=== PATIENT | female | born 1960 | race Caucasian/White ===

== ENCOUNTER 2018-07-30 10:57 | Inpatient (IN) | payer BC ==
[2018-07-30] MEDS ORDERED: FENTANYL CITRATE INJ/PF 100 MCG/2 ML AMPUL IV ONE (11:18)
[2018-07-30] MEDS ORDERED: NORMAL SALINE 1000 ML 1,000 ML IV ONE ×3 (11:18→23:15)
[2018-07-30] MEDS ORDERED: ONDANSETRON HCL INJ/PF 4 MG/2 ML SDV IV ONE (11:18)
--- NOTE | 2018-07-30 11:21 | ER Document Report ---
ED Medical Screen (RME) - General Chief Complaint: Fever Stated Complaint: COLITUS Time Seen by Provider: 07/30/18 11:18 Notes: 58 years old female presents today with left-sided abdominal pain. Recently she had a CT done which showed diffuse colitis involving the entire left side of the colon and sigmoid colon. Denies any fever chills nausea vomiting. History of psoriasis Examination left abdominal tenderness TRAVEL OUTSIDE OF THE [place] IN LAST 30 DAYS: No - Related Data Allergies/Adverse Reactions: latex [Latex] Allergy (Verified 07/30/18 11:00) itching nickel [Nickel] Allergy (Verified 07/30/18 11:00) ITCHY RASH sulfamethoxazole [From Bactrim] Allergy (Verified 07/30/18 11:00) red rash trimethoprim [From Bactrim] Allergy (Verified 07/30/18 11:00) red rash MERCURY Allergy (Uncoded 07/30/18 11:00) ITCHY RASH Past Medical History - Social History Chew tobacco use (# tins/day): No Frequency of alcohol use: None Drug Abuse: None - Past Medical History Cardiac Medical History: Denies: Hx Coronary Artery Disease, Hx Heart Attack, Hx Hypertension Pulmonary Medical History: Denies: Hx Asthma, Hx Bronchitis, Hx COPD, Hx Pneumonia Neurological Medical History: Denies: Hx Cerebrovascular Accident, Hx Seizures Renal/ Medical History: Denies: Hx Peritoneal Dialysis GI Medical History: Denies: Hx Hepatitis, Hx Hiatal Hernia, Hx Ulcer Musculoskeltal Medical History: Reports Hx Arthritis - hands/FEET, Reports Hx Musculoskeletal Trauma - Right knee fracture 10 years ago Psychiatric Medical History: Reports: Hx Depression Infectious Medical History: Denies: Hx Hepatitis Past Surgical History: Reports: Hx Cholecystectomy, Hx Hysterectomy, Hx Orthopedic Surgery - left thumb. Denies: Hx Mastectomy, Hx Open Heart Surgery - Immunizations Hx Diphtheria, Pertussis, Tetanus Vaccination: Yes Physical Exam - Vital signs Vitals: Temp Pulse Resp BP Pulse Ox 99.5 F 108 H 18 151/70 H 96 07/30/18 11:04 07/30/18 11:04 07/30/18 11:04 07/30/18 11:04 07/30/18 11:04 Course - Vital Signs Vital signs: Temp Pulse Resp BP Pulse Ox 99.5 F 108 H 18 151/70 H 96 07/30/18 11:04 07/30/18 11:04 07/30/18 11:04 07/30/18 11:04 07/30/18 11:04 Doctor's Discharge - Discharge Referrals: PAULETTE DURAN, [employer] WORK SUPERVISOR-[employer] [Primary Care Provider] - Follow up as needed
[2018-07-30 12:00] LABS: ABSOLUTE BASOPHILS # (AUTO) 0.1 10^3/uL (0.0-0.2); ABSOLUTE LYMPHOCYTES (AUTO) 1.4 10^3/uL (0.5-4.7); ABSOLUTE MONOCYTES (AUTO) 1.2 10^3/uL (0.1-1.4); ABSOLUTE NEUT (AUTO) 14.4 10^3/uL (1.7-8.2); BASOPHILS % (AUTO) 0.4 % (0-2); EOSINOPHILS % (AUTO) 0.3 % (0-6); HEMATOCRIT 40.2 % (36.0-47.0); HEMOGLOBIN 13.9 g/dL (12.0-15.5); LYMPHOCYTES % (AUTO) 8.3 % (13-45); MEAN CORPUSCULAR HEMOGLOBIN 29.5 pg (27.0-33.4); MEAN CORPUSCULAR HGB CONC 34.5 g/dL (32.0-36.0); MEAN CORPUSCULAR VOLUME 86 fl (80-97); MONOCYTES % (AUTO) 6.8 % (3-13); PLATELET COUNT 524 10^3/uL (150-450); RED BLOOD COUNT 4.71 10^6/uL (3.72-5.28); RED CELL DISTRIBUTION WIDTH 12.5 % (11.5-14.0); SEGMENTED NEUTROPHILS % (AUTO) 84.2 % (42-78); TOTAL CELLS COUNTED % (AUTO) 100 %
[2018-07-30 12:07] LABS: APPEARANCE,URINE CLOUDY; BILIRUBIN,URINE NEGATIVE (NEGATIVE); COLOR,URINE DARK YELLOW; GLUCOSE, URINE NEGATIVE (NEGATIVE); KETONES,URINE NEGATIVE (NEGATIVE); LEUKOCYTE ESTERASE,URINE SMALL (NEGATIVE); NITRITE,URINE NEGATIVE (NEGATIVE); PROTEIN,URINE 100 mg/dL (NEGATIVE); URINE SPECIFIC GRAVITY 1.021
[2018-07-30 12:19] LABS: ALANINE AMINOTRANSFERASE 23 U/L (9-52); ALBUMIN 3.5 g/dL (3.5-5.0); ALKALINE PHOSPHATASE 151 U/L (38-126); ANION GAP 14 (5-19); ASPARTATE AMINO TRANSFERASE 27 U/L (14-36); BILIRUBIN,DIRECT 0.3 mg/dL (0.0-0.4); BILIRUBIN,TOTAL 0.7 mg/dL (0.2-1.3); BLOOD UREA NITROGEN 8 mg/dL (7-20); CARBON DIOXIDE 37 mmol/L (22-30); CHLORIDE 89 mmol/L (98-107); GLUCOSE 108 mg/dL (75-110); LIPASE 50.4 U/L (23-300); SODIUM 140.4 mmol/L (137-145)
[2018-07-30] MEDS ORDERED: POTASSI CL 20 MEQ/50 ML RIDER 20 MEQ/50 ML RTUPB IV ONE (12:27)
--- NOTE | 2018-07-30 12:32 | RADIOLOGY REPORT (SQ) ---
EXAM DESCRIPTION: KUB/ABDOMEN (SINGLE VIEW) COMPLETED DATE/TIME: 07/30/2018 12:17 pm REASON FOR STUDY: Abdominal pain COMPARISON: None. NUMBER OF VIEWS: One view. TECHNIQUE: Supine radiographic image of the abdomen acquired. LIMITATIONS: None. FINDINGS: BOWEL GAS PATTERN: High attenuation contents within nondilated ascending and transverse co alvino, probably bismuth or oral contrast. CALCIFICATIONS: No suspicious calcifications. SOFT TISSUES: No gross mass or suggestion of organomegaly. HARDWARE: Clips right upper quadrant. BONES: No bone lesions or fracture. OTHER: No other significant finding. IMPRESSION: NO RADIOGRAPHIC EVIDENCE FOR ACUTE ABDOMINAL DISEASE. Reading location - IP/workstation name: [email or web address]
[2018-07-30] MEDS ORDERED: VANCOMYCIN HCL INJ 1000 MG VIAL IV ONE ×2 (13:17→16:00)
--- NOTE | 2018-07-30 13:30 | ER Document Report ---
ED General - General Chief Complaint: Fever Stated Complaint: ABDOMINAL PAIN Time Seen by Provider: 07/30/18 11:18 TRAVEL OUTSIDE OF THE [place] IN LAST 30 DAYS: No - HPI Notes: Patient is a 58-year-old female that presents to the emergency department for chief complaint of left lower quadrant abdominal pain. Patient referred to ER by PCP for IV antibiotics. Patient has had pain in her left lower quadrant since 07/11/18. She was seen by her primary care doctor and told she had colitis. She has been taking Cipro and Flagyl for the past 2 days with no improvement of her symptoms. She reports that sharp left lower quadrant pain that has been constant since onset. Pain is worse with eating. She denies relieving factors. She reports multiple episodes of diarrhea daily. She denies history of C. difficile or recent antibiotics and admission to the hospital. She has been febrile and took Tylenol just prior to arrival. Past Medical History: Negative Past Surgical History: Colonoscopy Social History: Denies drugs alcohol and tobacco Family History: Reviewed and noncontributory for presenting illness Allergies: Reviewed, see documented allergy list. REVIEW OF SYSTEMS: CONSTITUTIONAL : No fever No chills No diaphoresis No recent illness EENT: No vision changes No congestion No sore throat CARDIOVASCULAR: No chest pain No palpitations RESPIRATORY: No shortness of breath No cough No difficulty breathing GASTROINTESTINAL: abdominal pain nausea No vomiting diarrhea GENITOURINARY: No dysuria No hematuria No difficulty urinating MUSCULOSKELETAL: No back pain No leg pain No arm pain SKIN: No rashes No lesions LYMPHATIC: No swollen, enlarged glands. NEUROLOGICAL: No lightheadedness No headache No weakness No paresthesias PSYCHIATRIC: No anxiety No depression PHYSICAL EXAMINATION: Vital signs reviewed, nursing noted reviewed. GENERAL: Well-appearing, well-nourished and in no acute distress. HEAD: Atraumatic, normocephalic. EYES: Eyes appear normal, extraocular movements intact, sclera anicteric, conjunctiva are normal. ENT: nares patent, oropharynx clear without exudates. Moist mucous membranes. NECK: Normal range of motion, supple without lymphadenopathy LUNGS: Breath sounds clear to auscultation bilaterally and equal. No wheezes rales or rhonchi. HEART: Regular rate and rhythm without murmurs ABDOMEN: Soft, left upper and lower quadrant tenderness, normoactive bowel sounds. No rebound, guarding, or rigidity. No masses appreciated. EXTREMITIES: Nontender, good range of motion, no pitting or edema. NEUROLOGICAL: No focal neurological deficits. Moves all extremities spontaneously Motor and sensory grossly intact on exam. PSYCH: Normal mood, normal affect. SKIN: Warm, Dry, normal turgor, no rashes or lesions noted on exposed skin - Related Data Allergies/Adverse Reactions: latex [Latex] Allergy (Verified 07/30/18 11:00) itching nickel [Nickel] Allergy (Verified 07/30/18 11:00) ITCHY RASH sulfamethoxazole [From Bactrim] Allergy (Verified 07/30/18 11:00) red rash trimethoprim [From Bactrim] Allergy (Verified 07/30/18 11:00) red rash MERCURY Allergy (Uncoded 07/30/18 11:00) ITCHY RASH Past Medical History - Social History Smoking Status: Current Some Day Smoker Chew tobacco use (# tins/day): No Frequency of alcohol use: None Drug Abuse: None Family History: Reviewed & Not Pertinent Patient has suicidal ideation: No Patient has homicidal ideation: No - Past Medical History Cardiac Medical History: Denies: Hx Coronary Artery Disease, Hx Heart Attack, Hx Hypertension Pulmonary Medical History: Denies: Hx Asthma, Hx Bronchitis, Hx COPD, Hx Pneumonia Neurological Medical History: Denies: Hx Cerebrovascular Accident, Hx Seizures Renal/ Medical History: Denies: Hx Peritoneal Dialysis GI Medical History: Denies: Hx Hepatitis, Hx Hiatal Hernia, Hx Ulcer Musculoskeletal Medical History: Reports Hx Arthritis - hands/FEET, Reports Hx Musculoskeletal Trauma - Right knee fracture 10 years ago Psychiatric Medical History: Reports: Hx Depression Infectious Medical History: Denies: Hx Hepatitis Past Surgical History: Reports: Hx Cholecystectomy, Hx Hysterectomy, Hx Orthopedic Surgery - left thumb. Denies: Hx Mastectomy, Hx Open Heart Surgery - Immunizations Hx Diphtheria, Pertussis, Tetanus Vaccination: Yes Review of Systems - Review of Systems Notes: Dictated Physical Exam - Vital signs Vitals: Temp Pulse Resp BP Pulse Ox 99.5 F 108 H 18 151/70 H 96 07/30/18 11:04 07/30/18 11:04 07/30/18 11:04 07/30/18 11:04 07/30/18 11:04 - Notes Notes: Dictated Course - Re-evaluation Re-evalutation: 07/30/18 13:29 Vitals reviewed. Nursing notes reviewed. I reviewed patient's CT scan that she had obtained as an outpatient. It showed a significant pancolitis on her left side. She is failing outpatient management. Patient is meeting sepsis criteria. Blood cultures were obtained. She was given a dose of vancomycin. She was started on IV hydration. potassium replaced. KUB shows no free air or perforation. Patient will be admitted to the hospital for further management. She is in agreement with this plan and stable at time of admission. Laboratory 07/30/18 07/30/18 07/30/18 11:45 11:45 11:45 WBC 17.0 H RBC 4.71 Hgb 13.9 Hct 40.2 MCV 86 MCH 29.5 MCHC 34.5 RDW 12.5 Plt Count 524 H Seg Neutrophils % 84.2 H Lymphocytes % 8.3 L Monocytes % 6.8 Eosinophils % 0.3 Basophils % 0.4 Absolute Neutrophils 14.4 H Absolute Lymphocytes 1.4 Absolute Monocytes 1.2 Absolute Eosinophils 0.0 Absolute Basophils 0.1 Sodium 140.4 Potassium 3.0 L* Chloride 89 L Carbon Dioxide 37 H Anion Gap 14 BUN 8 Creatinine 0.43 L Est GFR ( Amer) > 60 Est GFR (Non-Af Amer) > 60 Glucose 108 Calcium 9.0 Total Bilirubin 0.7 Direct Bilirubin 0.3 Neonat Total Bilirubin Not Reportable Neonat Direct Bilirubin Not Reportable Neonat Indirect Bili Not Reportable AST 27 ALT 23 Alkaline Phosphatase 151 H Total Protein 7.0 Albumin 3.5 Lipase 50.4 Urine Color DARK YELLOW Urine Appearance CLOUDY Urine pH 5.0 Ur Specific [place] 1.021 Urine Protein 100 H Urine Glucose (UA) NEGATIVE Urine Ketones NEGATIVE Urine Blood NEGATIVE Urine Nitrite NEGATIVE Urine Bilirubin NEGATIVE Urine Urobilinogen 4.0 H Ur Leukocyte Esterase SMALL H Urine WBC (Auto) 27 Urine RBC (Auto) 18 U Hyaline Cast (Auto) 2 Urine Bacteria (Auto) 2+ Squamous Epi Cells Auto 43 Urine Mucus (Auto) MANY Urine Ascorbic Acid NEGATIVE KUB X-Ray 07/30/18 11:18 IMPRESSION: NO RADIOGRAPHIC EVIDENCE FOR ACUTE ABDOMINAL DISEASE. 07/30/18 14:[address] Thompson who accepted admission. Case discussed with Dr. Casiano, surgery, who states he is available for colonoscopy if needed - Vital Signs Vital signs: Temp Pulse Resp BP Pulse Ox 99.5 F 108 H 18 151/70 H 96 07/30/18 11:04 07/30/18 11:04 07/30/18 11:04 07/30/18 11:04 07/30/18 11:04 - Laboratory Result Diagrams: 07/30/18 11:45 07/30/18 11:45 Laboratory results interpreted by me: 07/30/18 07/30/18 07/30/18 11:45 11:45 11:45 WBC 17.0 H Plt Count 524 H Seg Neutrophils % 84.2 H Lymphocytes % 8.3 L Absolute Neutrophils 14.4 H Potassium 3.0 L* Chloride 89 L Carbon Dioxide 37 H Creatinine 0.43 L Alkaline Phosphatase 151 H Urine Protein 100 H Urine Urobilinogen 4.0 H Ur Leukocyte Esterase SMALL H Discharge - Discharge Clinical Impression: Colitis, Hypokalemia Sepsis Qualifiers: Sepsis type: sepsis due to unspecified organism Qualified Code(s): A41.9 - Sepsis, unspecified organism Condition: Stable Disposition: ADMITTED INPATIENT Admitting Provider: Hospitalist Unit Admitted: Telemetry Referrals: PAULETTE DURAN, PACK TRAIN DRIVER-NIMA [NO LOCAL MD] - Follow up as needed
[2018-07-30] MEDS ORDERED: PIPERACILLIN/TAZOBACTAM 3.375 GM VIAL IV SCH (15:00)
[2018-07-30 15:39] LABS: LIPASE 50.9 U/L (23-300)
--- NOTE | 2018-07-30 16:12 | PDOC H&P ---
History of Present Illness Admission Date/PCP: 07/30/18 14:50 OH SCHULTZ DO Patient complains of: Abdominal pain and diarrhea History of Present Illness: PAULETTE HARO is a 58 year old female who presents to the emergency room due to acute onset of abdominal pain and bloody diarrhea. Patient's problems started around July 11 after she received a prescription of doxycycline from her procurement representative for psoriasis treatment. She started having progressive lower abdominal pain associated with bloody diarrhea. She had a CT scan done last week by her primary care physician that was positive for colitis in the left descending and sigmoid colon up to splenic flexure and may be extending to the rectum. She was treated with oral antibiotics started by 3 days ago but without any improvement. She was seen by her primary care physician today and was referred to the emergency room. She had history of diverticulosis and colonic polyps and had a colonoscopy about 2 years ago. Past Medical History Cardiac Medical History: Denies: Coronary Artery Disease, Myocardial Infarction, Hypertension Pulmonary Medical History: Denies: Asthma, Bronchitis, Chronic Obstructive Pulmonary Disease (COPD), Pneumonia Neurological Medical History: Denies: Seizures GI Medical History: Denies: Hepatitis, Hiatal Hernia Musculoskeltal Medical History: Reports: Arthritis - hands/FEET Skin Medical History: Reports: Psoriasis Psychiatric Medical History: Reports: Depression Hematology: Denies: Anemia, Sickle Cell Disease Past Surgical History Past Surgical History: Reports: Cholecystectomy, Hysterectomy, Orthopedic Surgery - left thumb Denies: Amputation, Mastectomy Social History Smoking Status: Current Some Day Smoker Family History Family History: Reviewed & Not Pertinent Parental Family History Reviewed: Yes Children Family History Reviewed: Yes Sibling(s) Family History Reviewed.: Yes Medication/Allergy Home Medications: Fluoxetine HCl [Prozac] 40 mg PO QAM 07/30/18 Gabapentin [Neurontin 300 mg Capsule] 300 mg PO QPM 07/30/18 Allergies/Adverse Reactions: latex [Latex] Allergy (Verified 07/30/18 11:00) itching nickel [Nickel] Allergy (Verified 07/30/18 11:00) ITCHY RASH sulfamethoxazole [From Bactrim] Allergy (Verified 07/30/18 11:00) red rash trimethoprim [From Bactrim] Allergy (Verified 07/30/18 11:00) red rash MERCURY Allergy (Uncoded 07/30/18 11:00) ITCHY RASH Review of Systems All systems: reviewed and no additional remarkable complaints except as stated Physical Exam Vital Signs: Temp Pulse Resp BP Pulse Ox 99.5 F 108 H 18 151/70 H 96 07/30/18 11:04 07/30/18 11:04 07/30/18 11:04 07/30/18 11:04 07/30/18 11:04 Intake & Output 07/29/18 07/30/18 07/31/18 06:59 06:59 06:59 Intake Total 1050 Balance 1050 General appearance: PRESENT: no acute distress, cooperative, obese Head exam: PRESENT: atraumatic, normocephalic Eye exam: PRESENT: EOMI. ABSENT: conjunctival injection Ear exam: ABSENT: bleeding, drainage Mouth exam: PRESENT: neck supple, tongue midline Throat exam: ABSENT: post pharyngeal erythema Neck exam: ABSENT: JVD, meningismus, tenderness, tracheostomy Respiratory exam: PRESENT: clear to auscultation godwin. ABSENT: accessory muscle use Cardiovascular exam: PRESENT: RRR. ABSENT: diastolic murmur, systolic murmur Pulses: PRESENT: normal radial pulses GI/Abdominal exam: PRESENT: normal bowel sounds, soft, tenderness. ABSENT: ascites Rectal exam: PRESENT: deferred Extremities exam: ABSENT: joint swelling, pedal edema Musculoskeletal exam: ABSENT: normal inspection, tenderness Neurological exam: PRESENT: alert, altered, awake, oriented to person, oriented to place, oriented to time, oriented to situation Psychiatric exam: PRESENT: anxious. ABSENT: agitated, homicidal ideation, suicidal ideation Results Impressions: KUB X-Ray 07/30/18 11:18 IMPRESSION: NO RADIOGRAPHIC EVIDENCE FOR ACUTE ABDOMINAL DISEASE. Assessment & Plan - Diagnosis (1) Colitis Is this a current diagnosis for this admission?: Yes Plan: Patient failed outpatient treatment We will get CT scan with oral and IV contrast Will allow for ice chips only We will start IV Zosyn and p.o. vancomycin Check for C. difficile and check stool culture Consult surgery for possible colonoscopy (2) Hypokalemia Is this a current diagnosis for this admission?: Yes Plan: Received supplements in the emergency room Monitor potassium levels (3) Depression Is this a current diagnosis for this admission?: Yes Plan: Continue Prozac and gabapentin
[2018-07-30] MEDS ORDERED: PIPERACILLIN SODIUM/TAZOBACTAM 3.375 GM in NORMAL SALINE 100 ML IV SCH (18:00)
[2018-07-30] MEDS ORDERED: VANCOMYCIN HCL INJ 500 MG VIAL PO SCH (18:00)
--- NOTE | 2018-07-30 18:09 | RADIOLOGY REPORT (SQ) ---
EXAM DESCRIPTION: CT ABD/PELVIS WITH IV ORAL COMPLETED DATE/TIME: 07/30/2018 5:52 pm REASON FOR STUDY: abdominal pain COMPARISON: None. TECHNIQUE: CT scan of the abdomen and pelvis performed using helical scanning technique with dynamic intravenous contrast injection and oral contrast. Images reviewed with lung, soft tissue, and bone w indows. Reconstructed coronal and sagittal MPR images reviewed. Delayed images for evaluation of the urinary system also acquired. All images stored on PACS. All CT scanners at this facility use dose modulation, iterative reconstruction, and/or weight based d osing when appropriate to reduce radiation dose to as low as reasonably achievable (ALARA). [facility]: Dose Right [facility]: CareDose [facility]: Dose Right [facility]: Teradose 4D [facility]: Sionex CONTRAST TYPE AND DOSE: contrast/concentration: Isovue 350.00 mg/ml; Total Contrast Delivered: 99.0 ml; Total Saline Delivered: 72.0 ml RENAL FUNCTION: GFR > 60. RADIATION DOSE: CT Rad equipment meets quality standard of care and radiation dose reduction techniq ues were employed. CTDIvol: 16.2 - 19.5 mGy. DLP: 2068 mGy-cm.. LIMITATIONS: None. FINDINGS: LOWER CHEST: Mild bibasilar subsegmental atelectasis-subpleural scarring. Small lymph nod es in the right cardiophrenic angle. LIVER: Normal size. No enhancing masses. No dilated ducts. SPLEEN: Normal size. No focal lesions. PANCREAS: No masses identified. No significant calcifications. No adjacent inflammation or peripancre atic fluid collections. Pancreatic duct not dilated. GALLBLADDER: Surgically absent. ADRENAL GLANDS: No significant masses. RIGHT KIDNEY AND URETER: No cysts identified. No solid masses identified. No calcified stones. No hyd ronephrosis or hydroureter. LEFT KIDNEY AND URETER: No cysts identified. No solid masses identified. No calcified stones. No hydr onephrosis or hydroureter. AORTA AND VESSELS: No aneurysm. No dissection. Renal arteries, SMA, celiac without significant stenos is. RETROPERITONEUM: Scattered small retroperitoneal lymph nodes. BOWEL AND PERITONEAL CAVITY: Mild wall thickening in the descending and rectosigmoid colon with mild adjacent inflammatory changes and adjacent small adenopathy. Trace free fluid. No evidence for obs truction. APPENDIX: Normal. PELVIS: No mass. No free fluid. Unremarkable bladder. ABDOMINAL WALL: No masses. No hernias. BONES: No acute findings. OTHER: No other significant finding. IMPRESSION: Mild wall thickening in the descending and rectosigmoid colon with mild adjacent inflamm atory changes and adjacent small adenopathy, differential includes acute infectious process versus in flammatory bowel disease. Trace free fluid. No evidence for obstruction. TECHNICAL DOCUMENTATION: JOB ID: [id number] [id number] Quality ID # [id number]: Final reports with documentation of one or more dose reduction techniques (e.g., Au tomated exposure control, adjustment of the mA and/or kV according to patient size, use of iterative reconstruction technique) 2010 [employer]- All Rights Reserved Reading location - IP/workstation name: [employer]
[2018-07-30] MEDS: FAMOTIDINE INJ/PF 20 MG/2 ML SDV IV SCH ×2 (18:55→21:56)
[2018-07-30] MEDS: GABAPENTIN 300 MG CAPSULE PO SCH (18:58)
--- NOTE | 2018-07-30 20:44 | PDOC CONSULTATION ---
History of Present Illness Admission Date/PCP: 07/30/18 14:50 OH SCHULTZ DO Patient complains of: Abdominal pain and diarrhea History of Present Illness: PAULETTE HARO is a 58 year old female in usual state of excellent health until about 3 weeks ago when she was started on antibiotics for an ear infection. About 3 days after starting the antibiotic she developed bloody diarrhea along with left lower quadrant abdominal pain. The pain in the bloody diarrhea has been persistent for the past 2-1/2 weeks. She was seen by a primary care physician and was placed on Cipro and Flagyl 3 days ago and since starting these 2 antibiotics her abdominal pain has decreased although her bloody diarrhea has continued. She has developed low-grade fevers as well as anorexia with resultant weight loss. She denies any prior history of gastrointestinal problems. There is no family history of gastrointestinal problems, specifically no family history of inflammatory bowel disease. She had a colonoscopy done 2 years ago which was only noteworthy for diverticulosis and incidental polyp. She does suffer from psoriatic arthritis but she is not on any steroids. She is on gabapentin. No stool studies have been performed on her yet. She has no history of hypertension nor diabetes but she is a longtime smoker. No known history of peripheral vascular disease Past Medical History Cardiac Medical History: Reports: None Denies: Coronary Artery Disease, Myocardial Infarction, Hypertension Pulmonary Medical History: Reports: None Denies: Asthma, Bronchitis, Chronic Obstructive Pulmonary Disease (COPD), Pneumonia EENT Medical History: Reports: Ears - Ear infection 3 weeks ago. Neurological Medical History: Reports: None Denies: Seizures Endocrine Medical History: Reports: None Renal/ Medical History: Reports: None Malignancy Medical History: Reports: None GI Medical History: Reports: Other - See history of presenting illness. Denies: Hepatitis, Hiatal Hernia Musculoskeltal Medical History: Reports: Arthritis - hands/FEET Skin Medical History: Reports: Psoriasis Psychiatric Medical History: Reports: Depression Hematology: Denies: Anemia, Sickle Cell Disease Past Surgical History Past Surgical History: Reports: Cholecystectomy, Hysterectomy, Orthopedic Surgery - left thumb Denies: Amputation, Mastectomy Social History Smoking Status: Current Every Day Smoker Frequency of Alcohol Use: None Drugs: None - Advance Directive Resuscitation Status: Full Code Family History Family History: Reviewed & Not Pertinent Parental Family History Reviewed: Yes Children Family History Reviewed: Yes Sibling(s) Family History Reviewed.: Yes Medication/Allergy Home Medications: Fluoxetine HCl [Prozac] 40 mg PO QAM 07/30/18 Gabapentin [Neurontin 300 mg Capsule] 300 mg PO QPM 07/30/18 Allergies/Adverse Reactions: latex [Latex] Allergy (Verified 07/30/18 11:00) itching nickel [Nickel] Allergy (Verified 07/30/18 11:00) ITCHY RASH sulfamethoxazole [From Bactrim] Allergy (Verified 07/30/18 11:00) red rash trimethoprim [From Bactrim] Allergy (Verified 07/30/18 11:00) red rash MERCURY Allergy (Uncoded 07/30/18 11:00) ITCHY RASH Review of Systems All systems: reviewed and no additional remarkable complaints except as stated Constitutional: PRESENT: anorexia, fever(s) Ears: PRESENT: as per HPI Allergic/Immunologic: PRESENT: other - Allergic to Bactrim and mercury and nickel Physical Exam Vital Signs: Temp Pulse Resp BP Pulse Ox 99.8 F 86 16 138/51 H 95 07/30/18 19:15 07/30/18 19:15 07/30/18 19:15 07/30/18 19:15 07/30/18 19:15 Intake & Output 07/29/18 07/30/18 07/31/18 06:59 06:59 06:59 Intake Total 1050 Balance 1050 General appearance: PRESENT: no acute distress, cooperative Eye exam: PRESENT: conjunctiva pink Neck exam: PRESENT: other - Neck supple with no masses and no tenderness Respiratory exam: PRESENT: clear to auscultation godwin Cardiovascular exam: PRESENT: RRR Pulses: PRESENT: +2 pedal pulses bilateral GI/Abdominal exam: PRESENT: other - Soft, nondistended, mild tenderness at the left lower and the left lateral mid abdomen without peritoneal signs. Extremities exam: PRESENT: other - No swelling. No splinter hemorrhages. Neurological exam: PRESENT: alert, awake Psychiatric exam: PRESENT: appropriate affect Skin exam: PRESENT: warm Results Laboratory Results: 07/30/18 17:30 Lactic Acid 1.1 Impressions: Abdomen/Pelvis CT 07/30/18 00:00 IMPRESSION: Mild wall thickening in the descending and rectosigmoid colon with mild adjacent inflammatory changes and adjacent small adenopathy, differential includes acute infectious process versus inflammatory bowel disease. Trace free fluid. No evidence for obstruction. KUB X-Ray 07/30/18 11:18 IMPRESSION: NO RADIOGRAPHIC EVIDENCE FOR ACUTE ABDOMINAL DISEASE. Assessment & Plan - Diagnosis (1) Colitis Is this a current diagnosis for this admission?: Yes Plan: Of unclear etiology. C. difficile colitis is certainly in the differential diagnosis. Await stool studies. We will plan colonoscopy tomorrow. Patient has been having persistent diarrhea with no solid bowel movements for days now and she would prefer not to undergo a prep and I believe we would get sufficient visualization without a prep. I have discussed with the patient the risk and benefits of the procedure including risk of colon injury and bleeding.
[2018-07-30] MEDS ORDERED: POTASSI CL 20 MEQ/50 ML RIDER 20 MEQ/50 ML RTUPB IV SCH (20:45)
[2018-07-30] MEDS: RINGERS SOLUTION,LACTATED 1,000 ML IV PRN (21:56)
[2018-07-30] MEDS: PIPERACILLIN SODIUM/TAZOBACTAM 3.375 GM in NORMAL SALINE 100 ML IV SCH (22:18)
[2018-07-30] MEDS: VANCOMYCIN HCL INJ 500 MG VIAL PO SCH (22:18)
[2018-07-31] MEDS ORDERED: POTASSI CL 20 MEQ/50 ML RIDER 20 MEQ/50 ML RTUPB IV SCH
[2018-07-31] MEDS ORDERED: NORMAL SALINE 1000 ML 1,000 ML IV ONE (00:15)
[2018-07-31] MEDS: VANCOMYCIN HCL INJ 500 MG VIAL PO SCH ×2 (03:18→10:47)
[2018-07-31] MEDS: PIPERACILLIN SODIUM/TAZOBACTAM 3.375 GM in NORMAL SALINE 100 ML IV SCH ×4 (03:18→21:17)
[2018-07-31 07:09] LABS: ABSOLUTE BASOPHILS # (AUTO) 0.1 10^3/uL (0.0-0.2); ABSOLUTE LYMPHOCYTES (AUTO) 1.1 10^3/uL (0.5-4.7); ABSOLUTE MONOCYTES (AUTO) 1.1 10^3/uL (0.1-1.4); ABSOLUTE NEUT (AUTO) 11.5 10^3/uL (1.7-8.2); BASOPHILS % (AUTO) 0.4 % (0-2); EOSINOPHILS % (AUTO) 0.2 % (0-6); HEMATOCRIT 33.7 % (36.0-47.0); LYMPHOCYTES % (AUTO) 7.7 % (13-45); MEAN CORPUSCULAR HEMOGLOBIN 29.6 pg (27.0-33.4); MEAN CORPUSCULAR HGB CONC 34.5 g/dL (32.0-36.0); MEAN CORPUSCULAR VOLUME 86 fl (80-97); MONOCYTES % (AUTO) 7.9 % (3-13); PLATELET COUNT 403 10^3/uL (150-450); RED BLOOD COUNT 3.93 10^6/uL (3.72-5.28); RED CELL DISTRIBUTION WIDTH 12.5 % (11.5-14.0); SEGMENTED NEUTROPHILS % (AUTO) 83.8 % (42-78); TOTAL CELLS COUNTED % (AUTO) 100 %; WHITE BLOOD COUNT 13.8 10^3/uL (4.0-10.5)
[2018-07-31 07:10] LABS: HEMOGLOBIN 11.6 g/dL (12.0-15.5)
[2018-07-31 07:25] LABS: ANION GAP 10 (5-19); BLOOD UREA NITROGEN 6 mg/dL (7-20); CALCIUM 7.9 mg/dL (8.4-10.2); CARBON DIOXIDE 33 mmol/L (22-30); CHLORIDE 97 mmol/L (98-107); GLUCOSE 97 mg/dL (75-110); SODIUM 140.2 mmol/L (137-145)
[2018-07-31 07:31] LABS: POTASSIUM 2.9 mmol/L (3.6-5.0)
[2018-07-31] MEDS: POTASSIUM CHLORIDE 20 MEQ/50 ML RTU IV SCH ×3 (08:17→16:33)
[2018-07-31] MEDS ORDERED: ONDANSETRON HCL INJ/PF 4 MG/2 ML SDV ONE (08:25)
[2018-07-31] MEDS ORDERED: NALOXONE HCL INJ/PF 0.4 MG/1 ML SDV ONE (08:26)
[2018-07-31] MEDS ORDERED: GLUCAGON,HUMAN RECOMB 1 MG INJ ONE (08:26)
[2018-07-31] MEDS ORDERED: EPINEPHRINE INJ 1 MG/10 ML DISP.SYRIN ONE (08:26)
[2018-07-31] MEDS ORDERED: FLUMAZENIL INJ 0.5 MG/5 ML VIAL ONE (08:26)
[2018-07-31] MEDS: FLUOXETINE HCL 20 MG CAPSULE PO SCH (08:46)
[2018-07-31] MEDS: ENOXAPARIN SODIUM INJ 40 MG/0.4 ML DISP.SYRIN SUBCUT SCH (09:18)
[2018-07-31] MEDS: MIDAZOLAM 2 MG/2 ML INJ ONE ×5 (10:14→10:29)
[2018-07-31] MEDS: FENTANYL CITRATE INJ/PF 100 MCG/2 ML AMPUL ONE ×3 (10:16→10:22)
--- NOTE | 2018-07-31 11:02 | Operative Report ---
Operative Report DATE OF SURGERY: 07/31/18 PREOPERATIVE DIAGNOSIS: Severe colitis left colon POSTOPERATIVE DIAGNOSIS: Severe acute hemorrhagic colitis left colon. Thrombosed left lateral external hemorrhoid OPERATION: Flexible sigmoidoscopy to 30 cm from the anal verge; cold mucosa biopsy sigmoid colon SURGEON: MAUREEN MITCHELL ANESTHESIA: Moderate Sedation TISSUE REMOVED OR ALTERED: bx COMPLICATIONS: none ESTIMATED BLOOD LOSS: scant INTRAOPERATIVE FINDINGS: see below PROCEDURE: Patient was taken to the preop holding area to the main endoscopy suite fifth floor conscious sedation was induced. Patient placed in left lateral decubitus position. Surgical plan surgical timeout conducted. Rectal exam revealed multiple external hemorrhoids, edematous. In the left lateral position was a partially thrombosed external hemorrhoid with mildly excoriated overlying skin. Rectal exam revealed no palpable pathology in the anorectal canal. The flexible pediatric colonoscope was advanced to the anorectal canal to approximately 30 cm from the anal verge. The findings were significant for diffuse, hemorrhagic, edematous, circumferential colitis. Because of the friability of the tissue, and patient discomfort, I did not advance the scope through the narrowed lumen of the sigmoid colon. Cold forceps biopsy was obtained from the rectosigmoid area at approximately 25 cm. Bleeding was minimal. Specimen was sent for permanent analysis. Scope was withdrawn for the patient's anal rectal canal. She tolerated procedure well. Recommendations: 1. Supportive therapy, replace potassium, consider truncating antibiotics 2. Clostridium difficile titers negative ; I do not believe this is ischemic colitis 3. We will sign off at this time. Reconsult if necessary.
--- NOTE | 2018-07-31 11:37 | PDOC PROGRESS REPORT ---
Subjective Progress Note for:: 07/31/18 Subjective:: I saw the patient before she had a colonoscopy. She was tolerating ice chips with no vomiting. She continued to have diarrhea. She is afebrile and white count improved. C. difficile testing is negative. Colonoscopy was done later and I discussed with Dr. Singh, apparently she had hemorrhagic edematous circumferential colitis. Reason For Visit: ABDOMINAL PAIN Physical Exam Vital Signs: Temp Pulse Resp BP Pulse Ox 98.8 F 90 16 136/73 H 92 07/31/18 08:56 07/31/18 10:55 07/31/18 10:55 07/31/18 10:55 07/31/18 10:55 Intake & Output 07/30/18 07/31/18 08/01/18 06:59 06:59 06:59 Intake Total 3805 585 Balance 3805 585 Weight 202 lb 6.15 oz General appearance: PRESENT: no acute distress, cooperative, obese Head exam: PRESENT: atraumatic, normocephalic Eye exam: PRESENT: EOMI, PERRLA. ABSENT: scleral icterus Ear exam: ABSENT: bleeding, drainage Mouth exam: PRESENT: neck supple, tongue midline Neck exam: ABSENT: meningismus, tenderness, tracheostomy Respiratory exam: PRESENT: clear to auscultation godwin. ABSENT: accessory muscle use Cardiovascular exam: PRESENT: RRR. ABSENT: diastolic murmur, systolic murmur Pulses: PRESENT: normal radial pulses GI/Abdominal exam: PRESENT: normal bowel sounds, soft, tenderness. ABSENT: ascites Rectal exam: PRESENT: deferred Neurological exam: PRESENT: alert, altered, awake, oriented to person, oriented to place, oriented to time, oriented to situation Psychiatric exam: PRESENT: anxious. ABSENT: agitated, homicidal ideation, suicidal ideation Skin exam: PRESENT: dry, normal color. ABSENT: abrasion, erythema Results Laboratory Results: 07/31/18 06:23 07/31/18 06:23 07/30/18 07/31/18 07/31/18 17:30 06:23 06:23 WBC 13.8 H RBC 3.93 Hgb 11.6 L D Hct 33.7 L MCV 86 MCH 29.6 MCHC 34.5 RDW 12.5 Plt Count 403 Seg Neutrophils % 83.8 H Lymphocytes % 7.7 L Monocytes % 7.9 Eosinophils % 0.2 Basophils % 0.4 Absolute Neutrophils 11.5 H Absolute Lymphocytes 1.1 Absolute Monocytes 1.1 Absolute Eosinophils 0.0 Absolute Basophils 0.1 Sodium 140.2 Potassium 2.9 L* Chloride 97 L Carbon Dioxide 33 H Anion Gap 10 BUN 6 L Creatinine 0.54 Est GFR ( Amer) > 60 Est GFR (Non-Af Amer) > 60 Glucose 97 Lactic Acid 1.1 Calcium 7.9 L Magnesium 1.7 Impressions: Abdomen/Pelvis CT 07/30/18 00:00 IMPRESSION: Mild wall thickening in the descending and rectosigmoid colon with mild adjacent inflammatory changes and adjacent small adenopathy, differential includes acute infectious process versus inflammatory bowel disease. Trace free fluid. No evidence for obstruction. KUB X-Ray 07/30/18 11:18 IMPRESSION: NO RADIOGRAPHIC EVIDENCE FOR ACUTE ABDOMINAL DISEASE. Assessment & Plan - Diagnosis (1) Colitis Is this a current diagnosis for this admission?: Yes Plan: Patient failed outpatient treatment Reviewed CT scan with oral and IV contrast Colonoscopy report shows severe hemorrhagic edematous circumferential colitis We will try clear liquids today Continue IV Zosyn and stop p.o. vancomycin since C. difficile test is negative and no pseudomembranous colitis Follow stool culture (2) Hypokalemia Is this a current diagnosis for this admission?: Yes Plan: Continue to replace and monitor potassium levels (3) Depression Is this a current diagnosis for this admission?: Yes Plan: Continue Prozac and gabapentin
[2018-07-31] MEDS: FAMOTIDINE INJ/PF 20 MG/2 ML SDV IV SCH ×2 (11:50→21:17)
[2018-07-31] MEDS ORDERED: POTASSI CL 20 MEQ/50 ML RIDER 20 MEQ/50 ML RTUPB IV ONE (16:31)
[2018-07-31] MEDS: GABAPENTIN 300 MG CAPSULE PO SCH (18:17)
[2018-07-31] MEDS: RINGERS SOLUTION,LACTATED 1,000 ML IV PRN (18:58)
[2018-08-01] MEDS: RINGERS SOLUTION,LACTATED 1,000 ML IV PRN (02:53)
[2018-08-01] MEDS: PIPERACILLIN SODIUM/TAZOBACTAM 3.375 GM in NORMAL SALINE 100 ML IV SCH ×4 (02:53→20:06)
[2018-08-01 06:44] LABS: ABSOLUTE LYMPHOCYTES (AUTO) 1.5 10^3/uL (0.5-4.7); ABSOLUTE NEUT (AUTO) 11.9 10^3/uL (1.7-8.2); BASOPHILS % (AUTO) 0.2 % (0-2); EOSINOPHILS % (AUTO) 0.3 % (0-6); HEMATOCRIT 33.1 % (36.0-47.0); HEMOGLOBIN 11.3 g/dL (12.0-15.5); LYMPHOCYTES % (AUTO) 10.3 % (13-45); MEAN CORPUSCULAR HEMOGLOBIN 29.4 pg (27.0-33.4); MEAN CORPUSCULAR VOLUME 86 fl (80-97); MONOCYTES % (AUTO) 6.6 % (3-13); PLATELET COUNT 429 10^3/uL (150-450); RED BLOOD COUNT 3.84 10^6/uL (3.72-5.28); RED CELL DISTRIBUTION WIDTH 12.4 % (11.5-14.0); SEGMENTED NEUTROPHILS % (AUTO) 82.6 % (42-78); TOTAL CELLS COUNTED % (AUTO) 100 %; WHITE BLOOD COUNT 14.4 10^3/uL (4.0-10.5)
[2018-08-01 07:40] LABS: ANION GAP 12 (5-19); BLOOD UREA NITROGEN 7 mg/dL (7-20); CALCIUM 8.2 mg/dL (8.4-10.2); CARBON DIOXIDE 29 mmol/L (22-30); CHLORIDE 100 mmol/L (98-107); GLUCOSE 77 mg/dL (75-110); POTASSIUM 3.8 mmol/L (3.6-5.0)
[2018-08-01] MEDS: FLUOXETINE HCL 20 MG CAPSULE PO SCH (08:29)
--- NOTE | 2018-08-01 09:08 | PDOC PROGRESS REPORT ---
Subjective Progress Note for:: 08/01/18 Subjective:: C. difficile testing is negative. Colonoscopy was done yesterday and showed hemorrhagic edematous circumferential colitis. Biopsy was done but results are pending. She is still complaining of frequent watery diarrhea as well as left- sided abdominal pain. She is afebrile but her white count slightly worsened from yesterday. She is tolerating clear liquid diet. Oral vancomycin was stopped yesterday and she is continued on Zosyn. Reason For Visit: ABDOMINAL PAIN Physical Exam Vital Signs: Temp Pulse Resp BP Pulse Ox 98.9 F 81 16 149/75 H 98 08/01/18 08:26 08/01/18 08:26 08/01/18 08:26 08/01/18 08:26 08/01/18 08:26 Intake & Output 07/31/18 08/01/18 08/02/18 06:59 06:59 06:59 Intake Total 3805 2951 Balance 3805 2951 Weight 202 lb 6.15 oz 203 lb 11.314 oz General appearance: PRESENT: no acute distress, cooperative Head exam: PRESENT: atraumatic, normocephalic Eye exam: PRESENT: EOMI, PERRLA Mouth exam: PRESENT: neck supple, tongue midline Neck exam: ABSENT: meningismus, tenderness, thyromegaly, tracheostomy Respiratory exam: PRESENT: clear to auscultation godwin. ABSENT: accessory muscle use Cardiovascular exam: PRESENT: diastolic murmur, RRR, systolic murmur GI/Abdominal exam: PRESENT: normal bowel sounds, soft, tenderness. ABSENT: ascites Neurological exam: PRESENT: alert, altered, awake, oriented to person, oriented to place, oriented to time, oriented to situation Psychiatric exam: PRESENT: appropriate affect. ABSENT: agitated, anxious, homicidal ideation, suicidal ideation Results Laboratory Results: 08/01/18 05:14 08/01/18 05:14 08/01/18 08/01/18 05:14 05:14 WBC 14.4 H RBC 3.84 Hgb 11.3 L Hct 33.1 L MCV 86 MCH 29.4 MCHC 34.0 RDW 12.4 Plt Count 429 Seg Neutrophils % 82.6 H Lymphocytes % 10.3 L Monocytes % 6.6 Eosinophils % 0.3 Basophils % 0.2 Absolute Neutrophils 11.9 H Absolute Lymphocytes 1.5 Absolute Monocytes 1.0 Absolute Eosinophils 0.0 Absolute Basophils 0.0 Sodium 141.0 Potassium 3.8 Chloride 100 Carbon Dioxide 29 Anion Gap 12 BUN 7 Creatinine 0.45 L Est GFR ( Amer) > 60 Est GFR (Non-Af Amer) > 60 Glucose 77 Calcium 8.2 L Impressions: Abdomen/Pelvis CT 07/30/18 00:00 IMPRESSION: Mild wall thickening in the descending and rectosigmoid colon with mild adjacent inflammatory changes and adjacent small adenopathy, differential includes acute infectious process versus inflammatory bowel disease. Trace free fluid. No evidence for obstruction. KUB X-Ray 07/30/18 11:18 IMPRESSION: NO RADIOGRAPHIC EVIDENCE FOR ACUTE ABDOMINAL DISEASE. Assessment & Plan - Diagnosis (1) Colitis Is this a current diagnosis for this admission?: Yes Plan: Patient failed outpatient treatment CT scan with oral and IV contrast was done on admission and showed mild wall thickening of the descending and sigmoid colon with adjacent inflammatory response Colonoscopy report shows severe hemorrhagic edematous circumferential colitis. Biopsy is pending. Continue clear liquid diet Continue IV Zosyn C. difficile test was negative and we stopped p.o. vancomycin yesterday Follow stool culture (2) Hypokalemia Is this a current diagnosis for this admission?: Yes Plan: Improved after replacement Continue to monitor (3) Depression Is this a current diagnosis for this admission?: Yes Plan: Continue Prozac and gabapentin
[2018-08-01] MEDS: FAMOTIDINE INJ/PF 20 MG/2 ML SDV IV SCH ×2 (09:39→21:21)
[2018-08-01] MEDS: ENOXAPARIN SODIUM INJ 40 MG/0.4 ML DISP.SYRIN SUBCUT SCH (09:39)
[2018-08-01] MEDS: GABAPENTIN 300 MG CAPSULE PO SCH (17:39)
[2018-08-01] MEDS: MORPHINE SULFATE 10 MG/ML INJ IV PRN (17:40)
[2018-08-02] MEDS: PIPERACILLIN SODIUM/TAZOBACTAM 3.375 GM in NORMAL SALINE 100 ML IV SCH ×4 (04:38→21:59)
[2018-08-02 06:14] LABS: ABSOLUTE LYMPHOCYTES (AUTO) 1.3 10^3/uL (0.5-4.7); ABSOLUTE MONOCYTES (AUTO) 0.8 10^3/uL (0.1-1.4); ABSOLUTE NEUT (AUTO) 10.4 10^3/uL (1.7-8.2); BASOPHILS % (AUTO) 0.2 % (0-2); EOSINOPHILS % (AUTO) 0.4 % (0-6); HEMATOCRIT 32.5 % (36.0-47.0); HEMOGLOBIN 11.3 g/dL (12.0-15.5); LYMPHOCYTES % (AUTO) 10.5 % (13-45); MEAN CORPUSCULAR HEMOGLOBIN 29.5 pg (27.0-33.4); MEAN CORPUSCULAR HGB CONC 34.8 g/dL (32.0-36.0); MEAN CORPUSCULAR VOLUME 85 fl (80-97); MONOCYTES % (AUTO) 6.3 % (3-13); PLATELET COUNT 422 10^3/uL (150-450); RED BLOOD COUNT 3.83 10^6/uL (3.72-5.28); RED CELL DISTRIBUTION WIDTH 12.6 % (11.5-14.0); SEGMENTED NEUTROPHILS % (AUTO) 82.6 % (42-78); TOTAL CELLS COUNTED % (AUTO) 100 %; WHITE BLOOD COUNT 12.5 10^3/uL (4.0-10.5)
[2018-08-02 06:34] LABS: ANION GAP 11 (5-19); BLOOD UREA NITROGEN 4 mg/dL (7-20); CALCIUM 8.1 mg/dL (8.4-10.2); CARBON DIOXIDE 32 mmol/L (22-30); CHLORIDE 95 mmol/L (98-107); GLUCOSE 94 mg/dL (75-110); SODIUM 138.2 mmol/L (137-145)
[2018-08-02] MEDS: FLUOXETINE HCL 20 MG CAPSULE PO SCH (09:20)
[2018-08-02] MEDS: ENOXAPARIN SODIUM INJ 40 MG/0.4 ML DISP.SYRIN SUBCUT SCH (09:21)
[2018-08-02] MEDS: FAMOTIDINE INJ/PF 20 MG/2 ML SDV IV SCH ×2 (09:21→21:59)
[2018-08-02] MEDS: MORPHINE SULFATE 10 MG/ML INJ IV PRN (09:45)
--- NOTE | 2018-08-02 11:12 | PDOC PROGRESS REPORT ---
Subjective Progress Note for:: 08/02/18 Subjective:: Patient is still complaining of watery diarrhea but actually improved from presentation. She still has some left-sided abdominal pain but this is also better. She is afebrile and her white count is improving. Reason For Visit: ABDOMINAL PAIN Physical Exam Vital Signs: Temp Pulse Resp BP Pulse Ox 98.2 F 75 19 138/58 H 99 08/01/18 23:15 08/01/18 23:15 08/01/18 23:15 08/01/18 23:15 08/01/18 23:15 Intake & Output 08/01/18 08/02/18 08/03/18 06:59 06:59 06:59 Intake Total 2951 2316 Balance 2951 2316 Weight 203 lb 11.314 oz 214 lb 15.211 oz General appearance: PRESENT: no acute distress, cooperative, obese Head exam: PRESENT: atraumatic, normocephalic Eye exam: PRESENT: EOMI, PERRLA Mouth exam: PRESENT: neck supple, tongue midline Neck exam: ABSENT: meningismus, tracheostomy Respiratory exam: PRESENT: clear to auscultation godwin. ABSENT: accessory muscle use Cardiovascular exam: PRESENT: diastolic murmur, RRR, systolic murmur Pulses: PRESENT: normal radial pulses GI/Abdominal exam: PRESENT: normal bowel sounds, soft, tenderness - Left-sided. ABSENT: ascites Rectal exam: PRESENT: deferred Neurological exam: PRESENT: alert, altered, awake, oriented to person, oriented to place, oriented to time, oriented to situation Results Laboratory Results: 08/02/18 05:45 08/02/18 05:45 08/02/18 08/02/18 05:45 05:45 WBC 12.5 H RBC 3.83 Hgb 11.3 L Hct 32.5 L MCV 85 MCH 29.5 MCHC 34.8 RDW 12.6 Plt Count 422 Seg Neutrophils % 82.6 H Lymphocytes % 10.5 L Monocytes % 6.3 Eosinophils % 0.4 Basophils % 0.2 Absolute Neutrophils 10.4 H Absolute Lymphocytes 1.3 Absolute Monocytes 0.8 Absolute Eosinophils 0.0 Absolute Basophils 0.0 Sodium 138.2 Potassium 3.0 L* Chloride 95 L Carbon Dioxide 32 H Anion Gap 11 BUN 4 L Creatinine 0.39 L Est GFR ( Amer) > 60 Est GFR (Non-Af Amer) > 60 Glucose 94 Calcium 8.1 L Magnesium 1.7 07/30/18 21:50 Stool - Stool - Final 07/30/18 21:50 Stool - Stool Stool Culture - Final NO SALMONELLA, SHIGELLA, CAMPYLOBACTER, OR E.COLI 0157 RECOVERED. NEGATIVE FOR SHIGA TOXINS 1&2. Impressions: Abdomen/Pelvis CT 07/30/18 00:00 IMPRESSION: Mild wall thickening in the descending and rectosigmoid colon with mild adjacent inflammatory changes and adjacent small adenopathy, differential includes acute infectious process versus inflammatory bowel disease. Trace free fluid. No evidence for obstruction. KUB X-Ray 07/30/18 11:18 IMPRESSION: NO RADIOGRAPHIC EVIDENCE FOR ACUTE ABDOMINAL DISEASE. Assessment & Plan - Diagnosis (1) Colitis Is this a current diagnosis for this admission?: Yes Plan: Patient failed outpatient treatment CT scan with oral and IV contrast was done on admission and showed mild wall thickening of the descending and sigmoid colon with adjacent inflammatory response Colonoscopy report shows severe hemorrhagic edematous circumferential colitis. Biopsy is pending. Continue clear liquid diet Continue IV Zosyn C. difficile test was negative and we stopped p.o. vancomycin July 31, 2018 Stool culture is negative (2) Hypokalemia Is this a current diagnosis for this admission?: Yes Plan: Replace with IV potassium and monitor levels in the morning Also check magnesium level (3) Depression Is this a current diagnosis for this admission?: Yes Plan: Continue Prozac and gabapentin
[2018-08-02] MEDS ORDERED: ACETAMINOPHEN 325 MG TABLET ONE (11:43)
[2018-08-02] MEDS: POTASSI CL 20 MEQ/50 ML RIDER 20 MEQ/50 ML RTUPB IV SCH ×3 (11:46→18:58)
[2018-08-02] MEDS ORDERED: ACETAMINOPHEN 325 MG TABLET PO PRN (12:21)
[2018-08-02] MEDS: GABAPENTIN 300 MG CAPSULE PO SCH (17:33)
[2018-08-03] MEDS: PIPERACILLIN SODIUM/TAZOBACTAM 3.375 GM in NORMAL SALINE 100 ML IV SCH ×4 (02:38→23:03)
[2018-08-03] MEDS: RINGERS SOLUTION,LACTATED 1,000 ML IV PRN (02:39)
[2018-08-03] MEDS: FLUOXETINE HCL 20 MG CAPSULE PO SCH (05:11)
[2018-08-03 06:15] LABS: HEMATOCRIT 31.4 % (36.0-47.0); MEAN CORPUSCULAR HEMOGLOBIN 29.5 pg (27.0-33.4); MEAN CORPUSCULAR HGB CONC 34.9 g/dL (32.0-36.0); MEAN CORPUSCULAR VOLUME 85 fl (80-97); PLATELET COUNT 412 10^3/uL (150-450); RED BLOOD COUNT 3.71 10^6/uL (3.72-5.28); RED CELL DISTRIBUTION WIDTH 12.2 % (11.5-14.0); WHITE BLOOD COUNT 11.6 10^3/uL (4.0-10.5)
[2018-08-03 06:34] LABS: ALANINE AMINOTRANSFERASE 30 U/L (9-52); ALBUMIN 2.5 g/dL (3.5-5.0); ALKALINE PHOSPHATASE 102 U/L (38-126); ANION GAP 13 (5-19); ASPARTATE AMINO TRANSFERASE 32 U/L (14-36); BILIRUBIN,DIRECT 0.3 mg/dL (0.0-0.4); BILIRUBIN,TOTAL 0.6 mg/dL (0.2-1.3); BLOOD UREA NITROGEN 4 mg/dL (7-20); CARBON DIOXIDE 30 mmol/L (22-30); CHLORIDE 96 mmol/L (98-107); GLUCOSE 90 mg/dL (75-110); POTASSIUM 3.1 mmol/L (3.6-5.0); SODIUM 138.5 mmol/L (137-145); TOTAL PROTEIN 5.3 g/dL (6.3-8.2)
--- NOTE | 2018-08-03 09:13 | PDOC PROGRESS REPORT ---
Subjective Progress Note for:: 08/03/18 Subjective:: Still has watery diarrhea sometimes with a tinge of blood but overall improving. Pain also improved. Her white count improving. She is tolerating clear liquid and asking to advance her diet. Reason For Visit: ABDOMINAL PAIN Physical Exam Vital Signs: Temp Pulse Resp BP Pulse Ox 99.8 F 86 18 146/72 H 98 08/03/18 07:46 08/03/18 07:46 08/03/18 07:46 08/03/18 07:46 08/03/18 07:46 Intake & Output 08/02/18 08/03/18 08/04/18 06:59 06:59 06:59 Intake Total 2316 1367 Balance 2316 1367 Weight 214 lb 15.211 oz 214 lb 15.211 oz General appearance: PRESENT: no acute distress, cooperative Head exam: PRESENT: atraumatic, normocephalic Eye exam: PRESENT: EOMI, PERRLA Ear exam: ABSENT: bleeding, drainage Mouth exam: PRESENT: neck supple, tongue midline Neck exam: ABSENT: meningismus, tracheostomy Respiratory exam: PRESENT: clear to auscultation godwin. ABSENT: accessory muscle use Cardiovascular exam: PRESENT: RRR. ABSENT: diastolic murmur, systolic murmur Pulses: PRESENT: normal radial pulses GI/Abdominal exam: PRESENT: normal bowel sounds, soft, tenderness. ABSENT: ascites Rectal exam: PRESENT: deferred Neurological exam: PRESENT: alert, altered, awake, oriented to person, oriented to place, oriented to time, oriented to situation Psychiatric exam: PRESENT: anxious. ABSENT: agitated, homicidal ideation, suicidal ideation Results Laboratory Results: 08/03/18 05:49 08/03/18 05:49 08/03/18 08/03/18 05:49 05:49 WBC 11.6 H RBC 3.71 L Hgb 11.0 L Hct 31.4 L MCV 85 MCH 29.5 MCHC 34.9 RDW 12.2 Plt Count 412 Sodium 138.5 Potassium 3.1 L Chloride 96 L Carbon Dioxide 30 Anion Gap 13 BUN 4 L Creatinine 0.38 L Est GFR ( Amer) > 60 Est GFR (Non-Af Amer) > 60 Glucose 90 Calcium 8.0 L Magnesium 1.6 Total Bilirubin 0.6 AST 32 ALT 30 Alkaline Phosphatase 102 Total Protein 5.3 L Albumin 2.5 L Impressions: Abdomen/Pelvis CT 07/30/18 00:00 IMPRESSION: Mild wall thickening in the descending and rectosigmoid colon with mild adjacent inflammatory changes and adjacent small adenopathy, differential includes acute infectious process versus inflammatory bowel disease. Trace free fluid. No evidence for obstruction. KUB X-Ray 07/30/18 11:18 IMPRESSION: NO RADIOGRAPHIC EVIDENCE FOR ACUTE ABDOMINAL DISEASE. Assessment & Plan - Diagnosis (1) Colitis Is this a current diagnosis for this admission?: Yes Plan: Patient failed outpatient treatment CT scan with oral and IV contrast was done on admission and showed mild wall thickening of the descending and sigmoid colon with adjacent inflammatory response Colonoscopy report shows severe hemorrhagic edematous circumferential colitis. Biopsy is still pending. Continue IV Zosyn C. difficile test was negative and we stopped p.o. vancomycin July 31, 2018 Stool culture is negative Will advance to full liquid diet (2) Hypokalemia Is this a current diagnosis for this admission?: Yes Plan: Replace with IV potassium and monitor levels in the morning (3) Depression Is this a current diagnosis for this admission?: Yes Plan: Continue Prozac and gabapentin
[2018-08-03] MEDS: POTASSI CL 20 MEQ/50 ML RIDER 20 MEQ/50 ML RTUPB IV SCH ×3 (09:57→18:32)
[2018-08-03] MEDS: ENOXAPARIN SODIUM INJ 40 MG/0.4 ML DISP.SYRIN SUBCUT SCH (09:57)
[2018-08-03] MEDS: FAMOTIDINE INJ/PF 20 MG/2 ML SDV IV SCH ×2 (09:58→23:03)
[2018-08-03] MEDS: GABAPENTIN 300 MG CAPSULE PO SCH (17:02)
[2018-08-03] MEDS: ONDANSETRON HCL INJ/PF 4 MG/2 ML SDV IV PRN (17:05)
[2018-08-03] MEDS: MORPHINE SULFATE 10 MG/ML INJ IV PRN (17:14)
[2018-08-03] MEDS ORDERED: POTASSIUM CHLORIDE 20 MEQ/50 ML RTU IV ONE (19:00)
[2018-08-04] MEDS: PIPERACILLIN SODIUM/TAZOBACTAM 3.375 GM in NORMAL SALINE 100 ML IV SCH ×4 (03:58→22:44)
[2018-08-04 05:18] LABS: HEMATOCRIT 30.4 % (36.0-47.0); HEMOGLOBIN 10.5 g/dL (12.0-15.5); MEAN CORPUSCULAR HEMOGLOBIN 29.3 pg (27.0-33.4); MEAN CORPUSCULAR HGB CONC 34.6 g/dL (32.0-36.0); MEAN CORPUSCULAR VOLUME 85 fl (80-97); PLATELET COUNT 429 10^3/uL (150-450); RED BLOOD COUNT 3.58 10^6/uL (3.72-5.28); RED CELL DISTRIBUTION WIDTH 12.5 % (11.5-14.0); WHITE BLOOD COUNT 12.8 10^3/uL (4.0-10.5)
[2018-08-04 05:43] LABS: ANION GAP 9 (5-19); BLOOD UREA NITROGEN 3 mg/dL (7-20); CALCIUM 7.9 mg/dL (8.4-10.2); CARBON DIOXIDE 33 mmol/L (22-30); CHLORIDE 96 mmol/L (98-107); GLUCOSE 98 mg/dL (75-110); POTASSIUM 3.1 mmol/L (3.6-5.0); SODIUM 138.4 mmol/L (137-145)
[2018-08-04] MEDS: FLUOXETINE HCL 20 MG CAPSULE PO SCH (05:51)
[2018-08-04] MEDS: MORPHINE SULFATE 10 MG/ML INJ IV PRN (10:33)
[2018-08-04] MEDS: ONDANSETRON HCL INJ/PF 4 MG/2 ML SDV IV PRN ×2 (10:34→17:38)
[2018-08-04] MEDS: FAMOTIDINE INJ/PF 20 MG/2 ML SDV IV SCH ×2 (10:58→22:43)
[2018-08-04] MEDS: ENOXAPARIN SODIUM INJ 40 MG/0.4 ML DISP.SYRIN SUBCUT SCH (10:58)
[2018-08-04] MEDS: POTASSI CL 20 MEQ/50 ML RIDER 20 MEQ/50 ML RTUPB IV SCH ×2 (13:33→19:20)
--- NOTE | 2018-08-04 16:28 | PDOC PROGRESS REPORT ---
Subjective Progress Note for:: 08/04/18 Subjective:: The patient is a 58-year-old female with a past medical history of arthritis, psoriasis, and depression who was admitted 07/30/2018 for colitis that failed outpatient treatment. Patient was seen on morning rounds. She was found resting in bed comfortably on room air. She reports that she continues to have loose stools; twice since early this morning. She noted today that she again had bright red blood with her bowel movements. She continues to endorse generalized abdominal discomfort , anorexia, and nausea, though no emesis. She did tolerate a clear liquid diet this morning. She denies fever, chills, chest pain, palpitations, dyspnea, orthopnea, urinary symptoms. She has no new questions or concerns today. No concerns per nursing. Reason For Visit: ABDOMINAL PAIN Physical Exam Vital Signs: Temp Pulse Resp BP Pulse Ox 98.6 F 78 19 138/60 H 94 08/04/18 11:39 08/04/18 11:39 08/04/18 11:39 08/04/18 11:39 08/04/18 11:39 Intake & Output 08/03/18 08/04/18 08/05/18 06:59 06:59 06:59 Intake Total 1367 1357 1132 Balance 1367 1357 1132 Weight 97.5 kg 97.5 kg General appearance: PRESENT: no acute distress, well-developed, well-nourished Head exam: PRESENT: atraumatic, normocephalic Eye exam: PRESENT: conjunctiva pink, EOMI, PERRLA. ABSENT: scleral icterus Ear exam: PRESENT: normal external ear exam Mouth exam: PRESENT: moist, tongue midline Neck exam: ABSENT: carotid bruit, JVD, lymphadenopathy, thyromegaly Respiratory exam: PRESENT: clear to auscultation godwin. ABSENT: rales, rhonchi, wheezes Cardiovascular exam: PRESENT: RRR. ABSENT: diastolic murmur, rubs, systolic murmur Pulses: PRESENT: normal dorsalis pedis pul Vascular exam: PRESENT: normal capillary refill GI/Abdominal exam: PRESENT: normal bowel sounds, soft, tenderness. ABSENT: distended, guarding, mass, organolmegaly, rebound Rectal exam: PRESENT: deferred Extremities exam: PRESENT: full ROM, +1 edema - BLE. ABSENT: calf tenderness, clubbing, pedal edema Neurological exam: PRESENT: alert, awake, oriented to person, oriented to place , oriented to time, oriented to situation, CN II-XII grossly intact. ABSENT: motor sensory deficit Psychiatric exam: PRESENT: appropriate affect, normal mood. ABSENT: homicidal ideation, suicidal ideation Skin exam: PRESENT: dry, intact, warm. ABSENT: cyanosis, rash Results Laboratory Results: 08/04/18 05:06 08/04/18 05:06 08/04/18 08/04/18 05:06 05:06 WBC 12.8 H RBC 3.58 L Hgb 10.5 L Hct 30.4 L MCV 85 MCH 29.3 MCHC 34.6 RDW 12.5 Plt Count 429 Sodium 138.4 Potassium 3.1 L Chloride 96 L Carbon Dioxide 33 H Anion Gap 9 BUN 3 L Creatinine 0.43 L Est GFR ( Amer) > 60 Est GFR (Non-Af Amer) > 60 Glucose 98 Calcium 7.9 L Magnesium 1.6 Impressions: Abdomen/Pelvis CT 07/30/18 00:00 IMPRESSION: Mild wall thickening in the descending and rectosigmoid colon with mild adjacent inflammatory changes and adjacent small adenopathy, differential includes acute infectious process versus inflammatory bowel disease. Trace free fluid. No evidence for obstruction. KUB X-Ray 07/30/18 11:18 IMPRESSION: NO RADIOGRAPHIC EVIDENCE FOR ACUTE ABDOMINAL DISEASE. Assessment & Plan - Diagnosis (1) Ulcerative colitis Qualifiers: Ulcerative colitis location: unspecified ulcerative colitis location Digestive disease complication type: with rectal bleeding Qualified Code(s): K51.911 - Ulcerative colitis, unspecified with rectal bleeding Is this a current diagnosis for this admission?: Yes Plan: The patient was admitted following outpatient failure for treatment of colitis with antibiotics. CT scan with oral and IV contrast showed mild wall thickening of the descending and sigmoid colon with adjacent inflammatory response. Colonoscopy revealed severe hemorrhagic edematous circumferential colitis. Biopsy resulted moderate active ulcerative colitis. C. difficile was negative; p.o. vancomycin was discontinued 07/31/2018. Stool cultures negative. Blood cultures have no growth at 4 days. The patient is admitted to the medical floor. She was provided gentle IV fluids which were discontinued overnight due to the development of bilateral lower extremity edema which is subsequently improving. The patient was empirically placed on IV Zosyn. T-max in the last 48 hours was 99.9. WBC trending up slightly to 12.8. Will continue antibiotics overnight; if remains afebrile, will transition to p.o. Anticipate WBC will increase following start of steroid therapy. Antiemetics and analgesics as needed. She is tolerating a full liquid diet; will advance as tolerated. Continue to monitor daily CBC; transfuse as necessary. (2) Anemia Qualifiers: Anemia type: other cause Is this a current diagnosis for this admission?: Yes Plan: Acute blood loss anemia secondary to ulcerative colitis with active GI bleeding and hemodilution related to IV fluids. Hemoglobin has drifted downward from 13.9-10.5. Patient does continue to endorse red blood per rectum with stools. She is asymptomatic at this time; denies headaches, dizziness, dyspnea. Heart rate stable. IV fluids have been discontinued. We will continue to monitor daily CBC and transfuse as necessary. (3) Leukocytosis Is this a current diagnosis for this admission?: Yes Plan: Secondary to #1; anticipate palpation WBCs the patient has been placed on steroids for confirmed ulcerative colitis. Cultures and antibiotics as above. (4) Depression Is this a current diagnosis for this admission?: Yes Plan: Stable; will continue the patient's home dose Prozac and gabapentin. (5) Hypokalemia Is this a current diagnosis for this admission?: Yes Plan: Secondary to GI losses. Will replace with IV potassium. Daily chemistries. - Time Time Spent with patient: 15-24 minutes Medications reviewed and adjusted accordingly: Yes Anticipated discharge: Home Within: within 48 hours
[2018-08-04] MEDS ORDERED: METHYLPREDNISOLONE INJ 125 MG/2 ML SDV IV ONE (17:00)
[2018-08-04] MEDS: GABAPENTIN 300 MG CAPSULE PO SCH (17:13)
[2018-08-04] MEDS ORDERED: POTASSI CL 20 MEQ/50 ML RIDER 20 MEQ/50 ML RTUPB IV ONE (20:30)
[2018-08-05] MEDS: PIPERACILLIN SODIUM/TAZOBACTAM 3.375 GM in NORMAL SALINE 100 ML IV SCH ×2 (03:18→09:42)
[2018-08-05] MEDS: FLUOXETINE HCL 20 MG CAPSULE PO SCH (05:46)
[2018-08-05] MEDS: ONDANSETRON HCL INJ/PF 4 MG/2 ML SDV IV PRN (06:51)
[2018-08-05 07:16] LABS: HEMATOCRIT 34.1 % (36.0-47.0); HEMOGLOBIN 11.7 g/dL (12.0-15.5); MEAN CORPUSCULAR HEMOGLOBIN 29.3 pg (27.0-33.4); MEAN CORPUSCULAR HGB CONC 34.4 g/dL (32.0-36.0); MEAN CORPUSCULAR VOLUME 85 fl (80-97); PLATELET COUNT 503 10^3/uL (150-450); RED CELL DISTRIBUTION WIDTH 12.6 % (11.5-14.0); WHITE BLOOD COUNT 11.8 10^3/uL (4.0-10.5)
[2018-08-05 07:35] LABS: ANION GAP 13 (5-19); BLOOD UREA NITROGEN 5 mg/dL (7-20); CALCIUM 8.2 mg/dL (8.4-10.2); CARBON DIOXIDE 31 mmol/L (22-30); CHLORIDE 95 mmol/L (98-107); GLUCOSE 121 mg/dL (75-110); POTASSIUM 3.9 mmol/L (3.6-5.0); SODIUM 138.8 mmol/L (137-145)
[2018-08-05] MEDS: ENOXAPARIN SODIUM INJ 40 MG/0.4 ML DISP.SYRIN SUBCUT SCH (09:42)
[2018-08-05] MEDS: FAMOTIDINE INJ/PF 20 MG/2 ML SDV IV SCH (09:43)
[2018-08-05] MEDS ORDERED: PREDNISONE 20 MG TABLET PO SCH (10:00)
[2018-08-05] MEDS ORDERED: FUROSEMIDE 20 MG TABLET PO ONE (11:04)
[2018-08-05] MEDS ORDERED: FUROSEMIDE 40 MG TABLET ONE (12:08)
[2018-08-05] MEDS ORDERED: ONDANSETRON HCL INJ/PF 4 MG/2 ML SDV IV PRN (13:30)
[2018-08-05] MEDS ORDERED: MESALAMINE 400 MG CAPSULE.DR PO SCH (14:00)
--- NOTE | 2018-08-05 17:44 | PDOC PROGRESS REPORT ---
Subjective Progress Note for:: 08/05/18 Subjective:: The patient is a 58-year-old female with a past medical history of arthritis, psoriasis, and depression who was admitted 07/30/2018 for colitis that failed outpatient treatment. Patient was seen on morning rounds. She was found resting in bed comfortably on room air. She reports that she continues to have loose stools with slight streaking of blood. She continues to endorse generalized abdominal discomfort, anorexia, and nausea, though no emesis. She did tolerate a [place] diet this morning. She denies fever, chills, chest pain, palpitations, dyspnea, orthopnea, urinary symptoms. She is concerned about beginning steroid therapy for her ulcerative colitis. She states that she has an eye condition has been told by her chemical machine tender not to use prednisone. She requests that I speak with Dr. Guardado before starting her on this medication. No concerns per nursing. Reason For Visit: ABDOMINAL PAIN Physical Exam Vital Signs: Temp Pulse Resp BP Pulse Ox 98.4 F 85 19 152/73 H 99 08/05/18 16:05 08/05/18 16:05 08/05/18 16:05 08/05/18 16:05 08/05/18 16:05 Intake & Output 08/04/18 08/05/18 08/06/18 06:59 06:59 06:59 Intake Total 1357 2532 780 Output Total 350 200 Balance 1357 2182 580 Weight 97.5 kg 98.8 kg General appearance: PRESENT: no acute distress, cooperative, morbidly obese, well-developed, well-nourished Head exam: PRESENT: atraumatic, normocephalic Eye exam: PRESENT: conjunctiva pink, EOMI, PERRLA. ABSENT: scleral icterus Ear exam: PRESENT: normal external ear exam Mouth exam: PRESENT: moist, tongue midline Neck exam: ABSENT: carotid bruit, JVD, lymphadenopathy, thyromegaly Respiratory exam: PRESENT: clear to auscultation godwin, symmetrical, unlabored. ABSENT: rales, rhonchi, wheezes Cardiovascular exam: PRESENT: RRR, +S1, +S2. ABSENT: diastolic murmur, rubs, systolic murmur Pulses: PRESENT: normal dorsalis pedis pul Vascular exam: PRESENT: normal capillary refill GI/Abdominal exam: PRESENT: normal bowel sounds, soft, tenderness - Generalized ; worsened to left lower quadrant. Overall improved from yesterday. ABSENT: distended, guarding, mass, organolmegaly, rebound Rectal exam: PRESENT: deferred Extremities exam: PRESENT: full ROM. ABSENT: calf tenderness, clubbing, pedal edema Neurological exam: PRESENT: alert, awake, oriented to person, oriented to place , oriented to time, oriented to situation, CN II-XII grossly intact. ABSENT: motor sensory deficit Psychiatric exam: PRESENT: appropriate affect, normal mood. ABSENT: homicidal ideation, suicidal ideation Skin exam: PRESENT: dry, intact, warm. ABSENT: cyanosis, rash Results Laboratory Results: 08/05/18 06:38 08/05/18 06:38 08/05/18 08/05/18 06:38 06:38 WBC 11.8 H RBC 4.00 Hgb 11.7 L Hct 34.1 L MCV 85 MCH 29.3 MCHC 34.4 RDW 12.6 Plt Count 503 H Sodium 138.8 Potassium 3.9 Chloride 95 L Carbon Dioxide 31 H Anion Gap 13 BUN 5 L Creatinine 0.37 L Est GFR ( Amer) > 60 Est GFR (Non-Af Amer) > 60 Glucose 121 H Calcium 8.2 L 07/30/18 17:40 Blood Blood Culture - Final NO GROWTH IN 5 DAYS 07/30/18 17:30 Blood Blood Culture - Final NO GROWTH IN 5 DAYS Impressions: Abdomen/Pelvis CT 07/30/18 00:00 IMPRESSION: Mild wall thickening in the descending and rectosigmoid colon with mild adjacent inflammatory changes and adjacent small adenopathy, differential includes acute infectious process versus inflammatory bowel disease. Trace free fluid. No evidence for obstruction. KUB X-Ray 07/30/18 11:18 IMPRESSION: NO RADIOGRAPHIC EVIDENCE FOR ACUTE ABDOMINAL DISEASE. Assessment & Plan - Diagnosis (1) Ulcerative colitis Qualifiers: Ulcerative colitis location: unspecified ulcerative colitis location Digestive disease complication type: with rectal bleeding Qualified Code(s): K51.911 - Ulcerative colitis, unspecified with rectal bleeding Is this a current diagnosis for this admission?: Yes Plan: The patient was admitted following outpatient failure for treatment of colitis with antibiotics. CT scan with oral and IV contrast showed mild wall thickening of the descending and sigmoid colon with adjacent inflammatory response. Colonoscopy revealed severe hemorrhagic edematous circumferential colitis. Biopsy resulted moderate active ulcerative colitis. C. difficile was negative; p.o. vancomycin was discontinued 07/31/2018. Stool cultures negative. Blood cultures have no growth at 5 days. The patient is admitted to the medical floor. Received Solu-Medrol yesterday; will transition to p.o prednisone today ( discussed with the patient's ophthalmology office; there is no concern regarding short course of steroid therapy) The patient was empirically placed on IV Zosyn. She has been afebrile >48 hours , leukocytosis is improved; antibiotics are discontinued. Antiemetics and analgesics as needed. She is tolerating a bland diet; will advance as tolerated. (2) Anemia Qualifiers: Anemia type: other cause Is this a current diagnosis for this admission?: Yes Plan: Acute blood loss anemia secondary to ulcerative colitis with active GI bleeding and hemodilution related to IV fluids. Hemoglobin has drifted downward from 13.9 to 10.5; now trending up. Patient does continue to endorse red blood per rectum with stools. She is asymptomatic at this time; denies headaches, dizziness, dyspnea. Heart rate stable. IV fluids have been discontinued. We will continue to monitor daily CBC and transfuse as necessary. (3) Leukocytosis Is this a current diagnosis for this admission?: Yes Plan: Secondary to #1; anticipate elevation of WBCs the patient has been placed on steroids for confirmed ulcerative colitis. Cultures and antibiotics as above. (4) Depression Is this a current diagnosis for this admission?: Yes Plan: Stable; will continue the patient's home dose Prozac and gabapentin. (5) Hypokalemia Is this a current diagnosis for this admission?: Yes Plan: Resolved; secondary to GI losses. Will replace with IV potassium. Daily chemistries. - Time Time Spent with patient: 25-34 minutes Medications reviewed and adjusted accordingly: Yes Anticipated discharge: Home Within: within 24 hours
[2018-08-05] MEDS: PREDNISONE 20 MG TABLET PO SCH (18:41)
[2018-08-05] MEDS: GABAPENTIN 300 MG CAPSULE PO SCH (18:41)
[2018-08-05] MEDS: FAMOTIDINE 20 MG TABLET PO SCH (22:51)
[2018-08-06 05:11] LABS: HEMATOCRIT 32.4 % (36.0-47.0); HEMOGLOBIN 11.1 g/dL (12.0-15.5); MEAN CORPUSCULAR HEMOGLOBIN 28.9 pg (27.0-33.4); MEAN CORPUSCULAR HGB CONC 34.1 g/dL (32.0-36.0); MEAN CORPUSCULAR VOLUME 85 fl (80-97); PLATELET COUNT 571 10^3/uL (150-450); RED BLOOD COUNT 3.82 10^6/uL (3.72-5.28); RED CELL DISTRIBUTION WIDTH 12.6 % (11.5-14.0); WHITE BLOOD COUNT 13.5 10^3/uL (4.0-10.5)
[2018-08-06] MEDS: FLUOXETINE HCL 20 MG CAPSULE PO SCH (05:11)
[2018-08-06] MEDS ORDERED: ONDANSETRON 4 MG TAB.RAPDIS PO PRN (05:30)
[2018-08-06 05:38] LABS: ANION GAP 8 (5-19); BLOOD UREA NITROGEN 6 mg/dL (7-20); CALCIUM 8.2 mg/dL (8.4-10.2); CARBON DIOXIDE 38 mmol/L (22-30); CHLORIDE 93 mmol/L (98-107); GLUCOSE 122 mg/dL (75-110); POTASSIUM 3.8 mmol/L (3.6-5.0); SODIUM 138.5 mmol/L (137-145)
[2018-08-06 08:19] VITALS: BP 148/77
[2018-08-06] MEDS: ENOXAPARIN SODIUM INJ 40 MG/0.4 ML DISP.SYRIN SUBCUT SCH (09:16)
[2018-08-06] MEDS: PREDNISONE 20 MG TABLET PO SCH (09:16)
[2018-08-06] MEDS: FAMOTIDINE 20 MG TABLET PO SCH (09:16)
--- NOTE | 2018-08-07 16:27 | PDOC DISCHARGE SUMMARY ---
General - Admit/Disc Date/PCP Admission Date/Primary Care Provider: 07/30/18 14:50 OH Bri MARION, Discharge Date: 08/06/18 - Discharge Diagnosis (1) Ulcerative colitis Is this a current diagnosis for this admission?: Yes Summary: The patient was admitted following outpatient failure for treatment of colitis with antibiotics. CT scan with oral and IV contrast showed mild wall thickening of the descending and sigmoid colon with adjacent inflammatory response. Colonoscopy revealed severe hemorrhagic edematous circumferential colitis. Biopsy resulted moderate active ulcerative colitis. C. difficile was negative; p.o. vancomycin was discontinued 07/31/2018. Stool cultures negative. Blood cultures have no growth at 5 days. The patient is admitted to the medical floor. The patient was initially placed on IV Zosyn and p.o. vancomycin for treatment of colitis with concern for C. difficile infection. The vancomycin was discontinued soon as the C. difficile PCR resulted negative. Once the patient has been afebrile greater than 48 hours with improved leukocytosis, her Zosyn was discontinued. She underwent colonoscopy which revealed circumferential colitis with biopsy return of moderately active ulcerative colitis. She was provided IV Solu-Medrol and transition to p.o. prednisone. At the patient's request, her road manager was contacted; no concern with regard for short course of therapy however, if the patient does require long-term steroid therapy they recommend follow-up in 1 month. The patient is stable for discharge. Continues to have occasional loose stools with bloody streaking; she is advised on warning signs and red flags to prompt return to the emergency department for evaluation. Leukocytosis has improved, she remains afebrile, and she is now tolerating a bland diet. She is provided prescriptions for prednisone and Zofran. She is instructed to follow-up with her primary care provider within 1 week. She is also advised to notify her hip hop artist of her recent admission and follow-up as directed. (2) Anemia Is this a current diagnosis for this admission?: Yes Summary: Acute blood loss anemia secondary to ulcerative colitis with active GI bleeding and hemodilution related to IV fluids. Hemoglobin has drifted downward from 13.9 to 10.5; now trending up. Patient does continue to endorse streaks of bright red blood per rectum with stools. She is asymptomatic at this time; denies headaches, dizziness, dyspnea. Heart rate stable. Recommend follow up CBC in 1 week. (3) Leukocytosis Is this a current diagnosis for this admission?: Yes Summary: Secondary to # 1 and use of steroid therapy. Cultures and antibiotics as above. (4) Depression Is this a current diagnosis for this admission?: Yes Summary: Stable; the patient's home medication regiment was continued. (5) Hypokalemia Is this a current diagnosis for this admission?: Yes Summary: Resolved; secondary to GI losses. - Additional Information Resuscitation Status: Full Code Discharge Diet: As Tolerated Discharge Activity: Activity As Tolerated Prescriptions: Ondansetron [Zofran Odt 4 mg Tablet] 4 mg PO Q6HP PRN #14 tab.rapdis PRN Reason: Prednisone [Deltasone 20 mg Tablet] 40 mg PO BID 5 Days tablet Home Medications: Fluoxetine HCl [Prozac] 40 mg PO QAM 07/30/18 Gabapentin [Neurontin 300 mg Capsule] 300 mg PO QPM 07/30/18 Acetaminophen [Tylenol 325 mg Tablet] 650 mg PO Q6HP PRN tablet 08/06/18 Ondansetron [Zofran Odt 4 mg Tablet] 4 mg PO Q6HP PRN #14 tab.rapdis 08/06/18 Prednisone [Deltasone 20 mg Tablet] 40 mg PO BID 5 Days tablet 08/06/18 History of Present Illness History of Present Illness: Per H&P by Dr. Thompson: PAULETTE HARO is a 58 year old female who presents to the emergency room due to acute onset of abdominal pain and bloody diarrhea. Patient's problems started around July 11 after she received a prescription of doxycycline from her hip hop artist for psoriasis treatment. She started having progressive lower abdominal pain associated with bloody diarrhea. She had a CT scan done last week by her primary care physician that was positive for colitis in the left descending and sigmoid colon up to splenic flexure and may be extending to the rectum. She was treated with oral antibiotics started by 3 days ago but without any improvement. She was seen by her primary care physician today and was referred to the emergency room. She had history of diverticulosis and colonic polyps and had a colonoscopy about 2 years ago. Physical Exam Vital Signs: Temp Pulse Resp BP Pulse Ox 98.2 F 63 16 148/77 H 98 08/06/18 07:52 08/06/18 07:52 08/06/18 07:52 08/06/18 07:52 08/06/18 07:52 Intake & Output 08/06/18 08/07/18 08/08/18 06:59 06:59 06:59 Intake Total 1620 Output Total 200 Balance 1420 Weight 100.1 kg General appearance: PRESENT: no acute distress, cooperative, obese, well- developed, well-nourished Head exam: PRESENT: atraumatic, normocephalic Eye exam: PRESENT: conjunctiva pink, EOMI, PERRLA. ABSENT: scleral icterus Ear exam: PRESENT: normal external ear exam Mouth exam: PRESENT: moist, tongue midline Neck exam: ABSENT: carotid bruit, JVD, lymphadenopathy, thyromegaly Respiratory exam: PRESENT: clear to auscultation godwin. ABSENT: rales, rhonchi, wheezes Cardiovascular exam: PRESENT: RRR. ABSENT: diastolic murmur, rubs, systolic murmur Pulses: PRESENT: normal dorsalis pedis pul Vascular exam: PRESENT: normal capillary refill GI/Abdominal exam: PRESENT: normal bowel sounds, soft, tenderness. ABSENT: distended, guarding, mass, organolmegaly, rebound Rectal exam: PRESENT: deferred Extremities exam: PRESENT: full ROM. ABSENT: calf tenderness, clubbing, pedal edema Neurological exam: PRESENT: alert, awake, oriented to person, oriented to place , oriented to time, oriented to situation, CN II-XII grossly intact. ABSENT: motor sensory deficit Psychiatric exam: PRESENT: appropriate affect, normal mood. ABSENT: homicidal ideation, suicidal ideation Skin exam: PRESENT: dry, intact, warm. ABSENT: cyanosis, rash Results Laboratory Results: 08/06/18 04:10 08/06/18 04:10 Impressions: Abdomen/Pelvis CT 07/30/18 00:00 IMPRESSION: Mild wall thickening in the descending and rectosigmoid colon with mild adjacent inflammatory changes and adjacent small adenopathy, differential includes acute infectious process versus inflammatory bowel disease. Trace free fluid. No evidence for obstruction. KUB X-Ray 07/30/18 11:18 IMPRESSION: NO RADIOGRAPHIC EVIDENCE FOR ACUTE ABDOMINAL DISEASE. Qualifiers - * PATIENT BEING DISCHARGED WITH ANY OF THE FOLLOWING DIAGNOSIS: No Plan Discharge Plan: Follow-up with primary care provider within 1 week. Patient is instructed to notify her hip hop artist of her admission and diagnosis; follow-up as directed. Follow-up with road manager within 1 month if she continues to required steroids for treatment of ulcerative colitis. Time Spent: Less than 30 Minutes
== END 2018-08-06 12:17 | disposition home or self-care (01) | DRG 387 ==
LOC: ER 10:57 → EH 14:50 → 4S 18:40 → 4N 08-01 22:18
PROVIDERS: ADMIT Hospitalist; ATTEND Hospitalist
PROC: 0DBN8ZX Excision of Sigmoid Colon, Via Natural or Artificial Opening Endoscopic, Diagnostic (ICD-10-PCS; principal; 2018-07-31 09:45)
DX: K51.911 Ulcerative colitis, unspecified with rectal bleeding (principal); E87.6 Hypokalemia; D64.9 Anemia, unspecified; K57.90 Diverticulosis of intestine, part unspecified, without perforation or abscess without bleeding; F32.9 Major depressive disorder, single episode, unspecified; L40.9 Psoriasis, unspecified; Z86.010 Personal history of colon polyps; Z90.49 Acquired absence of other specified parts of digestive tract; Z90.710 Acquired absence of both cervix and uterus; F17.200 Nicotine dependence, unspecified, uncomplicated; Z91.040 Latex allergy status; Z91.048 Other nonmedicinal substance allergy status
CPT/HCPCS: 36415; 45331; 74018; 74177; 80048; 80053; 81001; 83605; 83690; 83735; 85025; 85027; 87040; 87045; 87205; 87493; 88305; 96365; 96366; 96375; 99285; J0171; J1610; J1650; J2250; J2270; J2310; J2405; J2543; J2930; J3010; J3370; J3480; J3490; J7030; J7120; J7512; S0028; S0119

== ENCOUNTER 2018-09-23 11:39 | Inpatient (IN) | payer BC ==
[2018-09-23] MEDS ORDERED: NORMAL SALINE 1000 ML 1,000 ML IV ONE (12:17)
--- NOTE | 2018-09-23 12:18 | ER Document Report ---
ED Medical Screen (RME) - General Chief Complaint: Abdominal Pain Stated Complaint: ABDOMINAL PAIN Time Seen by Provider: 09/23/18 12:16 Notes: 58 years old female referred here by the it recruiter for admission. The patient was having abdominal pain, diagnosed as new onset of colitis of unknown origin. TRAVEL OUTSIDE OF THE [place] IN LAST 30 DAYS: No - Related Data Allergies/Adverse Reactions: pineapple Allergy (Mild, Verified 09/23/18 12:11) latex [Latex] Allergy (Verified 09/23/18 11:43) itching nickel [Nickel] Allergy (Verified 09/23/18 11:43) ITCHY RASH sulfamethoxazole [From Bactrim] Allergy (Verified 09/23/18 11:43) red rash trimethoprim [From Bactrim] Allergy (Verified 09/23/18 11:43) red rash MERCURY Allergy (Uncoded 09/23/18 11:43) ITCHY RASH Past Medical History - Social History Chew tobacco use (# tins/day): No Frequency of alcohol use: Rare Drug Abuse: None - Past Medical History Cardiac Medical History: Denies: Hx Coronary Artery Disease, Hx Heart Attack, Hx Hypertension Pulmonary Medical History: Denies: Hx Asthma, Hx Bronchitis, Hx COPD, Hx Pneumonia Neurological Medical History: Denies: Hx Cerebrovascular Accident, Hx Seizures Renal/ Medical History: Denies: Hx Peritoneal Dialysis GI Medical History: Denies: Hx Hepatitis, Hx Hiatal Hernia, Hx Ulcer Musculoskeltal Medical History: Reports Hx Arthritis - psoriatic, Reports Hx Musculoskeletal Trauma - Right knee fracture 10 years ago Skin Medical History: Reports Hx Psoriasis Psychiatric Medical History: Reports: Hx Depression Infectious Medical History: Denies: Hx Hepatitis Past Surgical History: Reports: Hx Abdominal Surgery - hernia repair, Hx Breast Surgery - right breast lump removed, Hx Cholecystectomy, Hx Hysterectomy, Hx Orthopedic Surgery - right knee, left hand. Denies: Hx Mastectomy, Hx Open Heart Surgery - Immunizations Hx Diphtheria, Pertussis, Tetanus Vaccination: Yes Physical Exam - Vital signs Vitals: Temp Pulse Resp BP Pulse Ox 98.4 F 92 16 125/75 97 09/23/18 12:05 09/23/18 12:05 09/23/18 12:05 09/23/18 12:05 09/23/18 12:05 Course - Vital Signs Vital signs: Temp Pulse Resp BP Pulse Ox 98.4 F 92 16 125/75 97 09/23/18 12:05 09/23/18 12:05 09/23/18 12:05 09/23/18 12:05 09/23/18 12:05 Doctor's Discharge - Discharge Referrals: OH SCHULTZ DO [Primary Care Provider] - Follow up as needed
[2018-09-23 13:52] LABS: APPEARANCE,URINE SLIGHTLY-CLOUDY; BILIRUBIN,URINE SMALL (NEGATIVE); COLOR,URINE AMBER; GLUCOSE, URINE NEGATIVE (NEGATIVE); KETONES,URINE NEGATIVE (NEGATIVE); LEUKOCYTE ESTERASE,URINE TRACE (NEGATIVE); NITRITE,URINE NEGATIVE (NEGATIVE); PROTEIN,URINE 100 mg/dL (NEGATIVE); URINE SPECIFIC GRAVITY 1.038
[2018-09-23 13:58] LABS: ABSOLUTE LYMPHOCYTES (AUTO) 1.2 10^3/uL (0.5-4.7); ABSOLUTE MONOCYTES (AUTO) 0.4 10^3/uL (0.1-1.4); ABSOLUTE NEUT (AUTO) 12.1 10^3/uL (1.7-8.2); BASOPHILS % (AUTO) 0.1 % (0-2); HEMATOCRIT 35.5 % (36.0-47.0); HEMOGLOBIN 11.8 g/dL (12.0-15.5); LYMPHOCYTES % (AUTO) 8.5 % (13-45); MEAN CORPUSCULAR HEMOGLOBIN 28.9 pg (27.0-33.4); MEAN CORPUSCULAR HGB CONC 33.2 g/dL (32.0-36.0); MEAN CORPUSCULAR VOLUME 87 fl (80-97); MONOCYTES % (AUTO) 3.1 % (3-13); PLATELET COUNT 616 10^3/uL (150-450); RED BLOOD COUNT 4.08 10^6/uL (3.72-5.28); RED CELL DISTRIBUTION WIDTH 16.6 % (11.5-14.0); SEGMENTED NEUTROPHILS % (AUTO) 88.3 % (42-78); TOTAL CELLS COUNTED % (AUTO) 100 %; WHITE BLOOD COUNT 13.7 10^3/uL (4.0-10.5)
[2018-09-23 14:15] LABS: ALANINE AMINOTRANSFERASE 32 U/L (9-52); ALBUMIN 2.6 g/dL (3.5-5.0); ALKALINE PHOSPHATASE 257 U/L (38-126); ANION GAP 8 (5-19); ASPARTATE AMINO TRANSFERASE 14 U/L (14-36); BILIRUBIN,DIRECT 0.2 mg/dL (0.0-0.4); BILIRUBIN,TOTAL 0.6 mg/dL (0.2-1.3); BLOOD UREA NITROGEN 15 mg/dL (7-20); CALCIUM 8.2 mg/dL (8.4-10.2); CARBON DIOXIDE 32 mmol/L (22-30); CHLORIDE 92 mmol/L (98-107); GLUCOSE 108 mg/dL (75-110); POTASSIUM 4.6 mmol/L (3.6-5.0); SODIUM 132.1 mmol/L (137-145); TOTAL PROTEIN 4.8 g/dL (6.3-8.2)
[2018-09-23 14:17] LABS: LIPASE < 10.0 U/L (23-300)
--- NOTE | 2018-09-23 15:22 | ER Document Report ---
ED General - General Chief Complaint: Abdominal Pain Stated Complaint: ABDOMINAL PAIN Time Seen by Provider: 09/23/18 12:16 Mode of Arrival: Ambulatory Information source: Patient Notes: 58-year-old female with ulcerative colitis, pulmonary fibrosis, glaucoma, rheumatoid arthritis, headaches presents with complaint of left upper and left lower quadrant abdominal pain that has been ongoing for 4 months with worsening of pain over the last week. Patient is being seen by Dr. Abdulkadir bales rologist who sent patient in for admission. She states she has had a recent colonoscopy in August 2018. She was sent here by him with request for labs, fluids and a CAT scan as well as admission. Patient states that she has had multiple episodes of bloody diarrhea. This is not new for her but she states the pain has worsened. TRAVEL OUTSIDE OF THE [place] IN LAST 30 DAYS: No - HPI Onset: Other Onset/Duration: Persistent, Worse Quality of pain: Cramping Severity: Moderate Associated symptoms: Diarrhea, Other. denies: Vomiting Exacerbated by: Denies Relieved by: Denies Similar symptoms previously: Yes Recently seen / treated by doctor: Yes - Related Data Allergies/Adverse Reactions: pineapple Allergy (Mild, Verified 09/23/18 12:11) latex [Latex] Allergy (Verified 09/23/18 11:43) itching nickel [Nickel] Allergy (Verified 09/23/18 11:43) ITCHY RASH sulfamethoxazole [From Bactrim] Allergy (Verified 09/23/18 11:43) red rash trimethoprim [From Bactrim] Allergy (Verified 09/23/18 11:43) red rash MERCURY Allergy (Uncoded 09/23/18 11:43) ITCHY RASH Past Medical History - General Information source: Patient, Dr. Saladña, [facility] Records - Social History Smoking Status: Former Smoker Chew tobacco use (# tins/day): No Frequency of alcohol use: Rare Drug Abuse: None Lives with: Family Family History: Reviewed & Not Pertinent Patient has suicidal ideation: No Patient has homicidal ideation: No - Past Medical History Cardiac Medical History: Denies: Hx Coronary Artery Disease, Hx Heart Attack, Hx Hypertension Pulmonary Medical History: Denies: Hx Asthma, Hx Bronchitis, Hx COPD, Hx Pneumonia Neurological Medical History: Denies: Hx Cerebrovascular Accident, Hx Seizures Renal/ Medical History: Denies: Hx Peritoneal Dialysis GI Medical History: Denies: Hx Hepatitis, Hx Hiatal Hernia, Hx Ulcer Musculoskeletal Medical History: Reports Hx Arthritis - psoriatic, Reports Hx Musculoskeletal Trauma - Right knee fracture 10 years ago Skin Medical History: Reports Hx Psoriasis Psychiatric Medical History: Reports: Hx Depression Infectious Medical History: Denies: Hx Hepatitis Past Surgical History: Reports: Hx Abdominal Surgery - hernia repair, Hx Breast Surgery - right breast lump removed, Hx Cholecystectomy, Hx Hysterectomy, Hx Orthopedic Surgery - right knee, left hand. Denies: Hx Mastectomy, Hx Open Heart Surgery - Immunizations Hx Diphtheria, Pertussis, Tetanus Vaccination: Yes Review of Systems - Review of Systems Notes: REVIEW OF SYSTEMS: CONSTITUTIONAL : Denies fever, chills, or sweats. Denies recent illness. Denies weight loss, recent hospitalizations. EENT: Denies visual changes, eye pain. Denies sore throat, oral lesions, difficulty swallowing. CARDIOVASCULAR: Denies chest pain. Denies palpitations. Denies lower extremity edema. RESPIRATORY: Denies cough. Denies shortness of breath, wheezing. GASTROINTESTINAL: Denies nausea, vomiting. Denies blood in vomitus, Denies black, tarry stools. Denies constipation. GENITOURINARY: Denies difficulty urinating, painful urination, frequency, blood in urine, or vaginal discharge. MUSCULOSKELETAL: Denies back or neck pain or stiffness. Denies joint pain or swelling. SKIN: Denies rash, lesions or sores. HEMATOLOGIC : Denies easy bruising or bleeding. LYMPHATIC: Denies swollen glands. NEUROLOGICAL: Denies confusion or altered mental status. Denies loss of consciousness. Denies headache. Denies weakness or paralysis. Denies problems difficulty with ambulation, slurred speech. Denies sensory loss, numbness, or tingling. Denies seizures. PSYCHIATRIC: Denies anxiety or stress. Denies depression, suicidal ideation, or homicidal ideation. Denies visual or auditory hallucinations. Physical Exam - Vital signs Vitals: Temp Pulse Resp BP Pulse Ox 98.4 F 92 16 125/75 97 09/23/18 12:05 09/23/18 12:05 09/23/18 12:05 09/23/18 12:05 09/23/18 12:05 - Notes Notes: PHYSICAL EXAMINATION: GENERAL: Well-appearing, well-nourished and in no acute distress. HEAD: Atraumatic, normocephalic. EYES: Pupils equal round and reactive to light, extraocular movements intact, conjunctiva are normal. ENT: Nares patent, oropharynx clear without exudates. Moist mucous membranes. NECK: Normal range of motion, supple without lymphadenopathy LUNGS: Breath sounds clear to auscultation bilaterally and equal. No wheezes rales or rhonchi. HEART: Regular rate and rhythm without murmurs ABDOMEN: Left upper quadrant abdominal pain with palpation. No guarding, no rebound. No masses appreciated. Female : deferred Musculoskeletal: Normal range of motion, no pitting or edema. No cyanosis. NEUROLOGICAL: Cranial nerves grossly intact. Normal speech, normal gait. Normal sensory, motor exams PSYCH: Normal mood, normal affect. SKIN: Warm, Dry, normal turgor, no rashes or lesions noted. Course - Re-evaluation Re-evalutation: Laboratory 09/23/18 09/23/18 09/23/18 12:39 13:33 13:33 WBC 13.7 H RBC 4.08 Hgb 11.8 L Hct 35.5 L MCV 87 MCH 28.9 MCHC 33.2 RDW 16.6 H Plt Count 616 H Seg Neutrophils % 88.3 H Lymphocytes % 8.5 L Monocytes % 3.1 Eosinophils % 0.0 Basophils % 0.1 Absolute Neutrophils 12.1 H Absolute Lymphocytes 1.2 Absolute Monocytes 0.4 Absolute Eosinophils 0.0 Absolute Basophils 0.0 Sodium 132.1 L Potassium 4.6 Chloride 92 L Carbon Dioxide 32 H Anion Gap 8 BUN 15 Creatinine 0.41 L Est GFR ( Amer) > 60 Est GFR (Non-Af Amer) > 60 Glucose 108 Calcium 8.2 L Total Bilirubin 0.6 Direct Bilirubin 0.2 Neonat Total Bilirubin Not Reportable Neonat Direct Bilirubin Not Reportable Neonat Indirect Bili Not Reportable AST 14 ALT 32 Alkaline Phosphatase 257 H Total Protein 4.8 L Albumin 2.6 L Lipase < 10.0 L Urine Color ALBERT Urine Appearance SLIGHTLY-CLOUDY Urine pH 5.0 Ur Specific [place] 1.038 Urine Protein 100 H Urine Glucose (UA) NEGATIVE Urine Ketones NEGATIVE Urine Blood NEGATIVE Urine Nitrite NEGATIVE Urine Bilirubin SMALL H Urine Urobilinogen 2.0 H Ur Leukocyte Esterase TRACE H Urine WBC (Auto) 3 Urine RBC (Auto) 1 U Hyaline Cast (Auto) 18 Urine Bacteria (Auto) TRACE Squamous Epi Cells Auto 4 Urine Mucus (Auto) MANY Urine Ascorbic Acid 40 H Chest X-Ray 09/23/18 00:00 IMPRESSION: NO ACUTE RADIOGRAPHIC FINDING IN THE CHEST. Abdomen/Pelvis CT 09/23/18 15:01 IMPRESSION: 1. Sigmoid diverticulosis. Cannot exclude mild associated inflammation. 2. There is a large irregularly-shaped fluid collection in the lower abdomen/ upper pelvis as described. This is concerning for an abscess. The exact origin is not clear. Is there clinical evidence of or history of appendicitis? Temp Pulse Resp BP Pulse Ox 98.2 F 114 H 22 H 144/85 H 98 09/23/18 23:15 09/23/18 23:15 09/23/18 23:15 09/23/18 23:15 09/23/18 23:15 58-year-old female with ulcerative colitis, pulmonary fibrosis, glaucoma, rheumatoid arthritis, headaches presents with complaint of left upper and left lower quadrant abdominal pain that has been ongoing for 4 months with worsening of pain over the last week. Patient is being seen by Dr. Panchal leisure studies professor who sent patient in for admission. Vital signs reviewed upon arrival and patient is afebrile but mildly tachycardic. Patient does have abdominal pain with palpation to the left upper and lower quadrant but is without guarding or rebound. CT was obtained and concerning for abdominal abscess. Antibiotics of Cipro, Flagyl ordered by Dr. panchal. Patient accepted by the hospitalist for admission. 09/23/18 15:20 Patient declining pain medication at this time. 09/23/18 17:03 Spoke to who has already put in all of the medication that he wants the patient to have. As far as basic hospitalist's orders he will leave that up to the hospitalist. Patient has been accepted by Dr. Trevino for admission. 09/24/18 02:56 09/24/18 02:57 - Vital Signs Vital signs: Temp Pulse Resp BP Pulse Ox 98.2 F 114 H 22 H 144/85 H 98 09/23/18 23:15 09/23/18 23:15 09/23/18 23:15 09/23/18 23:15 09/23/18 23:15 - Laboratory Result Diagrams: 09/23/18 13:33 09/23/18 13:33 Laboratory results interpreted by me: 09/23/18 09/23/18 09/23/18 12:39 13:33 13:33 WBC 13.7 H Hgb 11.8 L Hct 35.5 L RDW 16.6 H Plt Count 616 H Seg Neutrophils % 88.3 H Lymphocytes % 8.5 L Absolute Neutrophils 12.1 H Sodium 132.1 L Chloride 92 L Carbon Dioxide 32 H Creatinine 0.41 L Calcium 8.2 L Alkaline Phosphatase 257 H C-Reactive Protein Total Protein 4.8 L Albumin 2.6 L Lipase < 10.0 L Urine Protein 100 H Urine Bilirubin SMALL H Urine Urobilinogen 2.0 H Ur Leukocyte Esterase TRACE H Urine Ascorbic Acid 40 H 09/23/18 13:33 WBC Hgb Hct RDW Plt Count Seg Neutrophils % Lymphocytes % Absolute Neutrophils Sodium Chloride Carbon Dioxide Creatinine Calcium Alkaline Phosphatase C-Reactive Protein 174.4 H Total Protein Albumin Lipase Urine Protein Urine Bilirubin Urine Urobilinogen Ur Leukocyte Esterase Urine Ascorbic Acid - Diagnostic Test Radiology reviewed: Image reviewed, Reports reviewed Discharge - Discharge Clinical Impression: Colitis, Elevated alkaline phosphatase level, Hypoalbuminemia, Abdominal abscess Ulcerative colitis Qualifiers: Ulcerative colitis location: unspecified ulcerative colitis location Digestive disease complication type: with rectal bleeding Qualified Code(s): K51.919 - Ulcerative colitis, unspecified with unspecified complications Leukocytosis Qualifiers: Leukocytosis type: unspecified Qualified Code(s): D72.829 - Elevated white blood cell count, unspecified Condition: Good Disposition: ADMITTED INPATIENT Admitting Provider: Hospitalist Unit Admitted: Medical Floor
--- NOTE | 2018-09-23 17:36 | RADIOLOGY REPORT (SQ) ---
EXAM DESCRIPTION: CHEST 2 VIEWS COMPLETED DATE/TIME: 09/23/2018 5:27 pm REASON FOR STUDY: colitis. Need for high risk meds COMPARISON: Two-view chest 11/04/2014 EXAM PARAMETERS: NUMBER OF VIEWS: two views TECHNIQUE: Digital Frontal and Lateral radiographic views of the chest acquired. RADIATION DOSE: NA LIMITATIONS: none FINDINGS: LUNGS AND PLEURA: No opacities, masses or pneumothorax. No pleural effusion. MEDIASTINUM AND HILAR STRUCTURES: No masses or contour abnormalities. HEART AND VASCULAR STRUCTURES: Heart normal size. No evidence for failure. BONES: No acute findings. HARDWARE: None in the chest. Clips right upper quadrant post cholecystectomy OTHER: Gaseous distention of the colon under the left hemidiaphragm. IMPRESSION: NO ACUTE RADIOGRAPHIC FINDING IN THE CHEST. TECHNICAL DOCUMENTATION: JOB ID: [id number] [employer]- All Rights Reserved Reading location - IP/workstation name: [email or web address]
[2018-09-23] MEDS ORDERED: CIPROFLOXACIN 400 MG/D5W RTU 400 MG/200 ML RTUPB IV SCH (18:00)
[2018-09-23] MEDS: METHYLPREDNISOLONE INJ 40 MG/1 ML SDV IV SCH (18:13)
--- NOTE | 2018-09-23 18:16 | RADIOLOGY REPORT (SQ) ---
EXAM DESCRIPTION: CT ABD/PELVIS WITH IV ONLY COMPLETED DATE/TIME: 09/23/2018 5:36 pm REASON FOR STUDY: colitis rectal bleeding COMPARISON: 07/30/2018 TECHNIQUE: CT scan of the abdomen and pelvis performed using helical scanning technique with dynamic intravenous contrast injection. No oral contrast. Images reviewed with lung, soft tissue, and bone windows. Reconstructed coronal and sagittal MPR images reviewed. Delayed images for evaluation of the urinary system also acquired. All images stored on PACS. All CT scanners at this facility use dose modulation, iterative reconstruction, and/or weight based d osing when appropriate to reduce radiation dose to as low as reasonably achievable (ALARA). [facility]: Dose Right [facility]: CareDose [facility]: Dose Right [facility]: Teradose 4D [facility]: [employer] CONTRAST TYPE AND DOSE: contrast/concentration: Isovue 350.00 mg/ml; Total Contrast Delivered: 97.0 ml; Total Saline Delivered: 67.8 ml 97 mL Omnipaque 350- low osmolar. RENAL FUNCTION: BUN 15 creatinine 0.41 RADIATION DOSE: CT Rad equipment meets quality standard of care and radiation dose reduction techniq ues were employed. CTDIvol: 11.7 - 15.9 mGy. DLP: 1579 mGy-cm.. LIMITATIONS: None. FINDINGS: LOWER CHEST: Mild peripheral pulmonary fibrosis. LIVER: Homogeneous. No mass. SPLEEN: Normal size. No focal lesions. PANCREAS: No masses. No significant calcifications. No adjacent inflammation or peripancreatic fluid collections. Pancreatic duct not dilated. GALLBLADDER: Surgically absent. ADRENAL GLANDS: No significant masses or asymmetry. RIGHT KIDNEY AND URETER: No solid masses. No significant calcifications. No hydronephrosis or hyd roureter. LEFT KIDNEY AND URETER: No solid masses. No significant calcifications. No hydronephrosis or hydr oureter. AORTA AND VESSELS: No aneurysm. No dissection. Renal arteries, SMA, celiac without stenosis. RETROPERITONEUM: No retroperitoneal adenopathy, hemorrhage or masses. BOWEL AND PERITONEAL CAVITY: There is considerable stool in the right colon. There is a large irregu lar fluid collection that appears to be associated with the cecum or perhaps the ileum. This measure s 7.1 cm in maximum cephalocaudal dimension on the coronal sequence. This measures 14.3 cm in transv erse diameter on the coronal sequence. The maximum AP diameter is 7.5 cm. There is an air-fluid lev el. This is distinct from the sigmoid colon and the urinary bladder. Sigmoid diverticulosis with no acute inflammatory changes. There is mild thickening of a segment of the sigmoid colon, however. APPENDIX: Not identified. PELVIS: No mass. No free fluid. Normal bladder. ABDOMINAL WALL: No masses. No hernias. BONES: No significant or acute findings. OTHER: No other significant finding. IMPRESSION: 1. Sigmoid diverticulosis. Cannot exclude mild associated inflammation. 2. There is a large irregularly-shaped fluid collection in the lower abdomen/ upper pelvis as descri bed. This is concerning for an abscess. The exact origin is not clear. Is there clinical evidence of or history of appendicitis? TECHNICAL DOCUMENTATION: JOB ID: [id number] Quality ID # [id number]: Final reports with documentation of one or more dose reduction techniques (e.g., Au tomated exposure control, adjustment of the mA and/or kV according to patient size, use of iterative reconstruction technique) 2010 [employer]- All Rights Reserved Reading location - IP/workstation name: [email or web address]
--- NOTE | 2018-09-23 18:41 | PDOC H&P ---
History of Present Illness Admission Date/PCP: 09/23/18 17:30 OH SCHULTZ DO History of Present Illness: PAULETTE HARO is a 58 year old female who was sent over from the gastroentero logist office where she presented for follow-up on her ulcerative colitis. She had been on a prednisone taper since July, but because her GI symptoms had not improved, her lcsw decided to have her admitted so that she could be evaluated endoscopically. She reports that she still has a lot of diarrhea, occasionally bloody. She says that the prednisone has caused her to retain a lot of fluid in her legs well. She has a little bit of abdominal tenderness. She has not had any fevers. No nausea or vomiting. She says she does not eat very much because it runs right through her. Past Medical History Cardiac Medical History: Denies: Coronary Artery Disease, Myocardial Infarction, Hypertension Pulmonary Medical History: Denies: Asthma, Bronchitis, Chronic Obstructive Pulmonary Disease (COPD), Pneumonia Neurological Medical History: Denies: Seizures GI Medical History: Denies: Hepatitis, Hiatal Hernia Musculoskeltal Medical History: Reports: Arthritis - psoriatic Skin Medical History: Reports: Psoriasis Psychiatric Medical History: Reports: Depression Hematology: Denies: Anemia, Sickle Cell Disease Past Surgical History Past Surgical History: Reports: Cholecystectomy, Hysterectomy, Orthopedic Surgery - right knee, left hand Denies: Amputation, Mastectomy Social History Lives with: Family Smoking Status: Former Smoker Frequency of Alcohol Use: None Drugs: None Family History Family History: Reviewed & Not Pertinent Parental Family History Reviewed: No - Noncontributory Children Family History Reviewed: No - Noncontributory Sibling(s) Family History Reviewed.: No - Noncontributory Medication/Allergy Allergies/Adverse Reactions: pineapple Allergy (Mild, Verified 09/23/18 12:11) latex [Latex] Allergy (Verified 09/23/18 11:43) itching nickel [Nickel] Allergy (Verified 09/23/18 11:43) ITCHY RASH sulfamethoxazole [From Bactrim] Allergy (Verified 09/23/18 11:43) red rash trimethoprim [From Bactrim] Allergy (Verified 09/23/18 11:43) red rash MERCURY Allergy (Uncoded 09/23/18 11:43) ITCHY RASH Review of Systems All systems: reviewed and no additional remarkable complaints except as stated - 10 point review of systems was conducted with the patient was negative except as noted above patient did to do the treadmill and she feels like Physical Exam Vital Signs: Temp Pulse Resp BP Pulse Ox 98.4 F 92 16 125/75 97 09/23/18 12:05 09/23/18 12:05 09/23/18 12:05 09/23/18 12:05 09/23/18 12:05 Intake & Output 09/22/18 09/23/18 09/24/18 06:59 06:59 06:59 Weight 85.1 kg General appearance: PRESENT: no acute distress, cooperative, disheveled, morbidly obese Head exam: PRESENT: atraumatic, normocephalic Eye exam: PRESENT: EOMI, PERRLA. ABSENT: conjunctival injection, nystagmus, scleral icterus Ear exam: PRESENT: normal external ear exam Mouth exam: PRESENT: moist, neck supple Teeth exam: PRESENT: poor dentation Throat exam: ABSENT: post pharyngeal erythema Neck exam: PRESENT: full ROM. ABSENT: carotid bruit, JVD, lymphadenopathy, meningismus, tenderness, thyromegaly Respiratory exam: PRESENT: clear to auscultation godwin, symmetrical, unlabored. ABSENT: accessory muscle use, prolonged expiratory phas, rales, rhonchi, tachypnea, wheezes Cardiovascular exam: PRESENT: RRR, +S1, +S2 Vascular exam: PRESENT: normal capillary refill GI/Abdominal exam: PRESENT: normal bowel sounds, soft, tenderness - Some slight tenderness in the left upper quadrant and in the right lower quadrant. ABSENT: distended, guarding, rebound Extremities exam: PRESENT: pedal edema, other - 3+ pitting edema below the knees bilaterally. ABSENT: clubbing Musculoskeletal exam: PRESENT: normal inspection. ABSENT: deformity Neurological exam: PRESENT: alert, awake, oriented to person, oriented to place, oriented to time, oriented to situation, CN II-XII grossly intact. ABSENT: motor sensory deficit Psychiatric exam: PRESENT: appropriate affect, normal mood Skin exam: PRESENT: dry, warm Results Laboratory Results: 09/23/18 13:33 09/23/18 13:33 09/23/18 09/23/18 09/23/18 12:39 13:33 13:33 WBC 13.7 H RBC 4.08 Hgb 11.8 L Hct 35.5 L MCV 87 MCH 28.9 MCHC 33.2 RDW 16.6 H Plt Count 616 H Seg Neutrophils % 88.3 H Lymphocytes % 8.5 L Monocytes % 3.1 Eosinophils % 0.0 Basophils % 0.1 Absolute Neutrophils 12.1 H Absolute Lymphocytes 1.2 Absolute Monocytes 0.4 Absolute Eosinophils 0.0 Absolute Basophils 0.0 Sodium 132.1 L Potassium 4.6 Chloride 92 L Carbon Dioxide 32 H Anion Gap 8 BUN 15 Creatinine 0.41 L Est GFR ( Amer) > 60 Est GFR (Non-Af Amer) > 60 Glucose 108 Calcium 8.2 L Total Bilirubin 0.6 AST 14 ALT 32 Alkaline Phosphatase 257 H C-Reactive Protein Total Protein 4.8 L Albumin 2.6 L Lipase < 10.0 L Urine Color ALBERT Urine Appearance SLIGHTLY-CLOUDY Urine pH 5.0 Ur Specific [place] 1.038 Urine Protein 100 H Urine Glucose (UA) NEGATIVE Urine Ketones NEGATIVE Urine Blood NEGATIVE Urine Nitrite NEGATIVE Ur Leukocyte Esterase TRACE H Urine WBC (Auto) 3 Urine RBC (Auto) 1 09/23/18 13:33 WBC RBC Hgb Hct MCV MCH MCHC RDW Plt Count Seg Neutrophils % Lymphocytes % Monocytes % Eosinophils % Basophils % Absolute Neutrophils Absolute Lymphocytes Absolute Monocytes Absolute Eosinophils Absolute Basophils Sodium Potassium Chloride Carbon Dioxide Anion Gap BUN Creatinine Est GFR ( Amer) Est GFR (Non-Af Amer) Glucose Calcium Total Bilirubin AST ALT Alkaline Phosphatase C-Reactive Protein 174.4 H Total Protein Albumin Lipase Urine Color Urine Appearance Urine pH Ur Specific [place] Urine Protein Urine Glucose (UA) Urine Ketones Urine Blood Urine Nitrite Ur Leukocyte Esterase Urine WBC (Auto) Urine RBC (Auto) Impressions: Chest X-Ray 09/23/18 00:00 IMPRESSION: NO ACUTE RADIOGRAPHIC FINDING IN THE CHEST. Abdomen/Pelvis CT 09/23/18 15:01 IMPRESSION: 1. Sigmoid diverticulosis. Cannot exclude mild associated inflammation. 2. There is a large irregularly-shaped fluid collection in the lower abdomen/ upper pelvis as described. This is concerning for an abscess. The exact origin is not clear. Is there clinical evidence of or history of appendicitis? Assessment & Plan - Diagnosis (1) Ulcerative colitis Qualifiers: Ulcerative colitis location: unspecified ulcerative colitis location Digestive disease complication type: unspecified complication Qualified Code(s): K51.919 - Ulcerative colitis, unspecified with unspecified complications Is this a current diagnosis for this admission?: Yes Plan: She will be admitted and managed medically by gastroenterology. Tentative plan is for some steroids and mesalamine, and possibly endoscopic evaluation. - Time Time Spent: 50 to 70 Minutes - Inpatient Certification Based on my medical assessment, after consideration of the patient's comorbidities, presenting symptoms, or acuity I expect that the services needed warrant INPATIENT care.: Yes I certify that my determination is in accordance with my understanding of Medicare's requirements for reasonable and necessary INPATIENT services [42 CFR 412.3e].: Yes Medical Necessity: Significant Comorbidiites Make Outpatient Treatment Too Risky, Need for Surgery - Endoscopy
[2018-09-23] MEDS: METRONIDAZOLE 500 MG/NS RTU 500 MG/100 ML RTUPB IV SCH (20:31)
[2018-09-23] MEDS ORDERED: MESALAMINE 4 GM/60 ML ENEMA PR ONE (21:00)
[2018-09-23] MEDS ORDERED: IMIPENEM/CILASTATIN SODIUM 500 MG in NORMAL SALINE 100 ML IV SCH (21:00)
[2018-09-23] MEDS ORDERED: IMIPENEM/CILASTATIN SODIUM INJ 500 MG VIAL IV SCH (21:00)
--- NOTE | 2018-09-23 21:01 | PDOC CONSULTATION ---
Consultation Consult Date: 09/23/18 History of Present Illness Admission Date/PCP: 09/23/18 17:30 OH SCHULTZ DO History of Present Illness: PAULETTE HARO is a 58 year old female Patient who was admitted to the emergency room with worsening ulcerative colitis with an anasarca, Bloody diarrhea, and anorexia. I first saw the patient in the office in July with new onset ulcerative colitis. She had a normal colonoscopy in 2015 and did not start having diarrhea and rectal bleeding until after receiving Taltz for her psoriasis. I believe her ulcerative colitis is antibiotics effect of an adverse effect of the Taltz though she has not received any more doses since May or June. She has severe left-sided colitis noted on colonoscopy performed on 09/03/2018 extending from the rectum up to the descending colon. Review of the right colon was limited due to stool but no active colitis was identified. She has been on 40 mg prednisone for the last month in addition to Lialda. She was on Cipro and Flagyl for 2 weeks during the month of August. She continues to have significant diarrhea about 4-5 times a day with blood in almost every bowel movement. She also has recurrent abdominal pain mostly in the left upper quadrant on the right lower quadrant. This is not particularly related to food or to bowel movement. She denies any fever and only had nausea once a few days ago. Her appetite has been poor though she has been drinking 2 cans of boost every day. She has chronic pedal edema but this has worsened in t he last few weeks. She has difficulty walking due to the swelling and has fallen a few times. She denies dysuria but has not been passing as much urine as usual. In the emergency room she had a CAT scan that showed a large 7 x 14 cm fluid collection in the lower abdomen. There was only mild bowel wall thickening in the sigmoid colon. She also had a lot of stool in the right colon. White count is 13 with a left shift and a platelet count of 616. Albumin is 2.6. Past Medical History Cardiac Medical History: Denies: Coronary Artery Disease, Myocardial Infarction, Hypertension Pulmonary Medical History: Denies: Asthma, Bronchitis, Chronic Obstructive Pulmonary Disease (COPD), Pneumonia Neurological Medical History: Denies: Seizures GI Medical History: Denies: Hepatitis, Hiatal Hernia GI History Note: Ulcerative colitis secondary to Taltz Musculoskeltal Medical History: Reports: Arthritis - psoriatic Skin Medical History: Reports: Psoriasis Psychiatric Medical History: Reports: Depression Hematology: Denies: Anemia, Sickle Cell Disease Past Surgical History Past Surgical History: Reports: Cholecystectomy, Hysterectomy, Orthopedic Surgery - right knee, left hand Denies: Amputation, Mastectomy Social History Lives with: Family Smoking Status: Former Smoker Frequency of Alcohol Use: None Drugs: None Family History Family History: Reviewed & Not Pertinent Parental Family History Reviewed: No Children Family History Reviewed: NA Sibling(s) Family History Reviewed.: NA Medication/Allergy Home Medications: Fluoxetine HCl [Prozac] 40 mg PO DAILY 09/23/18 Fluticasone Propionate [Flonase Nasal [place] 50 Mcg/[place] 16 gm] 2 spray NASL DAILYP PRN 09/23/18 Gabapentin [Neurontin 300 mg Capsule] 300 mg PO DAILY 09/23/18 Gabapentin [Neurontin 300 mg Capsule] 600 mg PO QHS 09/23/18 Hydrochlorothiazide [Hydrodiuril 25 mg Tablet] 25 mg PO DAILY 09/23/18 Ixekizumab [Taltz Autoinjector] 80 mg IM [id number] 09/23/18 Mercaptopurine [Purinethol 50 mg Tablet] 50 mg PO DAILY 09/23/18 Mesalamine [Lialda] 4.8 gm PO DAILY 09/23/18 Mesalamine [Rowasa 1000 mg Supp.rect] 1,000 mg [place] DAILYP PRN 09/23/18 Mirtazapine [Remeron 15 mg Tablet] 15 mg PO QHS 09/23/18 Oxycodone HCl/Acetaminophen [Endocet 5-325 Tablet] 0.5 tab PO Q6HP PRN 09/23/18 Tramadol HCl [Ultram 50 mg Tablet] 50 mg PO Q6HP PRN 09/23/18 Allergies/Adverse Reactions: pineapple Allergy (Mild, Verified 09/23/18 12:11) latex [Latex] Allergy (Verified 09/23/18 11:43) itching nickel [Nickel] Allergy (Verified 09/23/18 11:43) ITCHY RASH sulfamethoxazole [From Bactrim] Allergy (Verified 09/23/18 11:43) red rash trimethoprim [From Bactrim] Allergy (Verified 09/23/18 11:43) red rash MERCURY Allergy (Uncoded 09/23/18 11:43) ITCHY RASH Review of Systems All systems: reviewed and no additional remarkable complaints except as stated Physical Exam Vital Signs: Temp Pulse Resp BP Pulse Ox 97.9 F 84 13 127/61 H 99 09/23/18 18:46 09/23/18 18:46 09/23/18 18:46 09/23/18 18:46 09/23/18 18:46 Intake & Output 09/22/18 09/23/18 09/24/18 06:59 06:59 06:59 Intake Total 1200 Balance 1200 Weight 85.1 kg Exam: General: Patient is alert. HEENT: There is no pallor or jaundice. PERRLA. Oropharynx normal Respiratory: No chest deformity. No respiratory distress. Chest wall palpitation was unremarkable. Breath sounds were normal Cardiovascular: Heart sounds 1 and 2 normal with no murmurs. Abdominal: Not distended. Soft with some tenderness in the right upper quadrant and the right lower quadrant. There was no rebound or guarding. Liver and spleen not palpable. No ascites demonstrated. Bowel sounds active. Rectal examination was deferred. Extremities: She has severe edema extending up the thighs and also involving both arms. Neurological: Alert and oriented x4. Grossly nonfocal. Normal speech Skin: No significant rash Psychological: Normal affect Results Laboratory Results: 09/23/18 13:33 09/23/18 13:33 09/23/18 09/23/18 09/23/18 12:39 13:33 13:33 WBC 13.7 H RBC 4.08 Hgb 11.8 L Hct 35.5 L MCV 87 MCH 28.9 MCHC 33.2 RDW 16.6 H Plt Count 616 H Seg Neutrophils % 88.3 H Lymphocytes % 8.5 L Monocytes % 3.1 Eosinophils % 0.0 Basophils % 0.1 Absolute Neutrophils 12.1 H Absolute Lymphocytes 1.2 Absolute Monocytes 0.4 Absolute Eosinophils 0.0 Absolute Basophils 0.0 Sodium 132.1 L Potassium 4.6 Chloride 92 L Carbon Dioxide 32 H Anion Gap 8 BUN 15 Creatinine 0.41 L Est GFR ( Amer) > 60 Est GFR (Non-Af Amer) > 60 Glucose 108 Calcium 8.2 L Total Bilirubin 0.6 AST 14 ALT 32 Alkaline Phosphatase 257 H C-Reactive Protein Total Protein 4.8 L Albumin 2.6 L Lipase < 10.0 L Urine Color ALBERT Urine Appearance SLIGHTLY-CLOUDY Urine pH 5.0 Ur Specific [place] 1.038 Urine Protein 100 H Urine Glucose (UA) NEGATIVE Urine Ketones NEGATIVE Urine Blood NEGATIVE Urine Nitrite NEGATIVE Ur Leukocyte Esterase TRACE H Urine WBC (Auto) 3 Urine RBC (Auto) 1 09/23/18 13:33 WBC RBC Hgb Hct MCV MCH MCHC RDW Plt Count Seg Neutrophils % Lymphocytes % Monocytes % Eosinophils % Basophils % Absolute Neutrophils Absolute Lymphocytes Absolute Monocytes Absolute Eosinophils Absolute Basophils Sodium Potassium Chloride Carbon Dioxide Anion Gap BUN Creatinine Est GFR ( Amer) Est GFR (Non-Af Amer) Glucose Calcium Total Bilirubin AST ALT Alkaline Phosphatase C-Reactive Protein 174.4 H Total Protein Albumin Lipase Urine Color Urine Appearance Urine pH Ur Specific [place] Urine Protein Urine Glucose (UA) Urine Ketones Urine Blood Urine Nitrite Ur Leukocyte Esterase Urine WBC (Auto) Urine RBC (Auto) Impressions: Chest X-Ray 09/23/18 00:00 IMPRESSION: NO ACUTE RADIOGRAPHIC FINDING IN THE CHEST. Abdomen/Pelvis CT 09/23/18 15:01 IMPRESSION: 1. Sigmoid diverticulosis. Cannot exclude mild associated inflammation. 2. There is a large irregularly-shaped fluid collection in the lower abdomen/ upper pelvis as described. This is concerning for an abscess. The exact origin is not clear. Is there clinical evidence of or history of appendicitis? Assessment & Plan - Diagnosis (1) Ulcerative colitis Qualifiers: Ulcerative colitis location: unspecified ulcerative colitis location Digestive disease complication type: with rectal bleeding Qualified Code(s): K51.919 - Ulcerative colitis, unspecified with unspecified complications Is this a current diagnosis for this admission?: Yes Plan: She has significant ulcerative colitis involving the distal rectum, sigmoid colon and the descending colon up to 65 cm on her last colonoscopy performed on 09/03/2018. Her symptoms has not responded much to prednisone and mesalamine. She could not obtain mesalamine enemas for insurance reasons. She continues to have bloody diarrhea given the CAT scan only shows mild wall thickening in the left colon. Her CRP was over 140. I started her on IV Solu-Medrol 20 mg 3 times daily in addition to Rowasa enemas. She may need Biologics in the near f uture. I sent for TB QuantiFERON, hepatitis serology and HIV serology. Stools were also sent for C. difficile and cultures. (2) Abscess of abdominal cavity Is this a current diagnosis for this admission?: Yes Plan: CT findings consistent with intra-abdominal abscess. Consultation will be obtained with the surgeon and will also discuss with the radiologist to see if this can be approached percutaneously (3) Anasarca Is this a current diagnosis for this admission?: Yes Plan: This is probably from a combination of nutritional status and the use of prednisone. She will continue with nutritional supplements in addition to a high calorie and high protein diet. Albumin was 2.6. (4) Elevated alkaline phosphatase level Is this a current diagnosis for this admission?: Yes (5) Hypoalbuminemia Is this a current diagnosis for this admission?: Yes
[2018-09-23] MEDS: 1/2 NORMAL SALINE 1,000 ML IV PRN (22:15)
[2018-09-23] MEDS ORDERED: IMIPENEM/CILASTATIN SODIUM INJ 500 MG VIAL IV ONE (23:33)
[2018-09-24] MEDS ORDERED: IMIPENEM/CILASTATIN SODIUM INJ 500 MG VIAL IV PRN (01:59)
[2018-09-24] MEDS: METRONIDAZOLE 500 MG/NS RTU 500 MG/100 ML RTUPB IV SCH ×3 (02:50→20:36)
[2018-09-24] MEDS: METHYLPREDNISOLONE INJ 40 MG/1 ML SDV IV SCH ×3 (02:50→17:34)
[2018-09-24] MEDS: IMIPENEM/CILASTATIN SODIUM 500 MG in NORMAL SALINE 100 ML IV SCH ×3 (06:06→17:34)
--- NOTE | 2018-09-24 06:13 | PDOC CONSULTATION ---
Consultation Consult Date: 09/23/18 Consult reason:: Intra-abdominal abscess History of Present Illness Admission Date/PCP: 09/23/18 17:30 OH SCHULTZ DO History of Present Illness: PAULETTE HARO is a 58 year old female seen at the request of Dr. Miller. This is a patient with a long-standing history of ulcerative colitis. She has been treated with Biologics and steroids in the past. She reports long-standing ab dominal pain. It is dull and aching. It is constant. She rates it is 5 out of 10. The pain does not radiate. Nothing makes her symptoms better or worse. The patient has frequent rectal bleeding, however her rectal bleeding has subsided recently. Patient had a colonoscopy by Dr. Miller several months ago demonstrating active ulcerative colitis. Currently, the patient denies chest pain, shortness of breath, fevers, chills, headache, blurry vision, orthostasis, sore throat. Patient does report fatigue, malaise, abdominal pain, and dysuria. Past Medical History Cardiac Medical History: Denies: Coronary Artery Disease, Myocardial Infarction, Hypertension Pulmonary Medical History: Denies: Asthma, Bronchitis, Chronic Obstructive Pulmonary Disease (COPD), Pneumonia Neurological Medical History: Denies: Seizures GI Medical History: Denies: Hepatitis, Hiatal Hernia Musculoskeltal Medical History: Reports: Arthritis - psoriatic Skin Medical History: Reports: Psoriasis Psychiatric Medical History: Reports: Depression Hematology: Denies: Anemia, Sickle Cell Disease Past Surgical History Past Surgical History: Reports: Cholecystectomy, Hysterectomy, Orthopedic Surgery - right knee, left hand Denies: Amputation, Mastectomy Social History Lives with: Family Smoking Status: Former Smoker Frequency of Alcohol Use: None Drugs: None Family History Family History: Reviewed & Not Pertinent Parental Family History Reviewed: Yes Children Family History Reviewed: Yes Sibling(s) Family History Reviewed.: Yes Medication/Allergy Home Medications: Fluoxetine HCl [Prozac] 40 mg PO DAILY 09/23/18 Fluticasone Propionate [Flonase Nasal [place] 50 Mcg/[place] 16 gm] 2 spray NASL DAILYP PRN 09/23/18 Gabapentin [Neurontin 300 mg Capsule] 300 mg PO DAILY 09/23/18 Gabapentin [Neurontin 300 mg Capsule] 600 mg PO QHS 09/23/18 Hydrochlorothiazide [Hydrodiuril 25 mg Tablet] 25 mg PO DAILY 09/23/18 Ixekizumab [Taltz Autoinjector] 80 mg IM [id number] 09/23/18 Mercaptopurine [Purinethol 50 mg Tablet] 50 mg PO DAILY 09/23/18 Mesalamine [Lialda] 4.8 gm PO DAILY 09/23/18 Mesalamine [Rowasa 1000 mg Supp.rect] 1,000 mg [place] DAILYP PRN 09/23/18 Mirtazapine [Remeron 15 mg Tablet] 15 mg PO QHS 09/23/18 Oxycodone HCl/Acetaminophen [Endocet 5-325 Tablet] 0.5 tab PO Q6HP PRN 09/23/18 Tramadol HCl [Ultram 50 mg Tablet] 50 mg PO Q6HP PRN 09/23/18 Allergies/Adverse Reactions: pineapple Allergy (Mild, Verified 09/23/18 12:11) latex [Latex] Allergy (Verified 09/23/18 11:43) itching nickel [Nickel] Allergy (Verified 09/23/18 11:43) ITCHY RASH sulfamethoxazole [From Bactrim] Allergy (Verified 09/23/18 11:43) red rash trimethoprim [From Bactrim] Allergy (Verified 09/23/18 11:43) red rash MERCURY Allergy (Uncoded 09/23/18 11:43) ITCHY RASH Review of Systems Constitutional: PRESENT: fatigue. ABSENT: anorexia, chills, fever(s) Eyes: ABSENT: visual disturbances Ears: ABSENT: hearing changes Nose, Mouth, and Throat: ABSENT: sore throat Cardiovascular: ABSENT: chest pain Respiratory: ABSENT: cough Gastrointestinal: PRESENT: abdominal pain, bloating. ABSENT: hematochezia - None recently, nausea, vomiting Genitourinary: PRESENT: dysuria Musculoskeletal: ABSENT: back pain Integumentary: ABSENT: pruritus, rash Neurological: ABSENT: confusion, convulsions, dizziness Psychiatric: ABSENT: anxiety, depression Endocrine: ABSENT: cold intolerance, heat intolerance Hematologic/Lymphatic: ABSENT: easy bleeding Physical Exam Vital Signs: Temp Pulse Resp BP Pulse Ox 97.9 F 84 13 127/61 H 99 09/23/18 18:46 09/23/18 18:46 09/23/18 18:46 09/23/18 18:46 09/23/18 18:46 Intake & Output 09/22/18 09/23/1819 06:59 06:59 06:59 Intake Total 1200 Balance 1200 Weight 85.1 kg General appearance: PRESENT: no acute distress, cooperative Head exam: PRESENT: atraumatic, normocephalic Eye exam: PRESENT: EOMI, PERRLA. ABSENT: scleral icterus Mouth exam: PRESENT: moist, neck supple Teeth exam: ABSENT: poor dentation Neck exam: ABSENT: meningismus, tenderness, thyromegaly, tracheal deviation Respiratory exam: PRESENT: clear to auscultation godwin, unlabored. ABSENT: chest wall tenderness, tachypnea, wheezes Cardiovascular exam: PRESENT: RRR Pulses: PRESENT: normal radial pulses Vascular exam: PRESENT: normal capillary refill. ABSENT: pallor GI/Abdominal exam: PRESENT: soft, tenderness - Right lower quadrant. ABSENT: distended, firm, guarding, rigid Rectal exam: PRESENT: deferred Extremities exam: ABSENT: clubbing Musculoskeletal exam: ABSENT: deformity Neurological exam: PRESENT: alert, awake, oriented to person, oriented to place, oriented to time, oriented to situation, CN II-XII grossly intact. ABSENT: motor sensory deficit Psychiatric exam: ABSENT: agitated, anxious, depressed Focused psych exam: ABSENT: delusional Skin exam: ABSENT: cyanosis, erythema, jaundice Results Laboratory Results: 09/23/18 13:33 09/23/18 13:33 09/23/18 09/23/18 09/23/18 12:39 13:33 13:33 WBC 13.7 H RBC 4.08 Hgb 11.8 L Hct 35.5 L MCV 87 MCH 28.9 MCHC 33.2 RDW 16.6 H Plt Count 616 H Seg Neutrophils % 88.3 H Lymphocytes % 8.5 L Monocytes % 3.1 Eosinophils % 0.0 Basophils % 0.1 Absolute Neutrophils 12.1 H Absolute Lymphocytes 1.2 Absolute Monocytes 0.4 Absolute Eosinophils 0.0 Absolute Basophils 0.0 Sodium 132.1 L Potassium 4.6 Chloride 92 L Carbon Dioxide 32 H Anion Gap 8 BUN 15 Creatinine 0.41 L Est GFR ( Amer) > 60 Est GFR (Non-Af Amer) > 60 Glucose 108 Calcium 8.2 L Total Bilirubin 0.6 AST 14 ALT 32 Alkaline Phosphatase 257 H C-Reactive Protein Total Protein 4.8 L Albumin 2.6 L Lipase < 10.0 L Urine Color ALBERT Urine Appearance SLIGHTLY-CLOUDY Urine pH 5.0 Ur Specific [place] 1.038 Urine Protein 100 H Urine Glucose (UA) NEGATIVE Urine Ketones NEGATIVE Urine Blood NEGATIVE Urine Nitrite NEGATIVE Ur Leukocyte Esterase TRACE H Urine WBC (Auto) 3 Urine RBC (Auto) 1 09/23/18 13:33 WBC RBC Hgb Hct MCV MCH MCHC RDW Plt Count Seg Neutrophils % Lymphocytes % Monocytes % Eosinophils % Basophils % Absolute Neutrophils Absolute Lymphocytes Absolute Monocytes Absolute Eosinophils Absolute Basophils Sodium Potassium Chloride Carbon Dioxide Anion Gap BUN Creatinine Est GFR ( Amer) Est GFR (Non-Af Amer) Glucose Calcium Total Bilirubin AST ALT Alkaline Phosphatase C-Reactive Protein 174.4 H Total Protein Albumin Lipase Urine Color Urine Appearance Urine pH Ur Specific [place] Urine Protein Urine Glucose (UA) Urine Ketones Urine Blood Urine Nitrite Ur Leukocyte Esterase Urine WBC (Auto) Urine RBC (Auto) Impressions: Chest X-Ray 09/23/18 00:00 IMPRESSION: NO ACUTE RADIOGRAPHIC FINDING IN THE CHEST. Abdomen/Pelvis CT 09/23/18 15:01 IMPRESSION: 1. Sigmoid diverticulosis. Cannot exclude mild associated inflammation. 2. There is a large irregularly-shaped fluid collection in the lower abdomen/ upper pelvis as described. This is concerning for an abscess. The exact origin is not clear. Is there clinical evidence of or history of appendicitis? Assessment & Plan - Diagnosis (1) Abscess of abdominal cavity Is this a current diagnosis for this admission?: Yes - Plan Summary Plan Summary: This is a 58-year-old female with a history of ulcerative colitis, recently treated with Biologics and steroids. She has apparently developed an intra- abdominal abscess. She reports right lower quadrant abdominal pain and dysuria. At this time, she does not appear toxic. Her white blood cell count is moderat [place] elevated. She does not exhibit peritonitis at present. The patient will require drainage of her abscess, however the optimal method has yet to be determined. I will evaluate her CT scan with a radiologist tomorrow in an attempt to determine if percutaneous drainage of the abscess is feasible. If percutaneous drainage is not possible, she may require operative drainage of her abscess. I will continue to follow this patient very closely with you. The plan has been discussed at length with the patient, and she is in agreement.
[2018-09-24 06:19] LABS: HEMATOCRIT 29.9 % (36.0-47.0); HEMOGLOBIN 10.2 g/dL (12.0-15.5); MEAN CORPUSCULAR HEMOGLOBIN 29.7 pg (27.0-33.4); MEAN CORPUSCULAR HGB CONC 34.2 g/dL (32.0-36.0); MEAN CORPUSCULAR VOLUME 87 fl (80-97); PLATELET COUNT 507 10^3/uL (150-450); RED BLOOD COUNT 3.44 10^6/uL (3.72-5.28); RED CELL DISTRIBUTION WIDTH 16.4 % (11.5-14.0); WHITE BLOOD COUNT 11.1 10^3/uL (4.0-10.5)
[2018-09-24 06:40] LABS: ANION GAP 8 (5-19); BLOOD UREA NITROGEN 12 mg/dL (7-20); CARBON DIOXIDE 31 mmol/L (22-30); CHLORIDE 94 mmol/L (98-107); GLUCOSE 92 mg/dL (75-110); POTASSIUM 4.2 mmol/L (3.6-5.0)
--- NOTE | 2018-09-24 10:58 | PDOC PROGRESS REPORT ---
Subjective Progress Note for:: 09/24/18 Subjective:: Several day history of pelvic pain. Reason For Visit: ULCERATIVE COLITIS Physical Exam Vital Signs: Temp Pulse Resp BP Pulse Ox 97.2 F 88 15 141/66 H 96 09/24/18 07:30 09/24/18 07:30 09/24/18 07:30 09/24/18 07:30 09/24/18 07:30 Intake & Output 09/23/18 09/24/18 09/25/18 06:59 06:59 06:59 Intake Total 1400 Balance 1400 Weight 85.1 kg General appearance: PRESENT: no acute distress, cooperative Respiratory exam: PRESENT: clear to auscultation godwin Cardiovascular exam: PRESENT: RRR GI/Abdominal exam: PRESENT: other - Soft, mildly distended, tender in the lower abdomen without peritoneal signs. Results Laboratory Results: 09/24/18 05:57 09/24/18 05:57 09/23/18 09/23/18 09/23/18 12:39 13:33 13:33 WBC 13.7 H RBC 4.08 Hgb 11.8 L Hct 35.5 L MCV 87 MCH 28.9 MCHC 33.2 RDW 16.6 H Plt Count 616 H Seg Neutrophils % 88.3 H Lymphocytes % 8.5 L Monocytes % 3.1 Eosinophils % 0.0 Basophils % 0.1 Absolute Neutrophils 12.1 H Absolute Lymphocytes 1.2 Absolute Monocytes 0.4 Absolute Eosinophils 0.0 Absolute Basophils 0.0 Sodium 132.1 L Potassium 4.6 Chloride 92 L Carbon Dioxide 32 H Anion Gap 8 BUN 15 Creatinine 0.41 L Est GFR ( Amer) > 60 Est GFR (Non-Af Amer) > 60 Glucose 108 Calcium 8.2 L Total Bilirubin 0.6 AST 14 ALT 32 Alkaline Phosphatase 257 H C-Reactive Protein Total Protein 4.8 L Albumin 2.6 L Lipase < 10.0 L Urine Color ALBERT Urine Appearance SLIGHTLY-CLOUDY Urine pH 5.0 Ur Specific [place] 1.038 Urine Protein 100 H Urine Glucose (UA) NEGATIVE Urine Ketones NEGATIVE Urine Blood NEGATIVE Urine Nitrite NEGATIVE Ur Leukocyte Esterase TRACE H Urine WBC (Auto) 3 Urine RBC (Auto) 1 09/23/18 09/24/18 09/24/18 13:33 05:57 05:57 WBC 11.1 H RBC 3.44 L Hgb 10.2 L Hct 29.9 L MCV 87 MCH 29.7 MCHC 34.2 RDW 16.4 H Plt Count 507 H Seg Neutrophils % Lymphocytes % Monocytes % Eosinophils % Basophils % Absolute Neutrophils Absolute Lymphocytes Absolute Monocytes Absolute Eosinophils Absolute Basophils Sodium 133.0 L Potassium 4.2 Chloride 94 L Carbon Dioxide 31 H Anion Gap 8 BUN 12 Creatinine 0.41 L Est GFR ( Amer) > 60 Est GFR (Non-Af Amer) > 60 Glucose 92 Calcium 8.0 L Total Bilirubin AST ALT Alkaline Phosphatase C-Reactive Protein 174.4 H Total Protein Albumin Lipase Urine Color Urine Appearance Urine pH Ur Specific [place] Urine Protein Urine Glucose (UA) Urine Ketones Urine Blood Urine Nitrite Ur Leukocyte Esterase Urine WBC (Auto) Urine RBC (Auto) Impressions: Chest X-Ray 09/23/18 00:00 IMPRESSION: NO ACUTE RADIOGRAPHIC FINDING IN THE CHEST. Abdomen/Pelvis CT 09/23/18 15:01 IMPRESSION: 1. Sigmoid diverticulosis. Cannot exclude mild associated inflammation. 2. There is a large irregularly-shaped fluid collection in the lower abdomen/ upper pelvis as described. This is concerning for an abscess. The exact origin is not clear. Is there clinical evidence of or history of appendicitis? Assessment & Plan - Diagnosis (1) Abdominal abscess Is this a current diagnosis for this admission?: Yes Plan: Pelvic abscess of unclear etiology. Plan CT-guided drainage today.
[2018-09-24] MEDS ORDERED: MIDAZOLAM 2 MG/2 ML INJ ONE (14:05)
[2018-09-24] MEDS ORDERED: LIDOCAINE 1% INJ-PF (10 MG/ML) 30 ML SDV ONE (14:05)
[2018-09-24] MEDS ORDERED: FENTANYL CITRATE INJ/PF 100 MCG/2 ML AMPUL ONE (14:05)
--- NOTE | 2018-09-24 15:17 | RADIOLOGY REPORT (SQ) ---
EXAM DESCRIPTION: CT GUIDED PERCUT DRAIN W/CATH COMPLETED DATE/TIME: 09/24/2018 2:48 pm REASON FOR STUDY: colon abscess COMPARISON: None. FLUORO TIME: 11 seconds 119 images saved to PACS. LIMITATIONS: None. PROCEDURE: After obtaining informed consent, the patient was brought to the CT suite and was placed supine on the CT gurney. The patient was prepped and draped in the usual sterile fashion . Axial jessica ges were obtained for targeting of theanterior pelvic gas fluid collection. An appropriate access sit e was selected. IV conscious sedation was administered and physician direction by the registered maicol se using 1 milligrams of Versed and 100 micrograms of fentanyl. Physiologic monitoring was provided b efore, during, and after sedation. The total sedation time was 30 minutes. Documentation face to face time, the performing proceduralist, spent monitoring the patient: 10minute s. Purulent fluid was aspirated. The needle was exchanged for a guidewire. Following serial dilation, a 10 [place] APD drain was placed and secured. Drain was connected to collection device. Approximate ly 100 cc of fluid was aspirated. A sterile dressing was applied. IMPRESSION: Successful CT-guided drainage of pelvic abscess. COMMENT: Patient medication list reviewed:Yes- Quality ID# [id number]:Eligible professional attests to docu menting in the medical record they obtained, updated, or reviewed the patient's current medications. Quality ID #76: The patient was prepped and draped using maximum sterile barrier technique including cap, mask, sterile gown, sterile gloves, a large sterile sheet, hand hygiene, and 2% Chlorhexidine fo r cutaneous antisepsis. When ultrasound is used, sterile ultrasound techniques are followed requiring sterile gel and sterile probes. Quality ID 145: Final reports for procedures using fluoroscopy that document radiation exposure veena una, or exposure time and number of fluorographic images (if radiation exposure indices are not avail able) Quality ID# [id number]: Final reports with documentation of one or more dose reduction techniques (e.g., Aut omated exposure control, adjustment of the mA and/or kV according to patient size, use of iterative r econstruction technique) TECHNICAL DOCUMENTATION: JOB ID: [id number] [employer]- All Rights Reserved rev Reading location - IP/workstation name: [email or web address] [id number]
--- NOTE | 2018-09-24 15:24 | PDOC PROGRESS REPORT ---
Subjective Progress Note for:: 09/24/18 Subjective:: No adverse overnight. Pain is been well controlled. She is been afebrile. She still got some tenderness in her right lower quadrant. No nausea or vomiting. Reason For Visit: ULCERATIVE COLITIS Physical Exam Vital Signs: Temp Pulse Resp BP Pulse Ox 97.9 F 92 16 136/74 H 97 09/24/18 11:30 09/24/18 11:30 09/24/18 11:30 09/24/18 11:30 09/24/18 11:30 Intake & Output 09/23/18 09/24/18 09/25/18 06:59 06:59 06:59 Intake Total 1500 Balance 1500 Weight 85.1 kg General appearance: PRESENT: no acute distress, cooperative, disheveled, morbidly obese Respiratory exam: PRESENT: clear to auscultation godwin, symmetrical, unlabored. ABSENT: accessory muscle use, prolonged expiratory phas, rales, rhonchi, tachypnea, wheezes Cardiovascular exam: PRESENT: RRR, +S1, +S2 Vascular exam: PRESENT: normal capillary refill GI/Abdominal exam: PRESENT: normal bowel sounds, soft, tenderness - Some slight tenderness in the left upper quadrant and in the right lower quadrant. ABSENT: distended, guarding, rebound Extremities exam: PRESENT: pedal edema, other - 3+ pitting edema below the knees bilaterally. ABSENT: clubbing Musculoskeletal exam: PRESENT: normal inspection. ABSENT: deformity Neurological exam: PRESENT: alert, awake, oriented to person, oriented to place, oriented to time, oriented to situation Psychiatric exam: PRESENT: appropriate affect, normal mood Skin exam: PRESENT: dry, warm Results Laboratory Results: 09/24/18 05:57 09/24/18 05:57 09/23/18 09/24/18 09/24/18 13:33 05:57 05:57 WBC 11.1 H RBC 3.44 L Hgb 10.2 L Hct 29.9 L MCV 87 MCH 29.7 MCHC 34.2 RDW 16.4 H Plt Count 507 H Sodium 133.0 L Potassium 4.2 Chloride 94 L Carbon Dioxide 31 H Anion Gap 8 BUN 12 Creatinine 0.41 L Est GFR ( Amer) > 60 Est GFR (Non-Af Amer) > 60 Glucose 92 Calcium 8.0 L C-Reactive Protein 174.4 H Impressions: Chest X-Ray 09/23/18 00:00 IMPRESSION: NO ACUTE RADIOGRAPHIC FINDING IN THE CHEST. Abdomen/Pelvis CT 09/23/18 15:01 IMPRESSION: 1. Sigmoid diverticulosis. Cannot exclude mild associated inflammation. 2. There is a large irregularly-shaped fluid collection in the lower abdomen/ upper pelvis as described. This is concerning for an abscess. The exact origin is not clear. Is there clinical evidence of or history of appendicitis? Percutaneous Drainage 09/24/18 00:00 IMPRESSION: Successful CT-guided drainage of pelvic abscess. Assessment & Plan - Diagnosis (1) Ulcerative colitis Qualifiers: Ulcerative colitis location: unspecified ulcerative colitis location Digestive disease complication type: with rectal bleeding Qualified Code(s): K51.911 - Ulcerative colitis, unspecified with rectal bleeding Is this a current diagnosis for this admission?: Yes Plan: She is on a medication regimen being managed by gastroenterology (2) Abscess of abdominal cavity Is this a current diagnosis for this admission?: Yes Plan: Currently on antibiotics per gastroenterology. Plan is for percutaneous drainage of the abscess. I have not had a chance to talk to surgery or see the note, but I suspect this was the choice for, among other reasons, the fact that she has got an acute colitis and is currently on steroids and therefore would be less likely to heal and more likely to have complications from surgery. - Time Time Spent with patient: 15-24 minutes
[2018-09-24] MEDS: 1/2 NORMAL SALINE 1,000 ML IV PRN (22:28)
[2018-09-25] MEDS: IMIPENEM/CILASTATIN SODIUM 500 MG in NORMAL SALINE 100 ML IV SCH ×4 (00:42→21:48)
[2018-09-25] MEDS: METRONIDAZOLE 500 MG/NS RTU 500 MG/100 ML RTUPB IV SCH ×3 (02:54→19:12)
[2018-09-25] MEDS: METHYLPREDNISOLONE INJ 40 MG/1 ML SDV IV SCH ×3 (02:54→19:12)
[2018-09-25 06:55] LABS: HEMATOCRIT 38.4 % (36.0-47.0); MEAN CORPUSCULAR HEMOGLOBIN 29.5 pg (27.0-33.4); MEAN CORPUSCULAR HGB CONC 33.8 g/dL (32.0-36.0); MEAN CORPUSCULAR VOLUME 87 fl (80-97); PLATELET COUNT 405 10^3/uL (150-450); RED CELL DISTRIBUTION WIDTH 16.3 % (11.5-14.0); WHITE BLOOD COUNT 6.9 10^3/uL (4.0-10.5)
[2018-09-25 07:01] LABS: ANION GAP 7 (5-19); BLOOD UREA NITROGEN 14 mg/dL (7-20); CALCIUM 7.9 mg/dL (8.4-10.2); CARBON DIOXIDE 32 mmol/L (22-30); CHLORIDE 96 mmol/L (98-107); GLUCOSE 81 mg/dL (75-110); SODIUM 134.6 mmol/L (137-145)
[2018-09-25 07:25] LABS: POTASSIUM 3.1 mmol/L (3.6-5.0)
[2018-09-25] MEDS ORDERED: POTASSIUM CHLORIDE 10 MEQ CAPSULE.ER PO ONE ×2 (09:00→18:00)
[2018-09-25 10:38] LABS: HEPATITIS A AB IGM Negative (Negative); HEPATITIS B CORE AB IGM Negative (Negative); HEPATITS B SURFACE ANTIGEN Negative (Negative)
[2018-09-25 13:49] LABS: HEPATITIS C VIRUS ANTIBODY <0.1 s/co ratio (0.0-0.9)
[2018-09-25] MEDS ORDERED: DIPHENHYDRAMINE HCL 50 MG/ML VIAL ONE (14:56)
[2018-09-25] MEDS ORDERED: FENTANYL CITRATE INJ/PF 100 MCG/2 ML AMPUL ONE (14:56)
[2018-09-25] MEDS ORDERED: ONDANSETRON HCL INJ/PF 4 MG/2 ML SDV ONE (14:56)
[2018-09-25] MEDS ORDERED: GLUCAGON,HUMAN RECOMB 1 MG INJ ONE (14:57)
[2018-09-25] MEDS ORDERED: MIDAZOLAM 2 MG/2 ML INJ ONE (14:57)
[2018-09-25] MEDS ORDERED: FLUMAZENIL INJ 0.5 MG/5 ML VIAL ONE (14:57)
[2018-09-25] MEDS ORDERED: EPINEPHRINE INJ 1 MG/10 ML DISP.SYRIN ONE (14:57)
[2018-09-25] MEDS ORDERED: NALOXONE HCL INJ/PF 0.4 MG/1 ML SDV ONE (14:57)
[2018-09-25] MEDS: FLUOXETINE HCL 20 MG CAPSULE PO SCH (16:10)
--- NOTE | 2018-09-25 16:29 | PDOC PROGRESS REPORT ---
Subjective Progress Note for:: 09/25/18 Subjective:: No adverse events overnight. No new complaints. No fevers. She has had a little bit of drainage from her EVELIN drain. Her chief concern today is going ahead and get her colonoscopy done so she can eat. Reason For Visit: ULCERATIVE COLITIS Physical Exam Vital Signs: Temp Pulse Resp BP Pulse Ox 98.1 F 91 12 160/90 H 100 09/25/18 15:04 09/25/18 16:05 09/25/18 16:05 09/25/18 16:05 09/25/18 16:05 Intake & Output 09/24/18 09/25/18 09/26/18 06:59 06:59 06:59 Intake Total 1500 2140 200 Output Total 200 30 Balance 1500 1940 170 Weight 85.1 kg 84.2 kg General appearance: PRESENT: no acute distress, cooperative, disheveled, morbidly obese Respiratory exam: PRESENT: clear to auscultation godwin, symmetrical, unlabored. ABSENT: accessory muscle use, prolonged expiratory phas, rales, rhonchi, tachypnea, wheezes Cardiovascular exam: PRESENT: RRR, +S1, +S2 Vascular exam: PRESENT: normal capillary refill GI/Abdominal exam: PRESENT: normal bowel sounds, soft, EVELIN drain has some brownish fluid in the bag, entry site is unremarkable. ABSENT: distended, guarding, rebound Extremities exam: PRESENT: pedal edema, other - 3+ pitting edema below the knees bilaterally. ABSENT: clubbing Musculoskeletal exam: PRESENT: normal inspection. ABSENT: deformity Neurological exam: PRESENT: alert, awake, oriented to person, oriented to place, oriented to time, oriented to situation Psychiatric exam: PRESENT: appropriate affect, normal mood Skin exam: PRESENT: dry, warm Results Laboratory Results: 09/25/18 05:53 09/25/18 05:53 09/25/18 09/25/18 05:53 05:53 WBC 6.9 RBC 4.40 Hgb 13.0 D Hct 38.4 MCV 87 MCH 29.5 MCHC 33.8 RDW 16.3 H Plt Count 405 Sodium 134.6 L Potassium 3.1 L D Chloride 96 L Carbon Dioxide 32 H Anion Gap 7 BUN 14 Creatinine 0.40 L Est GFR ( Amer) > 60 Est GFR (Non-Af Amer) > 60 Glucose 81 Calcium 7.9 L 09/23/18 18:29 Stool - Stool - Final 09/23/18 18:29 Stool - Stool Stool Culture - Final NO SALMONELLA, SHIGELLA, CAMPYLOBACTER, OR E.COLI 0157 RECOVERED. NEGATIVE FOR SHIGA TOXINS 1&2. Impressions: Chest X-Ray 09/23/18 00:00 IMPRESSION: NO ACUTE RADIOGRAPHIC FINDING IN THE CHEST. Abdomen/Pelvis CT 09/23/18 15:01 IMPRESSION: 1. Sigmoid diverticulosis. Cannot exclude mild associated inflammation. 2. There is a large irregularly-shaped fluid collection in the lower abdomen/ upper pelvis as described. This is concerning for an abscess. The exact origin is not clear. Is there clinical evidence of or history of appendicitis? Percutaneous Drainage 09/24/18 00:00 IMPRESSION: Successful CT-guided drainage of pelvic abscess. Assessment & Plan - Diagnosis (1) Abscess of abdominal cavity Is this a current diagnosis for this admission?: Yes Plan: Currently on Cipro and Flagyl. EVELIN drain has been placed. Awaiting culture results. (2) Ulcerative colitis Qualifiers: Ulcerative colitis location: unspecified ulcerative colitis location Digestive disease complication type: with rectal bleeding Qualified Code(s): K51.911 - Ulcerative colitis, unspecified with rectal bleeding Is this a current diagnosis for this admission?: Yes Plan: She is being managed medically by gastroenterology. Colonoscopy is pending. - Time Time Spent with patient: 15-24 minutes
--- NOTE | 2018-09-25 16:43 | PDOC PROGRESS REPORT ---
Subjective Progress Note for:: 09/25/18 Subjective:: She was admitted 2 days ago with poorly controlled colitis and intra-abdominal abscess. She had CT-guided drainage yesterday with 100 cc of fluid removed. Medical chart indicates another 200 cc was emptied. She does feel slightly better. She continues to have significant edema and has not been ambulatory. Her platelet count has reduced and her white count is now normal. She continues on antibiotics and IV Solu-Medrol. Reason For Visit: ULCERATIVE COLITIS Physical Exam Vital Signs: Temp Pulse Resp BP Pulse Ox 98.1 F 85 15 149/83 H 100 09/25/18 15:04 09/25/18 16:30 09/25/18 16:30 09/25/18 16:30 09/25/18 16:30 Intake & Output 09/24/18 09/25/18 09/26/18 06:59 06:59 06:59 Intake Total 1500 2140 200 Output Total 200 30 Balance 1500 1940 170 Weight 85.1 kg 84.2 kg Exam: General: Patient is alert HEENT: There is no pallor or jaundice. PERRLA. Oropharynx normal Respiratory: No chest deformity. No respiratory distress. Chest wall palpitation was unremarkable. Breath sounds were normal Cardiovascular: Heart sounds 1 and 2 normal with no murmurs. Abdominal: Not distended. Soft and nontender. She has a drainage tube in the suprapubic area Extremities: Bilateral edema extending to the thighs Neurological: Alert and oriented x4. Grossly nonfocal. Normal speech Skin: No significant rash Psychological: Normal affect Results Laboratory Results: 09/25/18 05:53 09/25/18 05:53 09/25/18 09/25/18 05:53 05:53 WBC 6.9 RBC 4.40 Hgb 13.0 D Hct 38.4 MCV 87 MCH 29.5 MCHC 33.8 RDW 16.3 H Plt Count 405 Sodium 134.6 L Potassium 3.1 L D Chloride 96 L Carbon Dioxide 32 H Anion Gap 7 BUN 14 Creatinine 0.40 L Est GFR ( Amer) > 60 Est GFR (Non-Af Amer) > 60 Glucose 81 Calcium 7.9 L 09/23/18 18:29 Stool - Stool - Final 09/23/18 18:29 Stool - Stool Stool Culture - Final NO SALMONELLA, SHIGELLA, CAMPYLOBACTER, OR E.COLI 0157 RECOVERED. NEGATIVE FOR SHIGA TOXINS 1&2. Impressions: Chest X-Ray 09/23/18 00:00 IMPRESSION: NO ACUTE RADIOGRAPHIC FINDING IN THE CHEST. Abdomen/Pelvis CT 09/23/18 15:01 IMPRESSION: 1. Sigmoid diverticulosis. Cannot exclude mild associated inflammation. 2. There is a large irregularly-shaped fluid collection in the lower abdomen/ upper pelvis as described. This is concerning for an abscess. The exact origin is not clear. Is there clinical evidence of or history of appendicitis? Percutaneous Drainage 09/24/18 00:00 IMPRESSION: Successful CT-guided drainage of pelvic abscess. Assessment & Plan - Diagnosis (1) Ulcerative colitis Qualifiers: Ulcerative colitis location: unspecified ulcerative colitis location Digestive disease complication type: with rectal bleeding Qualified Code(s): K51.911 - Ulcerative colitis, unspecified with rectal bleeding Is this a current diagnosis for this admission?: Yes Plan: She is doing slightly better with improvement in her white count and inflammatory markers. She will undergo a flexible sigmoidoscopy today to look at her left-sided colitis. She will continue with IV Solu-Medrol and mesalamine p.o. She is refusing rectal mesalamine. She may still be a candidate for a biologic though this would be the last resort especially with her abdomen abscess. (2) Abscess of abdominal cavity Is this a current diagnosis for this admission?: Yes Plan: This was partially drained yesterday and a tube remains in place. There is no much drainage in the collection bag at this time. She will undergo an ultrasound to evaluate the size of the abscess and this should be repeated regularly. She remains on antibiotics. Her peripheral IV infiltrated and she has been stuck many times. I would request for a PICC line (3) Anasarca Is this a current diagnosis for this admission?: Yes (4) Elevated alkaline phosphatase level Is this a current diagnosis for this admission?: Yes (5) Hypoalbuminemia Is this a current diagnosis for this admission?: Yes Plan: She is on a high-calorie, high-protein diet with Ensure supplements.
--- NOTE | 2018-09-25 16:50 | Operative Report ---
Operative Report DATE OF SURGERY: 09/25/18 Operative Report: Pre-op diagnosis: Diarrhea and rectal bleeding Post-op diagnosis: 1. Marked ulceration of the distal rectum and the sigmoid colon Surgery: Sigmoidoscopy Medications: None Tissue removed: None Procedure: After informed consent obtained from patient she was placed in the left lateral position. The upper endoscope was then inserted into the rectum and advanced to the sigmoid colon to about 30 cm. I did not go any farther due to significant ulceration and edema and patient was having abdominal pain. There was multiple large ulceration starting from the rectosigmoid junction and also in the distal 4-5 cm of the rectum. The proximal rectum was spared. Findings Sigmoid colon: Marked ulceration with edema. Rectum: Normal proximal rectum. Marked discrete ulcerations in the distal 5 cm of the rectum. The distal rectal involvement was slightly better than her previous endoscopy a couple of weeks ago. Plan: This is most likely Crohn's disease caused by the use of Taltz. Continue IV steroids, antibiotics and mesalamine OPERATION: .
--- NOTE | 2018-09-25 19:45 | PDOC PROGRESS REPORT ---
Subjective Progress Note for:: 09/25/18 Reason For Visit: ULCERATIVE COLITIS s/p perc drainage of pelvic abscess Physical Exam Vital Signs: Temp Pulse Resp BP Pulse Ox 98.1 F 82 14 146/82 H 100 09/25/18 15:04 09/25/18 16:35 09/25/18 16:35 09/25/18 16:35 09/25/18 16:35 Intake & Output 09/24/18 09/25/18 09/26/18 06:59 06:59 06:59 Intake Total 1500 2140 300 Output Total 200 30 Balance 1500 1940 270 Weight 85.1 kg 84.2 kg General appearance: PRESENT: no acute distress Head exam: PRESENT: normocephalic Respiratory exam: PRESENT: clear to auscultation godwin Cardiovascular exam: PRESENT: RRR Vascular exam: PRESENT: normal capillary refill GI/Abdominal exam: PRESENT: soft - drain with purulent fluid Results Laboratory Results: 09/25/18 05:53 09/25/18 05:53 09/25/18 09/25/18 05:53 05:53 WBC 6.9 RBC 4.40 Hgb 13.0 D Hct 38.4 MCV 87 MCH 29.5 MCHC 33.8 RDW 16.3 H Plt Count 405 Sodium 134.6 L Potassium 3.1 L D Chloride 96 L Carbon Dioxide 32 H Anion Gap 7 BUN 14 Creatinine 0.40 L Est GFR ( Amer) > 60 Est GFR (Non-Af Amer) > 60 Glucose 81 Calcium 7.9 L 09/23/18 18:29 Stool - Stool - Final 09/23/18 18:29 Stool - Stool Stool Culture - Final NO SALMONELLA, SHIGELLA, CAMPYLOBACTER, OR E.COLI 0157 RECOVERED. NEGATIVE FOR SHIGA TOXINS 1&2. Impressions: Chest X-Ray 09/23/18 00:00 IMPRESSION: NO ACUTE RADIOGRAPHIC FINDING IN THE CHEST. Abdomen/Pelvis CT 09/23/18 15:01 IMPRESSION: 1. Sigmoid diverticulosis. Cannot exclude mild associated infla mmation. 2. There is a large irregularly-shaped fluid collection in the lower abdomen/ upper pelvis as described. This is concerning for an abscess. The exact origin is not clear. Is there clinical evidence of or history of appendicitis? Percutaneous Drainage 09/24/18 00:00 IMPRESSION: Successful CT-guided drainage of pelvic abscess. Assessment & Plan - Plan Summary Plan Summary: pt doing better since perc drain gi requested [facility] venous access for home iv abx will plan on groshong cath vs rhoades cath placemnt in am discussed risks and benifits iwth pt incluiding bleeding , pneumothorax infection arrhythmia
--- NOTE | 2018-09-25 21:35 | RADIOLOGY REPORT (SQ) ---
EXAM DESCRIPTION: US ABDOMEN LIMITED COMPLETED DATE/TME: 09/25/2018 00:00 CLINICAL HISTORY: 58 years, Female, Assess intrabdominal abscess COMPARISON: CT 09/23/2018 TECHNIQUE: Limited ultrasound in the region of the patient's prior abscess was performed, inferior to the umbilicus. LIMITATIONS: None. FINDINGS: No discrete or defined fluid collection in the region scanned to suggest residual abscess. IMPRESSION: No definitive abscess in the region scanned copyright 2010 [id number]- All Rights Reserved
[2018-09-25] MEDS: HEPARIN SOD (PORCINE) 5,000 UNIT/ML 1 ML SYRINGE SUBCUT SCH (22:01)
[2018-09-26] MEDS: 1/2 NORMAL SALINE 1,000 ML IV PRN (01:53)
[2018-09-26] MEDS: METRONIDAZOLE 500 MG/NS RTU 500 MG/100 ML RTUPB IV SCH ×3 (01:54→17:14)
[2018-09-26] MEDS: METHYLPREDNISOLONE INJ 40 MG/1 ML SDV IV SCH ×3 (01:57→17:14)
[2018-09-26] MEDS: IMIPENEM/CILASTATIN SODIUM 500 MG in NORMAL SALINE 100 ML IV SCH ×4 (03:03→21:35)
[2018-09-26 07:37] LABS: HEMATOCRIT 31.3 % (36.0-47.0); MEAN CORPUSCULAR HGB CONC 34.5 g/dL (32.0-36.0); MEAN CORPUSCULAR VOLUME 87 fl (80-97); PLATELET COUNT 560 10^3/uL (150-450); RED CELL DISTRIBUTION WIDTH 16.2 % (11.5-14.0); WHITE BLOOD COUNT 8.7 10^3/uL (4.0-10.5)
[2018-09-26 07:38] LABS: HEMOGLOBIN 10.8 g/dL (12.0-15.5)
[2018-09-26 07:59] LABS: ANION GAP 8 (5-19); BLOOD UREA NITROGEN 13 mg/dL (7-20); CARBON DIOXIDE 28 mmol/L (22-30); CHLORIDE 97 mmol/L (98-107); GLUCOSE 92 mg/dL (75-110); POTASSIUM 4.2 mmol/L (3.6-5.0); SODIUM 133.2 mmol/L (137-145)
[2018-09-26] MEDS: HEPARIN SOD (PORCINE) 5,000 UNIT/ML 1 ML SYRINGE SUBCUT SCH ×2 (09:35→21:36)
[2018-09-26] MEDS: FLUOXETINE HCL 20 MG CAPSULE PO SCH (09:36)
--- NOTE | 2018-09-26 13:22 | PDOC PROGRESS REPORT ---
Subjective Progress Note for:: 09/26/18 Subjective:: No adverse events overnight. No new complaints. Vital signs been stable. She is been afebrile. She is waiting to get her PICC line so she can get her IV antibiotics. Abdominal pain is minimal. Reason For Visit: ULCERATIVE COLITIS Physical Exam Vital Signs: Temp Pulse Resp BP Pulse Ox 98.7 F 82 18 143/74 H 97 09/26/18 07:28 09/26/18 07:28 09/26/18 07:28 09/26/18 07:28 09/26/18 07:28 Intake & Output 09/25/18 09/26/18 09/27/18 06:59 06:59 06:59 Intake Total 2140 1840 100 Output Total 200 30 Balance 1940 1810 100 Weight 84.2 kg 85.2 kg General appearance: PRESENT: no acute distress, cooperative, disheveled, morbidly obese Respiratory exam: PRESENT: clear to auscultation godwin, symmetrical, unlabored. ABSENT: accessory muscle use, prolonged expiratory phas, rales, rhonchi, tachypnea, wheezes Cardiovascular exam: PRESENT: RRR, +S1, +S2 Vascular exam: PRESENT: normal capillary refill GI/Abdominal exam: PRESENT: normal bowel sounds, soft, EVELIN drain has some brownish fluid in the bag, entry site is unremarkable. ABSENT: distended, guarding, rebound Extremities exam: PRESENT: pedal edema, other - 3+ pitting edema below the knees bilaterally. ABSENT: clubbing Musculoskeletal exam: PRESENT: normal inspection. ABSENT: deformity Neurological exam: PRESENT: alert, awake, oriented to person, oriented to place, oriented to time, oriented to situation Psychiatric exam: PRESENT: appropriate affect, normal mood Skin exam: PRESENT: dry, warm Results Laboratory Results: 09/26/18 06:48 09/26/18 06:48 09/26/18 09/26/18 09/26/18 06:48 06:48 06:48 WBC 8.7 RBC 3.60 L Hgb 10.8 L D Hct 31.3 L MCV 87 MCH 30.0 MCHC 34.5 RDW 16.2 H Plt Count 560 H Sodium 133.2 L Potassium 4.2 Chloride 97 L Carbon Dioxide 28 Anion Gap 8 BUN 13 Creatinine 0.33 L Est GFR ( Amer) > 60 Est GFR (Non-Af Amer) > 60 Glucose 92 Calcium 8.0 L C-Reactive Protein 59.2 H 09/23/18 18:29 Stool - Stool - Final 09/23/18 18:29 Stool - Stool Stool Culture - Final NO SALMONELLA, SHIGELLA, CAMPYLOBACTER, OR E.COLI 0157 RECOVERED. NEGATIVE FOR SHIGA TOXINS 1&2. Impressions: Chest X-Ray 09/23/18 00:00 IMPRESSION: NO ACUTE RADIOGRAPHIC FINDING IN THE CHEST. Abdomen/Pelvis CT 09/23/18 15:01 IMPRESSION: 1. Sigmoid diverticulosis. Cannot exclude mild associated inflam mation. 2. There is a large irregularly-shaped fluid collection in the lower abdomen/ upper pelvis as described. This is concerning for an abscess. The exact origin is not clear. Is there clinical evidence of or history of appendicitis? Percutaneous Drainage 09/24/18 00:00 IMPRESSION: Successful CT-guided drainage of pelvic abscess. Abdomen Ultrasound 09/25/18 00:00 IMPRESSION: No definitive abscess in the region scanned copyright 2010 [id number]- All Rights Reserved Assessment & Plan - Diagnosis (1) Abscess of abdominal cavity Is this a current diagnosis for this admission?: Yes Plan: GI wants to treat her for complete course of therapy with IV antibiotics. She is scheduled get a PICC line today. Cultures show a preliminary result but the definitive identification and susceptibility is still pending. Percutaneous drain management per surgery. (2) Ulcerative colitis Qualifiers: Ulcerative colitis location: unspecified ulcerative colitis location Digestive disease complication type: with rectal bleeding Qualified Code(s): K51.911 - Ulcerative colitis, unspecified with rectal bleeding Is this a current diagnosis for this admission?: Yes Plan: She is being managed medically by gastroenterology. - Time Time Spent with patient: 15-24 minutes
--- NOTE | 2018-09-26 14:37 | PDOC PROGRESS REPORT ---
Subjective Progress Note for:: 09/26/18 Subjective:: 58-year-old female status post insertion of a percutaneous drain for an intra- abdominal abscess. The patient is in need of long-term intravenous access for antibiotic administration. Currently, the patient reports that her abdominal pain is improving. Her appetite is good. She is afebrile. She denies chest pain, shortness of breath, blurry vision, orthostasis, headache, nausea, vomiting, melena, hematochezia, hematemesis, fatigue, malaise. Reason For Visit: ULCERATIVE COLITIS Physical Exam Vital Signs: Temp Pulse Resp BP Pulse Ox 97.8 F 86 16 128/60 H 98 09/26/18 12:21 09/26/18 12:21 09/26/18 12:21 09/26/18 12:21 09/26/18 12:21 Intake & Output 09/25/18 09/26/18 09/27/18 06:59 06:59 06:59 Intake Total 2140 1840 200 Output Total 200 30 Balance 1940 1810 200 Weight 84.2 kg 85.2 kg General appearance: PRESENT: no acute distress, cooperative Head exam: PRESENT: atraumatic, normocephalic Eye exam: PRESENT: EOMI, PERRLA. ABSENT: scleral icterus Mouth exam: PRESENT: moist, neck supple Teeth exam: ABSENT: poor dentation Neck exam: ABSENT: meningismus, tenderness, thyromegaly, tracheal deviation Respiratory exam: PRESENT: clear to auscultation godwin, unlabored. ABSENT: chest wall tenderness, tachypnea, wheezes Cardiovascular exam: PRESENT: RRR Pulses: PRESENT: normal radial pulses Vascular exam: PRESENT: normal capillary refill. ABSENT: pallor GI/Abdominal exam: PRESENT: soft, other - Drain in place.. ABSENT: distended, tenderness Rectal exam: PRESENT: deferred Extremities exam: PRESENT: pedal edema Musculoskeletal exam: ABSENT: deformity Neurological exam: PRESENT: alert, awake, oriented to person, oriented to place Psychiatric exam: ABSENT: agitated, anxious, depressed Focused psych exam: ABSENT: delusional Skin exam: ABSENT: cyanosis, erythema, jaundice Results Laboratory Results: 09/26/18 06:48 09/26/18 06:48 09/26/18 09/26/18 09/26/18 06:48 06:48 06:48 WBC 8.7 RBC 3.60 L Hgb 10.8 L D Hct 31.3 L MCV 87 MCH 30.0 MCHC 34.5 RDW 16.2 H Plt Count 560 H Sodium 133.2 L Potassium 4.2 Chloride 97 L Carbon Dioxide 28 Anion Gap 8 BUN 13 Creatinine 0.33 L Est GFR ( Amer) > 60 Est GFR (Non-Af Amer) > 60 Glucose 92 Calcium 8.0 L C-Reactive Protein 59.2 H 09/23/18 18:29 Stool - Stool - Final 09/23/18 18:29 Stool - Stool Stool Culture - Final NO SALMONELLA, SHIGELLA, CAMPYLOBACTER, OR E.COLI 0157 RECOVERED. NEGATIVE FOR SHIGA TOXINS 1&2. Impressions: Chest X-Ray 09/23/18 00:00 IMPRESSION: NO ACUTE RADIOGRAPHIC FINDING IN THE CHEST. Abdomen/Pelvis CT 09/23/18 15:01 IMPRESSION: 1. Sigmoid diverticulosis. Cannot exclude mild associated inflammation. 2. There is a large irregularly-shaped fluid collection in the lower abdomen/ upper pelvis as described. This is concerning for an abscess. The exact origin is not clear. Is there clinical evidence of or history of appendicitis? Percutaneous Drainage 09/24/18 00:00 IMPRESSION: Successful CT-guided drainage of pelvic abscess. Abdomen Ultrasound 09/25/18 00:00 IMPRESSION: No definitive abscess in the region scanned copyright 2010 [employer] [facility]- All Rights Reserved Assessment & Plan - Diagnosis (1) Abscess of abdominal cavity Is this a current diagnosis for this admission?: Yes (2) Phlebosclerosis Is this a current diagnosis for this admission?: Yes - Plan Summary Plan Summary: This is a 58-year-old female in need of stable intravenous access for home antibiotic administration. Plan for Mccabe catheter tomorrow. N.p.o. after midnight. Risks/benefits discussed, informed consent obtained, and all questions answered.
[2018-09-27] MEDS: METRONIDAZOLE 500 MG/NS RTU 500 MG/100 ML RTUPB IV SCH ×3 (01:34→17:04)
[2018-09-27] MEDS: METHYLPREDNISOLONE INJ 40 MG/1 ML SDV IV SCH ×3 (01:35→17:04)
[2018-09-27] MEDS: 1/2 NORMAL SALINE 1,000 ML IV PRN (01:42)
[2018-09-27] MEDS: IMIPENEM/CILASTATIN SODIUM 500 MG in NORMAL SALINE 100 ML IV SCH ×5 (03:23→21:19)
--- NOTE | 2018-09-27 07:15 | PDOC PROGRESS REPORT ---
Subjective Progress Note for:: 09/27/18 Subjective:: 58-year-old female status post insertion of a percutaneous drain for an intra- abdominal abscess. The patient is in need of long-term intravenous access for antibiotic administration. Currently, the patient reports that her abdominal pain is improving. Her appetite is good. She is afebrile. She denies chest pain, shortness of breath, blurry vision, orthostasis, headache, nausea, vomiting, melena, hematochezia, hematemesis, fatigue, malaise. Reason For Visit: ULCERATIVE COLITIS Physical Exam Vital Signs: Temp Pulse Resp BP Pulse Ox 97.8 F 77 16 159/83 H 96 09/27/18 03:08 09/27/18 03:08 09/27/18 03:08 09/27/18 03:08 09/27/18 03:08 Intake & Output 09/26/18 09/27/18 09/28/18 06:59 06:59 06:59 Intake Total 1840 1900 Output Total 30 10 Balance 1810 1890 Weight 85.2 kg 86.2 kg Respiratory exam: PRESENT: clear to auscultation godwin. ABSENT: chest wall tenderness Cardiovascular exam: PRESENT: RRR Results Laboratory Results: 09/26/18 06:48 09/26/18 06:48 09/26/18 09/26/18 09/26/18 06:48 06:48 06:48 WBC 8.7 RBC 3.60 L Hgb 10.8 L D Hct 31.3 L MCV 87 MCH 30.0 MCHC 34.5 RDW 16.2 H Plt Count 560 H Sodium 133.2 L Potassium 4.2 Chloride 97 L Carbon Dioxide 28 Anion Gap 8 BUN 13 Creatinine 0.33 L Est GFR ( Amer) > 60 Est GFR (Non-Af Amer) > 60 Glucose 92 Calcium 8.0 L C-Reactive Protein 59.2 H Impressions: Chest X-Ray 09/23/18 00:00 IMPRESSION: NO ACUTE RADIOGRAPHIC FINDING IN THE CHEST. Abdomen/Pelvis CT 09/23/18 15:01 IMPRESSION: 1. Sigmoid diverticulosis. Cannot exclude mild associated inflammation. 2. There is a large irregularly-shaped fluid collection in the lower abdomen/ upper pelvis as described. This is concerning for an abscess. The exact origin is not clear. Is there clinical evidence of or history of appendicitis? Percutaneous Drainage 09/24/18 00:00 IMPRESSION: Successful CT-guided drainage of pelvic abscess. Abdomen Ultrasound 09/25/18 00:00 IMPRESSION: No definitive abscess in the region scanned copyright 2011 [employer]- All Rights Reserved Assessment & Plan - Diagnosis (1) Abscess of abdominal cavity Is this a current diagnosis for this admission?: Yes (2) Phlebosclerosis Is this a current diagnosis for this admission?: Yes - Plan Summary Plan Summary: There is a 58-year-old female in need of long-term IV access for home antibiotic administration. Plan for Mccabe catheter today. Risks/benefits discussed, informed consent obtained, and all questions answered.
[2018-09-27] MEDS ORDERED: PROPOFOL INJ 200 MG/20 ML VIAL IV ONE (07:20)
[2018-09-27] MEDS ORDERED: MIDAZOLAM 2 MG/2 ML INJ ONE (07:20)
[2018-09-27] MEDS ORDERED: FENTANYL CITRATE INJ/PF 100 MCG/2 ML AMPUL ONE (07:20)
[2018-09-27] MEDS ORDERED: BUPIVACAINE HCL 0.25 % INJ/PF (2.5 MG/1 ML) 30 ML VIAL ONE (07:41)
[2018-09-27] MEDS ORDERED: LIDOCAINE 0.5% INJ-PF (5 MG/ML) 50 ML SDV ONE (07:41)
[2018-09-27] MEDS ORDERED: PROMETHAZINE HCL INJ 25 MG/1 ML VIAL IV PRN (08:27)
[2018-09-27] MEDS ORDERED: MEPERIDINE HCL/PF INJ 25 MG/1 ML DISP.SYRIN IV PRN (08:27)
[2018-09-27] MEDS ORDERED: FENTANYL CITRATE INJ/PF 100 MCG/2 ML AMPUL IV PRN ×3 (08:27)
[2018-09-27] MEDS ORDERED: DIPHENHYDRAMINE HCL 50 MG/ML VIAL IV PRN (08:27)
--- NOTE | 2018-09-27 08:43 | Operative Report ---
Nonrecallable Operative Report DATE OF SURGERY: 09/27/18 PREOPERATIVE DIAGNOSIS: 1. Phlebosclerosis. #2 intra-abdominal abscess POSTOPERATIVE DIAGNOSIS: Same as above OPERATION: 1. Ultrasound-guided central venous puncture. 2. Left internal jugular vein Mccabe catheter placement (centrally inserted, tunneled catheter without subcutaneous port) SURGEON: RENEE OROZCO ANESTHESIA: LMAC TISSUE REMOVED OR ALTERED: None COMPLICATIONS: None apparent ESTIMATED BLOOD LOSS: Minimal PROCEDURE: Drains/implants: Mccabe catheter placement. Procedure in detail: After informed consent was obtained, the patient was brought to the operating room and laid in the Trendelenburg position. The area of the neck and chest were prepped and draped in a normal sterile fashion. An ultrasound was used to identify the left internal jugular vein. It was compressible with normal flow. The supplied access needle was used to cannulate the left internal jugular vein under direct ultrasound guidance. Dark venous, nonpulsatile blood was returned in the syringe. The wire was inserted into the vein. The wire was confirmed to be within the lumen of the vein using both fluoroscopy as well as ultrasound. Photodocumentation was taken. The catheter was then tunneled from a separate stab incision in the left chest up to the needle insertion site. The catheter was then trimmed to length. The dilator and breakaway sheath were then inserted over the wire. The wire and dilator were removed, leaving the sheath within the superior vena cava. The catheter was then advanced through the sheath. The sheath was cracked and pulled away, leaving the catheter within the SVC. The catheter was confirmed to be in good place using fluoroscopy. The catheter was aspirated and flushed easily. The catheter was then sutured to the chest wall. The needle insertion site was closed using 4-0 Vicryl Rapide suture in subcuticular fashion. A dressing was placed, and the procedure was concluded. All sponge, instrument, and needle counts were correct x2. Condition: Stable.
--- NOTE | 2018-09-27 09:16 | RADIOLOGY REPORT (SQ) ---
EXAM DESCRIPTION: FLUORO/CV PLACEMENT; CHEST SINGLE VIEW COMPLETED DATE/TIME: 09/27/2018 9:05 am REASON FOR STUDY: LT SIDE THORNTON COMPARISON: 09/23/2018 NUMBER OF VIEWS: One view. 2 images during fluoroscopy. 0.4 minutes fluoro time. TECHNIQUE: Single frontal radiographic view of the chest acquired. LIMITATIONS: None. FINDINGS: LUNGS AND PLEURA: No opacities, masses or pneumothorax. No pleural effusion. MEDIASTINUM AND HILAR STRUCTURES: No masses. Contour normal. HEART AND VASCULAR STRUCTURES: Heart normal in size. Normal vasculature. BONES: No acute findings. HARDWARE: Venous access catheter tip at the junction of the left subclavian vein and SVC. OTHER: No other significant finding. IMPRESSION: No pneumothorax postprocedure. Venous access catheter tip at the junction of the left s ubclavian vein and SVC. No pneumothorax postprocedure. TECHNICAL DOCUMENTATION: JOB ID: [id number] [employer]- All Rights Reserved FLUOROSCOPY TIME: 0.4 2 images saved to PACS. Reading location - IP/workstation name: [email or web address]
--- NOTE | 2018-09-27 09:16 | RADIOLOGY REPORT (SQ) ---
EXAM DESCRIPTION: FLUORO/CV PLACEMENT; CHEST SINGLE VIEW COMPLETED DATE/TIME: 09/27/2018 9:05 am REASON FOR STUDY: LT SIDE THORNTON COMPARISON: 09/23/2018 NUMBER OF VIEWS: One view. 2 images during fluoroscopy. 0.4 minutes fluoro time. TECHNIQUE: Single frontal radiographic view of the chest acquired. LIMITATIONS: None. FINDINGS: LUNGS AND PLEURA: No opacities, masses or pneumothorax. No pleural effusion. MEDIASTINUM AND HILAR STRUCTURES: No masses. Contour normal. HEART AND VASCULAR STRUCTURES: Heart normal in size. Normal vasculature. BONES: No acute findings. HARDWARE: Venous access catheter tip at the junction of the left subclavian vein and SVC. OTHER: No other significant finding. IMPRESSION: No pneumothorax postprocedure. Venous access catheter tip at the junction of the left s ubclavian vein and SVC. No pneumothorax postprocedure. TECHNICAL DOCUMENTATION: JOB ID: [id number] [employer]- All Rights Reserved FLUOROSCOPY TIME: 0.4 2 images saved to PACS. Reading location - IP/workstation name: [email or web address]
[2018-09-27] MEDS: HEPARIN SOD (PORCINE) 5,000 UNIT/ML 1 ML SYRINGE SUBCUT SCH ×2 (09:44→21:19)
[2018-09-27] MEDS: FLUOXETINE HCL 20 MG CAPSULE PO SCH (09:45)
--- NOTE | 2018-09-27 15:08 | PDOC PROGRESS REPORT ---
Subjective Progress Note for:: 09/27/18 Subjective:: No adverse events overnight. No new complaints. She been eating and drinking without difficulty. Vital signs been stable. Percutaneous abdominal drain is having minimal output. Reason For Visit: ULCERATIVE COLITIS Physical Exam Vital Signs: Temp Pulse Resp BP Pulse Ox 98.2 F 81 16 131/76 H 97 09/27/18 12:13 09/27/18 12:13 09/27/18 12:13 09/27/18 12:13 09/27/18 12:13 Intake & Output 09/26/18 09/27/18 09/28/18 06:59 06:59 06:59 Intake Total 1840 1999 1650 Output Total 30 10 40 Balance 1811989 1610 Weight 85.2 kg 86.2 kg General appearance: PRESENT: no acute distress, cooperative, disheveled, mor bidly obese Respiratory exam: PRESENT: clear to auscultation godwin, symmetrical, unlabored. ABSENT: accessory muscle use, prolonged expiratory phas, rales, rhonchi, tachypnea, wheezes Cardiovascular exam: PRESENT: RRR, +S1, +S2 Vascular exam: PRESENT: normal capillary refill GI/Abdominal exam: PRESENT: normal bowel sounds, soft, EVELIN drain has some brownish fluid in the bag, entry site is unremarkable. ABSENT: distended, guarding, rebound Extremities exam: PRESENT: pedal edema, other - 3+ pitting edema below the knees bilaterally. ABSENT: clubbing Musculoskeletal exam: PRESENT: normal inspection. ABSENT: deformity Neurological exam: PRESENT: alert, awake, oriented to person, oriented to place, oriented to time, oriented to situation Psychiatric exam: PRESENT: appropriate affect, normal mood Skin exam: PRESENT: dry, warm Results Laboratory Results: 09/26/18 06:48 09/26/18 06:48 09/24/18 14:45 Pelvic Fluid Gram Stain - Final Impressions: Abdomen/Pelvis CT 09/23/18 15:01 IMPRESSION: 1. Sigmoid diverticulosis. Cannot exclude mild associated inflammation. 2. There is a large irregularly-shaped fluid collection in the lower abdomen/ upper pelvis as described. This is concerning for an abscess. The exact origin is not clear. Is there clinical evidence of or history of appendicitis? Percutaneous Drainage 09/24/18 00:00 IMPRESSION: Successful CT-guided drainage of pelvic abscess. Abdomen Ultrasound 09/25/18 00:00 IMPRESSION: No definitive abscess in the region scanned copyright 2010 [employer]- All Rights Reserved Guidance Fluoroscopy 09/27/18 08:00 IMPRESSION: No pneumothorax postprocedure. Venous access catheter tip at the junction of the left subclavian vein and SVC. No pneumothorax postprocedure. Chest X-Ray 09/27/18 08:45 IMPRESSION: No pneumothorax postprocedure. Venous access catheter tip at the junction of the left subclavian vein and SVC. No pneumothorax postprocedure. Assessment & Plan - Diagnosis (1) Abscess of abdominal cavity Is this a current diagnosis for this admission?: Yes Plan: GI wants to treat her for complete course of therapy with IV antibiotics. She got a Mccabe catheter placed. Culture shows 2 organisms, 1 of which is an E. coli. Percutaneous drain management per surgery. (2) Ulcerative colitis Qualifiers: Ulcerative colitis location: unspecified ulcerative colitis location Digestive disease complication type: with rectal bleeding Qualified Code(s): K51.911 - Ulcerative colitis, unspecified with rectal bleeding Is this a current diagnosis for this admission?: Yes Plan: She is being managed medically by gastroenterology. - Time Time Spent with patient: 15-24 minutes
--- NOTE | 2018-09-27 21:17 | Progress Note ---
Provider Note Provider Note: Pt doing well, s/p Percutaneous drainage of intra-abdominal abscess. Mccabe catheter in-place. Leave Perc-drain to suction for now. F/u with me in the office in 7-10 days. Will see again as-needed as inpatient. Please renotify with any questions or concerns.
[2018-09-28] MEDS: METRONIDAZOLE 500 MG/NS RTU 500 MG/100 ML RTUPB IV SCH ×2 (01:49→09:51)
[2018-09-28] MEDS: METHYLPREDNISOLONE INJ 40 MG/1 ML SDV IV SCH ×3 (01:49→18:09)
[2018-09-28] MEDS: IMIPENEM/CILASTATIN SODIUM 500 MG in NORMAL SALINE 100 ML IV SCH ×4 (03:02→21:23)
[2018-09-28] MEDS: 1/2 NORMAL SALINE 1,000 ML IV PRN (08:11)
[2018-09-28] MEDS: HEPARIN SOD (PORCINE) 5,000 UNIT/ML 1 ML SYRINGE SUBCUT SCH ×2 (09:51→21:58)
[2018-09-28] MEDS: FLUOXETINE HCL 20 MG CAPSULE PO SCH (09:51)
--- NOTE | 2018-09-28 17:04 | PDOC PROGRESS REPORT ---
Subjective Progress Note for:: 09/28/18 Subjective:: No adverse events overnight. No new complaints. She would like to have some physical therapy. She is been eating and drinking without difficulty. Reason For Visit: ULCERATIVE COLITIS Physical Exam Vital Signs: Temp Pulse Resp BP Pulse Ox 98.0 F 97 16 135/97 H 97 09/28/18 15:33 09/28/18 15:33 09/28/18 15:33 09/28/18 15:33 09/28/18 15:33 Intake & Output 09/27/18 09/28/18 09/29/18 06:59 06:59 06:59 Intake Total 1999 2590 1440 Output Total 10 1560 Balance 1989 1030 1440 Weight 86.2 kg 85.9 kg General appearance: PRESENT: no acute distress, cooperative, disheveled, morbidly obese Respiratory exam: PRESENT: clear to auscultation godwin, symmetrical, unlabored. ABSENT: accessory muscle use, prolonged expiratory phas, rales, rhonchi, tachypnea, wheezes Cardiovascular exam: PRESENT: RRR, +S1, +S2 Vascular exam: PRESENT: normal capillary refill GI/Abdominal exam: PRESENT: normal bowel sounds, soft, EVELIN drain has some brownish fluid in the bag, entry site is unremarkable. ABSENT: distended, guarding, rebound Extremities exam: PRESENT: pedal edema, other - 3+ pitting edema below the knees bilaterally. ABSENT: clubbing Musculoskeletal exam: PRESENT: normal inspection. ABSENT: deformity Neurological exam: PRESENT: alert, awake, oriented to person, oriented to place, oriented to time, oriented to situation Psychiatric exam: PRESENT: appropriate affect, normal mood Skin exam: PRESENT: dry, warm Results Laboratory Results: 09/26/18 06:48 09/26/18 06:48 09/24/18 14:45 Pelvic Fluid Gram Stain - Final 09/24/18 14:45 Pelvic Fluid Body Fluid Culture - Final Escherichia Coli Enterococcus Faecalis(Group D) No Anaerobic Organisms Impressions: Abdomen/Pelvis CT 09/23/18 15:01 IMPRESSION: 1. Sigmoid diverticulosis. Cannot exclude mild associated inflammation. 2. There is a large irregularly-shaped fluid collection in the lower abdomen/ upper pelvis as described. This is concerning for an abscess. The exact origin is not clear. Is there clinical evidence of or history of appendicitis? Percutaneous Drainage 09/24/18 00:00 IMPRESSION: Successful CT-guided drainage of pelvic abscess. Abdomen Ultrasound 09/25/18 00:00 IMPRESSION: No definitive abscess in the region scanned copyright 2010 [employer]- All Rights Reserved Guidance Fluoroscopy 09/27/18 08:00 IMPRESSION: No pneumothorax postprocedure. Venous access catheter tip at the junction of the left subclavian vein and SVC. No pneumothorax postprocedure. Chest X-Ray 09/27/18 08:45 IMPRESSION: No pneumothorax postprocedure. Venous access catheter tip at the junction of the left subclavian vein and SVC. No pneumothorax postprocedure. Assessment & Plan - Diagnosis (1) Abscess of abdominal cavity Is this a current diagnosis for this admission?: Yes Plan: Culture came back positive for E.coli and Enterococcus. Anaerobic culture negative. Stopping metronidazole and starting ampicillin. Surgery wants to leave the drain in and have them come see her in the office in 7-10 days. (2) Ulcerative colitis Qualifiers: Ulcerative colitis location: unspecified ulcerative colitis location Digestive disease complication type: with rectal bleeding Qualified Code(s): K51.911 - Ulcerative colitis, unspecified with rectal bleeding Is this a current diagnosis for this admission?: Yes Plan: Dr. Panchal has written for all of her medications, including steroid regimen. We would need to contact him for recommendations regarding her medications including transitioning her over to orals. We will also have physical therapy evaluate her, anticipate she will need to go to SNF. - Time Time Spent with patient: 15-24 minutes
[2018-09-28] MEDS: AMPICILLIN SODIUM 2 GM in NORMAL SALINE 100 ML IV SCH ×2 (18:08→23:17)
--- NOTE | 2018-09-28 21:25 | PDOC PROGRESS REPORT ---
Subjective Progress Note for:: 09/28/18 Subjective:: Overall she seems to be doing better. She is having a couple of bowel movements a day and they have better formed. Her appetite is still poor but she is eating better and drinking supplements. She brought some boost from home that she likes. She denies abdominal pain. Her main complaint is that of being weak in the legs. She has been needing help getting out of bed but sometimes she is able to do it by herself like she did tonight getting up to the bathroom without help. She still has some drainage from her abdominal catheter. She had a Mccabe line placed yesterday. Her Flagyl was changed to ampicillin due to abdominal fluid culture growing E. coli and she continues on imipenem. She continues on 60 mg of Solu-Medrol daily. She had an abdominal ultrasound 2 days ago that showed no collections in her abdomen. Reason For Visit: ULCERATIVE COLITIS Physical Exam Vital Signs: Temp Pulse Resp BP Pulse Ox 98.5 F 89 18 138/77 H 97 09/28/18 20:16 09/28/18 20:16 09/28/18 20:16 09/28/18 20:16 09/28/18 20:16 Intake & Output 09/27/18 09/28/18 09/29/18 06:59 06:59 06:59 Intake Total 1999 2590 1540 Output Total 10 1560 Balance 1989 1030 1540 Weight 86.2 kg 85.9 kg Exam: General: Patient is alert and looks better HEENT: There is no pallor or jaundice. PERRLA. Oropharynx normal Respiratory: No chest deformity. No respiratory distress. Chest wall palpitation was unremarkable. Breath sounds were normal Cardiovascular: Heart sounds 1 and 2 normal with no murmurs. Abdominal: Not distended. She has a drainage tube in place Extremities: There is bilateral edema in the lower legs but these appear better than when she came in Neurological: Alert and oriented x4. Grossly nonfocal. Normal speech Skin: No significant rash Psychological: Normal affect Results Laboratory Results: 09/26/18 06:48 09/26/18 06:48 09/23/18 20:38 Blood Blood Culture - Final NO GROWTH IN 5 DAYS 09/23/18 20:17 Blood Blood Culture - Final NO GROWTH IN 5 DAYS 09/24/18 14:45 Pelvic Fluid Gram Stain - Final 09/24/18 14:45 Pelvic Fluid Body Fluid Culture - Final Escherichia Coli Enterococcus Faecalis(Group D) No Anaerobic Organisms Impressions: Abdomen/Pelvis CT 09/23/18 15:01 IMPRESSION: 1. Sigmoid diverticulosis. Cannot exclude mild associated inflammation. 2. There is a large irregularly-shaped fluid collection in the lower abdomen/ upper pelvis as described. This is concerning for an abscess. The exact origin is not clear. Is there clinical evidence of or history of appendicitis? Percutaneous Drainage 09/24/18 00:00 IMPRESSION: Successful CT-guided drainage of pelvic abscess. Abdomen Ultrasound 09/25/18 00:00 IMPRESSION: No definitive abscess in the region scanned copyright 2010 [employer]- All Rights Reserved Guidance Fluoroscopy 09/27/18 08:00 IMPRESSION: No pneumothorax postprocedure. Venous access catheter tip at the junction of the left subclavian vein and SVC. No pneumothorax postprocedure. Chest X-Ray 09/27/18 08:45 IMPRESSION: No pneumothorax postprocedure. Venous access catheter tip at the junction of the left subclavian vein and SVC. No pneumothorax postprocedure. Assessment & Plan - Diagnosis (1) Crohn's disease Is this a current diagnosis for this admission?: Yes Plan: Her recent endoscopic picture is more consistent with Crohn's colitis. Her bowels has improved on the current meds. Upon discharge she should be switched to prednisone 60 mg daily for 1 week, 40 mg daily for 3 weeks and start tapering by 5 mg every week after that. I will also start her on mercaptopurine 50 mg daily as a steroid sparing agent. She will be sent for TP MT. She will also continue with Lialda 4.8 g daily which she was taking prior to being admitted. (2) Abscess of abdominal cavity Is this a current diagnosis for this admission?: Yes Plan: Ultrasound a few days ago did not show abdominal collection. Dr. Barrientos will be seeing the patient in a week and he would decide on when to remove drainage catheter. She may need a CAT scan of the pelvic and abdomen for better evaluation of her disease. She may also need to continue with IV antibiotics for a few more days if she is discharged to the rehab center (3) Elevated alkaline phosphatase level Is this a current diagnosis for this admission?: Yes (4) Hypoalbuminemia Is this a current diagnosis for this admission?: Yes Plan: She is eating better and will continue with supplements (5) Edema due to hypoalbuminemia Is this a current diagnosis for this admission?: Yes Plan: Her leg swelling is better but hopefully as she eats better and ambulates this will improve
[2018-09-28] MEDS: MESALAMINE 400 MG CAPSULE.DR PO SCH (23:17)
[2018-09-29 01:14] LABS: ALANINE AMINOTRANSFERASE 34 U/L (9-52); ALBUMIN 2.3 g/dL (3.5-5.0); ALKALINE PHOSPHATASE 216 U/L (38-126); ASPARTATE AMINO TRANSFERASE 13 U/L (14-36); BILIRUBIN,DIRECT 0.2 mg/dL (0.0-0.4); BILIRUBIN,TOTAL 0.6 mg/dL (0.2-1.3); TOTAL PROTEIN 4.3 g/dL (6.3-8.2)
[2018-09-29] MEDS: METHYLPREDNISOLONE INJ 40 MG/1 ML SDV IV SCH ×3 (02:08→18:10)
[2018-09-29] MEDS: IMIPENEM/CILASTATIN SODIUM 500 MG in NORMAL SALINE 100 ML IV SCH ×4 (02:09→21:01)
[2018-09-29] MEDS: AMPICILLIN SODIUM 2 GM in NORMAL SALINE 100 ML IV SCH ×4 (05:39→23:51)
[2018-09-29] MEDS: FLUOXETINE HCL 20 MG CAPSULE PO SCH (09:26)
[2018-09-29] MEDS: MESALAMINE 400 MG CAPSULE.DR PO SCH ×3 (09:26→18:11)
[2018-09-29] MEDS: MERCAPTOPURINE 50 MG TABLET PO SCH (09:27)
[2018-09-29] MEDS: HEPARIN SOD (PORCINE) 5,000 UNIT/ML 1 ML SYRINGE SUBCUT SCH ×2 (09:27→21:01)
--- NOTE | 2018-09-29 15:45 | PDOC PROGRESS REPORT ---
Subjective Progress Note for:: 09/29/18 Subjective:: The patient is a 58-year-old, chronically ill-appearing, female with past medical history of ulcerative colitis, psoriatic arthritic, depression, and obesity who was admitted 09/23/18 for ulcerative colitis. Patient was seen on morning rounds. She was found resting in the recliner comfortably on room air. She reports that her pain is well controlled at present. She states that her appetite has returned and she denies nausea, vomiting, and diarrhea. 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 She further denies fever, chills, body aches, chest pain, palpitations, and dyspnea. She has no new questions or concerns. No concerns per nursing. Reason For Visit: ULCERATIVE COLITIS Physical Exam Vital Signs: Temp Pulse Resp BP Pulse Ox 97.6 F 100 15 130/70 H 98 09/29/18 11:17 09/29/18 11:17 09/29/18 11:17 09/29/18 11:17 09/29/18 11:17 Intake & Output 09/28/18 09/29/18 09/30/18 06:59 06:59 06:59 Intake Total 2590 2040 500 Output Total 1560 Balance 1030 2040 500 Weight 85.9 kg 85.9 kg General appearance: PRESENT: no acute distress, cooperative, disheveled, obese, well-developed, other - Chronically ill-appearing Head exam: PRESENT: atraumatic, normocephalic Eye exam: PRESENT: conjunctiva pink, EOMI, PERRLA. ABSENT: scleral icterus Ear exam: PRESENT: normal external ear exam Mouth exam: PRESENT: moist, tongue midline Neck exam: ABSENT: carotid bruit, JVD, lymphadenopathy, thyromegaly Respiratory exam: PRESENT: clear to auscultation godwin, symmetrical, unlabored. ABSENT: rales, rhonchi, wheezes Cardiovascular exam: PRESENT: RRR, +S1, +S2. ABSENT: diastolic murmur, rubs, systolic murmur Pulses: PRESENT: normal dorsalis pedis pul Vascular exam: PRESENT: normal capillary refill GI/Abdominal exam: PRESENT: normal bowel sounds, soft, other - EVELIN drain. ABSENT: distended, guarding, mass, organolmegaly, rebound, tenderness Rectal exam: PRESENT: deferred Extremities exam: PRESENT: full ROM, pedal edema - +3 pitting edema BLE. ABSENT: calf tenderness, clubbing Neurological exam: PRESENT: alert, awake, oriented to person, oriented to place, oriented to time, oriented to situation, CN II-XII grossly intact. ABSENT: motor sensory deficit Psychiatric exam: PRESENT: appropriate affect, normal mood. ABSENT: homicidal ideation, suicidal ideation Skin exam: PRESENT: dry, intact, warm. ABSENT: cyanosis, rash Results Laboratory Results: 09/26/18 06:48 09/26/18 06:48 09/29/18 00:51 Total Bilirubin 0.6 AST 13 L ALT 34 Alkaline Phosphatase 216 H Total Protein 4.3 L Albumin 2.3 L 09/23/18 20:38 Blood Blood Culture - Final NO GROWTH IN 5 DAYS 09/23/18 20:17 Blood Blood Culture - Final NO GROWTH IN 5 DAYS Impressions: Abdomen/Pelvis CT 09/23/18 15:01 IMPRESSION: 1. Sigmoid diverticulosis. Cannot exclude mild associated inflammation. 2. There is a large irregularly-shaped fluid collection in the lower abdomen/ upper pelvis as described. This is concerning for an abscess. The exact origin is not clear. Is there clinical evidence of or history of appendicitis? Percutaneous Drainage 09/24/18 00:00 IMPRESSION: Successful CT-guided drainage of pelvic abscess. Abdomen Ultrasound 09/25/18 00:00 IMPRESSION: No definitive abscess in the region scanned copyright 2010 [email or web address]- All Rights Reserved Guidance Fluoroscopy 09/27/18 08:00 IMPRESSION: No pneumothorax postprocedure. Venous access catheter tip at the junction of the left subclavian vein and SVC. No pneumothorax postprocedure. Chest X-Ray 09/27/18 08:45 IMPRESSION: No pneumothorax postprocedure. Venous access catheter tip at the junction of the left subclavian vein and SVC. No pneumothorax postprocedure. Assessment & Plan - Diagnosis (1) Abscess of abdominal cavity Is this a current diagnosis for this admission?: Yes Plan: Now status post percutaneous drain placed by surgery. Blood cultures have no growth at 5 days. Pelvic fluid grew E. coli and enterococcus faecialis Patient will be discharged with EVELIN drain in place; to follow-up with surgery in 7-10 days. Will defer antibiotic therapy to gastroenterology. (2) Crohn's disease Qualifiers: Gastrointestinal tract location: large intestine Digestive disease complication type: with abscess Qualified Code(s): K50.114 - Crohn's disease of large intestine with abscess Is this a current diagnosis for this admission?: Yes Plan: Primary plan per Dr. Miller; prednisone taper, mercaptopurine, mesalamine, and Lialda per his expertise. Cultures and antibiotics as above. (3) Anasarca Is this a current diagnosis for this admission?: Yes Plan: Secondary to hypoalbuminemia; likely multifactorial secondary to poor nutrition and poor absorption. Dietary is consulted; continue high protein diet with dietary supplements. TARYN daniels. (4) Depression Qualifiers: Depression Type: unspecified Qualified Code(s): F32.9 - Major depressive disorder, single episode, unspecified Is this a current diagnosis for this admission?: Yes Plan: continue home dose Prozac. (5) Debility, unspecified Is this a current diagnosis for this admission?: Yes Plan: PT/OT consultations ordered; recommending SNF for short term rehab. Discharge planning is consulted. - Time Time Spent with patient: 15-24 minutes Anticipated discharge: SNF Within: Other - Medically stable for discharge at GI's discretion.
[2018-09-30] MEDS: METHYLPREDNISOLONE INJ 40 MG/1 ML SDV IV SCH ×3 (02:35→17:56)
[2018-09-30] MEDS: IMIPENEM/CILASTATIN SODIUM 500 MG in NORMAL SALINE 100 ML IV SCH ×4 (02:43→21:46)
[2018-09-30] MEDS: FLUOXETINE HCL 20 MG CAPSULE PO SCH (05:09)
[2018-09-30] MEDS: AMPICILLIN SODIUM 2 GM in NORMAL SALINE 100 ML IV SCH ×4 (05:09→23:20)
[2018-09-30] MEDS: MERCAPTOPURINE 50 MG TABLET PO SCH (09:28)
[2018-09-30] MEDS: MESALAMINE 400 MG CAPSULE.DR PO SCH ×3 (09:28→17:56)
[2018-09-30] MEDS: HEPARIN SOD (PORCINE) 5,000 UNIT/ML 1 ML SYRINGE SUBCUT SCH ×2 (09:36→21:45)
[2018-09-30 10:56] LABS: HEMATOCRIT 28.6 % (36.0-47.0); HEMOGLOBIN 9.6 g/dL (12.0-15.5); MEAN CORPUSCULAR HEMOGLOBIN 29.4 pg (27.0-33.4); MEAN CORPUSCULAR HGB CONC 33.5 g/dL (32.0-36.0); MEAN CORPUSCULAR VOLUME 88 fl (80-97); PLATELET COUNT 424 10^3/uL (150-450); RED BLOOD COUNT 3.26 10^6/uL (3.72-5.28); RED CELL DISTRIBUTION WIDTH 16.1 % (11.5-14.0); WHITE BLOOD COUNT 14.5 10^3/uL (4.0-10.5)
[2018-09-30 12:13] LABS: ANION GAP 5 (5-19); BLOOD UREA NITROGEN 9 mg/dL (7-20); CALCIUM 8.4 mg/dL (8.4-10.2); CARBON DIOXIDE 34 mmol/L (22-30); CHLORIDE 99 mmol/L (98-107); GLUCOSE 137 mg/dL (75-110); POTASSIUM 4.7 mmol/L (3.6-5.0); SODIUM 137.9 mmol/L (137-145)
--- NOTE | 2018-09-30 16:49 | PDOC PROGRESS REPORT ---
Subjective Progress Note for:: 09/30/18 Subjective:: The patient is a 58-year-old, chronically ill-appearing, female with past medical history of ulcerative colitis, psoriatic arthritic, depression, and obesity who was admitted 09/23/18 for ulcerative colitis. Patient was seen on morning rounds. She was found resting in the recliner comfortably on room air. She reports that her pain is well controlled at present. She states that her appetite has returned and she denies nausea, vomiting, and diarrhea. She does report that while up to the bedside commode yesterday her legs gave out on her and she had to be assisted to the floor by nursing staff. She denies a true "fall" or associated injury; however, required multiple staff members in order to back into bed. She did work with physical therapy today and did not have a similar occurrence. 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 She further denies fever, chills, body aches, chest pain, palpitations, and dyspnea. She has no new questions or concerns. No concerns per nursing. Reason For Visit: ULCERATIVE COLITIS Physical Exam Vital Signs: Temp Pulse Resp BP Pulse Ox 98.2 F 88 20 131/70 H 99 09/30/18 15:30 09/30/18 15:30 09/30/18 15:30 09/30/18 15:30 09/30/18 15:30 Intake & Output 09/29/18 09/30/18 10/01/18 06:59 06:59 06:59 Intake Total 2039 2200 1180 Output Total 40 Balance 2039 2160 1180 Weight 85.9 kg General appearance: PRESENT: no acute distress, cooperative, obese, well- developed, well-nourished, other - Chronically ill-appearing Head exam: PRESENT: atraumatic, normocephalic Eye exam: PRESENT: conjunctiva pink, EOMI, PERRLA. ABSENT: scleral icterus Ear exam: PRESENT: normal external ear exam Mouth exam: PRESENT: moist, tongue midline Neck exam: ABSENT: carotid bruit, JVD, lymphadenopathy, thyromegaly Respiratory exam: PRESENT: clear to auscultation godwin. ABSENT: rales, rhonchi, wheezes Cardiovascular exam: PRESENT: RRR. ABSENT: diastolic murmur, rubs, systolic murmur Pulses: PRESENT: normal dorsalis pedis pul Vascular exam: PRESENT: normal capillary refill GI/Abdominal exam: PRESENT: normal bowel sounds, soft, other - EVELIN drain. ABSENT: distended, guarding, mass, organolmegaly, rebound, tenderness Rectal exam: PRESENT: deferred Extremities exam: PRESENT: full ROM, +2 edema - Nonpitting edema BLE. ABSENT: calf tenderness, clubbing, pedal edema Neurological exam: PRESENT: alert, awake, oriented to person, oriented to place, oriented to time, oriented to situation, CN II-XII grossly intact. ABSENT: motor sensory deficit Psychiatric exam: PRESENT: appropriate affect, normal mood. ABSENT: homicidal ideation, suicidal ideation Skin exam: PRESENT: dry, intact, warm. ABSENT: cyanosis, rash Results Laboratory Results: 09/30/18 10:29 09/30/18 10:29 09/30/18 09/30/18 10:29 10:29 WBC 14.5 H RBC 3.26 L Hgb 9.6 L Hct 28.6 L MCV 88 MCH 29.4 MCHC 33.5 RDW 16.1 H Plt Count 424 Sodium 137.9 Potassium 4.7 Chloride 99 Carbon Dioxide 34 H Anion Gap 5 BUN 9 Creatinine 0.28 L Est GFR ( Amer) > 60 Est GFR (Non-Af Amer) > 60 Glucose 137 H Calcium 8.4 Impressions: Abdomen/Pelvis CT 09/23/18 15:01 IMPRESSION: 1. Sigmoid diverticulosis. Cannot exclude mild associated inflammation. 2. There is a large irregularly-shaped fluid collection in the lower abdomen/ upper pelvis as described. This is concerning for an abscess. The exact origin is not clear. Is there clinical evidence of or history of appendicitis? Percutaneous Drainage 09/24/18 00:00 IMPRESSION: Successful CT-guided drainage of pelvic abscess. Abdomen Ultrasound 09/25/18 00:00 IMPRESSION: No definitive abscess in the region scanned copyright 2011 [employer]- All Rights Reserved Guidance Fluoroscopy 09/27/18 08:00 IMPRESSION: No pneumothorax postprocedure. Venous access catheter tip at the j unction of the left subclavian vein and SVC. No pneumothorax postprocedure. Chest X-Ray 09/27/18 08:45 IMPRESSION: No pneumothorax postprocedure. Venous access catheter tip at the junction of the left subclavian vein and SVC. No pneumothorax postprocedure. Assessment & Plan - Diagnosis (1) Abscess of abdominal cavity Is this a current diagnosis for this admission?: Yes Plan: Now status post percutaneous drain placed by surgery. Blood cultures have no growth at 5 days. Pelvic fluid grew E. coli and enterococcus faecialis Patient will be discharged with EVELIN drain in place; to follow-up with surgery in 7-10 days. Discussed with gastroenterology last night; recommend continuing IV antibiotics for an additional 2-3 days. Will end course of antibiotic therapy 10/02/18. (2) Crohn's disease Qualifiers: Gastrointestinal tract location: large intestine Digestive disease complication type: with abscess Qualified Code(s): K50.114 - Crohn's disease of large intestine with abscess Is this a current diagnosis for this admission?: Yes Plan: Primary plan per Dr. Miller; prednisone taper, mercaptopurine, mesalamine, and Lialda per his expertise. Cultures and antibiotics as above. (3) Anasarca Is this a current diagnosis for this admission?: Yes Plan: Improved appearance today; decreased edema to all extremities. Secondary to hypoalbuminemia; likely multifactorial secondary to poor nutrition and poor absorption. Dietary is consulted; continue high protein diet with dietary supplements. TARYN daniels. (4) Depression Qualifiers: Depression Type: unspecified Qualified Code(s): F32.9 - Major depressive disorder, single episode, unspecified Is this a current diagnosis for this admission?: Yes Plan: Continue home dose Prozac. (5) Debility, unspecified Is this a current diagnosis for this admission?: Yes Plan: PT/OT consultations ordered; recommending SNF for short term rehab. Discharge planning is consulted. - Time Time Spent with patient: 15-24 minutes Medications reviewed and adjusted accordingly: Yes Anticipated discharge: SNF - Short-term rehab Within: when bed available - Discussed with GI; cleared for discharge. - Plan Summary Plan Summary: Complete an additional 2 days of IV antibiotics. EVELIN drain to be left in place until her follow-up appointment with Dr. Barrientos next week. Medically stable for discharge to short-term rehab.
[2018-10-01] MEDS: METHYLPREDNISOLONE INJ 40 MG/1 ML SDV IV SCH ×3 (02:59→18:02)
[2018-10-01] MEDS: IMIPENEM/CILASTATIN SODIUM 500 MG in NORMAL SALINE 100 ML IV SCH ×4 (02:59→23:44)
[2018-10-01] MEDS: FLUOXETINE HCL 20 MG CAPSULE PO SCH (06:06)
[2018-10-01] MEDS: AMPICILLIN SODIUM 2 GM in NORMAL SALINE 100 ML IV SCH ×3 (06:10→18:02)
[2018-10-01] MEDS: MERCAPTOPURINE 50 MG TABLET PO SCH (09:10)
[2018-10-01] MEDS: HEPARIN SOD (PORCINE) 5,000 UNIT/ML 1 ML SYRINGE SUBCUT SCH ×2 (09:10→23:43)
[2018-10-01] MEDS: MESALAMINE 400 MG CAPSULE.DR PO SCH ×3 (09:10→18:02)
--- NOTE | 2018-10-01 15:40 | PDOC PROGRESS REPORT ---
Subjective Progress Note for:: 10/01/18 Subjective:: The patient is a 58-year-old, chronically ill-appearing, female with past medical history of ulcerative colitis, psoriatic arthritic, depression, and obesity who was admitted 09/23/18 for ulcerative colitis. Patient was seen on morning rounds. She was found resting in the recliner comfortably on room air. She denies abdominal pain. She states that her appetite has returned and she denies nausea, vomiting, and diarrhea. She is very encouraged by the improvement in her edema. She further denies fever, chills, body aches, chest pain, palpitations, and dyspnea. She has no new questions or concerns; awaiting rehab placement offer. No concerns per nursing. Reason For Visit: ULCERATIVE COLITIS Physical Exam Vital Signs: Temp Pulse Resp BP Pulse Ox 98.3 F 88 18 140/75 H 99 10/01/18 11:56 10/01/18 11:56 10/01/18 11:56 10/01/18 11:56 10/01/18 11:56 Intake & Output 09/30/18 10/01/18 10/02/18 06:59 06:59 06:59 Intake Total 2200 2080 100 Output Total 40 27 1 Balance 2159 2052 99 Weight 84.096 kg General appearance: PRESENT: no acute distress, cooperative, obese, well- developed, well-nourished Head exam: PRESENT: atraumatic, normocephalic Eye exam: PRESENT: conjunctiva pink, EOMI, PERRLA. ABSENT: scleral icterus Ear exam: PRESENT: normal external ear exam Mouth exam: PRESENT: moist, tongue midline Neck exam: ABSENT: carotid bruit, JVD, lymphadenopathy, thyromegaly Respiratory exam: PRESENT: clear to auscultation godwin. ABSENT: rales, rhonchi, wheezes Cardiovascular exam: PRESENT: RRR. ABSENT: diastolic murmur, rubs, systolic murmur Pulses: PRESENT: normal dorsalis pedis pul Vascular exam: PRESENT: normal capillary refill GI/Abdominal exam: PRESENT: normal bowel sounds, soft, other - EVELIN drain; slight cloudy fluid. ABSENT: distended, guarding, mass, organolmegaly, rebound, tenderness Rectal exam: PRESENT: deferred Extremities exam: PRESENT: full ROM, +1 edema - nonpitting BLE edema; edema to upper extremities has resolved. ABSENT: calf tenderness, clubbing, pedal edema Neurological exam: PRESENT: alert, awake, oriented to person, oriented to place, oriented to time, oriented to situation, CN II-XII grossly intact. ABSENT: motor sensory deficit Psychiatric exam: PRESENT: appropriate affect, normal mood. ABSENT: homicidal ideation, suicidal ideation Skin exam: PRESENT: dry, intact, warm. ABSENT: cyanosis, rash Results Laboratory Results: 09/30/18 10:29 09/30/18 10:29 Impressions: Abdomen/Pelvis CT 09/23/18 15:01 IMPRESSION: 1. Sigmoid diverticulosis. Cannot exclude mild associated inflammation. 2. There is a large irregularly-shaped fluid collection in the lower abdomen/ upper pelvis as described. This is concerning for an abscess. The exact origin is not clear. Is there clinical evidence of or history of appendicitis? Percutaneous Drainage 09/24/18 00:00 IMPRESSION: Successful CT-guided drainage of pelvic abscess. Abdomen Ultrasound 09/25/18 00:00 IMPRESSION: No definitive abscess in the region scanned copyright 2011 [email or web address]- All Rights Reserved Guidance Fluoroscopy 09/27/18 08:00 IMPRESSION: No pneumothorax postprocedure. Venous access catheter tip at the junction of the left subclavian vein and SVC. No pneumothorax postprocedure. Chest X-Ray 09/27/18 08:45 IMPRESSION: No pneumothorax postprocedure. Venous access catheter tip at the junction of the left subclavian vein and SVC. No pneumothorax postprocedure. Assessment & Plan - Diagnosis (1) Abscess of abdominal cavity Is this a current diagnosis for this admission?: Yes Plan: Now status post percutaneous drain placed by surgery. Blood cultures have no growth at 5 days. Pelvic fluid grew E. coli and enterococcus faecialis Patient will be discharged with EVELIN drain in place; to follow-up with surgery in 7-10 days (10/05/18). Discussed with gastroenterology; recommend continuing IV antibiotics through 10/02/18. (2) Crohn's disease Qualifiers: Gastrointestinal tract location: large intestine Digestive disease complication type: with abscess Qualified Code(s): K50.114 - Crohn's disease of large intestine with abscess Is this a current diagnosis for this admission?: Yes Plan: Primary plan per Dr. Miller; prednisone taper, mercaptopurine, mesalamine, and Lialda per his expertise. Cultures and antibiotics as above. (3) Anasarca Is this a current diagnosis for this admission?: Yes Plan: Significantly improved; decreased edema to all extremities. Secondary to hypoalbuminemia; likely multifactorial secondary to poor nutrition and poor absorption. Dietary is consulted; continue high protein diet with dietary supplements. TARYN gallitoe and elevation. (4) Depression Qualifiers: Depression Type: unspecified Qualified Code(s): F32.9 - Major depressive disorder, single episode, unspecified Is this a current diagnosis for this admission?: Yes Plan: Continue home dose Prozac. (5) Debility, unspecified Is this a current diagnosis for this admission?: Yes Plan: PT/OT consultations ordered; recommending SNF for short term rehab. Discharge planning is consulted. - Time Time Spent with patient: 15-24 minutes Medications reviewed and adjusted accordingly: Yes Anticipated discharge: SNF - Short term rehab Within: when bed available
[2018-10-02] MEDS: AMPICILLIN SODIUM 2 GM in NORMAL SALINE 100 ML IV SCH ×4 (00:58→18:24)
[2018-10-02] MEDS: IMIPENEM/CILASTATIN SODIUM 500 MG in NORMAL SALINE 100 ML IV SCH ×2 (03:07→08:17)
[2018-10-02] MEDS: METHYLPREDNISOLONE INJ 40 MG/1 ML SDV IV SCH ×3 (03:07→18:23)
[2018-10-02] MEDS: FLUOXETINE HCL 20 MG CAPSULE PO SCH (05:22)
[2018-10-02 09:16] LABS: HEMATOCRIT 30.8 % (36.0-47.0); HEMOGLOBIN 10.4 g/dL (12.0-15.5); MEAN CORPUSCULAR HEMOGLOBIN 29.6 pg (27.0-33.4); MEAN CORPUSCULAR HGB CONC 33.9 g/dL (32.0-36.0); MEAN CORPUSCULAR VOLUME 88 fl (80-97); PLATELET COUNT 363 10^3/uL (150-450); RED BLOOD COUNT 3.53 10^6/uL (3.72-5.28); RED CELL DISTRIBUTION WIDTH 15.9 % (11.5-14.0); WHITE BLOOD COUNT 15.4 10^3/uL (4.0-10.5)
[2018-10-02] MEDS: HEPARIN SOD (PORCINE) 5,000 UNIT/ML 1 ML SYRINGE SUBCUT SCH ×2 (10:26→22:30)
[2018-10-02] MEDS: MESALAMINE 400 MG CAPSULE.DR PO SCH ×3 (10:26→18:23)
[2018-10-02] MEDS: MERCAPTOPURINE 50 MG TABLET PO SCH (10:27)
[2018-10-02] MEDS: 1/2 NORMAL SALINE 1,000 ML IV PRN (12:11)
--- NOTE | 2018-10-02 15:39 | PDOC PROGRESS REPORT ---
<NYLA EDGAR - Last Filed: 10/02/18 15:21> Subjective Progress Note for:: 10/02/18 Subjective:: The patient is a 58-year-old, chronically ill-appearing, female with past medical history of ulcerative colitis, psoriatic arthritic, depression, and obesity who was admitted 09/23/18 for ulcerative colitis. Patient was seen on morning rounds. She was found resting in bed comfortably on room air. She denies abdominal pain. She reports a good appetite. She is tearful today; reports she nearly fell this morning while pivoting to commode. She is frightened by her near-falls and worries about her ability to improve. She is further frustrated by the delay in transfer to SNF; bed offer at [facility], [place] pending insurance approval. She denies fever, chills, body aches, chest pain, palpitations, dyspnea, abdominal pain, nausea, vomiting, and diarrhea She has no other questions or concerns. No concerns per nursing. Reason For Visit: ULCERATIVE COLITIS Physical Exam Vital Signs: Temp Pulse Resp BP Pulse Ox 98.0 F 91 18 135/69 H 100 10/02/18 08:00 10/02/18 08:00 10/02/18 08:00 10/02/18 08:00 10/02/18 08:00 Intake & Output 10/01/18 10/02/18 10/03/18 06:59 06:59 06:59 Intake Total 2080 800 400 Output Total 27 2 Balance 2053 798 400 Weight 84.096 kg 83 kg General appearance: PRESENT: no acute distress, obese, well-developed, well- nourished Head exam: PRESENT: atraumatic, normocephalic Eye exam: PRESENT: conjunctiva pink, EOMI, PERRLA. ABSENT: scleral icterus Ear exam: PRESENT: normal external ear exam Mouth exam: PRESENT: moist, tongue midline Neck exam: ABSENT: carotid bruit, JVD, lymphadenopathy, thyromegaly Respiratory exam: PRESENT: clear to auscultation godwin. ABSENT: rales, rhonchi, wheezes Cardiovascular exam: PRESENT: RRR. ABSENT: diastolic murmur, rubs, systolic murmur Pulses: PRESENT: normal dorsalis pedis pul Vascular exam: PRESENT: normal capillary refill GI/Abdominal exam: PRESENT: normal bowel sounds, soft, other - EVELIN drain. ABSENT: distended, guarding, mass, organolmegaly, rebound, tenderness Rectal exam: PRESENT: deferred Extremities exam: PRESENT: full ROM, +1 edema - nonpitting BLE edema. ABSENT: calf tenderness, clubbing, pedal edema Neurological exam: PRESENT: alert, awake, oriented to person, oriented to place, oriented to time, oriented to situation, CN II-XII grossly intact. ABSENT: motor sensory deficit Psychiatric exam: PRESENT: anxious - tearful, appropriate affect. ABSENT: homicidal ideation, suicidal ideation Skin exam: PRESENT: dry, intact, warm. ABSENT: cyanosis, rash Results Laboratory Results: 10/02/18 08:50 09/30/18 10:29 10/02/18 08:50 WBC 15.4 H RBC 3.53 L Hgb 10.4 L Hct 30.8 L MCV 88 MCH 29.6 MCHC 33.9 RDW 15.9 H Plt Count 363 Impressions: Abdomen/Pelvis CT 09/23/18 15:01 IMPRESSION: 1. Sigmoid diverticulosis. Cannot exclude mild associated inflammation. 2. There is a large irregularly-shaped fluid collection in the lower abdomen/ upper pelvis as described. This is concerning for an abscess. The exact origin is not clear. Is there clinical evidence of or history of appendicitis? Percutaneous Drainage 09/24/18 00:00 IMPRESSION: Successful CT-guided drainage of pelvic abscess. Abdomen Ultrasound 09/25/18 00:00 IMPRESSION: No definitive abscess in the region scanned copyright 2010 [employer]- All Rights Reserved Guidance Fluoroscopy 09/27/18 08:00 IMPRESSION: No pneumothorax postprocedure. Venous access catheter tip at the junction of the left subclavian vein and SVC. No pneumothorax postprocedure. Chest X-Ray 09/27/18 08:45 IMPRESSION: No pneumothorax postprocedure. Venous access catheter tip at the junction of the left subclavian vein and SVC. No pneumothorax postprocedure. Assessment & Plan - Diagnosis (1) Abscess of abdominal cavity Is this a current diagnosis for this admission?: Yes Plan: Now status post percutaneous drain placed by surgery. Blood cultures have no growth at 5 days. Pelvic fluid grew E. coli and enterococcus faecialis Patient will be discharged with EVELIN drain in place; to follow-up with surgery in 7-10 days (10/05/18). Discussed with gastroenterology. Recommend continuing IV antibiotics through 10/02/18; last dose this evening. (2) Crohn's disease Qualifiers: Gastrointestinal tract location: large intestine Digestive disease complication type: with abscess Qualified Code(s): K50.114 - Crohn's disease of large intestine with abscess Is this a current diagnosis for this admission?: Yes Plan: Primary plan per Dr. Miller; prednisone taper, mercaptopurine, mesalamine, and Lialda per his expertise. Cultures and antibiotics as above. (3) Anasarca Is this a current diagnosis for this admission?: Yes Plan: Significantly improved; decreased edema to all extremities. Secondary to hypoalbuminemia; likely multifactorial secondary to poor nutrition and poor absorption. Dietary is consulted; continue high protein diet with dietary supplements. TARYN hose and elevation. (4) Depression Qualifiers: Depression Type: unspecified Qualified Code(s): F32.9 - Major depressive disorder, single episode, unspecified Is this a current diagnosis for this admission?: Yes Plan: Continue home dose Prozac. (5) Debility, unspecified Is this a current diagnosis for this admission?: Yes Plan: Near-miss today while pivoting to bedside commode. Patient had to be assisted to the floor yesterday evening as well due to sudden worsening of her leg weakness. Spoke with nursing sample supervisor about move of patient to the orthopedic floor where nursing/Huseyin would be more confident in assisting with transfers/ambulation (in addition to improving patient sense of safety); will try to make arrangements. Have paged PT to request continued visits over the weekend; awaiting return call. PT/OT consultations ordered; recommending SNF for short term rehab. Discharge planning is consulted. - Time Time Spent with patient: 15-24 minutes Medications reviewed and adjusted accordingly: Yes Anticipated discharge: SNF - Short term rehab Within: when bed available <NELLIE JAMESON - Last Filed: 10/03/18 07:48> Subjective Reason For Visit: ULCERATIVE COLITIS Physical Exam Vital Signs: Temp Pulse Resp BP Pulse Ox 98.7 F 86 18 142/68 H 98 10/03/18 04:54 10/03/18 04:54 10/03/18 04:54 10/03/18 04:54 10/03/18 04:54 Intake & Output 0110/03/18 10/04/18 06:59 06:59 06:59 Intake Total 800 500 Output Total 2 40 Balance 798 460 Weight 182 lb 15.739 oz 176 lb 5.917 oz Results Laboratory Results: 10/02/18 08:50 09/30/18 10:29 10/02/18 08:50 WBC 15.4 H RBC 3.53 L Hgb 10.4 L Hct 30.8 L MCV 88 MCH 29.6 MCHC 33.9 RDW 15.9 H Plt Count 363 Impressions: Abdomen/Pelvis CT 09/23/18 15:01 IMPRESSION: 1. Sigmoid diverticulosis. Cannot exclude mild associated inflammation. 2. There is a large irregularly-shaped fluid collection in the lower abdomen/ upper pelvis as described. This is concerning for an abscess. The exact origin is not clear. Is there clinical evidence of or history of appendicitis? Percutaneous Drainage 09/24/18 00:00 IMPRESSION: Successful CT-guided drainage of pelvic abscess. Abdomen Ultrasound 09/25/18 00:00 IMPRESSION: No definitive abscess in the region scanned copyright 2011 [employer]- All Rights Reserved Guidance Fluoroscopy 09/27/18 08:00 IMPRESSION: No pneumothorax postprocedure. Venous access catheter tip at the junction of the left subclavian vein and SVC. No pneumothorax postprocedure. Chest X-Ray 09/27/18 08:45 IMPRESSION: No pneumothorax postprocedure. Venous access catheter tip at the junction of the left subclavian vein and SVC. No pneumothorax postprocedure. Assessment & Plan - Plan Summary Plan Summary: i did not see patient myself. i agree with plan with Mid-level as it was presented to me. Nellie Jameson MD
[2018-10-03] MEDS: FLUOXETINE HCL 20 MG CAPSULE PO SCH (06:41)
[2018-10-03] MEDS: METHYLPREDNISOLONE INJ 40 MG/1 ML SDV IV SCH ×3 (08:30→17:32)
[2018-10-03] MEDS: MESALAMINE 400 MG CAPSULE.DR PO SCH ×3 (10:42→17:33)
[2018-10-03] MEDS: MERCAPTOPURINE 50 MG TABLET PO SCH (10:43)
[2018-10-03] MEDS: HEPARIN SOD (PORCINE) 5,000 UNIT/ML 1 ML SYRINGE SUBCUT SCH ×2 (10:43→22:28)
[2018-10-03 14:38] LABS: APPEARANCE,URINE CLEAR; BILIRUBIN,URINE NEGATIVE (NEGATIVE); COLOR,URINE YELLOW; GLUCOSE, URINE NEGATIVE (NEGATIVE); KETONES,URINE NEGATIVE (NEGATIVE); LEUKOCYTE ESTERASE,URINE SMALL (NEGATIVE); NITRITE,URINE NEGATIVE (NEGATIVE); PROTEIN,URINE NEGATIVE (NEGATIVE); URINE SPECIFIC GRAVITY 1.006; UROBILINOGEN,URINE NEGATIVE mg/dL (<2.0)
--- NOTE | 2018-10-03 16:10 | PDOC PROGRESS REPORT ---
<NYLA EDGAR - Last Filed: 10/03/18 15:57> Subjective Progress Note for:: 10/03/18 Subjective:: The patient is a 58-year-old, chronically ill-appearing, female with past medical history of ulcerative colitis, psoriatic arthritic, depression, and obesity who was admitted 09/23/18 for ulcerative colitis. Patient was seen on morning rounds. She was found resting in bed comfortably on room air. She denies abdominal pain. She reports a good appetite. She does report an increase in frequency of urinartion but denies dysuria and urgency. She denies fever, chills, body aches, chest pain, palpitations, dyspnea, abdominal pain, nausea, vomiting, and diarrhea She has no other questions or concerns. No concerns per nursing; discussed the importance of frequent position changes and continued attempts at stand and pivot. Have left a message with physical therapy department to see the patient tomorrow with nursing at bedside so that safety can be discussed and demonstrated amongst the staff members and patient. Reason For Visit: ULCERATIVE COLITIS Physical Exam Vital Signs: Temp Pulse Resp BP Pulse Ox 98.4 F 98 18 137/74 H 100 10/03/18 07:58 10/03/18 07:58 10/03/18 07:58 10/03/18 07:58 10/03/18 07:58 Intake & Output 10/02/18 10/03/18 10/04/18 06:59 06:59 06:59 Intake Total 800 500 Output Total 2 40 Balance 798 460 Weight 83 kg 80 kg General appearance: PRESENT: no acute distress, obese, well-developed, well-nourished Head exam: PRESENT: atraumatic, normocephalic Eye exam: PRESENT: conjunctiva pink, EOMI, PERRLA. ABSENT: scleral icterus Ear exam: PRESENT: normal external ear exam Mouth exam: PRESENT: moist, tongue midline Neck exam: ABSENT: carotid bruit, JVD, lymphadenopathy, thyromegaly Respiratory exam: PRESENT: clear to auscultation godwin, symmetrical. ABSENT: rales, rhonchi, wheezes Cardiovascular exam: PRESENT: RRR, +S1, +S2. ABSENT: diastolic murmur, rubs, systolic murmur Pulses: PRESENT: normal dorsalis pedis pul Vascular exam: PRESENT: normal capillary refill GI/Abdominal exam: PRESENT: normal bowel sounds, soft, other - EVELIN drain. ABSENT: distended, guarding, mass, organolmegaly, rebound, tenderness Rectal exam: PRESENT: deferred Extremities exam: PRESENT: full ROM. ABSENT: calf tenderness, clubbing, pedal edema Neurological exam: PRESENT: alert, awake, oriented to person, oriented to place, oriented to time, oriented to situation, CN II-XII grossly intact. ABSENT: motor sensory deficit Psychiatric exam: PRESENT: appropriate affect, normal mood. ABSENT: homicidal ideation, suicidal ideation Skin exam: PRESENT: dry, intact, warm. ABSENT: cyanosis, rash Results Laboratory Results: 10/02/18 08:50 09/30/18 10:29 10/03/18 14:15 Urine Color YELLOW Urine Appearance CLEAR Urine pH 8.0 Ur Specific [place] 1.006 Urine Protein NEGATIVE Urine Glucose (UA) NEGATIVE Urine Ketones NEGATIVE Urine Blood NEGATIVE Urine Nitrite NEGATIVE Ur Leukocyte Esterase SMALL H Urine WBC (Auto) 9 Urine RBC (Auto) 2 Impressions: Abdomen/Pelvis CT 09/23/18 15:01 IMPRESSION: 1. Sigmoid diverticulosis. Cannot exclude mild associated inflammation. 2. There is a large irregularly-shaped fluid collection in the lower abdomen/ upper pelvis as described. This is concerning for an abscess. The exact origin is not clear. Is there clinical evidence of or history of appendicitis? Percutaneous Drainage 09/24/18 00:00 IMPRESSION: Successful CT-guided drainage of pelvic abscess. Abdomen Ultrasound 09/25/18 00:00 IMPRESSION: No definitive abscess in the region scanned copyright 2010 [employer]- All Rights Reserved Guidance Fluoroscopy 09/27/18 08:00 IMPRESSION: No pneumothorax postprocedure. Venous access catheter tip at the junction of the left subclavian vein and SVC. No pneumothorax postprocedure. Chest X-Ray 09/27/18 08:45 IMPRESSION: No pneumothorax postprocedure. Venous access catheter tip at the junction of the left subclavian vein and SVC. No pneumothorax postprocedure. Assessment & Plan - Diagnosis (1) Abscess of abdominal cavity Is this a current diagnosis for this admission?: Yes Plan: Now status post percutaneous drain placed by surgery. Blood cultures have no growth at 5 days. Pelvic fluid grew E. coli and enterococcus faecialis Patient will be discharged with EVELIN drain in place; to follow-up with surgery in 7-10 days (10/05/18). Discussed with gastroenterology. Antibiotics discontinued yesterday. (2) Crohn's disease Qualifiers: Gastrointestinal tract location: large intestine Digestive disease complication type: with abscess Qualified Code(s): K50.114 - Crohn's disease of large intestine with abscess Is this a current diagnosis for this admission?: Yes Plan: Primary plan per Dr. Miller; prednisone taper, mercaptopurine, mesalamine, and Lialda per his expertise. Cultures and antibiotics as above. (3) Anasarca Is this a current diagnosis for this admission?: Yes Plan: Significantly improved; decreased edema to all extremities. Secondary to hypoalbuminemia; likely multifactorial secondary to poor nutrition and poor absorption. Dietary is consulted; continue high protein diet with dietary supplements. ATRYN hose and elevation. (4) Depression Qualifiers: Depression Type: unspecified Qualified Code(s): F32.9 - Major depressive disorder, single episode, unspecified Is this a current diagnosis for this admission?: Yes Plan: Continue home dose Prozac. (5) Debility, unspecified Is this a current diagnosis for this admission?: Yes Plan: Near-miss yesterday while pivoting to bedside commode. Patient has had to be assisted to the floor yon three occasions due to sudden worsening of her leg weakness. Spoke with nursing histology supervisor about move of patient to the orthopedic floor where nursing/Huseyin would be more confident in assisting with transfers/ambulation (in addition to improving patient sense of safety); will try to make arrangements. Have paged PT to request continued visits over the weekend. PT/OT consultations ordered; recommending SNF for short term rehab. Discharge planning is consulted. (6) Urinary frequency Is this a current diagnosis for this admission?: Yes Plan: Urinalysis is negative for UTI. - Time Time Spent with patient: 15-24 minutes Medications reviewed and adjusted accordingly: Yes Anticipated discharge: SNF Within: when bed available <NELLIE JAMESON - Last Filed: 10/04/18 17:56> Subjective Reason For Visit: ULCERATIVE COLITIS Physical Exam Vital Signs: Temp Pulse Resp BP Pulse Ox 98.3 F 101 H 18 132/65 H 100 10/04/18 07:54 10/04/18 07:54 10/04/18 07:54 10/04/18 07:54 10/04/18 07:54 Intake & Output 10/03/18 10/04/18 10/05/18 06:59 06:59 06:59 Intake Total 500 240 Output Total 40 Balance 460 240 Weight 176 lb 5.917 oz Results Laboratory Results: 10/02/18 08:50 09/30/18 10:29 Impressions: Abdomen/Pelvis CT 09/23/18 15:01 IMPRESSION: 1. Sigmoid diverticulosis. Cannot exclude mild associated inf lammation. 2. There is a large irregularly-shaped fluid collection in the lower abdomen/ upper pelvis as described. This is concerning for an abscess. The exact origin is not clear. Is there clinical evidence of or history of appendicitis? Percutaneous Drainage 09/24/18 00:00 IMPRESSION: Successful CT-guided drainage of pelvic abscess. Abdomen Ultrasound 09/25/18 00:00 IMPRESSION: No definitive abscess in the region scanned copyright 2011 [employer]- All Rights Reserved Guidance Fluoroscopy 09/27/18 08:00 IMPRESSION: No pneumothorax postprocedure. Venous access catheter tip at the junction of the left subclavian vein and SVC. No pneumothorax postprocedure. Chest X-Ray 09/27/18 08:45 IMPRESSION: No pneumothorax postprocedure. Venous access catheter tip at the junction of the left subclavian vein and SVC. No pneumothorax postprocedure. Assessment & Plan - Plan Summary Plan Summary: i did not see patient myself- i agree with plan as it was presented to me
[2018-10-04] MEDS: METHYLPREDNISOLONE INJ 40 MG/1 ML SDV IV SCH ×3 (02:33→17:13)
[2018-10-04] MEDS: FLUOXETINE HCL 20 MG CAPSULE PO SCH (06:07)
[2018-10-04] MEDS: MERCAPTOPURINE 50 MG TABLET PO SCH (09:28)
[2018-10-04] MEDS: MESALAMINE 400 MG CAPSULE.DR PO SCH ×3 (09:28→17:13)
[2018-10-04] MEDS: HEPARIN SOD (PORCINE) 5,000 UNIT/ML 1 ML SYRINGE SUBCUT SCH ×2 (09:29→22:31)
--- NOTE | 2018-10-04 10:52 | PDOC PROGRESS REPORT ---
<NYLA EDGAR - Last Filed: 10/04/18 10:44> Subjective Progress Note for:: 10/04/18 Subjective:: The patient is a 58-year-old, chronically ill-appearing, female with past medical history of ulcerative colitis, psoriatic arthritic, depression, and obesity who was admitted 09/23/18 for ulcerative colitis. Patient was seen on morning rounds. She was found resting comfortably on room air in the recliner. She reports that she was ambulatory in the hallway yesterday and that her Rt leg weakness seems to be most severe when transitioning from sitting to standing. She denies fever, chills, body aches, chest pain, palpitations, dyspnea, abdominal pain, nausea, vomiting, and diarrhea. She denies further urinary frequency, urgency. No dysuria. She has no other questions or concerns. No concerns per nursing. Reason For Visit: ULCERATIVE COLITIS Physical Exam Vital Signs: Temp Pulse Resp BP Pulse Ox 98.3 F 101 H 18 132/65 H 100 10/04/18 07:54 10/04/18 07:54 10/04/18 07:54 10/04/18 07:54 10/04/18 07:54 Intake & Output 10/03/18 10/04/18 10/05/18 06:59 06:59 06:59 Intake Total 500 240 Output Total 40 Balance 460 240 Weight 80 kg General appearance: PRESENT: no acute distress, cooperative, obese, well- developed, well-nourished Head exam: PRESENT: atraumatic, normocephalic Eye exam: PRESENT: conjunctiva pink, EOMI, PERRLA. ABSENT: scleral icterus Ear exam: PRESENT: normal external ear exam Mouth exam: PRESENT: moist, tongue midline Neck exam: ABSENT: carotid bruit, JVD, lymphadenopathy, thyromegaly Respiratory exam: PRESENT: clear to auscultation godwin, symmetrical, unlabored. ABSENT: rales, rhonchi, wheezes Cardiovascular exam: PRESENT: RRR. ABSENT: diastolic murmur, rubs, systolic murmur Pulses: PRESENT: normal dorsalis pedis pul Vascular exam: PRESENT: normal capillary refill GI/Abdominal exam: PRESENT: normal bowel sounds, soft, other - EVELIN drain. ABSENT : distended, guarding, mass, organolmegaly, rebound, tenderness Rectal exam: PRESENT: deferred Extremities exam: PRESENT: full ROM, pedal edema. ABSENT: calf tenderness, clubbing Neurological exam: PRESENT: alert, awake, oriented to person, oriented to place, oriented to time, oriented to situation, CN II-XII grossly intact. ABSENT: motor sensory deficit Psychiatric exam: PRESENT: appropriate affect, normal mood. ABSENT: homicidal ideation, suicidal ideation Skin exam: PRESENT: dry, intact, warm. ABSENT: cyanosis, rash Results Laboratory Results: 10/02/18 08:50 09/30/18 10:29 10/03/18 14:15 Urine Color YELLOW Urine Appearance CLEAR Urine pH 8.0 Ur Specific [place] 1.006 Urine Protein NEGATIVE Urine Glucose (UA) NEGATIVE Urine Ketones NEGATIVE Urine Blood NEGATIVE Urine Nitrite NEGATIVE Ur Leukocyte Esterase SMALL H Urine WBC (Auto) 9 Urine RBC (Auto) 2 Impressions: Abdomen/Pelvis CT 09/23/18 15:01 IMPRESSION: 1. Sigmoid diverticulosis. Cannot exclude mild associated inflammation. 2. There is a large irregularly-shaped fluid collection in the lower abdomen/ upper pelvis as described. This is concerning for an abscess. The exact origin is not clear. Is there clinical evidence of or history of appendicitis? Percutaneous Drainage 09/24/18 00:00 IMPRESSION: Successful CT-guided drainage of pelvic abscess. Abdomen Ultrasound 09/25/18 00:00 IMPRESSION: No definitive abscess in the region scanned copyright 2010 [employer]- All Rights Reserved Guidance Fluoroscopy 09/27/18 08:00 IMPRESSION: No pneumothorax postprocedure. Venous access catheter tip at the junction of the left subclavian vein and SVC. No pneumothorax postprocedure. Chest X-Ray 09/27/18 08:45 IMPRESSION: No pneumothorax postprocedure. Venous access catheter tip at the junction of the left subclavian vein and SVC. No pneumothorax postprocedure. Assessment & Plan - Diagnosis (1) Abscess of abdominal cavity Is this a current diagnosis for this admission?: Yes Plan: Now status post percutaneous drain placed by surgery. Blood cultures have no growth at 5 days. Pelvic fluid grew E. coli and enterococcus faecialis Patient will be discharged with EVELIN drain in place; to follow-up with surgery in 7-10 days (10/05/18). Discussed with gastroenterology. She is completed a course of antibiotics. (2) Crohn's disease Qualifiers: Gastrointestinal tract location: large intestine Digestive disease complication type: with abscess Qualified Code(s): K50.114 - Crohn's disease of large intestine with abscess Is this a current diagnosis for this admission?: Yes Plan: Primary plan per Dr. Miller; prednisone taper, mercaptopurine, mesalamine, and Lialda per his expertise. Cultures and antibiotics as above. (3) Anasarca Is this a current diagnosis for this admission?: Yes Plan: Significantly improved; decreased edema to all extremities. Secondary to hypoalbuminemia; likely multifactorial secondary to poor nutrition and poor absorption. Dietary is consulted; continue high protein diet with dietary supplements. TARYN hose and elevation. (4) Depression Qualifiers: Depression Type: unspecified Qualified Code(s): F32.9 - Major depressive disorder, single episode, unspecified Is this a current diagnosis for this admission?: Yes Plan: Continue home dose Prozac. (5) Debility, unspecified Is this a current diagnosis for this admission?: Yes Plan: The patient has had 3 near misses where she had to be assisted to the floor to prevent a fall due to sudden worsening of leg weakness; right greater than left. Spoke with nursing senior production supervisor about move of patient to the orthopedic floor where nursing/Huesyin would be more confident in assisting with transfers/ambulation (in addition to improving patient sense of safety); will try to make arrangements. Have requested PT to continue visits over the weekend. PT/OT consultations ordered; recommending SNF for short term rehab. Discharge planning is consulted. (6) Urinary frequency Is this a current diagnosis for this admission?: Yes Plan: Symptoms have resolved. Urinalysis is negative for UTI. - Time Time Spent with patient: Less than 15 minutes Medications reviewed and adjusted accordingly: Yes Anticipated discharge: SNF Within: when bed available <NELLIE JAMESON - Last Filed: 10/04/18 16:20> Subjective Reason For Visit: ULCERATIVE COLITIS Physical Exam Vital Signs: Temp Pulse Resp BP Pulse Ox 98.3 F 101 H 18 132/65 H 100 10/04/18 07:54 10/04/18 07:54 10/04/18 07:54 10/04/18 07:54 10/04/18 07:54 Intake & Output 10/03/18 10/04/18 10/05/18 06:59 06:59 06:59 Intake Total 500 240 Output Total 40 Balance 460 240 Weight 176 lb 5.917 oz Results Laboratory Results: 10/02/18 08:50 09/30/18 10:29 Impressions: Abdomen/Pelvis CT 09/23/18 15:01 IMPRESSION: 1. Sigmoid diverticulosis. Cannot exclude mild associated inflammation. 2. There is a large irregularly-shaped fluid collection in the lower abdomen/ upper pelvis as described. This is concerning for an abscess. The exact origin is not clear. Is there clinical evidence of or history of appendicitis? Percutaneous Drainage 09/24/18 00:00 IMPRESSION: Successful CT-guided drainage of pelvic abscess. Abdomen Ultrasound 09/25/18 00:00 IMPRESSION: No definitive abscess in the region scanned copyright 2011 [employer]- All Rights Reserved Guidance Fluoroscopy 09/27/18 08:00 IMPRESSION: No pneumothorax postprocedure. Venous access catheter tip at the junction of the left subclavian vein and SVC. No pneumothorax postprocedure. Chest X-Ray 09/27/18 08:45 IMPRESSION: No pneumothorax postprocedure. Venous access catheter tip at the junction of the left subclavian vein and SVC. No pneumothorax postprocedure. Assessment & Plan - Plan Summary Plan Summary: i did not see patient. i agree with the plan as it was presented to me
[2018-10-04] MEDS ORDERED: MORPHINE SULFATE 10 MG/ML INJ IV PRN (13:49)
[2018-10-05] MEDS: METHYLPREDNISOLONE INJ 40 MG/1 ML SDV IV SCH ×3 (02:54→18:07)
[2018-10-05] MEDS: FLUOXETINE HCL 20 MG CAPSULE PO SCH (05:55)
[2018-10-05 09:21] LABS: INTERNATIONAL RATION (INR) 0.81; PROTHROMBIN TIME 11.6 SEC (11.4-15.4)
[2018-10-05] MEDS: HEPARIN SOD (PORCINE) 5,000 UNIT/ML 1 ML SYRINGE SUBCUT SCH ×2 (11:52→21:20)
[2018-10-05] MEDS: MESALAMINE 400 MG CAPSULE.DR PO SCH ×3 (11:53→18:07)
[2018-10-05] MEDS: MERCAPTOPURINE 50 MG TABLET PO SCH (11:54)
[2018-10-05] MEDS ORDERED: METOPROLOL SUCCINATE 50 MG TAB.SR.24H PO SCH (18:15)
--- NOTE | 2018-10-05 18:21 | RADIOLOGY REPORT (SQ) ---
EXAM DESCRIPTION: CT ABD/PELVIS NO ORAL OR IV COMPLETED DATE/TIME: 10/05/2018 5:23 pm REASON FOR STUDY: intra-abdominal abscess COMPARISON: 07/30/2018 TECHNIQUE: CT scan of the abdomen and pelvis performed without intravenous or oral contrast. Images reviewed with lung, soft tissue, and bone windows. Reconstructed coronal and sagittal MPR images revi ewed. All images stored on PACS. All CT scanners at this facility use dose modulation, iterative reconstruction, and/or weight based d osing when appropriate to reduce radiation dose to as low as reasonably achievable (ALARA). [facility]: Dose Right [facility]: CareDose [facility]: Dose Right [facility]: Teradose 4D [facility]: Smart Chartboost RADIATION DOSE: CT Rad equipment meets quality standard of care and radiation dose reduction techniq ues were employed. CTDIvol: 9.1 mGy. DLP: 502 mGy-cm.mGy. LIMITATIONS: None. FINDINGS: LOWER CHEST: No significant findings. No nodules or infiltrates. NON-CONTRASTED LIVER, SPLEEN, ADRENALS: Evaluation limited by lack of IV contrast. No identified sign ificant masses. PANCREAS: No masses. No peripancreatic inflammatory changes. GALLBLADDER: Surgically absent. RIGHT KIDNEY AND URETER: No suspicious masses. Assessment limited by lack of IV contrast. No signif icant calcifications. No hydronephrosis or hydroureter. LEFT KIDNEY AND URETER: No suspicious masses. Assessment limited by lack of IV contrast. No signifi cant calcifications. No hydronephrosis or hydroureter. AORTA AND RETROPERITONEUM: No aneurysm. No retroperitoneal masses or adenopathy. BOWEL AND PERITONEAL CAVITY: Diverticulosis. No acute inflammatory changes. APPENDIX: Not identified. PELVIS, BLADDER, AND ABDOMINAL WALL:There is a pigtail catheter is seen anteriorly in the pelvis. Ur inary bladder is unremarkable. Uterus is absent. BONES: No significant findings. OTHER: No other significant finding. IMPRESSION: Diverticulosis coli with no acute inflammation. There is a pigtail catheter in the ante rior pelvis. The purpose is not certain. No other findings in the abdomen or pelvis. COMMENT: Quality ID # [id number]: Final reports with documentation of one or more dose reduction techniques (e.g., Automated exposure control, adjustment of the mA and/or kV according to patient size, use of iterative reconstruction technique) TECHNICAL DOCUMENTATION: JOB ID: [id number]- All Rights Reserved Reading location - IP/workstation name: [email or web address]
--- NOTE | 2018-10-05 19:17 | PDOC PROGRESS REPORT ---
Subjective Progress Note for:: 10/05/18 Subjective:: The patient is a 58-year-old, chronically ill-appearing, female with past medical history of ulcerative colitis, psoriatic arthritic, depression, and obesity who was admitted 09/23/18 for ulcerative colitis. Patient was seen on afternoon rounds. She was found resting comfortably on room air in bed. She states she is feeling well today. We discussed recommendations for repeat CT and possible removal of her her EVELIN tube if results are reassuring. She denies fever, chills, body aches, chest pain, palpitations, dyspnea, abdominal pain, nausea, vomiting, and diarrhea. She denies further urinary frequency, urgency. No dysuria. She has no new questions or concerns. No concerns per nursing. Reason For Visit: ULCERATIVE COLITIS Physical Exam Vital Signs: Temp Pulse Resp BP Pulse Ox 98.4 F 81 16 121/71 99 10/05/18 15:40 10/05/18 15:40 10/05/18 15:40 10/05/18 15:40 10/05/18 15:40 Intake & Output 10/04/18 10/05/18 10/06/18 06:59 06:59 06:59 Intake Total 240 Output Total 15 Balance 240 -15 Weight 77.7 kg General appearance: PRESENT: no acute distress, well-developed, well-nourished Head exam: PRESENT: atraumatic, normocephalic Eye exam: PRESENT: conjunctiva pink, EOMI, PERRLA. ABSENT: scleral icterus Ear exam: PRESENT: normal external ear exam Mouth exam: PRESENT: moist, tongue midline Neck exam: ABSENT: carotid bruit, JVD, lymphadenopathy, thyromegaly Respiratory exam: PRESENT: clear to auscultation godwin. ABSENT: rales, rhonchi, w heezes Cardiovascular exam: PRESENT: RRR. ABSENT: diastolic murmur, rubs, systolic murmur Pulses: PRESENT: normal dorsalis pedis pul Vascular exam: PRESENT: normal capillary refill GI/Abdominal exam: PRESENT: normal bowel sounds, soft, other - EVELIN drain. ABSENT: distended, guarding, mass, organolmegaly, rebound, tenderness Rectal exam: PRESENT: deferred Extremities exam: PRESENT: full ROM. ABSENT: calf tenderness, clubbing, pedal edema Neurological exam: PRESENT: alert, awake, oriented to person, oriented to place, oriented to time, oriented to situation, CN II-XII grossly intact. ABSENT: motor sensory deficit Psychiatric exam: PRESENT: appropriate affect, normal mood. ABSENT: homicidal ideation, suicidal ideation Skin exam: PRESENT: dry, intact, warm. ABSENT: cyanosis, rash Results Laboratory Results: 10/02/18 08:50 09/30/18 10:29 Impressions: Percutaneous Drainage 09/24/18 00:00 IMPRESSION: Successful CT-guided drainage of pelvic abscess. Abdomen Ultrasound 09/25/18 00:00 IMPRESSION: No definitive abscess in the region scanned copyright 2010 [employer]- All Rights Reserved Guidance Fluoroscopy 09/27/18 08:00 IMPRESSION: No pneumothorax postprocedure. Venous access catheter tip at the junction of the left subclavian vein and SVC. No pneumothorax postprocedure. Chest X-Ray 09/27/18 08:45 IMPRESSION: No pneumothorax postprocedure. Venous access catheter tip at the junction of the left subclavian vein and SVC. No pneumothorax postprocedure. Abdomen/Pelvis CT 10/05/18 15:45 IMPRESSION: Diverticulosis coli with no acute inflammation. There is a pigtail catheter in the anterior pelvis. The purpose is not certain. No other findings in the abdomen or pelvis. Assessment & Plan - Diagnosis (1) Abscess of abdominal cavity Is this a current diagnosis for this admission?: Yes Plan: Now status post percutaneous drain placed by surgery. Blood cultures have no growth at 5 days. Pelvic fluid grew E. coli and enterococcus faecialis Repeat ABD/Pelvic CT revealed reticulosis with no acute inflammation; pigtail catheter in the anterior pelvis. No other findings. Patient will be discharged with EVELIN drain in place; will reconsult surgery in the morning. Discussed with gastroenterology. She is completed a course of antibiotics. (2) Crohn's disease Qualifiers: Gastrointestinal tract location: large intestine Digestive disease complication type: with abscess Qualified Code(s): K50.114 - Crohn's disease of large intestine with abscess Is this a current diagnosis for this admission?: Yes Plan: Primary plan per Dr. Miller; prednisone taper, mercaptopurine, mesalamine, and Lialda per his expertise. Cultures and antibiotics as above. (3) Anasarca Is this a current diagnosis for this admission?: Yes Plan: Significantly improved; decreased edema to all extremities. Secondary to hypoalbuminemia; likely multifactorial secondary to poor nutrition and poor absorption. Dietary is consulted; continue high protein diet with dietary supplements. TARYN daniels and farshad. (4) Depression Qualifiers: Depression Type: unspecified Qualified Code(s): F32.9 - Major depressive disorder, single episode, unspecified Is this a current diagnosis for this admission?: Yes Plan: Continue home dose Prozac. (5) Debility, unspecified Is this a current diagnosis for this admission?: Yes Plan: The patient has had 3 near misses where she had to be assisted to the floor to prevent a fall due to sudden worsening of leg weakness; right greater than left. Spoke with nursing occupational therapy supervisor about move of patient to the orthopedic floor where nursing/Huseyin would be more confident in assisting with transfers/ambulation (in addition to improving patient sense of safety); will try to make arrangements. Have requested PT to continue visits over the weekend. PT/OT consultations ordered; recommending SNF for short term rehab. Discharge planning is consulted. (6) Urinary frequency Is this a current diagnosis for this admission?: Yes Plan: Symptoms have resolved. Urinalysis is negative for UTI. - Time Time Spent with patient: Less than 15 minutes Medications reviewed and adjusted accordingly: Yes Anticipated discharge: SNF Within: when bed available
[2018-10-06] MEDS: METHYLPREDNISOLONE INJ 40 MG/1 ML SDV IV SCH ×3 (02:02→18:43)
[2018-10-06] MEDS: FLUOXETINE HCL 20 MG CAPSULE PO SCH (06:41)
[2018-10-06 07:16] LABS: TPMT ACTIVITY 21.5 (.)
[2018-10-06] MEDS: HEPARIN SOD (PORCINE) 5,000 UNIT/ML 1 ML SYRINGE SUBCUT SCH ×2 (10:09→23:09)
[2018-10-06] MEDS: MESALAMINE 400 MG CAPSULE.DR PO SCH ×3 (10:12→18:46)
[2018-10-06] MEDS: MERCAPTOPURINE 50 MG TABLET PO SCH (10:13)
--- NOTE | 2018-10-06 22:18 | PDOC PROGRESS REPORT ---
Subjective Progress Note for:: 10/06/18 Subjective:: The patient is a 58-year-old, chronically ill-appearing, female with past medical history of ulcerative colitis, psoriatic arthritic, depression, and obesity who was admitted 09/23/18 for ulcerative colitis. The patient has had multiple near misses where she had to be assisted to the floor to prevent a fall due to sudden worsening of leg weakness, right greater than left. Concern for patient's ability to care for herself upon returning home. Plan to transfer patient to assisted living. Discharge planning aware. Awaiting insurance approval. Reason For Visit: ULCERATIVE COLITIS Physical Exam Vital Signs: Temp Pulse Resp BP Pulse Ox 98 F 94 18 137/81 H 97 10/06/18 15:45 10/06/18 15:45 10/06/18 15:45 10/06/18 15:45 10/06/18 15:45 Intake & Output 10/05/18 10/06/18 10/07/18 06:59 06:59 06:59 Intake Total 240 Output Total 15 Balance 240 -15 Weight 77.7 kg 75.5 kg Results Laboratory Results: 10/02/18 08:50 09/30/18 10:29 Impressions: Percutaneous Drainage 09/24/18 00:00 IMPRESSION: Successful CT-guided drainage of pelvic abscess. Abdomen Ultrasound 09/25/18 00:00 IMPRESSION: No definitive abscess in the region scanned copyright 2011 [employer]- All Rights Reserved Guidance Fluoroscopy 09/27/18 08:00 IMPRESSION: No pneumothorax postprocedure. Venous access catheter tip at the junction of the left subclavian vein and SVC. No pneumothorax postprocedure. Chest X-Ray 09/27/18 08:45 IMPRESSION: No pneumothorax postprocedure. Venous access catheter tip at the junction of the left subclavian vein and SVC. No pneumothorax postprocedure. Abdomen/Pelvis CT 10/05/18 15:45 IMPRESSION: Diverticulosis coli with no acute inflammation. There is a pigtail catheter in the anterior pelvis. The purpose is not certain. No other findings in the abdomen or pelvis. Assessment & Plan - Diagnosis (1) Abscess of abdominal cavity Is this a current diagnosis for this admission?: Yes Plan: Now status post percutaneous drain placed by surgery. Blood cultures have no growth at 5 days. Pelvic fluid grew E. coli and enterococcus faecialis Repeat ABD/Pelvic CT revealed reticulosis with no acute inflammation; pigtail catheter in the anterior pelvis. No other findings. Patient will be discharged with EVELIN drain in place; WILL NEED TO F/U WITH SURGERY AN OUTPATIENT Discussed with gastroenterology. Patient has completed a course of antibiotics. (2) Anasarca Is this a current diagnosis for this admission?: Yes Plan: Improved. Secondary to hypoalbuminemia; likely multifactorial secondary to poor nutrition and poor absorption. Dietary is consulted; continue high protein diet with dietary supplements. TARYN contie and farshad. (3) Crohn's disease Qualifiers: Gastrointestinal tract location: large intestine Digestive disease complication type: with abscess Qualified Code(s): K50.114 - Crohn's disease of large intestine with abscess Is this a current diagnosis for this admission?: Yes Plan: Primary plan per Dr. Miller; prednisone taper, mercaptopurine, mesalamine, and Lialda per his expertise. Cultures and antibiotics as above. (4) Debility, unspecified Is this a current diagnosis for this admission?: Yes Plan: The patient has had 3 near misses where she had to be assisted to the floor to prevent a fall due to sudden worsening of leg weakness; right greater than left. Spoke with nursing rubber tire and tubes supervisor about move of patient to the orthopedic floor where nursing/Huseyin would be more confident in assisting with transfers/ambulation (in addition to improving patient sense of safety); will try to make arrangements. Have requested PT to continue visits over the weekend. PT/OT consultations ordered; recommending SNF for short term rehab. Discharge planning is consulted. Awaiting insurance approval for transfer to SNF (5) Depression Qualifiers: Depression Type: unspecified Qualified Code(s): F32.9 - Major depressive disorder, single episode, unspecified Is this a current diagnosis for this admission?: Yes Plan: Continue home dose Prozac. - Time Time Spent with patient: 15-24 minutes Smoking Cessation Education: 3 to 10 minutes Medications reviewed and adjusted accordingly: Yes Anticipated discharge: SNF Within: within 48 hours - Inpatient Certification Based on my medical assessment, after consideration of the patient's comorbidities, presenting symptoms, or acuity I expect that the services needed warrant INPATIENT care.: Yes I certify that my determination is in accordance with my understanding of Medicare's requirements for reasonable and necessary INPATIENT services [42 CFR 412.3e].: Yes Medical Necessity: Need for IV Antibiotics
[2018-10-07] MEDS: METHYLPREDNISOLONE INJ 40 MG/1 ML SDV IV SCH ×3 (02:14→21:25)
[2018-10-07] MEDS: FLUOXETINE HCL 20 MG CAPSULE PO SCH (06:00)
[2018-10-07 07:00] LABS: HEMATOCRIT 31.6 % (36.0-47.0); HEMOGLOBIN 10.7 g/dL (12.0-15.5); MEAN CORPUSCULAR HEMOGLOBIN 30.6 pg (27.0-33.4); MEAN CORPUSCULAR HGB CONC 33.9 g/dL (32.0-36.0); MEAN CORPUSCULAR VOLUME 90 fl (80-97); PLATELET COUNT 374 10^3/uL (150-450); RED BLOOD COUNT 3.49 10^6/uL (3.72-5.28); RED CELL DISTRIBUTION WIDTH 17.5 % (11.5-14.0); WHITE BLOOD COUNT 13.3 10^3/uL (4.0-10.5)
[2018-10-07 07:24] LABS: ALANINE AMINOTRANSFERASE 35 U/L (9-52); ALBUMIN 3.1 g/dL (3.5-5.0); ALKALINE PHOSPHATASE 231 U/L (38-126); ANION GAP 5 (5-19); ASPARTATE AMINO TRANSFERASE 22 U/L (14-36); BILIRUBIN,DIRECT 0.6 mg/dL (0.0-0.4); BILIRUBIN,TOTAL 2.1 mg/dL (0.2-1.3); BLOOD UREA NITROGEN 12 mg/dL (7-20); CALCIUM 8.3 mg/dL (8.4-10.2); CARBON DIOXIDE 34 mmol/L (22-30); CHLORIDE 94 mmol/L (98-107); GLUCOSE 113 mg/dL (75-110); POTASSIUM 5.1 mmol/L (3.6-5.0); SODIUM 133.1 mmol/L (137-145); TOTAL PROTEIN 5.5 g/dL (6.3-8.2)
[2018-10-07] MEDS: MESALAMINE 400 MG CAPSULE.DR PO SCH ×3 (10:19→22:26)
[2018-10-07] MEDS: MERCAPTOPURINE 50 MG TABLET PO SCH (10:20)
[2018-10-07] MEDS: HEPARIN SOD (PORCINE) 5,000 UNIT/ML 1 ML SYRINGE SUBCUT SCH ×2 (10:20→22:26)
--- NOTE | 2018-10-07 15:35 | PDOC PROGRESS REPORT ---
Subjective Progress Note for:: 10/07/18 Subjective:: The patient is a 58-year-old, chronically ill-appearing, female with past medical history of ulcerative colitis, psoriatic arthritic, depression, and obesity who was admitted 09/23/18 for ulcerative colitis. The patient was seen this afternoon on rounds, she is resting comfortably in her bedside chair. The patient has no complaints. She states she is currently hav ing multiple episodes of diarrhea, but this is to be expected given her history of ulcerative colitis. Patient denies blood in her stool, denies excess number of bowel movements. The patient has had multiple near misses where she had to be assisted to the floor to prevent a fall due to sudden worsening of leg weakness, right greater than left. Concern for patient's ability to care for herself upon returning home. Plan to transfer patient to assisted living. Discharge planning aware. Awaiting insurance approval. Reason For Visit: ULCERATIVE COLITIS Physical Exam Vital Signs: Temp Pulse Resp BP Pulse Ox 97.9 F 100 16 133/70 H 96 10/07/18 11:23 10/07/18 11:23 10/07/18 11:23 10/07/18 11:23 10/07/18 11:23 Intake & Output 10/06/18 10/07/18 10/08/18 06:59 06:59 06:59 Intake Total 150 Output Total 15 35 Balance -15 115 Weight 75.5 kg 73 kg General appearance: PRESENT: no acute distress, obese Eye exam: PRESENT: conjunctiva pink, PERRLA Mouth exam: PRESENT: moist Respiratory exam: PRESENT: symmetrical, unlabored Pulses: PRESENT: normal radial pulses, normal dorsalis pedis pul Vascular exam: PRESENT: normal capillary refill GI/Abdominal exam: PRESENT: soft. ABSENT: distended, guarding, tenderness Rectal exam: PRESENT: deferred Extremities exam: PRESENT: full ROM. ABSENT: pedal edema Musculoskeletal exam: PRESENT: ambulatory - With use of walker, full ROM Neurological exam: PRESENT: alert, awake, oriented to person, oriented to place, oriented to time, oriented to situation Psychiatric exam: PRESENT: appropriate affect Skin exam: PRESENT: dry, intact, other - EVELIN drain to anterior abdominal wall Results Laboratory Results: 10/07/18 06:13 10/07/18 06:13 10/07/18 10/07/18 06:13 06:13 WBC 13.3 H RBC 3.49 L Hgb 10.7 L Hct 31.6 L MCV 90 MCH 30.6 MCHC 33.9 RDW 17.5 H Plt Count 374 Sodium 133.1 L Potassium 5.1 H Chloride 94 L Carbon Dioxide 34 H Anion Gap 5 BUN 12 Creatinine 0.34 L Est GFR ( Amer) > 60 Est GFR (Non-Af Amer) > 60 Glucose 113 H Calcium 8.3 L Total Bilirubin 2.1 H AST 22 ALT 35 Alkaline Phosphatase 231 H Total Protein 5.5 L Albumin 3.1 L Impressions: Percutaneous Drainage 09/24/18 00:00 IMPRESSION: Successful CT-guided drainage of pelvic abscess. Abdomen Ultrasound 09/25/18 00:00 IMPRESSION: No definitive abscess in the region scanned copyright 2010 [employer]- All Rights Reserved Guidance Fluoroscopy 09/27/18 08:00 IMPRESSION: No pneumothorax postprocedure. Venous access catheter tip at the junction of the left subclavian vein and SVC. No pneumothorax postprocedure. Chest X-Ray 09/27/18 08:45 IMPRESSION: No pneumothorax postprocedure. Venous access catheter tip at the junction of the left subclavian vein and SVC. No pneumothorax postprocedure. Abdomen/Pelvis CT 10/05/18 15:45 IMPRESSION: Diverticulosis coli with no acute inflammation. There is a pigtail catheter in the anterior pelvis. The purpose is not certain. No other findings in the abdomen or pelvis. Status: Imported from PACS Assessment & Plan - Diagnosis (1) Abscess of abdominal cavity Is this a current diagnosis for this admission?: Yes Plan: Now status post percutaneous drain placed by surgery. Blood cultures have no growth at 5 days. Pelvic fluid grew E. coli and enterococcus faecialis Repeat ABD/Pelvic CT revealed reticulosis with no acute inflammation; pigtail catheter in the anterior pelvis. No other findings. Patient will be discharged with EVELIN drain in place; WILL NEED TO F/U WITH SURGERY AN OUTPATIENT Discussed with gastroenterology. Patient has completed a course of antibiotics. (2) Anasarca Is this a current diagnosis for this admission?: Yes Plan: Improved. Secondary to hypoalbuminemia; likely multifactorial secondary to poor nutrition and poor absorption. Dietary is consulted; continue high protein diet with dietary supplements. TARYN daniels and farshad. (3) Crohn's disease Qualifiers: Gastrointestinal tract location: large intestine Digestive disease complication type: with abscess Qualified Code(s): K50.114 - Crohn's disease of large intestine with abscess Is this a current diagnosis for this admission?: Yes Plan: Primary plan per Dr. Miller; prednisone taper, mercaptopurine, mesalamine, and Lialda per his expertise. Cultures and antibiotics as above. (4) Debility, unspecified Is this a current diagnosis for this admission?: Yes Plan: The patient has had 3 near misses where she had to be assisted to the floor to prevent a fall due to sudden worsening of leg weakness; right greater than left. Spoke with nursing supervisor records change about move of patient to the orthopedic floor where nursing/Huseyin would be more confident in assisting with transfers/ambulation (in addition to improving patient sense of safety); will try to make arrangements. Have requested PT to continue visits over the weekend. PT/OT consultations ordered; recommending SNF for short term rehab. Discharge planning is consulted. Awaiting insurance approval for transfer to SNF (5) Depression Qualifiers: Depression Type: unspecified Qualified Code(s): F32.9 - Major depressive disorder, single episode, unspecified Is this a current diagnosis for this admission?: Yes Plan: Continue home dose Prozac. Encourage ambulation around unit - Time Time Spent with patient: 15-24 minutes Medications reviewed and adjusted accordingly: Yes Anticipated discharge: SNF Within: when bed available, Other - pending insurance approval - Inpatient Certification Based on my medical assessment, after consideration of the patient's comorbiditi es, presenting symptoms, or acuity I expect that the services needed warrant INPATIENT care.: Yes I certify that my determination is in accordance with my understanding of [facility]'s requirements for reasonable and necessary INPATIENT services [42 CFR 412.3e].: Yes Medical Necessity: Risk of Complication if Not Cared For in Hospital - Plan Summary Plan Summary: Transfer to longterm facility pending insurance approval
[2018-10-08] MEDS: METHYLPREDNISOLONE INJ 40 MG/1 ML SDV IV SCH ×3 (03:10→17:44)
[2018-10-08] MEDS: FLUOXETINE HCL 20 MG CAPSULE PO SCH (05:46)
[2018-10-08] MEDS: MESALAMINE 400 MG CAPSULE.DR PO SCH ×3 (10:32→17:51)
[2018-10-08] MEDS: MERCAPTOPURINE 50 MG TABLET PO SCH (10:32)
[2018-10-08] MEDS: HEPARIN SOD (PORCINE) 5,000 UNIT/ML 1 ML SYRINGE SUBCUT SCH ×2 (10:34→21:16)
--- NOTE | 2018-10-08 20:45 | PDOC PROGRESS REPORT ---
Subjective Progress Note for:: 10/08/18 Subjective:: The patient is a 58-year-old, chronically ill-appearing, female with past medical history of ulcerative colitis, psoriatic arthritic, depression, and obesity who was admitted 09/23/18 for ulcerative colitis. Na levels dropped to 133, d/c 1/2 NS IVF. Patient is tolerating PO diet. No change in physical exam. Patient still waiting to transfer patient to assisted living. Discharge planning aware. Awaiting insurance approval. no change to medical treatment, patient is only waiting for placement. Reason For Visit: ULCERATIVE COLITIS Physical Exam Vital Signs: Temp Pulse Resp BP Pulse Ox 98.0 F 108 H 16 129/57 H 97 10/08/18 08:03 10/08/18 08:03 10/08/18 08:03 10/08/18 08:03 10/08/18 08:03 Intake & Output 10/07/18 10/08/18 10/09/18 06:59 06:59 06:59 Intake Total 150 540 Output Total 35 Balance 115 540 Weight 73 kg 77.9 kg General appearance: PRESENT: no acute distress, morbidly obese Eye exam: PRESENT: conjunctiva pink, PERRLA Mouth exam: PRESENT: moist Teeth exam: PRESENT: poor dentation Neck exam: PRESENT: full ROM Respiratory exam: PRESENT: clear to auscultation godwin, symmetrical, unlabored Cardiovascular exam: PRESENT: +S1, +S2 Pulses: PRESENT: normal radial pulses, normal dorsalis pedis pul Vascular exam: PRESENT: normal capillary refill GI/Abdominal exam: PRESENT: soft, other - EVELIN drain to LLQ. ABSENT: distended, tenderness Rectal exam: PRESENT: deferred Extremities exam: PRESENT: full ROM, pedal edema, +1 edema Musculoskeletal exam: PRESENT: ambulatory - with assistance, full ROM Neurological exam: PRESENT: alert, awake, oriented to person, oriented to place, oriented to time, oriented to situation Psychiatric exam: PRESENT: appropriate affect Skin exam: PRESENT: dry, intact, normal color Results Laboratory Results: 10/07/18 06:13 10/07/18 06:13 Impressions: Percutaneous Drainage 09/24/18 00:00 IMPRESSION: Successful CT-guided drainage of pelvic abscess. Abdomen Ultrasound 09/25/18 00:00 IMPRESSION: No definitive abscess in the region scanned copyright 2011 [employer]- All Rights Reserved Guidance Fluoroscopy 09/27/18 08:00 IMPRESSION: No pneumothorax postprocedure. Venous access catheter tip at the junction of the left subclavian vein and SVC. No pneumothorax postprocedure. Chest X-Ray 09/27/18 08:45 IMPRESSION: No pneumothorax postprocedure. Venous access catheter tip at the junction of the left subclavian vein and SVC. No pneumothorax postprocedure. Abdomen/Pelvis CT 10/05/18 15:45 IMPRESSION: Diverticulosis coli with no acute inflammation. There is a pigtail catheter in the anterior pelvis. The purpose is not certain. No other findings in the abdomen or pelvis. Status: Imported from PACS Assessment & Plan - Diagnosis (1) Abscess of abdominal cavity Is this a current diagnosis for this admission?: Yes Plan: S/p percutaneous drain placed by surgery. Blood cultures have no growth. Pelvic fluid grew E. coli and enterococcus faecialis Repeat ABD/Pelvic CT revealed reticulosis with no acute inflammation; pigtail catheter in the anterior pelvis. No other findings. Patient will be discharged with EVELIN drain in place; WILL NEED TO F/U WITH SURGERY AN OUTPATIENT Discussed with gastroenterology. Patient has completed a course of antibiotics. (2) Anasarca Is this a current diagnosis for this admission?: Yes Plan: Improved. Secondary to hypoalbuminemia; likely multifactorial secondary to poor nutrition and poor absorption. Dietary is consulted; continue high protein diet with dietary supplements. TARYN daniels and farshad. (3) Crohn's disease Qualifiers: Gastrointestinal tract location: large intestine Digestive disease complication type: with abscess Qualified Code(s): K50.114 - Crohn's disease of large intestine with abscess Is this a current diagnosis for this admission?: Yes Plan: Primary plan per Dr. Miller; prednisone taper, mercaptopurine, mesalamine, and Lialda per his expertise. Multiple episodes of loose stool per day but nothing abnormal (per patient) Cultures and antibiotics as above. (4) Debility, unspecified Is this a current diagnosis for this admission?: Yes Plan: The patient has had 3 near misses where she had to be assisted to the floor to prevent a fall due to sudden worsening of leg weakness; right greater than left. Spoke with nursing supervisor [employer] about move of patient to the orthopedic floor where nursing/Huseyin would be more confident in assisting with transfers/ambulation (in addition to improving patient sense of safety); will try to make arrangements. Have requested PT to continue visits over the weekend. PT/OT consultations ordered; recommending SNF for short term rehab. Discharge planning is consulted. Awaiting insurance approval for transfer to SNF (5) Depression Qualifiers: Depression Type: unspecified Qualified Code(s): F32.9 - Major depressive disorder, single episode, unspecified Is this a current diagnosis for this admission?: Yes Plan: Continue home dose Prozac. Encourage ambulation around unit - Time Time Spent with patient: 15-24 minutes Medications reviewed and adjusted accordingly: Yes Anticipated discharge: SNF - Inpatient Certification Based on my medical assessment, after consideration of the patient's comorbidities, presenting symptoms, or acuity I expect that the services needed warrant INPATIENT care.: Yes I certify that my determination is in accordance with my understanding of Medicare's requirements for reasonable and necessary INPATIENT services [42 CFR 412.3e].: Yes Medical Necessity: Need for IV Antibiotics, Risk of Complication if Not Cared For in Hospital
--- NOTE | 2018-10-08 22:28 | PDOC PROGRESS REPORT ---
Subjective Progress Note for:: 10/08/18 Reason For Visit: ULCERATIVE COLITIS called by nurse for leakage around drain site Physical Exam Vital Signs: Temp Pulse Resp BP Pulse Ox 97.7 F 106 H 18 116/63 97 10/08/18 20:31 10/08/18 20:31 10/08/18 20:31 10/08/18 20:31 10/08/18 20:31 Intake & Output 10/07/18 10/08/18 10/09/18 06:59 06:59 06:59 Intake Total 150 540 458 Output Total 35 Balance 115 540 458 Weight 73 kg 77.9 kg GI/Abdominal exam: PRESENT: other - perc drain site with stool leaking around insertion site abd soft, non tender Results Laboratory Results: 10/07/18 06:13 10/07/18 06:13 Impressions: Percutaneous Drainage 09/24/18 00:00 IMPRESSION: Successful CT-guided drainage of pelvic abscess. Abdomen Ultrasound 09/25/18 00:00 IMPRESSION: No definitive abscess in the region scanned copyright 2011 [employer]- All Rights Reserved Guidance Fluoroscopy 09/27/18 08:00 IMPRESSION: No pneumothorax postprocedure. Venous access catheter tip at the junction of the left subclavian vein and SVC. No pneumothorax postprocedure. Chest X-Ray 09/27/18 08:45 IMPRESSION: No pneumothorax postprocedure. Venous access catheter tip at the junction of the left subclavian vein and SVC. No pneumothorax postprocedure. Abdomen/Pelvis CT 10/05/18 15:45 IMPRESSION: Diverticulosis coli with no acute inflammation. There is a pigtail catheter in the anterior pelvis. The purpose is not certain. No other findings in the abdomen or pelvis. Assessment & Plan - Diagnosis (1) Abscess of abdominal cavity Is this a current diagnosis for this admission?: Yes - Plan Summary Plan Summary: it appears accordian drain is clogged drain was cleared and pigtail cath was irritated with about 100cc of ns till return was clear, reconnected to accordian drain instructed nurse to obtain new accordian drain from [facility] and replace.
[2018-10-09] MEDS: METHYLPREDNISOLONE INJ 40 MG/1 ML SDV IV SCH ×3 (02:44→17:47)
[2018-10-09] MEDS: FLUOXETINE HCL 20 MG CAPSULE PO SCH (06:08)
[2018-10-09] MEDS: MESALAMINE 400 MG CAPSULE.DR PO SCH ×3 (09:58→17:48)
[2018-10-09] MEDS: MERCAPTOPURINE 50 MG TABLET PO SCH (09:58)
[2018-10-09] MEDS: HEPARIN SOD (PORCINE) 5,000 UNIT/ML 1 ML SYRINGE SUBCUT SCH (09:58)
--- NOTE | 2018-10-09 15:40 | PDOC TRANSFER SUMMARY ---
Addendum entered and electronically signed by SAVANNA LIVINGSTON NP 10/30/18 07:39: General Admission Date/PCP: 09/23/18 17:30 OH SCHULTZ DO Admission Date: 09/23/18 Transfer Date: 10/09/18 Resuscitation Status: Full Code - Transfer Diagnosis (1) Abscess of abdominal cavity Is this a current diagnosis for this admission?: Yes (2) Anasarca Is this a current diagnosis for this admission?: Yes (3) Crohn's disease Is this a current diagnosis for this admission?: Yes (4) Debility, unspecified Is this a current diagnosis for this admission?: Yes (5) Depression Is this a current diagnosis for this admission?: Yes (6) Pressure ulcer Is this a current diagnosis for this admission?: Yes Diagnosis Summary: STAGE II PRESSURE ULCER ON COCCYX. PRESENT ON ADMISSION. - Transfer Medications Home Medications: Fluoxetine HCl [Prozac] 40 mg PO DAILY 09/23/18 Fluticasone Propionate [Flonase Nasal Grandview 50 Mcg/Grandview 16 gm] 2 spray NASL DAILYP PRN 09/23/18 Gabapentin [Neurontin 300 mg Capsule] 300 mg PO DAILY 09/23/18 Gabapentin [Neurontin 300 mg Capsule] 600 mg PO QHS 09/23/18 Oxycodone HCl/Acetaminophen [Percocet 5-325 mg Tablet] 0.5 tab PO Q6HP PRN 10/21/18 - Allergies Allergies/Adverse Reactions: pineapple Allergy (Mild, Verified 10/21/18 12:14) latex [Latex] Allergy (Verified 10/21/18 12:14) itching nickel [Nickel] Allergy (Verified 10/21/18 12:14) ITCHY RASH sulfamethoxazole [From Bactrim] Allergy (Verified 10/21/18 12:14) red rash trimethoprim [From Bactrim] Allergy (Verified 10/21/18 12:14) red rash MERCURY Allergy (Uncoded 10/21/18 12:14) ITCHY RASH - Diet/Activity Discharge Diet: As Tolerated Original Note: General Admission Date/PCP: 09/23/18 17:30 OH SCHULTZ DO Admission Date: 09/23/18 Transfer Date: 10/09/18 Resuscitation Status: Full Code - Transfer Diagnosis (1) Abscess of abdominal cavity Is this a current diagnosis for this admission?: Yes (2) Anasarca Is this a current diagnosis for this admission?: Yes (3) Crohn's disease Is this a current diagnosis for this admission?: Yes (4) Debility, unspecified Is this a current diagnosis for this admission?: Yes (5) Depression Is this a current diagnosis for this admission?: Yes - Transfer Medications Home Medications: Fluoxetine HCl [Prozac] 40 mg PO DAILY 09/23/18 Fluticasone Propionate [Flonase Nasal Grand[place] 50 Mcg/Grandview 16 gm] 2 spray NASL DAILYP PRN 09/23/18 Gabapentin [Neurontin 300 mg Capsule] 300 mg PO DAILY 09/23/18 Gabapentin [Neurontin 300 mg Capsule] 600 mg PO QHS 09/23/18 Hydrochlorothiazide [Hydrodiuril 25 mg Tablet] 25 mg PO DAILY 09/23/18 Ixekizumab [Taltz Autoinjector] 80 mg IM [id number] 09/23/18 Mercaptopurine [Purinethol 50 mg Tablet] 50 mg PO DAILY 09/23/18 Mesalamine [Lialda] 4.8 gm PO DAILY 09/23/18 Mesalamine [Rowasa 1000 mg Supp.rect] 1,000 mg [place] DAILYP PRN 09/23/18 Mirtazapine [Remeron 15 mg Tablet] 15 mg PO QHS 09/23/18 Transfer Medications: Current Medications Fluoxetine HCl (Prozac 20 Mg Capsule) 40 mg PO DAILY@0600 [facility] Stop: 10/30/18 05:59 Last Admin: 10/09/18 06:08 Dose: 40 mg Documented by: Heparin Sodium (Porcine) (Heparin Inj 5,000 Units/Ml 1 Ml Syringe) 5,000 unit SUBCUT Q12 [facility] Stop: 10/25/18 21:59 Last Admin: 10/09/18 09:58 Dose: 5,000 unit Documented by: Influenza Virus Vaccine Quadrival (Fluarix Adlt Quad Vac 0.5 Ml Syr) 0.5 ml IM .DISCHARGE PRN PRN Reason: THIS MED IS NOT "PRN" Stop: 10/29/18 16:24 Mercaptopurine (Purinethol 50 Mg Tablet) 50 mg PO DAILY [facility] Stop: 10/29/18 09:59 Last Admin: 10/09/18 09:58 Dose: 50 mg Documented by: Mesalamine (Asacol Sr 400 Mg Capsule) 800 mg PO TID AYAH Stop: 10/28/18 21:59 Last Admin: 10/09/18 14:24 Dose: 800 mg Documented by: Methylprednisolone Sodium Succinate (Solu-Medrol Inj/Pf 40 Mg/1 Ml Sdv) 20 mg IV Q8A AYAH Stop: 10/23/18 17:59 Last Admin: 10/09/18 09:58 Dose: 20 mg Documented by: - Allergies Allergies/Adverse Reactions: pineapple Allergy (Mild, Verified 09/23/18 12:11) latex [Latex] Allergy (Verified 09/23/18 11:43) itching nickel [Nickel] Allergy (Verified 09/23/18 11:43) ITCHY RASH sulfamethoxazole [From Bactrim] Allergy (Verified 09/23/18 11:43) red rash trimethoprim [From Bactrim] Allergy (Verified 09/23/18 11:43) red rash MERCURY Allergy (Uncoded 09/23/18 11:43) ITCHY RASH - Diet/Activity Discharge Diet: As Tolerated Hospital Course Hospital Course: The patient is a 58-year-old, chronically ill-appearing, female with past medical history of ulcerative colitis, psoriatic arthritic, depression, and obesity who was admitted 09/23/18 for ulcerative colitis. Radiology imaging showed an intra-abdominal abscess which was drained by surgery. Abscess drainage cultured and positive for E. coli and Enterococcus faecalis. Treated with Flagyl IV and imipenem IV. The patient has completed her antibiotic therapies. EVELIN drain remains in place. Repeat ABD/Pelvic CT revealed reticulosis with no acute inflammation; pigtail catheter in the anterior pelvis. No other findings. The patient will need to follow-up with surgery in 1 week. For any further information regarding this patient's hospitalization, please refer to the EMR. Physical Exam Vital Signs: Temp Pulse Resp BP Pulse Ox 98.0 F 91 16 132/62 H 96 10/09/18 12:06 10/09/18 12:06 10/09/18 12:06 10/09/18 12:06 10/09/18 12:06 Intake & Output 10/08/18 10/09/18 10/10/18 06:59 06:59 06:59 Intake Total 581 584 9977 Balance 714 964 0904 Weight 77.9 kg General appearance: PRESENT: no acute distress Eye exam: PRESENT: PERRLA Respiratory exam: PRESENT: clear to auscultation godwin, symmetrical, unlabored Results Laboratory Results: 10/07/18 06:13 10/07/18 06:13 Impressions: Percutaneous Drainage 09/24/18 00:00 IMPRESSION: Successful CT-guided drainage of pelvic abscess. Abdomen Ultrasound 09/25/18 00:00 IMPRESSION: No definitive abscess in the region scanned copyright 2011 [employer]- All Rights Reserved Guidance Fluoroscopy 09/27/18 08:00 IMPRESSION: No pneumothorax postprocedure. Venous access catheter tip at the junction of the left subclavian vein and SVC. No pneumothorax postprocedure. Chest X-Ray 09/27/18 08:45 IMPRESSION: No pneumothorax postprocedure. Venous access catheter tip at the junction of the left subclavian vein and SVC. No pneumothorax postprocedure. Abdomen/Pelvis CT 10/05/18 15:45 IMPRESSION: Diverticulosis coli with no acute inflammation. There is a pigtail catheter in the anterior pelvis. The purpose is not certain. No other findings in the abdomen or pelvis. Status: Imported from PACS Plan Discharge Plan: Follow-up with Dr. Barrientos in 1 week. Return to the hospital for fever, abdominal pain, persistent nausea or vomiting, surgical site infection Time Spent: Greater than 30 Minutes
[2018-10-09 15:52] VITALS: BP 139/59
--- NOTE | 2018-10-13 12:14 | Physician Advisory Note ---
Physician Advisor ProgressNote .: Pursuant to the plan for Demarco Nicole, I have reviewed the medical record for this patient. Physician Advisor Statement: Pt came in w/suspected dx UC based on findings from eval in Jul, when she was first dx'd per GI. On colonoscopy this adm, findings were more consistent w/Crohn's dz per GI, who thereafter documented Crohn's dz dx. Ongoing attending notes thereafter, including DCS, continue to state reason for visit was "UC" [?is this an autopopulated piece of info that cannot be corrected by attg?], but then give dx "Crohn's dz" in dx list. This can be confusing to reviewers & to subsequent attendings who may review this adm's chart for info & wonder if pt is felt to have both dx.s, or which one is accurate. Please clarify in DCS the GI dx.s - what was ruled out, & what was ruled in. Thanks! CK
== END 2018-10-09 18:15 | disposition short-term general hospital (02) | DRG 387 ==
LOC: ER 11:39 → EH 17:30 → 2N 22:56
PROVIDERS: ADMIT Internal Medicine; ATTEND Internal Medicine
PROC: BW211ZZ Computerized Tomography (CT Scan) of Abdomen and Pelvis using Low Osmolar Contrast (ICD-10-PCS; 2018-09-25)
PROC: 0DJD8ZZ Inspection of Lower Intestinal Tract, Via Natural or Artificial Opening Endoscopic (ICD-10-PCS; 2018-09-25)
PROC: 0W9J30Z Drainage of Pelvic Cavity with Drainage Device, Percutaneous Approach (ICD-10-PCS; principal; 2018-09-25 15:30)
PROC: 02HV33Z Insertion of Infusion Device into Superior Vena Cava, Percutaneous Approach (ICD-10-PCS; 2018-09-27)
PROC: B548ZZA Ultrasonography of Superior Vena Cava, Guidance (ICD-10-PCS; 2018-09-27)
DX: K50.114 Crohn's disease of large intestine with abscess (principal); L89.152 Pressure ulcer of sacral region, stage 2; J84.10 Pulmonary fibrosis, unspecified; L40.50 Arthropathic psoriasis, unspecified; E66.01 Morbid (severe) obesity due to excess calories; E88.09 Other disorders of plasma-protein metabolism, not elsewhere classified; L40.9 Psoriasis, unspecified; F32.9 Major depressive disorder, single episode, unspecified; R30.0 Dysuria; R63.0 Anorexia; T50.995A Adverse effect of other drugs, medicaments and biological substances, initial encounter; R26.2 Difficulty in walking, not elsewhere classified; K21.9 Gastro-esophageal reflux disease without esophagitis; I87.8 Other specified disorders of veins; B96.20 Unspecified Escherichia coli [E. coli] as the cause of diseases classified elsewhere; B95.2 Enterococcus as the cause of diseases classified elsewhere; R53.81 Other malaise; R35.0 Frequency of micturition; R60.1 Generalized edema; R53.1 Weakness; H40.9 Unspecified glaucoma; M06.9 Rheumatoid arthritis, unspecified; Z68.35 Body mass index [BMI] 35.0-35.9, adult; Z87.891 Personal history of nicotine dependence; Z88.3 Allergy status to other anti-infective agents; Z91.040 Latex allergy status; Z88.2 Allergy status to sulfonamides; Z91.018 Allergy to other foods; Z91.048 Other nonmedicinal substance allergy status; Z91.81 History of falling
CPT/HCPCS: 00532; 36415; 45330; 71045; 71046; 74176; 74177; 75989; 76705; 77001; 80048; 80053; 80074; 80076; 81001; 82542; 83690; 85025; 85027; 85610; 86140; 86701; 87040; 87045; 87070; 87075; 87077; 87186; 87205; 87493; 90471; 90686; 99285; C1729; C1751; C1769; C1894; G0008; J0171; J0290; J0743; J0744; J1200; J1610; J1642; J1644; J2250; J2310; J2405; J2704; J2920; J3010; J3490; J7030

== ENCOUNTER 2018-10-21 12:11 | Inpatient (IN) | payer BC ==
--- NOTE | 2018-10-21 14:16 | ER Document Report ---
ED General - General Chief Complaint: Abdominal Pain Stated Complaint: ABDOMINAL PAIN Time Seen by Provider: 10/21/18 14:04 Primary Care Provider: OH SCHULTZ DO [Primary Care Provider] - Follow up as needed Notes: 58-year-old female with ulcerative colitis, pulmonary fibrosis, glaucoma, rheumatoid arthritis, headaches presents from Dr. Barrientos's office with concern for possible abdominal abscess. Patient with an existing percutaneous drain in the lower abdomen placed for a previous abscess. Patient has had symptoms for approximately 4 days and complains of nausea without vomiting, chills with no fever, and mild generalized abdominal pain. Of note patient reports that she has an existing sacral decubitus ulcer. I have greeted and performed a rapid initial assessment of this patient. A comprehensive ED assessment and evaluation of the patient, analysis of test results and completion of medical decision making process will be conducted by an additional ED providers. TRAVEL OUTSIDE OF THE [place] IN LAST 30 DAYS: No - Related Data Allergies/Adverse Reactions: pineapple Allergy (Mild, Verified 10/21/18 12:14) latex [Latex] Allergy (Verified 10/21/18 12:14) itching nickel [Nickel] Allergy (Verified 10/21/18 12:14) ITCHY RASH sulfamethoxazole [From Bactrim] Allergy (Verified 10/21/18 12:14) red rash trimethoprim [From Bactrim] Allergy (Verified 10/21/18 12:14) red rash MERCURY Allergy (Uncoded 10/21/18 12:14) ITCHY RASH Past Medical History - Social History Family History: Reviewed & Not Pertinent - Past Medical History Cardiac Medical History: Denies: Hx Coronary Artery Disease, Hx Heart Attack, Hx Hypertension Pulmonary Medical History: Denies: Hx Asthma, Hx Bronchitis, Hx COPD, Hx Pneumonia Neurological Medical History: Denies: Hx Cerebrovascular Accident, Hx Seizures Renal/ Medical History: Denies: Hx Peritoneal Dialysis GI Medical History: Denies: Hx Hepatitis, Hx Hiatal Hernia, Hx Ulcer Musculoskeletal Medical History: Reports Hx Arthritis - psoriatic, Reports Hx Musculoskeletal Trauma - Right knee fracture 10 years ago Skin Medical History: Reports Hx Psoriasis Psychiatric Medical History: Reports: Hx Depression Infectious Medical History: Denies: Hx Hepatitis Past Surgical History: Reports: Hx Abdominal Surgery - hernia repair, Hx Breast Surgery - right breast lump removed, Hx Cholecystectomy, Hx Hysterectomy, Hx Orthopedic Surgery - right knee, left hand. Denies: Hx Mastectomy, Hx Open Heart Surgery - Immunizations Hx Diphtheria, Pertussis, Tetanus Vaccination: Yes Physical Exam - Vital signs Vitals: Temp Pulse Resp BP Pulse Ox 97.9 F 100 20 102/69 99 10/21/18 12:31 10/21/18 12:31 10/21/18 12:31 10/21/18 12:31 10/21/18 12:31 - Abdominal Inspection: Other - Existing percutaneous drain suprapubic area with leaking stool around it. Distension: No distension Course - Vital Signs Vital signs: Temp Pulse Resp BP Pulse Ox 97.9 F 100 20 102/69 99 10/21/18 12:31 10/21/18 12:31 10/21/18 12:31 10/21/18 12:31 10/21/18 12:31 Discharge - Discharge Referrals: OH SCHULTZ DO [Primary Care Provider] - Follow up as needed
--- NOTE | 2018-10-21 14:23 | ER Document Report ---
ED Medical Screen (RME) - General Chief Complaint: Abdominal Pain Stated Complaint: ABDOMINAL PAIN Time Seen by Provider: 10/21/18 14:04 Primary Care Provider: OH SCHULTZ DO [Primary Care Provider] - Follow up as needed Notes: 58-year-old female with ulcerative colitis, pulmonary fibrosis, glaucoma, rheumatoid arthritis, headaches presents from Dr. Barrientos's office with concern for possible abdominal abscess. Patient with an existing percutaneous drain in the lower abdomen placed for a previous abscess. Patient has had symptoms for approximately 4 days and complains of nausea without vomiting, chills with no fever, and mild generalized abdominal pain. Of note patient reports that she has an existing sacral decubitus ulcer. I have greeted and performed a rapid initial assessment of this patient. A comprehensive ED assessment and evaluation of the patient, analysis of test results and completion of medical decision making process will be conducted by an additional ED providers. TRAVEL OUTSIDE OF THE [place] IN LAST 30 DAYS: No - Related Data Allergies/Adverse Reactions: pineapple Allergy (Mild, Verified 10/21/18 12:14) latex [Latex] Allergy (Verified 10/21/18 12:14) itching nickel [Nickel] Allergy (Verified 10/21/18 12:14) ITCHY RASH sulfamethoxazole [From Bactrim] Allergy (Verified 10/21/18 12:14) red rash trimethoprim [From Bactrim] Allergy (Verified 10/21/18 12:14) red rash MERCURY Allergy (Uncoded 10/21/18 12:14) ITCHY RASH Past Medical History - Social History Chew tobacco use (# tins/day): No Frequency of alcohol use: None Drug Abuse: None - Past Medical History Cardiac Medical History: Denies: Hx Coronary Artery Disease, Hx Heart Attack, Hx Hypertension Pulmonary Medical History: Denies: Hx Asthma, Hx Bronchitis, Hx COPD, Hx Pneumonia Neurological Medical History: Denies: Hx Cerebrovascular Accident, Hx Seizures Renal/ Medical History: Denies: Hx Peritoneal Dialysis GI Medical History: Denies: Hx Hepatitis, Hx Hiatal Hernia, Hx Ulcer Musculoskeltal Medical History: Reports Hx Arthritis - psoriatic, Reports Hx Musculoskeletal Trauma - Right knee fracture 10 years ago Skin Medical History: Reports Hx Psoriasis Psychiatric Medical History: Reports: Hx Depression Infectious Medical History: Denies: Hx Hepatitis Past Surgical History: Reports: Hx Abdominal Surgery - hernia, Hx Breast Surgery - right breast lump removed, Hx Cholecystectomy, Hx Hysterectomy, Hx Orthopedic Surgery - right knee, left hand. Denies: Hx Mastectomy, Hx Open Heart Surgery - Immunizations Hx Diphtheria, Pertussis, Tetanus Vaccination: Yes Physical Exam - Vital signs Vitals: Temp Pulse Resp BP Pulse Ox 97.9 F 100 20 102/69 99 10/21/18 12:31 10/21/18 12:31 10/21/18 12:31 10/21/18 12:31 10/21/18 12:31 - Abdominal Inspection: No: Normal - Existing suprapubic percutaneous drain with stool leaking out around it saturating a Telfa dressing. Distension: No distension Bowel sounds: Normal Tenderness: Tender - Generalized tenderness to palpation Course - Vital Signs Vital signs: Temp Pulse Resp BP Pulse Ox 97.9 F 100 20 102/69 99 10/21/18 12:31 10/21/18 12:31 10/21/18 12:31 10/21/18 12:31 10/21/18 12:31 Doctor's Discharge - Discharge Referrals: OH SCHULTZ DO [Primary Care Provider] - Follow up as needed
--- NOTE | 2018-10-21 15:53 | ER Document Report ---
ED General - General Chief Complaint: Abdominal Pain Stated Complaint: ABDOMINAL PAIN Time Seen by Provider: 10/21/18 14:04 TRAVEL OUTSIDE OF THE [place] IN LAST 30 DAYS: No - HPI Notes: Patient is a 58-year-old female that presents to the emergency department for chief complaint of abdominal pain. Patient reports a diffuse lower abdominal pain. She states it is sharp when you touch it and dull and achy when not touching it. The pain is constant and has been present for the last few weeks. Patient did have a recent percutaneous drain placed for abscess. She was in Dr. Barrietnos's office today and referred to the emergency room for concern of re-development of the abscess. She reports some nausea but denies any vomiting. She denies fevers and chills. She is not currently on antibiotics. She denies any difficulty breathing and dysuria. Patient does endorse some diarrhea stating she has had 5 loose stools daily. Past Medical History: Ulcerative colitis Past Surgical History: Percutaneous pelvic abscess drain Social History: Reviewed in chart Family History: Reviewed and noncontributory for presenting illness Allergies: Reviewed, see documented allergy list. REVIEW OF SYSTEMS: CONSTITUTIONAL : No fever No chills No diaphoresis No recent illness EENT: No vision changes No congestion No sore throat CARDIOVASCULAR: No chest pain No palpitations RESPIRATORY: No shortness of breath No cough No difficulty breathing GASTROINTESTINAL: abdominal pain nausea No vomiting diarrhea GENITOURINARY: No dysuria No hematuria No difficulty urinating MUSCULOSKELETAL: No back pain No leg pain No arm pain SKIN: No rashes No lesions LYMPHATIC: No swollen, enlarged glands. NEUROLOGICAL: No lightheadedness No headache No weakness No paresthesias PSYCHIATRIC: No anxiety No depression PHYSICAL EXAMINATION: Vital signs reviewed, nursing noted reviewed. GENERAL: Well-appearing, well-nourished and in no acute distress. HEAD: Atraumatic, normocephalic. EYES: Eyes appear normal, extraocular movements intact, sclera anicteric, conjunctiva are normal. ENT: nares patent, oropharynx clear without exudates. Moist mucous membranes. NECK: Normal range of motion, supple without lymphadenopathy LUNGS: Breath sounds clear to auscultation bilaterally and equal. No wheezes rales or rhonchi. HEART: Regular rate and rhythm without murmurs ABDOMEN: Soft, diffuse lower tenderness, percutaneous drain with malodorous purulent appearing discharge, no rebound, guarding, or rigidity. No masses appreciated. EXTREMITIES: Nontender, good range of motion, no pitting or edema. NEUROLOGICAL: No focal neurological deficits. Moves all extremities spontaneously Motor and sensory grossly intact on exam. PSYCH: Normal mood, normal affect. SKIN: Warm, Dry, normal turgor, no rashes or lesions noted on exposed skin - Related Data Allergies/Adverse Reactions: pineapple Allergy (Mild, Verified 10/21/18 12:14) latex [Latex] Allergy (Verified 10/21/18 12:14) itching nickel [Nickel] Allergy (Verified 10/21/18 12:14) ITCHY RASH sulfamethoxazole [From Bactrim] Allergy (Verified 10/21/18 12:14) red rash trimethoprim [From Bactrim] Allergy (Verified 10/21/18 12:14) red rash MERCURY Allergy (Uncoded 10/21/18 12:14) ITCHY RASH Past Medical History - Social History Smoking Status: Former Smoker Chew tobacco use (# tins/day): No Frequency of alcohol use: None Drug Abuse: None Family History: Reviewed & Not Pertinent Patient has suicidal ideation: No Patient has homicidal ideation: No - Past Medical History Cardiac Medical History: Denies: Hx Coronary Artery Disease, Hx Heart Attack, Hx Hypertension Pulmonary Medical History: Denies: Hx Asthma, Hx Bronchitis, Hx COPD, Hx Pneumonia Neurological Medical History: Denies: Hx Cerebrovascular Accident, Hx Seizures Renal/ Medical History: Denies: Hx Peritoneal Dialysis GI Medical History: Denies: Hx Hepatitis, Hx Hiatal Hernia, Hx Ulcer Musculoskeletal Medical History: Reports Hx Arthritis - psoriatic, Reports Hx Musculoskeletal Trauma - Right knee fracture 10 years ago Skin Medical History: Reports Hx Psoriasis Psychiatric Medical History: Reports: Hx Depression Infectious Medical History: Denies: Hx Hepatitis Past Surgical History: Reports: Hx Abdominal Surgery - hernia, Hx Breast Surgery - right breast lump removed, Hx Cholecystectomy, Hx Hysterectomy, Hx Orthopedic Surgery - right knee, left hand. Denies: Hx Mastectomy, Hx Open Heart Surgery - Immunizations Hx Diphtheria, Pertussis, Tetanus Vaccination: Yes Physical Exam - Vital signs Vitals: Temp Pulse Resp BP Pulse Ox 97.9 F 100 20 102/69 99 10/21/18 12:31 10/21/18 12:31 10/21/18 12:31 10/21/18 12:31 10/21/18 12:31 Course - Re-evaluation Re-evalutation: 10/21/18 15:52 Vitals reviewed. Nursing notes reviewed. Patient offered pain medication but declined. She does have some abdominal tenderness and CT scan will be ordered to evaluate for new development of abscess. 10/21/18 16:20 Patient's care discussed with Dr. Barrientos who referred her to the emergency room. He feels the percutaneous drain has not been placed on suction and believe she likely has reaccumulation of the abscess requiring further surgical management. He is not sewage reticulation drafting officer for inpatient surgical services. He confirms she is not currently on antibiotics. 10/21/18 16:29 Patient's care was discussed with Dr. Saeed who will admit her to the hospital. Patient started on Zosyn. Lab work and CT scan are currently pending. 10/21/18 17:14 Laboratory 10/21/18 10/21/18 10/21/18 16:00 16:00 16:00 WBC 10.9 H RBC 3.23 L Hgb 10.6 L Hct 30.8 L MCV 96 D MCH 32.7 MCHC 34.2 RDW 19.6 H Plt Count 263 Total Counted 100 Seg Neutrophils % Not Reportable Seg Neuts % (Manual) 70 Band Neutrophils % 27 H Lymphocytes % Not Reportable Lymphocytes % (Manual) 3 L Monocytes % Not Reportable Monocytes % (Manual) 0 L Eosinophils % Not Reportable Eosinophils % (Manual) 0 Basophils % Not Reportable Basophils % (Manual) 0 Absolute Neutrophils Not Reportable Abs Neuts (Manual) 10.6 H Absolute Lymphocytes Not Reportable Abs Lymphs (Manual) 0.3 L Absolute Monocytes Not Reportable Abs Monocytes (Manual) 0.0 L Absolute Eosinophils Not Reportable Absolute Eos (Manual) 0.0 Absolute Basophils Not Reportable Abs Basophils (Manual) 0.0 Large Platelets PRESENT Platelet Comment ADEQUATE Hypochromasia SLIGHT Stomatocytes SLIGHT Sodium 134.2 L Potassium 4.5 Chloride 93 L Carbon Dioxide 32 H Anion Gap 9 BUN 27 H Creatinine 0.51 L Est GFR ( Amer) > 60 Est GFR (Non-Af Amer) > 60 Glucose 101 Lactic Acid 1.8 Calcium 8.4 Total Bilirubin 2.0 H Direct Bilirubin 1.1 H Neonat Total Bilirubin Not Reportable Neonat Direct Bilirubin Not Reportable Neonat Indirect Bili Not Reportable AST 149 H ALT 234 H Alkaline Phosphatase 847 H Total Protein 5.3 L Albumin 2.9 L - Vital Signs Vital signs: Temp Pulse Resp BP Pulse Ox 97.9 F 100 14 106/50 L 99 10/21/18 12:31 10/21/18 12:31 10/21/18 16:10 10/21/18 16:10 10/21/18 16:10 - Laboratory Result Diagrams: 10/21/18 16:00 10/21/18 16:00 Laboratory results interpreted by me: 10/21/18 10/21/18 16:00 16:00 WBC 10.9 H RBC 3.23 L Hgb 10.6 L Hct 30.8 L RDW 19.6 H Band Neutrophils % 27 H Lymphocytes % (Manual) 3 L Monocytes % (Manual) 0 L Abs Neuts (Manual) 10.6 H Abs Lymphs (Manual) 0.3 L Abs Monocytes (Manual) 0.0 L Sodium 134.2 L Chloride 93 L Carbon Dioxide 32 H BUN 27 H Creatinine 0.51 L Total Bilirubin 2.0 H Direct Bilirubin 1.1 H AST 149 H ALT 234 H Alkaline Phosphatase 847 H Total Protein 5.3 L Albumin 2.9 L Discharge - Discharge Clinical Impression: Pelvic pain Abdominal pain Qualifiers: Abdominal location: lower abdomen, unspecified Qualified Code(s): R10.30 - L ower abdominal pain, unspecified Condition: Stable Disposition: ADMITTED INPATIENT Admitting Provider: Surgicalist Unit Admitted: Surgical Floor
[2018-10-21] MEDS ORDERED: NORMAL SALINE 1000 ML 1,000 ML IV ONE ×2 (16:25→20:50)
[2018-10-21] MEDS ORDERED: PIPERACILLIN/TAZOBACTAM 3.375 GM VIAL IV ONE ×2 (16:26→20:54)
[2018-10-21 16:31] LABS: HEMATOCRIT 30.8 % (36.0-47.0); HEMOGLOBIN 10.6 g/dL (12.0-15.5); MEAN CORPUSCULAR HEMOGLOBIN 32.7 pg (27.0-33.4); MEAN CORPUSCULAR HGB CONC 34.2 g/dL (32.0-36.0); PLATELET COUNT 263 10^3/uL (150-450); RED BLOOD COUNT 3.23 10^6/uL (3.72-5.28); RED CELL DISTRIBUTION WIDTH 19.6 % (11.5-14.0); WHITE BLOOD COUNT 10.9 10^3/uL (4.0-10.5)
[2018-10-21 16:32] LABS: MEAN CORPUSCULAR VOLUME 96 fl (80-97)
[2018-10-21 16:34] LABS: ALANINE AMINOTRANSFERASE 234 U/L (9-52); ALBUMIN 2.9 g/dL (3.5-5.0); ALKALINE PHOSPHATASE 847 U/L (38-126); ANION GAP 9 (5-19); ASPARTATE AMINO TRANSFERASE 149 U/L (14-36); BILIRUBIN,DIRECT 1.1 mg/dL (0.0-0.4); BLOOD UREA NITROGEN 27 mg/dL (7-20); CALCIUM 8.4 mg/dL (8.4-10.2); CARBON DIOXIDE 32 mmol/L (22-30); CHLORIDE 93 mmol/L (98-107); GLUCOSE 101 mg/dL (75-110); POTASSIUM 4.5 mmol/L (3.6-5.0); SODIUM 134.2 mmol/L (137-145); TOTAL PROTEIN 5.3 g/dL (6.3-8.2)
[2018-10-21 16:55] LABS: ABSOLUTE LYMPHOCYTES# (MANUAL) 0.3 10^3/uL (0.5-4.7); ABSOLUTE NEUTROPHILS# (MANUAL) 10.6 10^3/uL (1.7-8.2); BASOPHILS % (MANUAL) 0 % (0-2); EOSINOPHILS % (MANUAL) 0 % (0-6); LYMPHOCYTES % (MANUAL) 3 % (13-45); MONOCYTES % (MANUAL) 0 % (3-13); SEGMENTED NEUTROPHILS % (MAN) 70 % (42-78); TOTAL CELLS COUNTED 100
[2018-10-21 16:56] LABS: PLATELET COMMENT ADEQUATE; PLATELET LARGE PRESENT
[2018-10-21 16:57] LABS: HYPOCHROMASIA SLIGHT; STOMATOCYTES SLIGHT
[2018-10-21 16:58] LABS: BAND NEUTROPHILS % (MANUAL) 27 % (3-5)
--- NOTE | 2018-10-21 19:20 | RADIOLOGY REPORT (SQ) ---
EXAM DESCRIPTION: CT ABD/PELVIS ORAL ONLY COMPLETED DATE/TIME: 10/21/2018 7:08 pm REASON FOR STUDY: abdominal pain COMPARISON: 10/05/2018 TECHNIQUE: CT scan of the abdomen and pelvis performed with oral contrast and no intravenous contras t. Images reviewed with lung, soft tissue, and bone windows. Reconstructed coronal and sagittal MPR i mages reviewed. All images stored on PACS. All CT scanners at this facility use dose modulation, iterative reconstruction, and/or weight based d osing when appropriate to reduce radiation dose to as low as reasonably achievable (ALARA). [facility]: Dose Right [facility]: CareDose [facility]: Dose Right [facility]: Teradose 4D [facility]: Smart K[employer] Surgical RADIATION DOSE: CT Rad equipment meets quality standard of care and radiation dose reduction techniq ues were employed. CTDIvol: 12.2 mGy. DLP: 714 mGy-cm. mGy. LIMITATIONS: None. FINDINGS: LOWER CHEST: No significant findings. No nodules or infiltrates. NON-CONTRASTED LIVER, SPLEEN, ADRENALS: Evaluation limited by lack of IV contrast. No identified sign ificant masses. PANCREAS: No masses. No peripancreatic inflammatory changes. GALLBLADDER: Surgically absent. RIGHT KIDNEY AND URETER: No suspicious masses. Assessment limited by lack of IV contrast. No signif icant calcifications. No hydronephrosis or hydroureter. LEFT KIDNEY AND URETER: No suspicious masses. Assessment limited by lack of IV contrast. No signifi cant calcifications. No hydronephrosis or hydroureter. AORTA AND RETROPERITONEUM: No aneurysm. No retroperitoneal masses or adenopathy. BOWEL AND PERITONEAL CAVITY: Inflammatory changes in the sigmoid colon with pericolonic fat stranding . Extends along the descending colon. Associated with diverticular. No definitive perforation or a bscess. APPENDIX: Not visualized. PELVIS, BLADDER, AND ABDOMINAL WALL: No abnormal pelvic masses. No abdominal wall hernias. Bladder un remarkable. BONES: No significant findings. OTHER: Pigtail catheter remains in place. Of undetermined reason. IMPRESSION: Diverticulitis of the descending colon and sigmoid colon. No definitive abscess or perf oration. Pigtail catheter in the lower abdomen. TECHNICAL DOCUMENTATION: JOB ID: [id number] Quality ID # [id number]: Final reports with documentation of one or more dose reduction techniques (e.g., Au tomated exposure control, adjustment of the mA and/or kV according to patient size, use of iterative reconstruction technique) 2010 [employer] - is now [employer]- All Rights Reserved Reading location - IP/workstation name: [email or web address]
[2018-10-21] MEDS ORDERED: LIDOCAINE 1% INJ-PF (10 MG/ML) 30 ML SDV ONE (20:17)
--- NOTE | 2018-10-21 20:50 | PDOC H&P ---
History of Present Illness Admission Date/PCP: 10/21/18 16:44 OH SCHULTZ DO Patient complains of: abdominal pains History of Present Illness: PAULETTE HARO is a 58 year old female with known ulcerative colitis and had percutaneous drainage of intra-abdominal pelvic abscess 09/24/2018. She was seen in the surgical clinic c/o lower abdominal pains. She was sent to ER because drain appears to have been clogged and patient may be developing a new abscess. The drain however opened up and drained about 60 ccs of purulent material. A ccccccccccCT scan was done which showed no abscess but with sigmoid and descending colon diverticulitis. Denies fever/chills,diarrhea,constipation, nausea nor vomiting. Past Medical History Cardiac Medical History: Denies: Coronary Artery Disease, Myocardial Infarction, Hypertension Pulmonary Medical History: Denies: Asthma, Bronchitis, Chronic Obstructive Pulmonary Disease (COPD), Pneumonia Neurological Medical History: Denies: Seizures GI Medical History: Denies: Hepatitis, Hiatal Hernia Musculoskeltal Medical History: Reports: Arthritis - psoriatic Skin Medical History: Reports: Psoriasis Psychiatric Medical History: Reports: Depression Hematology: Denies: Anemia, Sickle Cell Disease Past Surgical History Past Surgical History: Reports: Cholecystectomy, Hysterectomy, Orthopedic Surgery - right knee, left hand Denies: Amputation, Mastectomy Social History Smoking Status: Former Smoker Frequency of Alcohol Use: None Drugs: None Family History Family History: Reviewed & Not Pertinent Parental Family History Reviewed: Yes Children Family History Reviewed: No Sibling(s) Family History Reviewed.: No Medication/Allergy Home Medications: Fluoxetine HCl [Prozac] 40 mg PO DAILY 09/23/18 Fluticasone Propionate [Flonase Nasal [place] 50 Mcg/[place] 16 gm] 2 spray NASL DAILYP PRN 09/23/18 Gabapentin [Neurontin 300 mg Capsule] 300 mg PO DAILY 09/23/18 Gabapentin [Neurontin 300 mg Capsule] 600 mg PO QHS 09/23/18 Oxycodone HCl/Acetaminophen [Percocet 5-325 mg Tablet] 0.5 tab PO Q6HP PRN 10/21/18 Allergies/Adverse Reactions: pineapple Allergy (Mild, Verified 10/21/18 12:14) latex [Latex] Allergy (Verified 10/21/18 12:14) itching nickel [Nickel] Allergy (Verified 10/21/18 12:14) ITCHY RASH sulfamethoxazole [From Bactrim] Allergy (Verified 10/21/18 12:14) red rash trimethoprim [From Bactrim] Allergy (Verified 10/21/18 12:14) red rash MERCURY Allergy (Uncoded 10/21/18 12:14) ITCHY RASH Review of Systems Constitutional: PRESENT: as per HPI Eyes: PRESENT: other - no visual/hearing changes Cardiovascular: PRESENT: other - no chest pains/cough Gastrointestinal: PRESENT: abdominal pain Genitourinary: PRESENT: other - no dysuria Physical Exam Vital Signs: Temp Pulse Resp BP Pulse Ox 97.9 F 100 15 106/50 L 92 10/21/18 12:31 10/21/18 12:31 10/21/18 18:00 10/21/18 16:10 10/21/18 19:10 Intake & Output 10/20/18 10/21/18 10/22/18 06:59 06:59 06:59 Weight 68.1 kg General appearance: PRESENT: mild distress Head exam: PRESENT: atraumatic Eye exam: PRESENT: conjunctiva pink Mouth exam: PRESENT: moist Neck exam: PRESENT: full ROM Respiratory exam: PRESENT: clear to auscultation godwin Cardiovascular exam: PRESENT: RRR Pulses: PRESENT: normal radial pulses Vascular exam: PRESENT: normal capillary refill GI/Abdominal exam: PRESENT: soft, tenderness - suprapubic and both lower quadrants Rectal exam: PRESENT: deferred Extremities exam: PRESENT: full ROM Musculoskeletal exam: PRESENT: ambulatory Neurological exam: PRESENT: alert, oriented to person, oriented to place, oriented to time, oriented to situation Psychiatric exam: PRESENT: appropriate affect Skin exam: PRESENT: normal color, warm Results Laboratory Results: 10/21/18 16:00 10/21/18 16:00 10/21/18 10/21/18 10/21/18 16:00 16:00 16:00 WBC 10.9 H RBC 3.23 L Hgb 10.6 L Hct 30.8 L MCV 96 D MCH 32.7 MCHC 34.2 RDW 19.6 H Plt Count 263 Seg Neutrophils % Not Reportable Lymphocytes % Not Reportable Monocytes % Not Reportable Eosinophils % Not Reportable Basophils % Not Reportable Absolute Neutrophils Not Reportable Absolute Lymphocytes Not Reportable Absolute Monocytes Not Reportable Absolute Eosinophils Not Reportable Absolute Basophils Not Reportable Sodium 134.2 L Potassium 4.5 Chloride 93 L Carbon Dioxide 32 H Anion Gap 9 BUN 27 H Creatinine 0.51 L Est GFR ( Amer) > 60 Est GFR (Non-Af Amer) > 60 Glucose 101 Lactic Acid 1.8 Calcium 8.4 Total Bilirubin 2.0 H AST 149 H ALT 234 H Alkaline Phosphatase 847 H Total Protein 5.3 L Albumin 2.9 L Impressions: Abdomen/Pelvis CT 10/21/18 00:00 IMPRESSION: Diverticulitis of the descending colon and sigmoid colon. No definitive abscess or perforation. Pigtail catheter in the lower abdomen. Assessment & Plan - Diagnosis (1) Diverticulitis large intestine Is this a current diagnosis for this admission?: Yes (2) Abdominal abscess Is this a current diagnosis for this admission?: Yes - Time Time Spent: 30 to 50 Minutes - Inpatient Certification Medical Necessity: Need For IV Fluids, Need for IV Antibiotics - Plan Summary Plan Summary: Start IV antibiotics and bowel rest Repeat labs in am
--- NOTE | 2018-10-21 21:10 | RADIOLOGY REPORT (SQ) ---
EXAM DESCRIPTION: XR CHEST 1 VIEW COMPLETED DATE/TME: 10/21/2018 00:00 CLINICAL HISTORY: 58 years, Female, central line COMPARISON: 09/27/2018 chest NUMBER OF VIEWS: 1 TECHNIQUE: Portable chest LIMITATIONS: None. FINDINGS: Heart size is normal. Elevation left hemidiaphragm. Central venous catheter in place, with the tip likely in the cavoatrial junction. No pneumothorax. Subsegmental atelectasis left lung base. Lungs are otherwise clear. IMPRESSION: Subsegmental atelectasis left lung base. Mild elevation left hemidiaphragm copyright 2010 [email or web address]- All Rights Reserved
--- NOTE | 2018-10-21 21:43 | OPERATIVE REPORT E ---
Operative Report NAME: PAULETTE HARO : 1960 AGE: 58Y DATE OF SURGERY: 10/21/2018 ROOM: 205 PREOPERATIVE DIAGNOSIS: POOR VEINS FOR IV ACCESS. POSTOPERATIVE DIAGNOSIS: POOR VEINS FOR IV ACCESS. PROCEDURE: Placement of right subclavian triple-lumen catheter. SURGEON: CIELO HERNANDEZ M.D. ANESTHESIA: Local. INDICATION: This is a 58-year-old female admitted for an abdominal abscess and diverticulitis. The patient had a percutaneous drainage of the abscess in the past and the drain is in place. She needed access for IV antibiotics. DESCRIPTION OF PROCEDURE: The patient was placed in Trendelenburg and the right neck and upper chest where then prepped and draped in the usual sterile fashion. The infraclavicular area was injected with lidocaine and the right subclavian subsequently punctured and guidewire passed through the needle towards the area of the superior vena cava and the needle removed. Insertion site was then dilated and a triple-lumen catheter inserted to a distance of about 17 cm. The catheter was then anchored to the skin with 3-0 Silk. All the 3 ports aspirated blood easily and instilled saline easily. Biopatch placed at the insertion site and a transparent dressing placed over the Biopatch and catheter. Chest x-ray will be obtained for placement and to rule out any pneumothorax. The patient tolerated the procedure well. DICTATING PHYSICIAN: CIELO HERNANDEZ M.D. [id number] PHY#: [id number] ID: [id number] JOB#: [id number] ACCT: [id number] cc:CIELO HERNANDEZ M.D. >
[2018-10-21] MEDS: ENOXAPARIN SODIUM INJ 40 MG/0.4 ML DISP.SYRIN SUBCUT SCH (21:53)
[2018-10-21] MEDS ORDERED: ONDANSETRON HCL INJ/PF 4 MG/2 ML SDV IV PRN (23:00)
[2018-10-21] MEDS ORDERED: PIPERACILLIN/TAZOBACTAM 3.375 GM VIAL IV PRN (23:58)
[2018-10-22] MEDS ORDERED: PIPERACILLIN/TAZOBACTAM 3.375 GM VIAL IV ONE ×2 (00:40→05:26)
[2018-10-22] MEDS: PIPERACILLIN SODIUM/TAZOBACTAM 3.375 GM in NORMAL SALINE 100 ML IV SCH ×4 (01:00→19:31)
--- NOTE | 2018-10-22 05:01 | RADIOLOGY REPORT (SQ) ---
EXAM DESCRIPTION: US ABDOMEN COMPLETED DATE/TME: 10/22/2018 00:00 CLINICAL HISTORY: 58 years, Female, elevated LFTs Comparison: CT October 21, 2018 Grayscale and Doppler sonogram of the abdomen. FINDINGS: Pancreas: Not visualized due to overlying bowel gas. Aorta: Not visualized due to overlying bowel gas. IVC: Visualized portion is unremarkable. Liver: Homogenous echotexture. Main portal vein: Normal directional flow. Gallbladder: Cholecystectomy.. Common bile duct: Diameter: 0.4 cm. Right kidney: 11.1 cm. No hydronephrosis. No nephrolithiasis. Left kidney: 12.2 cm. No hydronephrosis. No nephrolithiasis. Spleen: 11.2 cm. Unremarkable IMPRESSION: No acute sonographic abnormality.
[2018-10-22 05:52] LABS: HEMATOCRIT 23.3 % (36.0-47.0); MEAN CORPUSCULAR HEMOGLOBIN 32.4 pg (27.0-33.4); MEAN CORPUSCULAR HGB CONC 34.2 g/dL (32.0-36.0); MEAN CORPUSCULAR VOLUME 95 fl (80-97); PLATELET COUNT 197 10^3/uL (150-450); RED BLOOD COUNT 2.46 10^6/uL (3.72-5.28); RED CELL DISTRIBUTION WIDTH 19.5 % (11.5-14.0); WHITE BLOOD COUNT 6.8 10^3/uL (4.0-10.5)
[2018-10-22 06:11] LABS: ABSOLUTE LYMPHOCYTES# (MANUAL) 0.8 10^3/uL (0.5-4.7); ABSOLUTE MONOCYTES # (MANUAL) 0.4 10^3/uL (0.1-1.4); ABSOLUTE NEUTROPHILS# (MANUAL) 5.6 10^3/uL (1.7-8.2); ALANINE AMINOTRANSFERASE 146 U/L (9-52); ALKALINE PHOSPHATASE 450 U/L (38-126); ANION GAP 8 (5-19); ASPARTATE AMINO TRANSFERASE 63 U/L (14-36); BAND NEUTROPHILS % (MANUAL) 4 % (3-5); BASOPHILS % (MANUAL) 0 % (0-2); BILIRUBIN,DIRECT 0.4 mg/dL (0.0-0.4); BLOOD UREA NITROGEN 18 mg/dL (7-20); CALCIUM 7.5 mg/dL (8.4-10.2); CARBON DIOXIDE 28 mmol/L (22-30); CHLORIDE 97 mmol/L (98-107); EOSINOPHILS % (MANUAL) 0 % (0-6); LIPASE 13.6 U/L (23-300); LYMPHOCYTES % (MANUAL) 12 % (13-45); MONOCYTES % (MANUAL) 6 % (3-13); NUCLEATED RED BLOOD CELLS 1 /100 WBC (0); PLATELET COMMENT ADEQUATE; POTASSIUM 3.6 mmol/L (3.6-5.0); SEGMENTED NEUTROPHILS % (MAN) 78 % (42-78); TOTAL CELLS COUNTED 100; TOTAL PROTEIN 3.8 g/dL (6.3-8.2); TOXIC GRANULATION SLIGHT
[2018-10-22 06:45] LABS: GLUCOSE 55 mg/dL (75-110)
[2018-10-22] MEDS ORDERED: DEXTROSE 50%-WATER 25 GM/50 ML DISP.SYRIN IV ONE (06:49)
[2018-10-22 08:03] LABS: AMORPHOUS SEDIMENT,URINE TRACE /HPF; APPEARANCE,URINE CLOUDY; BILIRUBIN,URINE NEGATIVE (NEGATIVE); COLOR,URINE AMBER; GLUCOSE, URINE NEGATIVE (NEGATIVE); KETONES,URINE TRACE mg/dL (NEGATIVE); LEUKOCYTE ESTERASE,URINE LARGE (NEGATIVE); NITRITE,URINE NEGATIVE (NEGATIVE); PROTEIN,URINE 30 mg/dL (NEGATIVE); URINE SPECIFIC GRAVITY 1.031; UROBILINOGEN,URINE NEGATIVE mg/dL (<2.0)
--- NOTE | 2018-10-22 09:35 | PDOC PROGRESS REPORT ---
Subjective Progress Note for:: 10/22/18 Reason For Visit: DIVERTICULITIS,SIGMOID AND DESCENDING COLON,INTRA- Physical Exam Vital Signs: Temp Pulse Resp BP Pulse Ox 98.3 F 84 16 130/68 H 98 10/22/18 08:05 10/22/18 08:05 10/22/18 08:05 10/22/18 08:05 10/22/18 08:05 Intake & Output 10/21/18 10/22/18 10/23/18 06:59 06:59 06:59 Intake Total 100 Output Total 200 Balance -100 Weight 72.9 kg General appearance: PRESENT: no acute distress Mouth exam: PRESENT: dry mucosa, moist Cardiovascular exam: PRESENT: RRR GI/Abdominal exam: PRESENT: other - abd soft, min tenderness,suprapubic giovanna drain in llq with stool draining into bulb Extremities exam: PRESENT: full ROM Musculoskeletal exam: PRESENT: full ROM Neurological exam: PRESENT: alert, awake, oriented to person, oriented to place, oriented to time, oriented to situation Results Laboratory Results: 10/22/18 05:20 10/22/18 05:20 10/21/18 10/21/18 10/21/18 16:00 16:00 16:00 WBC 10.9 H RBC 3.23 L Hgb 10.6 L Hct 30.8 L MCV 96 D MCH 32.7 MCHC 34.2 RDW 19.6 H Plt Count 263 Seg Neutrophils % Not Reportable Lymphocytes % Not Reportable Monocytes % Not Reportable Eosinophils % Not Reportable Basophils % Not Reportable Absolute Neutrophils Not Reportable Absolute Lymphocytes Not Reportable Absolute Monocytes Not Reportable Absolute Eosinophils Not Reportable Absolute Basophils Not Reportable Sodium 134.2 L Potassium 4.5 Chloride 93 L Carbon Dioxide 32 H Anion Gap 9 BUN 27 H Creatinine 0.51 L Est GFR ( Amer) > 60 Est GFR (Non-Af Amer) > 60 Glucose 101 Lactic Acid 1.8 Calcium 8.4 Total Bilirubin 2.0 H AST 149 H ALT 234 H Alkaline Phosphatase 847 H Total Protein 5.3 L Albumin 2.9 L Lipase Urine Color Urine Appearance Urine pH Ur Specific [place] Urine Protein Urine Glucose (UA) Urine Ketones Urine Blood Urine Nitrite Ur Leukocyte Esterase Urine WBC (Auto) Urine RBC (Auto) 10/22/18 10/22/18 10/22/18 04:50 05:20 05:20 WBC 6.8 RBC 2.46 L Hgb 8.0 L D Hct 23.3 L MCV 95 MCH 32.4 MCHC 34.2 RDW 19.5 H Plt Count 197 Seg Neutrophils % Not Reportable Lymphocytes % Not Reportable Monocytes % Not Reportable Eosinophils % Not Reportable Basophils % Not Reportable Absolute Neutrophils Not Reportable Absolute Lymphocytes Not Reportable Absolute Monocytes Not Reportable Absolute Eosinophils Not Reportable Absolute Basophils Not Reportable Sodium 133.0 L Potassium 3.6 Chloride 97 L Carbon Dioxide 28 Anion Gap 8 BUN 18 Creatinine 0.27 L Est GFR ( Amer) > 60 Est GFR (Non-Af Amer) > 60 Glucose 55 L Lactic Acid Calcium 7.5 L Total Bilirubin 1.0 AST 63 H ALT 146 H Alkaline Phosphatase 450 H Total Protein 3.8 L Albumin 2.0 L Lipase 13.6 L Urine Color ALBERT Urine Appearance CLOUDY Urine pH 5.0 Ur Specific [place] 1.031 Urine Protein 30 H Urine Glucose (UA) NEGATIVE Urine Ketones TRACE H Urine Blood LARGE H Urine Nitrite NEGATIVE Ur Leukocyte Esterase LARGE H Urine WBC (Auto) 173 Urine RBC (Auto) 10 Impressions: Abdomen/Pelvis CT 10/21/18 00:00 IMPRESSION: Diverticulitis of the descending colon and sigmoid colon. No definitive abscess or perforation. Pigtail catheter in the lower abdomen. Chest X-Ray 10/21/18 00:00 IMPRESSION: Subsegmental atelectasis left lung base. Mild elevation left hemidiaphragm copyright 2010 [employer]- All Rights Reserved Abdomen Ultrasound 10/22/18 00:00 IMPRESSION: No acute sonographic abnormality. Assessment & Plan - Inpatient Certification Medical Necessity: Need for IV Antibiotics - Plan Summary Plan Summary: pt readmitted yesteday with dx of diverticulitis she has an indwelling drain in place that was placed in [facility] for pelvic abscess. etiol for abscess is ?ulcerative colitis/crohns ??? it is unclear about her dx. currently her drain appears to be putting out stool her ct scan does not show evidence of fluid katie or abscess plan will review her colonoscopy reports and see if pt does infact have ulcerative colitis with perforation vs perforated diverticulitis she may benifit from a dye study via the giovanna tube to see if there is a fistula she may infact need a colectomy to ultimately take care of the problem I will review her recent colo reports.
[2018-10-22] MEDS: ENOXAPARIN SODIUM INJ 40 MG/0.4 ML DISP.SYRIN SUBCUT SCH (09:50)
[2018-10-22 10:48] LABS: PATH REVIEW PATHOLOGIST REVIEWED
[2018-10-23] MEDS: PIPERACILLIN SODIUM/TAZOBACTAM 3.375 GM in NORMAL SALINE 100 ML IV SCH ×4 (00:01→17:56)
[2018-10-23] MEDS ORDERED: HYDROMORPHONE HCL INJ/PF 2 MG/ML AMPULE ONE (08:00)
[2018-10-23] MEDS: ENOXAPARIN SODIUM INJ 40 MG/0.4 ML DISP.SYRIN SUBCUT SCH (10:30)
--- NOTE | 2018-10-23 14:16 | RADIOLOGY REPORT (SQ) ---
EXAM DESCRIPTION: NOT FOR OR FLUORO TO 1 HR; INJECT PREV PLACED CATHETER COMPLETED DATE/TIME: 10/23/2018 12:48 pm; 10/23/2018 1:04 pm REASON FOR STUDY: fistulogram; FISTULOGRAM VIA DRAIN fistulogram; FISTULOGRAM VIA DRAINPelvic abscess follow-up. Fecal material draining from abscess nahomy inage tube. COMPARISON: CT abdomen and pelvis 10/21/2018 and 10/05/2018 FLUOROSCOPY TIME: 21 seconds of fluoroscopy was used. 6 Images saved to PACS. TECHNIQUE: Injection of contrast through existing catheter. Selected fluoroscopic images saved to P [facility]. LIMITATIONS: None. FINDINGS: CONTRAST INJECTED: 40 mL Omnipaque 350 TUBE POSITION: Contrast injected into the abscess drainage catheter demonstrates small residual absce ss cavity. There is a fistulous communication with the distal descending colon with contrast extendi ng up to the splenic flexure. Visualized colon appears nodular and edematous, worrisome for ulcerati ve colitis.. Abscess drainage catheter is patent and in proper position. IMPRESSION: SMALL RESIDUAL ABSCESS CAVITY. FISTULOUS COMMUNICATION WITH THE DISTAL DESCENDING COLON WITH COLONIC FINDINGS DESCRIBED ABOVE. COMMENT: Findings were discussed with dr. Saeed on 10/23/2018 at 1300 hours. Quality ID 145: Final reports for procedures using fluoroscopy that document radiation exposure veena una, or exposure time and number of fluorographic images (if radiation exposure indices are not avail able) TECHNICAL DOCUMENTATION: JOB ID: [id number] [employer] All Rights Reserved Reading location - IP/workstation name: [email or web address] [id number]
--- NOTE | 2018-10-23 14:16 | RADIOLOGY REPORT (SQ) ---
EXAM DESCRIPTION: NOT FOR OR FLUORO TO 1 HR; INJECT PREV PLACED CATHETER COMPLETED DATE/TIME: 10/23/2018 12:48 pm; 10/23/2018 1:04 pm REASON FOR STUDY: fistulogram; FISTULOGRAM VIA DRAIN fistulogram; FISTULOGRAM VIA DRAINPelvic abscess follow-up. Fecal material draining from abscess nahomy inage tube. COMPARISON: CT abdomen and pelvis 10/21/2018 and 10/05/2018 FLUOROSCOPY TIME: 21 seconds of fluoroscopy was used. 6 Images saved to PACS. TECHNIQUE: Injection of contrast through existing catheter. Selected fluoroscopic images saved to P [facility]. LIMITATIONS: None. FINDINGS: CONTRAST INJECTED: 40 mL Omnipaque 350 TUBE POSITION: Contrast injected into the abscess drainage catheter demonstrates small residual absce ss cavity. There is a fistulous communication with the distal descending colon with contrast extendi ng up to the splenic flexure. Visualized colon appears nodular and edematous, worrisome for ulcerati ve colitis.. Abscess drainage catheter is patent and in proper position. IMPRESSION: SMALL RESIDUAL ABSCESS CAVITY. FISTULOUS COMMUNICATION WITH THE DISTAL DESCENDING COLON WITH COLONIC FINDINGS DESCRIBED ABOVE. COMMENT: Findings were discussed with dr. Saeed on 10/23/2018 at 1300 hours. Quality ID 145: Final reports for procedures using fluoroscopy that document radiation exposure veena una, or exposure time and number of fluorographic images (if radiation exposure indices are not avail able) TECHNICAL DOCUMENTATION: JOB ID: [id number] [employer]- All Rights Reserved Reading location - IP/workstation name: [email or web address] [id number]
--- NOTE | 2018-10-23 14:34 | PDOC PROGRESS REPORT ---
Subjective Progress Note for:: 10/23/18 Subjective:: mild pains around catheter and suprapiubic area Reason For Visit: DIVERTICULITIS,SIGMOID AND DESCENDING COLON,INTRA- Physical Exam Vital Signs: Temp Pulse Resp BP Pulse Ox 98.2 F 71 16 139/71 H 99 10/23/18 12:00 10/23/18 12:00 10/23/18 12:00 10/23/18 12:00 10/23/18 12:00 Intake & Output 10/22/18 10/23/18 10/24/18 06:59 06:59 06:59 Intake Total 100 500 Output Total 200 90 Balance -100 410 Weight 72.9 kg 74.4 kg Exam: Abdomen is soft with mild tenderness suprapubic and around the catheter Results Laboratory Results: 10/22/18 05:20 10/22/18 05:20 10/22/18 01:40 Abdomen - Abscess Gram Stain - Final Impressions: Abdomen/Pelvis CT 10/21/18 00:00 IMPRESSION: Diverticulitis of the descending colon and sigmoid colon. No definitive abscess or perforation. Pigtail catheter in the lower abdomen. Chest X-Ray 10/21/18 00:00 IMPRESSION: Subsegmental atelectasis left lung base. Mild elevation left hemidiaphragm copyright 2011 [employer]- All Rights Reserved Abdomen Ultrasound 10/22/18 00:00 IMPRESSION: No acute sonographic abnormality. Catheter Patency X-Ray 10/23/18 00:00 IMPRESSION: SMALL RESIDUAL ABSCESS CAVITY. FISTULOUS COMMUNICATION WITH THE DISTAL DESCENDING COLON WITH COLONIC FINDINGS DESCRIBED ABOVE. Fluoroscopy 10/23/18 00:00 IMPRESSION: SMALL RESIDUAL ABSCESS CAVITY. FISTULOUS COMMUNICATION WITH THE DISTAL DESCENDING COLON WITH COLONIC FINDINGS DESCRIBED ABOVE. Assessment & Plan - Diagnosis (1) Diverticulitis large intestine Is this a current diagnosis for this admission?: Yes (2) Abdominal abscess Is this a current diagnosis for this admission?: Yes (3) Colonic fistula Is this a current diagnosis for this admission?: Yes - Time Time Spent with patient: 15-24 minutes - Inpatient Certification Medical Necessity: Need For IV Fluids, Need for IV Antibiotics, Need for Surgery - Plan Summary Plan Summary: Fistulogram is positive for colonic fistula. Drain in good position Will need a subtotal colectomy Will D/W patient
[2018-10-24] MEDS: PIPERACILLIN SODIUM/TAZOBACTAM 3.375 GM in NORMAL SALINE 100 ML IV SCH ×5 (00:59→23:25)
[2018-10-24] MEDS: ENOXAPARIN SODIUM INJ 40 MG/0.4 ML DISP.SYRIN SUBCUT SCH (10:07)
--- NOTE | 2018-10-24 14:08 | PDOC PROGRESS REPORT ---
Subjective Subjective:: pains suprapubic area No N/V Reason For Visit: DIVERTICULITIS,SIGMOID AND DESCENDING COLON,INTRA- Physical Exam Vital Signs: Temp Pulse Resp BP Pulse Ox 97.9 F 96 18 140/68 H 94 10/24/18 07:53 10/24/18 07:53 10/24/18 04:49 10/24/18 07:53 10/24/18 07:53 Intake & Output 10/23/18 10/24/18 10/25/18 06:59 06:59 06:59 Intake Total 500 400 100 Output Total 90 10 Balance 410 390 100 Weight 74.4 kg 72.6 kg Exam: abdomen is soft with mild tenderness around drainage catheter Drainage small amount Has fistula to large bowel with irregularity of descending colon likely due to ulcerative colitis Results Laboratory Results: 10/22/18 05:20 10/22/18 05:20 10/22/18 01:40 Abdomen - Abscess Gram Stain - Final 10/22/18 01:40 Abdomen - Abscess Wound Culture - Final Escherichia Coli Enterococcus Faecalis(Group D) Prevotella Species Skin Joi Impressions: Abdomen/Pelvis CT 10/21/18 00:00 IMPRESSION: Diverticulitis of the descending colon and sigmoid colon. No definitive abscess or perforation. Pigtail catheter in the lower abdomen. Chest X-Ray 10/21/18 00:00 IMPRESSION: Subsegmental atelectasis left lung base. Mild elevation left hemidiaphragm copyright 2010 [employer]- All Rights Reserved Abdomen Ultrasound 10/22/18 00:00 IMPRESSION: No acute sonographic abnormality. Catheter Patency X-Ray 10/23/18 00:00 IMPRESSION: SMALL RESIDUAL ABSCESS CAVITY. FISTULOUS COMMUNICATION WITH THE DISTAL DESCENDING COLON WITH COLONIC FINDINGS DESCRIBED ABOVE. Fluoroscopy 10/23/18 00:00 IMPRESSION: SMALL RESIDUAL ABSCESS CAVITY. FISTULOUS COMMUNICATION WITH THE DISTAL DESCENDING COLON WITH COLONIC FINDINGS DESCRIBED ABOVE. Assessment & Plan - Diagnosis (1) Diverticulitis large intestine Is this a current diagnosis for this admission?: Yes (2) Abdominal abscess Is this a current diagnosis for this admission?: Yes (3) Colonic fistula Is this a current diagnosis for this admission?: Yes - Time Time Spent with patient: 15-24 minutes - Inpatient Certification Medical Necessity: Need For IV Fluids, Need for IV Antibiotics, Need for Surgery, Risk of Complication if Not Cared For in Hospital - Plan Summary Plan Summary: Will need a subtotal colectomy. Have explained to the patient the need for surgery. She understands and will discuss with her family Continue IV antibiotics Continue clears Possible OR Friday
[2018-10-24] MEDS: DEXTROSE 5%-1/2 NORMAL SALINE 1,000 ML IV PRN (18:17)
[2018-10-24] MEDS: DIPHENHYDRAMINE HCL 25 MG CAPSULE PO SCH (21:18)
[2018-10-24] MEDS: GABAPENTIN 300 MG CAPSULE PO SCH (21:18)
[2018-10-25 04:33] LABS: ABSOLUTE MONOCYTES (AUTO) 0.3 10^3/uL (0.1-1.4); BASOPHILS % (AUTO) 0.1 % (0-2); HEMOGLOBIN 9.4 g/dL (12.0-15.5); LYMPHOCYTES % (AUTO) 10.3 % (13-45); MEAN CORPUSCULAR HEMOGLOBIN 32.4 pg (27.0-33.4); MEAN CORPUSCULAR HGB CONC 34.9 g/dL (32.0-36.0); MEAN CORPUSCULAR VOLUME 93 fl (80-97); MONOCYTES % (AUTO) 3.2 % (3-13); PLATELET COUNT 318 10^3/uL (150-450); RED BLOOD COUNT 2.91 10^6/uL (3.72-5.28); RED CELL DISTRIBUTION WIDTH 18.8 % (11.5-14.0); SEGMENTED NEUTROPHILS % (AUTO) 86.4 % (42-78); TOTAL CELLS COUNTED % (AUTO) 100 %; WHITE BLOOD COUNT 9.3 10^3/uL (4.0-10.5)
[2018-10-25 04:54] LABS: ALANINE AMINOTRANSFERASE 115 U/L (9-52); ALKALINE PHOSPHATASE 512 U/L (38-126); ASPARTATE AMINO TRANSFERASE 44 U/L (14-36); BILIRUBIN,DIRECT 0.4 mg/dL (0.0-0.4); BILIRUBIN,TOTAL 0.9 mg/dL (0.2-1.3); BLOOD UREA NITROGEN 5 mg/dL (7-20); CHLORIDE 96 mmol/L (98-107); GLUCOSE 83 mg/dL (75-110); TOTAL PROTEIN 3.9 g/dL (6.3-8.2)
[2018-10-25 05:11] LABS: ANION GAP 7 (5-19); CARBON DIOXIDE 35 mmol/L (22-30); SODIUM 137.6 mmol/L (137-145)
[2018-10-25 05:15] LABS: CALCIUM 7.1 mg/dL (8.4-10.2)
[2018-10-25] MEDS: PIPERACILLIN SODIUM/TAZOBACTAM 3.375 GM in NORMAL SALINE 100 ML IV SCH ×4 (05:17→23:55)
[2018-10-25 05:18] LABS: POTASSIUM 2.2 mmol/L (3.6-5.0)
[2018-10-25] MEDS ORDERED: POTASSI CL 20 MEQ/50 ML RIDER 20 MEQ/50 ML RTUPB IV ONE (05:31)
[2018-10-25] MEDS ORDERED: POTASSIUM CHLORIDE 20 MEQ/15 ML UDCUP PO ONE (05:45)
[2018-10-25] MEDS: POTASSIUM CHLORIDE 20 MEQ/50 ML RTU IV SCH ×2 (05:58→07:30)
[2018-10-25] MEDS: ENOXAPARIN SODIUM INJ 40 MG/0.4 ML DISP.SYRIN SUBCUT SCH (09:59)
[2018-10-25] MEDS: GABAPENTIN 300 MG CAPSULE PO SCH ×2 (10:18→21:42)
[2018-10-25] MEDS: FLUOXETINE HCL 20 MG CAPSULE PO SCH (10:19)
--- NOTE | 2018-10-25 11:20 | PDOC PROGRESS REPORT ---
Subjective Progress Note for:: 10/25/18 Subjective:: mild pains around drainage catheter site Reason For Visit: DIVERTICULITIS,SIGMOID AND DESCENDING COLON,INTRA- Physical Exam Vital Signs: Temp Pulse Resp BP Pulse Ox 98.2 F 102 H 16 121/72 100 10/25/18 08:38 10/25/18 08:38 10/25/18 08:38 10/25/18 08:38 10/25/18 08:38 Intake & Output 10/24/18 10/25/18 10/26/18 06:59 06:59 06:59 Intake Total 400 640 38 Output Total 10 Balance 390 640 38 Weight 72.6 kg 72.5 kg Exam: abdomen is soft with mild tenderness around catheter site. Drainage about 15 ccs Results Laboratory Results: 10/25/18 04:15 10/25/18 04:15 10/25/18 10/25/18 04:15 04:15 WBC 9.3 RBC 2.91 L Hgb 9.4 L Hct 27.0 L MCV 93 MCH 32.4 MCHC 34.9 RDW 18.8 H Plt Count 318 Seg Neutrophils % 86.4 H Lymphocytes % 10.3 L Monocytes % 3.2 Eosinophils % 0.0 Basophils % 0.1 Absolute Neutrophils 8.0 Absolute Lymphocytes 1.0 Absolute Monocytes 0.3 Absolute Eosinophils 0.0 Absolute Basophils 0.0 Sodium 137.6 Potassium 2.2 L* Chloride 96 L Carbon Dioxide 35 H Anion Gap 7 BUN 5 L Creatinine 0.25 L Est GFR ( Amer) > 60 Est GFR (Non-Af Amer) > 60 Glucose 83 Calcium 7.1 L Total Bilirubin 0.9 AST 44 H ALT 115 H Alkaline Phosphatase 512 H Total Protein 3.9 L Albumin 2.0 L 10/21/18 16:00 Blood Blood Culture - Final Clostridium Sp.not Perfringens 10/22/18 01:40 Abdomen - Abscess Gram Stain - Final 10/22/18 01:40 Abdomen - Abscess Wound Culture - Final Escherichia Coli Enterococcus Faecalis(Group D) Prevotella Species Skin Joi Impressions: Abdomen/Pelvis CT 10/21/18 00:00 IMPRESSION: Diverticulitis of the descending colon and sigmoid colon. No definitive abscess or perforation. Pigtail catheter in the lower abdomen. Chest X-Ray 10/21/18 00:00 IMPRESSION: Subsegmental atelectasis left lung base. Mild elevation left hemidiaphragm copyright 2010 [employer]- All Rights Reserved Abdomen Ultrasound 10/22/18 00:00 IMPRESSION: No acute sonographic abnormality. Catheter Patency X-Ray 10/23/18 00:00 IMPRESSION: SMALL RESIDUAL ABSCESS CAVITY. FISTULOUS COMMUNICATION WITH THE DISTAL DESCENDING COLON WITH COLONIC FINDINGS DESCRIBED ABOVE. Fluoroscopy 10/23/18 00:00 IMPRESSION: SMALL RESIDUAL ABSCESS CAVITY. FISTULOUS COMMUNICATION WITH THE DISTAL DESCENDING COLON WITH COLONIC FINDINGS DESCRIBED ABOVE. Assessment & Plan - Diagnosis (1) Diverticulitis large intestine Is this a current diagnosis for this admission?: Yes (2) Abdominal abscess Is this a current diagnosis for this admission?: Yes (3) Colonic fistula Is this a current diagnosis for this admission?: Yes - Time Time Spent with patient: 15-24 minutes - Plan Summary Plan Summary: For possible subtotal colectomy tomorrow. Npo after midnite Correct K+ Procedure for colectomy explained to patient and risks mentioned She understands and agrees with procedure
[2018-10-25] MEDS ORDERED: DEXTROSE 40% GEL 15 GM TUBE PO PRN ×2 (12:17)
[2018-10-25] MEDS ORDERED: DEXTROSE 50%-WATER 25 GM/50 ML DISP.SYRIN IV PRN ×2 (12:17)
[2018-10-25] MEDS ORDERED: GLUCAGON,HUMAN RECOMB 1 MG INJ SUBCUT PRN (12:17)
[2018-10-25] MEDS: DIPHENHYDRAMINE HCL 25 MG CAPSULE PO SCH (21:42)
[2018-10-25] MEDS ORDERED: POTASSIUM CHLORIDE 20 MEQ/50 ML RTU IV SCH (22:00)
[2018-10-25] MEDS ORDERED: POTASSIUM CHLORIDE 10 MEQ CAPSULE.ER PO ONE (22:00)
[2018-10-25 23:13] LABS: ANION GAP 5 (5-19); BLOOD UREA NITROGEN 8 mg/dL (7-20); CARBON DIOXIDE 31 mmol/L (22-30); CHLORIDE 101 mmol/L (98-107); GLUCOSE 110 mg/dL (75-110); SODIUM 137.3 mmol/L (137-145)
[2018-10-25 23:25] LABS: CALCIUM 6.9 mg/dL (8.4-10.2)
[2018-10-25] MEDS: DEXTROSE 5%-1/2 NORMAL SALINE 1,000 ML IV PRN (23:56)
--- NOTE | 2018-10-26 00:09 | EKG REPORT ---
SEVERITY:- ABNORMAL ECG - SINUS RHYTHM BORDERLINE LEFT AXIS DEVIATION BORDERLINE T WAVE ABNORMALITIES PROLONGED QT INTERVAL : Confirmed by: Rodney Mcdaniels 26-Oct-2018 00:08:08
[2018-10-26] MEDS: POTASSIUM CHLORIDE 20 MEQ/50 ML RTU IV SCH ×2 (01:48→04:01)
[2018-10-26] MEDS ORDERED: MIDAZOLAM 2 MG/2 ML INJ ONE (06:46)
[2018-10-26] MEDS ORDERED: FENTANYL CITRATE INJ/PF 250 MCG/5 ML AMPULE ONE (06:46)
[2018-10-26] MEDS ORDERED: LIDOCAINE 2% INJ-PF (20 MG/ML) 10 ML AMPUL ONE (06:46)
[2018-10-26] MEDS ORDERED: SUGAMMADEX SODIUM 200 MG/2 ML SDV IV ONE (06:47)
[2018-10-26] MEDS ORDERED: DEXAMETHASONE SOD PHOSPHATE INJ 4 MG/1 ML VIAL ONE (06:47)
[2018-10-26] MEDS ORDERED: ONDANSETRON HCL INJ/PF 4 MG/2 ML SDV ONE (06:47)
[2018-10-26] MEDS ORDERED: ACETAMINOPHEN 0 MG/0 ML RTUPB IV ONE (06:47)
[2018-10-26] MEDS ORDERED: PROPOFOL INJ 200 MG/20 ML VIAL IV ONE (06:47)
[2018-10-26] MEDS: PIPERACILLIN SODIUM/TAZOBACTAM 3.375 GM in NORMAL SALINE 100 ML IV SCH (06:58)
[2018-10-26] MEDS ORDERED: BUPIVACAINE INJ/PF LIPOSOME/PF 266 MG/20 ML SDV ONE (07:13)
[2018-10-26] MEDS ORDERED: BUPIVACAINE HCL 0.25 % INJ/PF (2.5 MG/1 ML) 30 ML VIAL ONE (07:13)
[2018-10-26] MEDS ORDERED: POTASSI CL 20 MEQ/NS 1L 1,000 ML IV ONE (07:14)
[2018-10-26 07:31] LABS: ABSOLUTE LYMPHOCYTES (AUTO) 0.9 10^3/uL (0.5-4.7); ABSOLUTE MONOCYTES (AUTO) 0.4 10^3/uL (0.1-1.4); ABSOLUTE NEUT (AUTO) 10.9 10^3/uL (1.7-8.2); BASOPHILS % (AUTO) 0.1 % (0-2); HEMATOCRIT 26.6 % (36.0-47.0); HEMOGLOBIN 9.1 g/dL (12.0-15.5); LYMPHOCYTES % (AUTO) 7.3 % (13-45); MEAN CORPUSCULAR HEMOGLOBIN 32.3 pg (27.0-33.4); MEAN CORPUSCULAR HGB CONC 34.2 g/dL (32.0-36.0); MEAN CORPUSCULAR VOLUME 94 fl (80-97); MONOCYTES % (AUTO) 2.9 % (3-13); PLATELET COUNT 366 10^3/uL (150-450); RED BLOOD COUNT 2.82 10^6/uL (3.72-5.28); RED CELL DISTRIBUTION WIDTH 19.3 % (11.5-14.0); SEGMENTED NEUTROPHILS % (AUTO) 89.7 % (42-78); TOTAL CELLS COUNTED % (AUTO) 100 %; WHITE BLOOD COUNT 12.1 10^3/uL (4.0-10.5)
[2018-10-26 07:36] LABS: ANION GAP 5 (5-19); BLOOD UREA NITROGEN 10 mg/dL (7-20); CALCIUM 7.2 mg/dL (8.4-10.2); CARBON DIOXIDE 30 mmol/L (22-30); CHLORIDE 104 mmol/L (98-107); GLUCOSE 116 mg/dL (75-110); SODIUM 138.9 mmol/L (137-145)
[2018-10-26 07:40] LABS: POTASSIUM 4.4 mmol/L (3.6-5.0)
[2018-10-26] MEDS ORDERED: HYDROCORTISONE SOD SUCCINATE INJ/PF 100 MG/2 ML SDV ONE ×2 (08:08→11:44)
[2018-10-26] MEDS ORDERED: MORPHINE SULFATE 10 MG/ML INJ IV PRN (09:30)
[2018-10-26] MEDS ORDERED: MEPERIDINE HCL/PF INJ 25 MG/1 ML DISP.SYRIN IV PRN (09:30)
[2018-10-26] MEDS ORDERED: FENTANYL CITRATE INJ/PF 100 MCG/2 ML AMPUL IV PRN ×3 (09:30)
[2018-10-26] MEDS ORDERED: PROMETHAZINE HCL INJ 25 MG/1 ML VIAL IV PRN ×2 (09:30)
[2018-10-26] MEDS ORDERED: ONDANSETRON HCL INJ/PF 4 MG/2 ML SDV IV PRN (09:30)
[2018-10-26] MEDS ORDERED: DIPHENHYDRAMINE HCL 50 MG/ML VIAL IV PRN (09:30)
[2018-10-26] MEDS ORDERED: PROPOFOL 1,000 MG/100 ML INFUS..BTL IV PRN (12:34)
[2018-10-26] MEDS: DEXTROSE 5%-WATER 250 ML with PHENYLEPHRINE HCL 40 MG IV PRN ×6 (12:35→20:22)
[2018-10-26] MEDS ORDERED: PHENYLEPHRINE HCL INJ/PF 10 MG/1 ML SDV ONE ×2 (12:42→14:58)
[2018-10-26] MEDS ORDERED: NOREPINEPHRINE BITARTRATE INJ/PF 4 MG/4 ML SDV IV ONE (12:43)
[2018-10-26] MEDS: DEXTROSE 5%-WATER 250 ML with NOREPINEPHRINE BITARTRATE 4 MG IV PRN ×4 (12:53→18:13)
[2018-10-26] MEDS ORDERED: VASOPRESSIN INJ 20 UNIT/1 ML VIAL ONE (13:01)
--- NOTE | 2018-10-26 13:03 | Operative Report ---
Operative Report DATE OF SURGERY: 10/26/18 PREOPERATIVE DIAGNOSIS: 1. History of ulcerative colitis. 2. Acute sigmoid d iverticulitis with perforation and pelvic abscess, status post percutaneous drainage of pelvic. 3. Colocutaneous fistula. 4. Immunosuppression POSTOPERATIVE DIAGNOSIS: Same with. 1. complex pelvic abscess. 2. Multiple intra-abdominal adhesions. 3. Left upper quadrant abscess associated with splenic flexure of the colon OPERATION: 1. Exploratory laparotomy. 2. Subtotal colectomy with permanent ileostomy and Vanegas's pouch. 3. Intraoperative lysis of adhesions. 4. Small bowel resection. 5. Small bowel enterotomy closures. 6. Hepatic flexure takedown. 7. Splenic flexure takedown with debridement of left upper quadrant abscess cavity. 8. intra-abdominal drain placement left upper quadrant, left lower quadrant, and pelvis. 9. Extremely difficult modifier secondary to friable skin, prolonged operation, extensive adhesions, and 4-hour operative time SURGEON: MAUREEN SINGH ANESTHESIA: GA TISSUE REMOVED OR ALTERED: Fragments of pelvic abscess; multiple portions of colon submitted in sections; fragments of left upper quadrant abscess cavity; portions of omentum COMPLICATIONS: None ESTIMATED BLOOD LOSS: 700 cc INTRAOPERATIVE FINDINGS: see Below PROCEDURE: The patient was taken to the preop holding area the main operating room where general anesthesia was induced. The right subclavian and central line site was resecured, new Biopatch and OpSite applied. The patient was placed in the lithotomy position. She was actively draining stool from the drainage catheter. The drainage catheter placed percutaneously by radiology was removed. The exit site was oversewed with 2-0 Prolene suture. The abdomen was prepped and draped in sterile fashion after Graves catheter was inserted which drained dark yellow urine Surgical plan surgical timeout were conducted. The abdomen was opened through a standard midline incision above and below the umbilicus. I excised the acute colovesicular fistula tract down to the fascia, and this was disposed of. There was a small infraumbilical hernia which was avoided. The peritoneal cavity was sharply entered and there was no active stool or pus visible. There were dense adhesions between multiple loops of small bowel, greater omentum, the pelvis. We now spent approximately 25 minutes getting the small bowel out of the pelvis. This was due to the very thick semi-hemispheric rind of abscess cavity in the pelvis involving the upper part of the bladder, rectosigmoid colon, cecum, and multiple loops of small bowel. Bookwalter retractor was established. Dissection was very tedious. This was conducted primarily using sharp scissor dissection. Eventually we had the small bowel elevated off of the inflammatory rim of the abscess cavity. Multiple small bowel enterotomies were made to, and these were closed with a 2-0 and 3-0 Vicryl suture. A portion of the matted up small bowel was actually resected, approximately 12 cm segment. This was disposed of. It was removed secondary to the dense adhesive bands. Now that we have the small bowel out of the way, we were able to begin debriding portions of the posterior and inferior rim of the abscess cavity. It was densely adhesed to all surrounding structures. We only removed what was absolutely met in order to get all the stool, and now pus evacuated out of the left claudia-colic area beyond the sacral promontory. We now approached the subtotal colectomy. The terminal ileum, junction with the cecum was now dissected out. The cecum was actually down into the right hemipelvis. The right colon was mobilized along the white line of Toldt. Terminal ileum cecum and right colon were brought medially in the standard fashion. I now took down the hepatic flexure. The patient was status post a cholecystectomy. The proximal portion of the first colon came down nicely. We the greater omentum from the transverse colon along its entire length using the LigaSure dissection. In order to facilitate the subtotal colectomy in its entirety, decided to divide the terminal ileum just proximal to the ileocecal valve with the YULIANA 55 stapler. A suitable site for transection of the transverse colon, to the right of the middle colic vessels was chosen. The transection was performed with the YULIANA 55 stapler. The ileocolic, and right mesial colon were taken down between clamps and 0 Vicryl ties. The right colon was handed off to pathology We now changed position, and Dr. Singh operated with the patient's right side with the patient tilted with right side down left side up. Bookwalter retractors repositioned. We now explored the pelvis more formally. The rectosigmoid colon was mobilized medially and cephalad. It was densely inflamed adhesed and the primary pathology appeared to be acute sigmoid diverticulitis with perforation. We did not formally see the left ureter, however we stayed out of the pelvic retroperitoneal tissue. We stayed close to the colon and open up the left sided white line of Toldt. We took this level dissection up to the mid left colon. Again findings were significant for acute and chronic diverticulitis. I elected to divide the left colon to ease the dissection. This was done with the YULIANA 55 stapler. The sigmoid mesocolon was taken down between clamps and ties. We elevated the rectosigmoid colon all the way down to the true rectum. There are pockets of pus along the claudia-rectal spaces. All of these were broken up bluntly. I got down below the inflammatory mass involving the sigmoid colon, and got down to the lower sacral promontory, and what would b e the peritoneal reflection. I divided the upper rectum with a single firing of the contour Ethicon 45 mm stapler. The rectosigmoid colon was now passed off to pathology altogether with the same specimens previously resected. We now called our attention to the remaining transverse colon, and splenic flexure. Extension of the midline incision was performed so as to facilitate exposure of the left upper quadrant. Unfortunately the transverse colon was eased to the anterior abdominal wall in the left upper quadrant. A combination of blunt and electrocautery dissection was utilized in attempt to pull the colon off the abdominal wall but it was so stuck that it busted open. In fact after decompressing all of this contaminated stool which spilled into the left upper quadrant, I began resecting the distal transverse colon in a piecemeal fashion using the LigaSure device. Eventually I worked both the distal transverse colon, and the proximal descending colon staying right on the colon resecting bowel only. Eventually I had the entire colon removed, however it was apparent that the patient had a previous perforation in the left upper quadrant and there was inflammatory peel very similar to the inflammatory abscess in the pelvis was in fact involving the left diaphragm. I peeled as much of the inflammatory peel off of the diaphragm as I could. This was all anterior to the spleen. Once I had 75% of the peel off of the diaphragm, we stopped debridement. We now irrigated the entire peritoneal cavity out with approximately 5 L of warm saline getting rid of all of the stool which in fact a significant amount had spilled in the left upper quadrant. I was careful to get the stool from around the spleen as best I could. We now ran the small bowel to ensure there were no other adhesions or enterotomies. 2 small serosal tears were oversewed with a 3-0 Vicryl suture. We now completed the ileoileostomy from the previous small bowel resection. This was a functional end-to-end, [id number] anastomosis completed using YULIANA 55 stapler and TA 60 linear proximate stapler for closure of the enterotomies. Stenosis was patent and inspected prior to final closure. There was no evidence of tension. The terminal ileum was now to be brought out as an iliac ostomy. A suitable site for this was chosen just adjacent and cephalad to the umbilicus on the right side. Skin and subcutaneous tissue was opened with electrocautery, and a vertically oriented incision was made in the fascia with electrocautery. The terminal ileum was brought through the intra-abdominal wall tension. We reirrigated the patient's peritoneal cavity multiple times, placed large Kristofer drains one in the right lower quadrant with its terminal point ending in 1 of the deep pockets to the left of the patient's rectal stump and anteriorly, a pocket that it previously contains stool and pus. The second left lower quadrant drain was placed with its terminus in the left paracolic gutter. The left upper quadrant drain was placed with its terminal and adjacent to the spleen in the subdiaphragmatic space. All drains were secured to skin with 2-0 Prolene suture Once again ran the small bowel again and ensured its viability, and integrity, with no evidence of chemical bleeding or leakage. Sponge and needle counts are correct. Of note the patient remained hypotensive during the latter third of the case, now receiving blood products additional crystalloid, and Rick- Synephrine. Midline incisions closed with 2 double-stranded #1 PDS sutures, skin approximated with eron of the umbilicus and packed open. Drains hooked to bulb suction, and ileostomy matured with 4-0 Vicryl suture. Of note I did make a small transverse incision in the fascia lateral to the ileostomy to ensure smooth transition through the fascial planes. The ileostomy was viable at the conclusion of the case. Ileostomy appliance applied, honeycomb dressing applied. Patient tolerated the procedure reasonably well, however she was clearly in septic shock at this point. She was taken to the intensive care unit in guarded condition. Again, extremely difficult modifier use due to prolonged time, approximately 4.0 hours.
[2018-10-26] MEDS: DEXTROSE 5%-WATER 250 ML with VASOPRESSIN 100 UNIT IV PRN ×2 (13:06)
[2018-10-26] MEDS ORDERED: NORMAL SALINE INJ/PF 0.9% 10 ML SDV IV PRN (13:12)
[2018-10-26] MEDS ORDERED: MIDAZOLAM HCL 50 MG/100 ML RTUINJ ONE (13:26)
[2018-10-26] MEDS ORDERED: DOPAMINE HCL/DEXTROSE 5%-WATER 800 MG/250 ML RTUINJ IV ONE (13:27)
[2018-10-26] MEDS: DOPAMINE HCL/DEXTROSE 5%-WATER 800 MG/250 ML RTUINJ IV PRN (13:30)
[2018-10-26] MEDS ORDERED: RINGERS SOLUTION,LACTATED 1,000 ML IV ONE (13:45)
[2018-10-26 13:47] LABS: ARTERIAL BLOOD BASE EXCESS -10.8 mmol/L; ARTERIAL BLOOD H2CO3 1.45 mmol/L (1.05-1.35); ARTERIAL BLOOD HCO3 17.3 mmol/L (20-24); ARTERIAL BLOOD O2 SATURATION 98.4 % (94-98); ARTERIAL BLOOD PCO2 48.2 mmHg (35-45); ARTERIAL BLOOD PH 7.17 (7.35-7.45); ARTERIAL BLOOD PO2 150.8 mmHg (80-100); ARTERIAL BLOOD TOTAL CO2 18.8 mmol/L (21-25)
[2018-10-26 14:01] LABS: HEMATOCRIT 30.5 % (36.0-47.0); HEMOGLOBIN 10.1 g/dL (12.0-15.5); MEAN CORPUSCULAR VOLUME 94 fl (80-97); PLATELET COUNT 344 10^3/uL (150-450); RED BLOOD COUNT 3.25 10^6/uL (3.72-5.28); RED CELL DISTRIBUTION WIDTH 17.2 % (11.5-14.0)
[2018-10-26 14:01] LABS: ARTERIAL BLOOD FIO2 40%
--- NOTE | 2018-10-26 14:15 | RADIOLOGY REPORT (SQ) ---
EXAM DESCRIPTION: CHEST SINGLE VIEW COMPLETED DATE/TIME: 10/26/2018 2:02 pm REASON FOR STUDY: resp failure COMPARISON: 10/21/2018 EXAM PARAMETERS: NUMBER OF VIEWS: One view. TECHNIQUE: Single frontal radiographic view of the chest acquired. RADIATION DOSE: NA LIMITATIONS: None. FINDINGS: LUNGS AND PLEURA: New finding of left base airspace disease may represent infiltrate/atel ectasis. New subsegmental right base density may represent atelectasis. No pneumothorax or pleural effusion. MEDIASTINUM AND HILAR STRUCTURES: No masses. Contour normal. HEART AND VASCULAR STRUCTURES: Heart normal in size. Normal vasculature. BONES: No acute findings. HARDWARE: Interval placement of endotracheal tube, the tip lies approximately 4.6 cm superior to the ross. Nasogastric tube has also been placed in the interval, with the tip in the region of the fu ndus-proximal body of the stomach. Stable right central venous line. A coiled appearing catheter overlies the left upper quadrant of the abdomen. OTHER: A lucent appearance in the right upper quadrant of the abdomen new finding since the prior st udy, maybe on the basis of colonic distention. Correlation is suggested. IMPRESSION: 1. Interval placement of endotracheal and nasogastric tubes, since the prior examinatio n dated 10/21/2018. 2. New finding of left base infiltrate/atelectasis. Linear subsegmental atelectasis at the right pedro luis ng base. 3. Additional findings, see as above. TECHNICAL DOCUMENTATION: JOB ID: [id number] [employer]- All Rights Reserved Reading location - IP/workstation name: [email or web address]
[2018-10-26 14:24] LABS: ALANINE AMINOTRANSFERASE 60 U/L (9-52); ALKALINE PHOSPHATASE 252 U/L (38-126); ANION GAP 10 (5-19); ASPARTATE AMINO TRANSFERASE 25 U/L (14-36); BILIRUBIN,DIRECT 0.2 mg/dL (0.0-0.4); BILIRUBIN,TOTAL 0.5 mg/dL (0.2-1.3); BLOOD UREA NITROGEN 9 mg/dL (7-20); CHLORIDE 108 mmol/L (98-107); GLUCOSE 256 mg/dL (75-110); POTASSIUM 4.6 mmol/L (3.6-5.0); SODIUM 137.6 mmol/L (137-145); TOTAL PROTEIN 2.2 g/dL (6.3-8.2)
[2018-10-26 14:25] LABS: BAND NEUTROPHILS % (MANUAL) 6 % (3-5); BASOPHILS % (MANUAL) 0 % (0-2); EOSINOPHILS % (MANUAL) 0 % (0-6); LYMPHOCYTES % (MANUAL) 5 % (13-45); MONOCYTES % (MANUAL) 0 % (3-13); SEGMENTED NEUTROPHILS % (MAN) 89 % (42-78); TOTAL CELLS COUNTED 100
[2018-10-26 14:26] LABS: ANISOCYTOSIS 1+; POIKILOCYTOSIS 2+; POLYCHROMASIA SLIGHT; TOXIC GRANULATION SLIGHT
[2018-10-26 14:27] LABS: BURR CELLS 1+; PLATELET CLUMPS PRESENT; PLATELET COMMENT ADEQUATE
[2018-10-26] MEDS ORDERED: SODIUM BICARBONATE 8.4% INJ 50 MEQ/50 ML DISP.SYRIN ONE (14:33)
[2018-10-26 14:35] LABS: ALBUMIN < 1.0 g/dL (3.5-5.0); CARBON DIOXIDE 20 mmol/L (22-30)
[2018-10-26 14:37] LABS: CALCIUM 6.2 mg/dL (8.4-10.2)
[2018-10-26] MEDS: ENOXAPARIN SODIUM INJ 40 MG/0.4 ML DISP.SYRIN SUBCUT SCH (14:58)
[2018-10-26] MEDS: GABAPENTIN 300 MG CAPSULE PO SCH ×2 (14:58→21:19)
[2018-10-26] MEDS ORDERED: SUCCINYLCHOLINE CHLORIDE INJ 200 MG/10 ML VIAL ONE (14:58)
[2018-10-26] MEDS: FLUOXETINE HCL 20 MG CAPSULE PO SCH (14:58)
[2018-10-26] MEDS ORDERED: ROCURONIUM BROMIDE INJ 50 MG/5 ML VIAL IV ONE (14:58)
[2018-10-26] MEDS ORDERED: RINGERS SOLUTION,LACTATED 500 ML IV ONE (15:00)
[2018-10-26] MEDS ORDERED: CALCIUM GLUCONATE 1000 MG/10 ML INJ IV ONE (15:00)
[2018-10-26] MEDS: AMPICILLIN SODIUM/SULBACTAM NA 3 GM in NORMAL SALINE 100 ML IV SCH ×2 (16:27→21:27)
--- NOTE | 2018-10-26 18:16 | PDOC PROGRESS REPORT ---
Subjective Progress Note for:: 10/26/18 Reason For Visit: DIVERTICULITIS,SIGMOID AND DESCENDING COLON,INTRA- sepsis need for arterial line placement Physical Exam Vital Signs: Temp Pulse Resp BP Pulse Ox 97.7 F 143 H 18 66/45 L 100 10/26/18 14:00 10/26/18 14:00 10/26/18 14:00 10/26/18 14:00 10/26/18 14:00 Intake & Output 10/25/18 10/26/18 10/27/18 06:59 06:59 06:59 Intake Total 640 1488 58101 Output Total 60 8650 Balance 640 1428 5486 Weight 72.5 kg General appearance: PRESENT: obese, other - septic, non responsive, hypotensive Cardiovascular exam: PRESENT: tachycardia Pulses: PRESENT: other - pulses in upper ext non palpable femoral pulse barely palp Results Laboratory Results: 10/26/18 13:32 10/26/18 13:32 10/25/18 10/25/18 10/26/18 15:10 22:45 07:00 WBC 12.1 H RBC 2.82 L Hgb 9.1 L Hct 26.6 L MCV 94 MCH 32.3 MCHC 34.2 RDW 19.3 H Plt Count 366 Seg Neutrophils % 89.7 H Lymphocytes % 7.3 L Monocytes % 2.9 L Eosinophils % 0.0 Basophils % 0.1 Absolute Neutrophils 10.9 H Absolute Lymphocytes 0.9 Absolute Monocytes 0.4 Absolute Eosinophils 0.0 Absolute Basophils 0.0 Carbonic Acid HCO3/H2CO3 Ratio ABG pH ABG pCO2 ABG pO2 ABG HCO3 ABG O2 Saturation ABG Base Excess FiO2 Sodium 137.3 Potassium 3.0 L* Chloride 101 Carbon Dioxide 31 H Anion Gap 5 BUN 8 Creatinine 0.23 L Est GFR ( Amer) > 60 Est GFR (Non-Af Amer) > 60 Glucose 110 Calcium 6.9 L* Magnesium Total Bilirubin AST ALT Alkaline Phosphatase Total Protein Albumin Blood Type O POSITIVE Antibody Screen NEGATIVE 10/26/18 10/26/18 10/26/18 07:00 13:10 13:32 WBC 20.0 H RBC 3.25 L Hgb 10.1 L Hct 30.5 L MCV 94 MCH 31.0 MCHC 33.0 RDW 17.2 H Plt Count 344 Seg Neutrophils % Not Reportable Lymphocytes % Not Reportable Monocytes % Not Reportable Eosinophils % Not Reportable Basophils % Not Reportable Absolute Neutrophils Not Reportable Absolute Lymphocytes Not Reportable Absolute Monocytes Not Reportable Absolute Eosinophils Not Reportable Absolute Basophils Not Reportable Carbonic Acid 1.45 H HCO3/H2CO3 Ratio 11:1 ABG pH 7.17 L* ABG pCO2 48.2 H ABG pO2 150.8 H ABG HCO3 17.3 L ABG O2 Saturation 98.4 H ABG Base Excess -10.8 FiO2 40% Sodium 138.9 Potassium 4.4 D Chloride 104 Carbon Dioxide 30 Anion Gap 5 BUN 10 Creatinine 0.19 L Est GFR ( Amer) > 60 Est GFR (Non-Af Amer) > 60 Glucose 116 H Calcium 7.2 L Magnesium Total Bilirubin AST ALT Alkaline Phosphatase Total Protein Albumin Blood Type Antibody Screen 10/26/18 13:32 WBC RBC Hgb Hct MCV MCH MCHC RDW Plt Count Seg Neutrophils % Lymphocytes % Monocytes % Eosinophils % Basophils % Absolute Neutrophils Absolute Lymphocytes Absolute Monocytes Absolute Eosinophils Absolute Basophils Carbonic Acid HCO3/H2CO3 Ratio ABG pH ABG pCO2 ABG pO2 ABG HCO3 ABG O2 Saturation ABG Base Excess FiO2 Sodium 137.6 Potassium 4.6 Chloride 108 H Carbon Dioxide 20 L D Anion Gap 10 BUN 9 Creatinine 0.29 L Est GFR ( Amer) > 60 Est GFR (Non-Af Amer) > 60 Glucose 256 H Calcium 6.2 L* Magnesium 1.3 L Total Bilirubin 0.5 AST 25 ALT 60 H Alkaline Phosphatase 252 H Total Protein 2.2 L Albumin < 1.0 L Blood Type Antibody Screen Impressions: Abdomen/Pelvis CT 10/21/18 00:00 IMPRESSION: Diverticulitis of the descending colon and sigmoid colon. No definitive abscess or perforation. Pigtail catheter in the lower abdomen. Abdomen Ultrasound 10/22/18 00:00 IMPRESSION: No acute sonographic abnormality. Catheter Patency X-Ray 10/23/18 00:00 IMPRESSION: SMALL RESIDUAL ABSCESS CAVITY. FISTULOUS COMMUNICATION WITH THE DISTAL DESCENDING COLON WITH COLONIC FINDINGS DESCRIBED ABOVE. Fluoroscopy 10/23/18 00:00 IMPRESSION: SMALL RESIDUAL ABSCESS CAVITY. FISTULOUS COMMUNICATION WITH THE DISTAL DESCENDING COLON WITH COLONIC FINDINGS DESCRIBED ABOVE. Chest X-Ray 10/26/18 00:00 IMPRESSION: 1. Interval placement of endotracheal and nasogastric tubes, since the prior examination dated 10/21/2018. 2. New finding of left base infiltrate/atelectasis. Linear subsegmental atelectasis at the right lung base. 3. Additional findings, see as above. Assessment & Plan - Plan Summary Plan Summary: rt femoral central line placed via seldinger techneque with 20g catheter prepped rt groin with betadine anesthesia 1% plain 3 attempts line placed with good wave form pt frank well sterile dressing place line sutured in place.
[2018-10-26] MEDS: METRONIDAZOLE 500 MG/NS RTU 500 MG/100 ML RTUPB IV SCH (18:54)
[2018-10-26] MEDS: ALBUMIN HUMAN 12.5 GM/50 ML RTUINJ IV SCH ×5 (18:54→23:00)
[2018-10-26] MEDS ORDERED: MAGNESIUM SULFATE 4 GM/100 ML RTUPB IV ONE (19:53)
[2018-10-26] MEDS: RINGERS SOLUTION,LACTATED 1,000 ML IV PRN (20:00)
[2018-10-26] MEDS: DIPHENHYDRAMINE HCL 25 MG CAPSULE PO SCH (21:13)
[2018-10-26] MEDS ORDERED: HYDROCORTISONE SOD SUCCINATE INJ/PF 100 MG/2 ML SDV IV SCH (22:00)
[2018-10-26 22:20] LABS: ARTERIAL BLOOD BASE EXCESS -18.3 mmol/L; ARTERIAL BLOOD H2CO3 0.99 mmol/L (1.05-1.35); ARTERIAL BLOOD HCO3 10.1 mmol/L (20-24); ARTERIAL BLOOD O2 SATURATION 99.8 % (94-98); ARTERIAL BLOOD PO2 481.2 mmHg (80-100); ARTERIAL BLOOD TOTAL CO2 11.1 mmol/L (21-25)
[2018-10-26 22:22] LABS: ARTERIAL BLOOD FIO2 100%
[2018-10-26 22:25] LABS: HEMATOCRIT 28.1 % (36.0-47.0); HEMOGLOBIN 9.2 g/dL (12.0-15.5); MEAN CORPUSCULAR HEMOGLOBIN 31.5 pg (27.0-33.4); MEAN CORPUSCULAR HGB CONC 32.7 g/dL (32.0-36.0); MEAN CORPUSCULAR VOLUME 96 fl (80-97); PLATELET COUNT 279 10^3/uL (150-450); RED BLOOD COUNT 2.91 10^6/uL (3.72-5.28); RED CELL DISTRIBUTION WIDTH 17.4 % (11.5-14.0)
[2018-10-26 22:40] LABS: ALKALINE PHOSPHATASE 186 U/L (38-126); ANION GAP 17 (5-19); BILIRUBIN,DIRECT 1.2 mg/dL (0.0-0.4); BILIRUBIN,TOTAL 1.9 mg/dL (0.2-1.3); BLOOD UREA NITROGEN 9 mg/dL (7-20); CARBON DIOXIDE 14 mmol/L (22-30); CHLORIDE 103 mmol/L (98-107); GLUCOSE 266 mg/dL (75-110); POTASSIUM 4.7 mmol/L (3.6-5.0); SODIUM 134.2 mmol/L (137-145); TOTAL PROTEIN 3.3 g/dL (6.3-8.2)
[2018-10-26 22:49] LABS: ABSOLUTE LYMPHOCYTES# (MANUAL) 2.9 10^3/uL (0.5-4.7); ABSOLUTE NEUTROPHILS# (MANUAL) 29.2 10^3/uL (1.7-8.2); BAND NEUTROPHILS % (MANUAL) 5 % (3-5); BASOPHILS % (MANUAL) 1 % (0-2); EOSINOPHILS % (MANUAL) 0 % (0-6); LYMPHOCYTES % (MANUAL) 9 % (13-45); MONOCYTES % (MANUAL) 0 % (3-13); SEGMENTED NEUTROPHILS % (MAN) 85 % (42-78); TOTAL CELLS COUNTED 100
[2018-10-26 22:51] LABS: ANISOCYTOSIS 1+; PLATELET CLUMPS PRESENT; PLATELET COMMENT ADEQUATE; POLYCHROMASIA SLIGHT; TOXIC GRANULATION SLIGHT; TOXIC VACUOLATION PRESENT
[2018-10-26 22:53] LABS: WHITE BLOOD COUNT 32.4 10^3/uL (4.0-10.5)
[2018-10-26 23:22] LABS: ALANINE AMINOTRANSFERASE 2404 U/L (9-52); ASPARTATE AMINO TRANSFERASE 3000 U/L (14-36)
[2018-10-26 23:25] LABS: ALBUMIN 1.9 g/dL (3.5-5.0); CALCIUM 6.5 mg/dL (8.4-10.2)
[2018-10-27] MEDS: ALBUMIN HUMAN 12.5 GM/50 ML RTUINJ IV SCH ×9 (00:20→18:18)
[2018-10-27] MEDS: DEXTROSE 5%-WATER 250 ML with PHENYLEPHRINE HCL 40 MG IV PRN ×4 (00:20→04:41)
[2018-10-27] MEDS: DOPAMINE HCL/DEXTROSE 5%-WATER 800 MG/250 ML RTUINJ IV PRN (00:22)
[2018-10-27] MEDS: METRONIDAZOLE 500 MG/NS RTU 500 MG/100 ML RTUPB IV SCH ×5 (00:59→23:02)
[2018-10-27] MEDS ORDERED: SODIUM BICARBONATE 8.4% INJ 50 MEQ/50 ML DISP.SYRIN IV ONE (01:00)
[2018-10-27] MEDS: RINGERS SOLUTION,LACTATED 1,000 ML IV PRN ×4 (01:40→21:33)
[2018-10-27 04:21] LABS: HEMATOCRIT 25.9 % (36.0-47.0); HEMOGLOBIN 8.8 g/dL (12.0-15.5); MEAN CORPUSCULAR HEMOGLOBIN 31.6 pg (27.0-33.4); MEAN CORPUSCULAR HGB CONC 34.1 g/dL (32.0-36.0); MEAN CORPUSCULAR VOLUME 93 fl (80-97); PLATELET COUNT 157 10^3/uL (150-450); RED BLOOD COUNT 2.79 10^6/uL (3.72-5.28); RED CELL DISTRIBUTION WIDTH 16.8 % (11.5-14.0); WHITE BLOOD COUNT 23.6 10^3/uL (4.0-10.5)
[2018-10-27 04:26] LABS: ARTERIAL BLOOD BASE EXCESS -7.6 mmol/L; ARTERIAL BLOOD FIO2 40%; ARTERIAL BLOOD H2CO3 0.85 mmol/L (1.05-1.35); ARTERIAL BLOOD HCO3 16.4 mmol/L (20-24); ARTERIAL BLOOD O2 SATURATION 98.9 % (94-98); ARTERIAL BLOOD PCO2 28.1 mmHg (35-45); ARTERIAL BLOOD PH 7.39 (7.35-7.45); ARTERIAL BLOOD PO2 149.5 mmHg (80-100); ARTERIAL BLOOD TOTAL CO2 17.3 mmol/L (21-25)
[2018-10-27 04:39] LABS: ABSOLUTE LYMPHOCYTES# (MANUAL) 1.2 10^3/uL (0.5-4.7); ABSOLUTE MONOCYTES # (MANUAL) 0.5 10^3/uL (0.1-1.4); ABSOLUTE NEUTROPHILS# (MANUAL) 21.9 10^3/uL (1.7-8.2); ANISOCYTOSIS 1+; BASOPHILS % (MANUAL) 0 % (0-2); EOSINOPHILS % (MANUAL) 0 % (0-6); LYMPHOCYTES % (MANUAL) 5 % (13-45); MONOCYTES % (MANUAL) 2 % (3-13); PLATELET COMMENT ADEQUATE; POLYCHROMASIA 1+; SEGMENTED NEUTROPHILS % (MAN) 93 % (42-78); TOTAL CELLS COUNTED 100
[2018-10-27 05:28] LABS: ALBUMIN 2.1 g/dL (3.5-5.0); ALKALINE PHOSPHATASE 193 U/L (38-126); ANION GAP 15 (5-19); BILIRUBIN,DIRECT 1.6 mg/dL (0.0-0.4); BILIRUBIN,TOTAL 2.4 mg/dL (0.2-1.3); BLOOD UREA NITROGEN 11 mg/dL (7-20); CARBON DIOXIDE 19 mmol/L (22-30); CHLORIDE 105 mmol/L (98-107); GLUCOSE 245 mg/dL (75-110); POTASSIUM 4.6 mmol/L (3.6-5.0); SODIUM 139.4 mmol/L (137-145); TOTAL PROTEIN 3.3 g/dL (6.3-8.2)
[2018-10-27] MEDS: AMPICILLIN SODIUM/SULBACTAM NA 3 GM in NORMAL SALINE 100 ML IV SCH ×3 (06:25→21:41)
[2018-10-27 06:49] LABS: ALANINE AMINOTRANSFERASE 6055 U/L (9-52); ASPARTATE AMINO TRANSFERASE 10229 U/L (14-36)
[2018-10-27 06:52] LABS: CALCIUM 6.8 mg/dL (8.4-10.2)
[2018-10-27] MEDS: MORPHINE SULFATE 10 MG/ML INJ IV PRN (09:05)
[2018-10-27] MEDS: MIDAZOLAM HCL 50 MG/100 ML RTUINJ IV PRN ×2 (09:23→16:27)
[2018-10-27] MEDS: ENOXAPARIN SODIUM INJ 40 MG/0.4 ML DISP.SYRIN SUBCUT SCH (09:25)
--- NOTE | 2018-10-27 09:34 | PDOC CONSULTATION ---
Consultation Consult Date: 10/26/18 Attending physician:: MAUREEN SINGH Consult reason:: Septic shock. Acute hypoxic respiratory failure History of Present Illness Admission Date/PCP: 10/21/18 16:44 OH SCHULTZ DO History of Present Illness: PAULETTE HARO is a 58 year old female with a history of ulcerative colitis. She was recently hospitalized with an intra-abdominal abscess. A surgical drain was placed. The patient went to a skilled facility but when she returned to the surgical clinic for follow-up there was obstruction with the drain. She was sent to the emergency department for further interdiction. When the obstruction was relieved there was outflow of very purulent material. The CT scan in the emergency department revealed diverticulitis and the patient was admitted. She was started on antibiotic therapy. On 26 October she went to the operating room for subtotal colectomy with colostomy. Unfortunately the patient experienced shock, likely sepsis, and was transferred to the ICU. Dr. Singh requested a consult from the hospitalist service for medical management. Past Medical History Cardiac Medical History: Denies: Coronary Artery Disease, Myocardial Infarction, Hypertension Pulmonary Medical History: Denies: Asthma, Bronchitis, Chronic Obstructive Pulmonary Disease (COPD), Pneumonia Neurological Medical History: Denies: Seizures GI Medical History: Denies: Hepatitis, Hiatal Hernia Musculoskeltal Medical History: Reports: Arthritis - psoriatic Skin Medical History: Reports: Psoriasis Psychiatric Medical History: Reports: Depression Hematology: Denies: Anemia, Sickle Cell Disease Past Surgical History Past Surgical History: Reports: Cholecystectomy, Hysterectomy, Orthopedic Gandhi rgery - right knee, left hand Denies: Amputation, Mastectomy Social History Lives with: [facility] - [facility]ed from the [facility] facility but previously lived at home Smoking Status: Former Smoker Frequency of Alcohol Use: None Drugs: None - Advance Directive Resuscitation Status: Full Code Family History Family History: Reviewed & Not Pertinent Parental Family History Reviewed: No - Patient intubated and obtunded Children Family History Reviewed: No - Patient intubated and obtunded Sibling(s) Family History Reviewed.: No - Patient intubated and obtunded Medication/Allergy Home Medications: Fluoxetine HCl [Prozac] 40 mg PO DAILY 09/23/18 Fluticasone Propionate [Flonase Nasal [place] 50 Mcg/[place] 16 gm] 2 spray NASL DAILYP PRN 09/23/18 Gabapentin [Neurontin 300 mg Capsule] 300 mg PO DAILY 09/23/18 Gabapentin [Neurontin 300 mg Capsule] 600 mg PO QHS 09/23/18 Oxycodone HCl/Acetaminophen [Percocet 5-325 mg Tablet] 0.5 tab PO Q6HP PRN 10/21/18 Allergies/Adverse Reactions: pineapple Allergy (Mild, Verified 10/21/18 12:14) latex [Latex] Allergy (Verified 10/21/18 12:14) itching nickel [Nickel] Allergy (Verified 10/21/18 12:14) ITCHY RASH sulfamethoxazole [From Bactrim] Allergy (Verified 10/21/18 12:14) red rash trimethoprim [From Bactrim] Allergy (Verified 10/21/18 12:14) red rash MERCURY Allergy (Uncoded 10/21/18 12:14) ITCHY RASH Review of Systems ROS unobtainable: Due to endotracheal tube Physical Exam Vital Signs: Temp Pulse Resp BP Pulse Ox 97.7 F 131 H 19 40/16 L 100 10/26/18 16:00 10/26/18 18:00 10/26/18 18:02 10/26/18 18:02 10/26/18 16:00 Intake & Output 10/25/18 10/26/18 10/27/18 06:59 06:59 06:59 Intake Total 640 1488 14846 Output Total 60 8700 Balance 640 1428 5596 Weight 72.5 kg General appearance: PRESENT: severe distress, other - Patient intubated and obtunded. ABSENT: cooperative - Patient intubated and obtunded Head exam: PRESENT: normocephalic Eye exam: ABSENT: PERRLA - Pupils are reactive to light but sluggish. Ear exam: PRESENT: normal external ear exam Mouth exam: PRESENT: other - Endotracheal tube in place Respiratory exam: PRESENT: clear to auscultation godwin, other - Fully dependent on ventilator. ABSENT: rales, rhonchi, wheezes Cardiovascular exam: PRESENT: tachycardia Pulses: PRESENT: other - Unable to detect peripheral pulses Vascular exam: PRESENT: other - Skin mottling systemically GI/Abdominal exam: PRESENT: diminished bowel sounds, other - Dressing over the midline incision. New colostomy left lower quadrant. [address] with serosanguineous fluid. Rectal exam: PRESENT: deferred Gentrourinary exam: PRESENT: indwelling catheter Extremities exam: PRESENT: +2 edema Neurological exam: PRESENT: other - Obtunded Psychiatric exam: PRESENT: other - Unable to assess Focused psych exam: PRESENT: other - Obtunded Skin exam: PRESENT: mottled, other - Midline incision with drains as above. Results Laboratory Results: 10/26/18 13:32 10/26/18 13:32 10/25/18 10/25/18 10/26/18 15:10 22:45 07:00 WBC 12.1 H RBC 2.82 L Hgb 9.1 L Hct 26.6 L MCV 94 MCH 32.3 MCHC 34.2 RDW 19.3 H Plt Count 366 Seg Neutrophils % 89.7 H Lymphocytes % 7.3 L Monocytes % 2.9 L Eosinophils % 0.0 Basophils % 0.1 Absolute Neutrophils 10.9 H Absolute Lymphocytes 0.9 Absolute Monocytes 0.4 Absolute Eosinophils 0.0 Absolute Basophils 0.0 Carbonic Acid HCO3/H2CO3 Ratio ABG pH ABG pCO2 ABG pO2 ABG HCO3 ABG O2 Saturation ABG Base Excess FiO2 Sodium 137.3 Potassium 3.0 L* Chloride 101 Carbon Dioxide 31 H Anion Gap 5 BUN 8 Creatinine 0.23 L Est GFR ( Amer) > 60 Est GFR (Non-Af Amer) > 60 Glucose 110 Calcium 6.9 L* Magnesium Total Bilirubin AST ALT Alkaline Phosphatase Total Protein Albumin Blood Type O POSITIVE Antibody Screen NEGATIVE 10/26/18 10/26/18 10/26/18 07:00 13:10 13:32 WBC 20.0 H RBC 3.25 L Hgb 10.1 L Hct 30.5 L MCV 94 MCH 31.0 MCHC 33.0 RDW 17.2 H Plt Count 344 Seg Neutrophils % Not Reportable Lymphocytes % Not Reportable Monocytes % Not Reportable Eosinophils % Not Reportable Basophils % Not Reportable Absolute Neutrophils Not Reportable Absolute Lymphocytes Not Reportable Absolute Monocytes Not Reportable Absolute Eosinophils Not Reportable Absolute Basophils Not Reportable Carbonic Acid 1.45 H HCO3/H2CO3 Ratio 11:1 ABG pH 7.17 L* ABG pCO2 48.2 H ABG pO2 150.8 H ABG HCO3 17.3 L ABG O2 Saturation 98.4 H ABG Base Excess -10.8 FiO2 40% Sodium 138.9 Potassium 4.4 D Chloride 104 Carbon Dioxide 30 Anion Gap 5 BUN 10 Creatinine 0.19 L Est GFR ( Amer) > 60 Est GFR (Non-Af Amer) > 60 Glucose 116 H Calcium 7.2 L Magnesium Total Bilirubin AST ALT Alkaline Phosphatase Total Protein Albumin Blood Type Antibody Screen 10/26/18 13:32 WBC RBC Hgb Hct MCV MCH MCHC RDW Plt Count Seg Neutrophils % Lymphocytes % Monocytes % Eosinophils % Basophils % Absolute Neutrophils Absolute Lymphocytes Absolute Monocytes Absolute Eosinophils Absolute Basophils Carbonic Acid HCO3/H2CO3 Ratio ABG pH ABG pCO2 ABG pO2 ABG HCO3 ABG O2 Saturation ABG Base Excess FiO2 Sodium 137.6 Potassium 4.6 Chloride 108 H Carbon Dioxide 20 L D Anion Gap 10 BUN 9 Creatinine 0.29 L Est GFR ( Amer) > 60 Est GFR (Non-Af Amer) > 60 Glucose 256 H Calcium 6.2 L* Magnesium 1.3 L Total Bilirubin 0.5 AST 25 ALT 60 H Alkaline Phosphatase 252 H Total Protein 2.2 L Albumin < 1.0 L Blood Type Antibody Screen 10/21/18 18:45 Blood Blood Culture - Final NO GROWTH IN 5 DAYS Impressions: Abdomen/Pelvis CT 10/21/18 00:00 IMPRESSION: Diverticulitis of the descending colon and sigmoid colon. No definitive abscess or perforation. Pigtail catheter in the lower abdomen. Abdomen Ultrasound 10/22/18 00:00 IMPRESSION: No acute sonographic abnormality. Catheter Patency X-Ray 10/23/18 00:00 IMPRESSION: SMALL RESIDUAL ABSCESS CAVITY. FISTULOUS COMMUNICATION WITH THE DISTAL DESCENDING COLON WITH COLONIC FINDINGS DESCRIBED ABOVE. Fluoroscopy 10/23/18 00:00 IMPRESSION: SMALL RESIDUAL ABSCESS CAVITY. FISTULOUS COMMUNICATION WITH THE DISTAL DESCENDING COLON WITH COLONIC FINDINGS DESCRIBED ABOVE. Chest X-Ray 10/26/18 00:00 IMPRESSION: 1. Interval placement of endotracheal and nasogastric tubes, since the prior examination dated 10/21/2018. 2. New finding of left base infiltrate/atelectasis. Linear subsegmental atelectasis at the right lung base. 3. Additional findings, see as above. Assessment & Plan - Diagnosis (1) Sepsis associated hypotension Is this a current diagnosis for this admission?: Yes Plan: The patient presented to the ICU with marked hypotension and obtundation. She was already intubated. She exhibited marked tachycardia with systolic blood pressure below 50. White blood cell count was up to 20,000 from 12,000 earlier today. The patient had already received several liters of fluid and 2 units of packed red blood cells in the operating room. She was markedly acidotic with a pH of 7.17, bicarb of 17 and PCO2 of 48. Serum lactic acid was normal. Blood cultures drawn on the sixth revealed a single bottle positive for Clostridium species. Abscess drainage revealed multiple organisms consistent with bowel monica. The patient was placed on Unasyn and metronidazole. New blood cultures were obtained. Very aggressive fluid resuscitation ensued. 50 g of albumin was administered. With the lack of response to a single vasopressor additional medications were added. She required maximum doses of dopamine, vasopressin, Levophed and Rick- Synephrine. We continued volume resuscitate with approximately 9 L of fluid given over several hours. Stress doses of Solu-Cortef were administered as well. I did have a chance to speak with the patient's sister, mother and friend to make them aware of the fact of her critical state. (2) Sepsis Qualifiers: Qualified Code(s): A41.9 - Sepsis, unspecified organism Is this a current diagnosis for this admission?: Yes Plan: See above. (3) Diverticulitis large intestine Qualifiers: Diverticulitis complication: with abscess Is this a current diagnosis for this admission?: Yes Plan: With the initial abscess drained and evidence of diverticulitis noted on the CT scan the patient underwent a subtotal colectomy with colostomy formation. We will continue antibiotic therapy. Surgical drains are in place and surgery will be managing the incision and drains. (4) Hypoalbuminemia Is this a current diagnosis for this admission?: Yes Plan: The family reports that the patient had been feeling poorly over the last several months. It was felt to be her underlying ulcerative colitis. Her serum albumin did drop below 3.0 during her September admission. Because of the extremely aggressive fluid resuscitation the patient's serum albumin was noted t o be less than 0.1. To improve oncotic pressure the patient was given 50 g of albumin with orders for an additional 50 g today. We will likely need to continue to administer albumin to maintain oncotic pressure to help with the eventual diuresis that will be required secondary to the fluids given today. This should also help with organ perfusion and maintain intravascular volume. (5) Colitis Is this a current diagnosis for this admission?: Yes Plan: As noted above the patient had been feeling poorly for several months. It was felt to be due to her ulcerative colitis. At this point there is no specific treatment dedicated to the ulcerative colitis while treating her overwhelming comorbidities. - Time Time Spent: Greater than 70 Minutes Medications reviewed and adjusted accordingly: Yes - Inpatient Certification Based on my medical assessment, after consideration of the patient's comorbidities, presenting symptoms, or acuity I expect that the services needed warrant INPATIENT care.: Yes I certify that my determination is in accordance with my understanding of Medicare's requirements for reasonable and necessary INPATIENT services [42 CFR 412.3e].: Yes
[2018-10-27] MEDS ORDERED: LEVALBUTEROL HCL NEB 0.63 MG/3 ML AMPUL NEB PRN (09:46)
[2018-10-27] MEDS: HYDROCORTISONE SOD SUCCINATE INJ/PF 100 MG/2 ML SDV IV SCH ×2 (09:47→17:22)
[2018-10-27] MEDS: FLUOXETINE HCL 20 MG CAPSULE PO SCH (09:57)
[2018-10-27] MEDS: GABAPENTIN 300 MG CAPSULE PO SCH ×2 (09:57→21:40)
[2018-10-27] MEDS ORDERED: CALCIUM GLUCONATE 2,000 MG in DEXTROSE 5%-WATER 100 ML IV ONE (10:00)
[2018-10-27] MEDS ORDERED: IPRATROPIUM/ALBUTEROL 0.5-2.5 MG/3 ML AMPUL NEB ONE (10:30)
[2018-10-27 10:49] LABS: ARTERIAL BLOOD BASE EXCESS 0.2 mmol/L; ARTERIAL BLOOD H2CO3 0.68 mmol/L (1.05-1.35); ARTERIAL BLOOD HCO3 21.2 mmol/L (20-24); ARTERIAL BLOOD O2 SATURATION 97.8 % (94-98); ARTERIAL BLOOD PCO2 22.7 mmHg (35-45); ARTERIAL BLOOD PH 7.59 (7.35-7.45); ARTERIAL BLOOD PO2 84.6 mmHg (80-100); ARTERIAL BLOOD TOTAL CO2 21.9 mmol/L (21-25)
[2018-10-27 11:19] LABS: INTERNATIONAL RATION (INR) 3.41
[2018-10-27 11:20] LABS: PARTIAL THROMBOPLASTIN TIME 44.3 SEC (23.5-35.8)
[2018-10-27 11:26] LABS: ARTERIAL BLOOD FIO2 30%
[2018-10-27] MEDS ORDERED: FUROSEMIDE INJ/PF 20 MG/2 ML SDV IV SCH (12:30)
[2018-10-27 13:10] LABS: PATH REVIEW PATHOLOGIST REVIEWED
[2018-10-27] MEDS: IPRATROPIUM/ALBUTEROL 0.5-2.5 MG/3 ML AMPUL NEB SCH ×2 (13:44→20:43)
[2018-10-27] MEDS: NORMAL SALINE 1000 ML 1,000 ML IV PRN ×2 (15:15→19:04)
[2018-10-27] MEDS: DEXTROSE 5%-WATER 250 ML with VASOPRESSIN 100 UNIT IV PRN ×2 (16:26)
[2018-10-27] MEDS: THIAMINE HCL 100 MG in NORMAL SALINE 50 ML IV SCH (18:18)
--- NOTE | 2018-10-27 19:23 | PDOC PROGRESS REPORT ---
Subjective Progress Note for:: 10/27/18 Reason For Visit: DIVERTICULITIS,SIGMOID AND DESCENDING COLON,INTRA- Physical Exam Vital Signs: Temp Pulse Resp BP Pulse Ox 96.9 F L 97 20 114/71 100 10/27/18 18:00 10/27/18 18:00 10/27/18 18:00 10/27/18 18:00 10/27/18 18:00 Intake & Output 10/26/18 10/27/18 10/28/18 06:59 06:59 06:59 Intake Total 1488 84311 3837 Output Total 60 9992 917 Balance 1428 5183 2920 Weight 83.5 kg Results Laboratory Results: 10/27/18 03:54 10/27/18 03:54 10/25/18 10/26/18 10/26/18 15:10 21:45 21:45 WBC 32.4 H* RBC 2.91 L Hgb 9.2 L Hct 28.1 L MCV 96 MCH 31.5 MCHC 32.7 RDW 17.4 H Plt Count 279 Seg Neutrophils % Not Reportable Lymphocytes % Not Reportable Monocytes % Not Reportable Eosinophils % Not Reportable Basophils % Not Reportable Absolute Neutrophils Not Reportable Absolute Lymphocytes Not Reportable Absolute Monocytes Not Reportable Absolute Eosinophils Not Reportable Absolute Basophils Not Reportable Carbonic Acid HCO3/H2CO3 Ratio ABG pH ABG pCO2 ABG pO2 ABG HCO3 ABG O2 Saturation ABG Base Excess FiO2 Sodium 134.2 L Potassium 4.7 Chloride 103 Carbon Dioxide 14 L Anion Gap 17 BUN 9 Creatinine 0.40 L Est GFR ( Amer) > 60 Est GFR (Non-Af Amer) > 60 Glucose 266 H Lactic Acid Calcium 6.5 L* Magnesium 2.7 H D Total Bilirubin 1.9 H AST 3000 H ALT 2404 H Alkaline Phosphatase 186 H Total Protein 3.3 L Albumin 1.9 L Blood Type O POSITIVE Antibody Screen NEGATIVE 10/26/18 10/27/18 10/27/18 21:53 03:54 03:54 WBC 23.6 H RBC 2.79 L Hgb 8.8 L Hct 25.9 L MCV 93 MCH 31.6 MCHC 34.1 RDW 16.8 H Plt Count 157 Seg Neutrophils % Not Reportable Lymphocytes % Not Reportable Monocytes % Not Reportable Eosinophils % Not Reportable Basophils % Not Reportable Absolute Neutrophils Not Reportable Absolute Lymphocytes Not Reportable Absolute Monocytes Not Reportable Absolute Eosinophils Not Reportable Absolute Basophils Not Reportable Carbonic Acid 0.99 L HCO3/H2CO3 Ratio 10:1 ABG pH 7.10 L* ABG pCO2 33.0 L ABG pO2 481.2 H ABG HCO3 10.1 L ABG O2 Saturation 99.8 H ABG Base Excess -18.3 FiO2 100% Sodium 139.4 Potassium 4.6 Chloride 105 Carbon Dioxide 19 L Anion Gap 15 BUN 11 Creatinine 0.55 Est GFR ( Amer) > 60 Est GFR (Non-Af Amer) > 60 Glucose 245 H Lactic Acid Calcium 6.8 L* Magnesium 2.4 H Total Bilirubin 2.4 H AST 70200 H ALT 6055 H Alkaline Phosphatase 193 H Total Protein 3.3 L Albumin 2.1 L Blood Type Antibody Screen 10/27/18 10/27/18 10/27/18 03:54 09:48 10:40 WBC RBC Hgb Hct MCV MCH MCHC RDW Plt Count Seg Neutrophils % Lymphocytes % Monocytes % Eosinophils % Basophils % Absolute Neutrophils Absolute Lymphocytes Absolute Monocytes Absolute Eosinophils Absolute Basophils Carbonic Acid 0.85 L 0.68 L HCO3/H2CO3 Ratio 19:1 31:1 ABG pH 7.39 7.59 H ABG pCO2 28.1 L 22.7 L ABG pO2 149.5 H 84.6 ABG HCO3 16.4 L 21.2 ABG O2 Saturation 98.9 H 97.8 ABG Base Excess -7.6 0.2 FiO2 40% 30% Sodium Potassium Chloride Carbon Dioxide Anion Gap BUN Creatinine Est GFR ( Amer) Est GFR (Non-Af Amer) Glucose Lactic Acid 6.0 H Calcium Magnesium Total Bilirubin AST ALT Alkaline Phosphatase Total Protein Albumin Blood Type Antibody Screen 10/27/18 14:40 WBC RBC Hgb Hct MCV MCH MCHC RDW Plt Count Seg Neutrophils % Lymphocytes % Monocytes % Eosinophils % Basophils % Absolute Neutrophils Absolute Lymphocytes Absolute Monocytes Absolute Eosinophils Absolute Basophils Carbonic Acid HCO3/H2CO3 Ratio ABG pH ABG pCO2 ABG pO2 ABG HCO3 ABG O2 Saturation ABG Base Excess FiO2 Sodium Potassium Chloride Carbon Dioxide Anion Gap BUN Creatinine Est GFR ( Amer) Est GFR (Non-Af Amer) Glucose Lactic Acid 5.2 H Calcium Magnesium Total Bilirubin AST ALT Alkaline Phosphatase Total Protein Albumin Blood Type Antibody Screen 10/21/18 18:45 Blood Blood Culture - Final NO GROWTH IN 5 DAYS Impressions: Abdomen/Pelvis CT 10/21/18 00:00 IMPRESSION: Diverticulitis of the descending colon and sigmoid colon. No definitive abscess or perforation. Pigtail catheter in the lower abdomen. Abdomen Ultrasound 10/22/18 00:00 IMPRESSION: No acute sonographic abnormality. Catheter Patency X-Ray 10/23/18 00:00 IMPRESSION: SMALL RESIDUAL ABSCESS CAVITY. FISTULOUS COMMUNICATION WITH THE DISTAL DESCENDING COLON WITH COLONIC FINDINGS DESCRIBED ABOVE. Fluoroscopy 10/23/18 00:00 IMPRESSION: SMALL RESIDUAL ABSCESS CAVITY. FISTULOUS COMMUNICATION WITH THE DISTAL DESCENDING COLON WITH COLONIC FINDINGS DESCRIBED ABOVE. Chest X-Ray 10/26/18 00:00 IMPRESSION: 1. Interval placement of endotracheal and nasogastric tubes, since the prior examination dated 10/21/2018. 2. New finding of left base infiltrate/atelectasis. Linear subsegmental atelectasis at the right lung base. 3. Additional findings, see as above. Assessment & Plan - Plan Summary Plan Summary: The patient was initially seen by me at 0700 this morning. Her blood pressure was elevated, and CVP was approximately 10. Plan was to wean pressors for a map of 65-70. Over the course of the day, the patient's urine output has dropped. I was not notified. Lactic acids were checked and were significantly elevated, and I was again not notified. The patient is severely septic. Her CVP is approximately 6, her urine output is inadequate. Her map is currently 63. The patient still requires significant resuscitation. 1 L bolus now. Stat lactic acid and BMP. The patient's CVP should be maintained between 8 and 12 at all times. Her map should be maintained above 65. Levophed or dopamine should be used to augment her mean arterial pressure, when necessary. I have instructed the nursing staff there to call me immediately if the patient's urine output drops below 30 cc/h. Continue aggressive fluid resuscitation. Will follow.
--- NOTE | 2018-10-27 19:28 | PDOC PROGRESS REPORT ---
Subjective Progress Note for:: 10/27/18 Subjective:: Patient remains sedated and intubated. Came to the ICU yesterday after partial colectomy with an ileostomy. Patient has a history of ulcerative colitis with multiple episodes of intra-abdominal abscesses. By report she had previously had a percutaneous drain placed instead of surgery, and then stool started coming out of that drain. She was on 4 pressors after surgery yesterday and got about 9 L of fluid plus a couple units of packed red blood cells, and had as of this morning not put out much urine at all, but this morning her blood pressure had improved to the point that she was only on a small dose of dopamine. Pressure went back down as the day went on and she had to go back on vasopressin at one point. We started giving her Lasix and albumin together and she has had a little bit of urine output since then. Reason For Visit: DIVERTICULITIS,SIGMOID AND DESCENDING COLON,INTRA- Physical Exam Vital Signs: Temp Pulse Resp BP Pulse Ox 96.9 F L 97 20 114/71 100 10/27/18 18:00 10/27/18 18:00 10/27/18 18:00 10/27/18 18:00 10/27/18 18:00 Intake & Output 10/26/18 10/27/18 10/28/18 06:59 06:59 06:59 Intake Total 1488 43267 3837 Output Total 60 9992 917 Balance 1428 7309 2920 Weight 83.5 kg General appearance: PRESENT: severe distress, other - Sedated, intubated Respiratory exam: PRESENT: crackles - Bilateral, symmetrical, unlabored. ABSENT: prolonged expiratory phas, rhonchi, tachypnea, wheezes Cardiovascular exam: PRESENT: +S1, +S2, tachycardia Vascular exam: ABSENT: normal capillary refill - Capillary refill was 6 seconds GI/Abdominal exam: PRESENT: diminished bowel sounds, distended, soft, other - Midline abdominal decision was covered with a bulky dressing, she had [address] [place]. ABSENT: rebound, tenderness Extremities exam: PRESENT: pedal edema, other - She has 3+ or greater generalized pitting edema in her upper and lower extremities as well as diffuse anasarca. ABSENT: clubbing Musculoskeletal exam: ABSENT: deformity, tenderness Neurological exam: PRESENT: other - Sedated, intubated Skin exam: PRESENT: jaundice, mottled. ABSENT: warm Results Laboratory Results: 10/27/18 03:54 10/27/18 03:54 10/25/18 10/26/18 10/26/18 15:10 21:45 21:45 WBC 32.4 H* RBC 2.91 L Hgb 9.2 L Hct 28.1 L MCV 96 MCH 31.5 MCHC 32.7 RDW 17.4 H Plt Count 279 Seg Neutrophils % Not Reportable Lymphocytes % Not Reportable Monocytes % Not Reportable Eosinophils % Not Reportable Basophils % Not Reportable Absolute Neutrophils Not Reportable Absolute Lymphocytes Not Reportable Absolute Monocytes Not Reportable Absolute Eosinophils Not Reportable Absolute Basophils Not Reportable Carbonic Acid HCO3/H2CO3 Ratio ABG pH ABG pCO2 ABG pO2 ABG HCO3 ABG O2 Saturation ABG Base Excess FiO2 Sodium 134.2 L Potassium 4.7 Chloride 103 Carbon Dioxide 14 L Anion Gap 17 BUN 9 Creatinine 0.40 L Est GFR ( Amer) > 60 Est GFR (Non-Af Amer) > 60 Glucose 266 H Lactic Acid Calcium 6.5 L* Magnesium 2.7 H D Total Bilirubin 1.9 H AST 3000 H ALT 2404 H Alkaline Phosphatase 186 H Total Protein 3.3 L Albumin 1.9 L Blood Type O POSITIVE Antibody Screen NEGATIVE 10/26/18 10/27/18 10/27/18 21:53 03:54 03:54 WBC 23.6 H RBC 2.79 L Hgb 8.8 L Hct 25.9 L MCV 93 MCH 31.6 MCHC 34.1 RDW 16.8 H Plt Count 157 Seg Neutrophils % Not Reportable Lymphocytes % Not Reportable Monocytes % Not Reportable Eosinophils % Not Reportable Basophils % Not Reportable Absolute Neutrophils Not Reportable Absolute Lymphocytes Not Reportable Absolute Monocytes Not Reportable Absolute Eosinophils Not Reportable Absolute Basophils Not Reportable Carbonic Acid 0.99 L HCO3/H2CO3 Ratio 10:1 ABG pH 7.10 L* ABG pCO2 33.0 L ABG pO2 481.2 H ABG HCO3 10.1 L ABG O2 Saturation 99.8 H ABG Base Excess -18.3 FiO2 100% Sodium 139.4 Potassium 4.6 Chloride 105 Carbon Dioxide 19 L Anion Gap 15 BUN 11 Creatinine 0.55 Est GFR ( Amer) > 60 Est GFR (Non-Af Amer) > 60 Glucose 245 H Lactic Acid Calcium 6.8 L* Magnesium 2.4 H Total Bilirubin 2.4 H AST 59364 H ALT 6055 H Alkaline Phosphatase 193 H Total Protein 3.3 L Albumin 2.1 L Blood Type Antibody Screen 10/27/18 10/27/18 10/27/18 03:54 09:48 10:40 WBC RBC Hgb Hct MCV MCH MCHC RDW Plt Count Seg Neutrophils % Lymphocytes % Monocytes % Eosinophils % Basophils % Absolute Neutrophils Absolute Lymphocytes Absolute Monocytes Absolute Eosinophils Absolute Basophils Carbonic Acid 0.85 L 0.68 L HCO3/H2CO3 Ratio 19:1 31:1 ABG pH 7.39 7.59 H ABG pCO2 28.1 L 22.7 L ABG pO2 149.5 H 84.6 ABG HCO3 16.4 L 21.2 ABG O2 Saturation 98.9 H 97.8 ABG Base Excess -7.6 0.2 FiO2 40% 30% Sodium Potassium Chloride Carbon Dioxide Anion Gap BUN Creatinine Est GFR ( Amer) Est GFR (Non-Af Amer) Glucose Lactic Acid 6.0 H Calcium Magnesium Total Bilirubin AST ALT Alkaline Phosphatase Total Protein Albumin Blood Type Antibody Screen 10/27/18 14:40 WBC RBC Hgb Hct MCV MCH MCHC RDW Plt Count Seg Neutrophils % Lymphocytes % Monocytes % Eosinophils % Basophils % Absolute Neutrophils Absolute Lymphocytes Absolute Monocytes Absolute Eosinophils Absolute Basophils Carbonic Acid HCO3/H2CO3 Ratio ABG pH ABG pCO2 ABG pO2 ABG HCO3 ABG O2 Saturation ABG Base Excess FiO2 Sodium Potassium Chloride Carbon Dioxide Anion Gap BUN Creatinine Est GFR ( Amer) Est GFR (Non-Af Amer) Glucose Lactic Acid 5.2 H Calcium Magnesium Total Bilirubin AST ALT Alkaline Phosphatase Total Protein Albumin Blood Type Antibody Screen 10/21/18 18:45 Blood Blood Culture - Final NO GROWTH IN 5 DAYS Impressions: Abdomen/Pelvis CT 10/21/18 00:00 IMPRESSION: Diverticulitis of the descending colon and sigmoid colon. No definitive abscess or perforation. Pigtail catheter in the lower abdomen. Abdomen Ultrasound 10/22/18 00:00 IMPRESSION: No acute sonographic abnormality. Catheter Patency X-Ray 10/23/18 00:00 IMPRESSION: SMALL RESIDUAL ABSCESS CAVITY. FISTULOUS COMMUNICATION WITH THE DISTAL DESCENDING COLON WITH COLONIC FINDINGS DESCRIBED ABOVE. Fluoroscopy 10/23/18 00:00 IMPRESSION: SMALL RESIDUAL ABSCESS CAVITY. FISTULOUS COMMUNICATION WITH THE DISTAL DESCENDING COLON WITH COLONIC FINDINGS DESCRIBED ABOVE. Chest X-Ray 10/26/18 00:00 IMPRESSION: 1. Interval placement of endotracheal and nasogastric tubes, since the prior examination dated 10/21/2018. 2. New finding of left base infiltrate/atelectasis. Linear subsegmental ate lectasis at the right lung base. 3. Additional findings, see as above. Assessment & Plan - Diagnosis (1) Septic shock Is this a current diagnosis for this admission?: Yes Plan: She has evidence of multisystem organ failure, but there are some signs of improvement. Her creatinine has improved and she has had improvement in her blood pressure. We were able to get her to produce a little bit of urine today. She is on broad-spectrum antibiotic coverage for likely organisms. Her liver enzymes have gotten worse and she was coagulopathic, but she is not showing any overt signs of bleeding at this point. We will continue aggressive supportive care. 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
[2018-10-27 20:23] LABS: ANION GAP 12 (5-19); BLOOD UREA NITROGEN 14 mg/dL (7-20); CALCIUM 7.1 mg/dL (8.4-10.2); CARBON DIOXIDE 22 mmol/L (22-30); CHLORIDE 103 mmol/L (98-107); GLUCOSE 98 mg/dL (75-110); POTASSIUM 3.7 mmol/L (3.6-5.0)
[2018-10-27 20:33] LABS: ARTERIAL BLOOD BASE EXCESS 2.4 mmol/L; ARTERIAL BLOOD H2CO3 0.68 mmol/L (1.05-1.35); ARTERIAL BLOOD HCO3 23.5 mmol/L (20-24); ARTERIAL BLOOD O2 SATURATION 98.8 % (94-98); ARTERIAL BLOOD PCO2 22.6 mmHg (35-45); ARTERIAL BLOOD PO2 108.8 mmHg (80-100); ARTERIAL BLOOD TOTAL CO2 24.2 mmol/L (21-25)
[2018-10-27 20:34] LABS: ARTERIAL BLOOD FIO2 30%
[2018-10-27 20:35] LABS: ARTERIAL BLOOD PH 7.64 (7.35-7.45)
[2018-10-27] MEDS ORDERED: NORMAL SALINE 1000 ML 1,000 ML IV ONE (21:00)
[2018-10-27] MEDS: DIPHENHYDRAMINE HCL 25 MG CAPSULE PO SCH (21:40)
[2018-10-27 23:23] LABS: ARTERIAL BLOOD BASE EXCESS -0.9 mmol/L; ARTERIAL BLOOD H2CO3 0.97 mmol/L (1.05-1.35); ARTERIAL BLOOD HCO3 22.8 mmol/L (20-24); ARTERIAL BLOOD O2 SATURATION 98.4 % (94-98); ARTERIAL BLOOD PCO2 32.3 mmHg (35-45); ARTERIAL BLOOD PH 7.47 (7.35-7.45); ARTERIAL BLOOD PO2 113.4 mmHg (80-100); ARTERIAL BLOOD TOTAL CO2 23.8 mmol/L (21-25)
[2018-10-27 23:26] LABS: ARTERIAL BLOOD FIO2 30%
[2018-10-27 23:39] LABS: ALBUMIN 1.8 g/dL (3.5-5.0); ALKALINE PHOSPHATASE 136 U/L (38-126); ANION GAP 6 (5-19); BILIRUBIN,TOTAL 4.4 mg/dL (0.2-1.3); BLOOD UREA NITROGEN 15 mg/dL (7-20); CARBON DIOXIDE 25 mmol/L (22-30); CHLORIDE 105 mmol/L (98-107); GLUCOSE 101 mg/dL (75-110); POTASSIUM 3.6 mmol/L (3.6-5.0)
[2018-10-27 23:57] LABS: HEMATOCRIT 16.3 % (36.0-47.0); MEAN CORPUSCULAR HEMOGLOBIN 31.4 pg (27.0-33.4); MEAN CORPUSCULAR HGB CONC 34.3 g/dL (32.0-36.0); MEAN CORPUSCULAR VOLUME 92 fl (80-97); RED BLOOD COUNT 1.77 10^6/uL (3.72-5.28); RED CELL DISTRIBUTION WIDTH 16.6 % (11.5-14.0)
[2018-10-27] MEDS ORDERED: FUROSEMIDE INJ/PF 20 MG/2 ML SDV IV ONE (23:59)
[2018-10-28 00:06] LABS: ALANINE AMINOTRANSFERASE 3022 U/L (9-52); ASPARTATE AMINO TRANSFERASE 3908 U/L (14-36)
[2018-10-28 00:10] LABS: CALCIUM 6.4 mg/dL (8.4-10.2)
[2018-10-28 00:18] LABS: PLATELET COUNT 79 10^3/uL (150-450); WHITE BLOOD COUNT 22.4 10^3/uL (4.0-10.5)
[2018-10-28 00:19] LABS: HEMOGLOBIN 5.6 g/dL (12.0-15.5)
[2018-10-28] MEDS ORDERED: CALCIUM GLUCONATE 1000 MG/10 ML INJ IV ONE (01:00)
[2018-10-28] MEDS: HYDROCORTISONE SOD SUCCINATE INJ/PF 100 MG/2 ML SDV IV SCH ×3 (01:03→17:22)
[2018-10-28] MEDS: IPRATROPIUM/ALBUTEROL 0.5-2.5 MG/3 ML AMPUL NEB SCH ×4 (02:56→20:52)
[2018-10-28] MEDS ORDERED: METOPROLOL TARTRATE PF/INJ 5 MG/5 ML SDV IV ONE ×2 (04:01→05:00)
[2018-10-28] MEDS: DEXTROSE 5%-WATER 250 ML with NOREPINEPHRINE BITARTRATE 4 MG IV PRN ×2 (04:05)
[2018-10-28] MEDS: FUROSEMIDE INJ/PF 20 MG/2 ML SDV IV PRN ×2 (04:10→05:00)
[2018-10-28] MEDS ORDERED: DILTIAZEM HCL/D5W 125 MG/125 ML RTUINJ IV ONE (04:12)
[2018-10-28] MEDS ORDERED: DILTIAZEM HCL/D5W 125 MG/125 ML RTUINJ IV PRN (04:39)
[2018-10-28] MEDS ORDERED: FUROSEMIDE INJ/PF 20 MG/2 ML SDV IV PRN (04:42)
[2018-10-28 05:02] LABS: HEMATOCRIT 22.6 % (36.0-47.0); MEAN CORPUSCULAR HEMOGLOBIN 31.2 pg (27.0-33.4); MEAN CORPUSCULAR HGB CONC 34.3 g/dL (32.0-36.0); MEAN CORPUSCULAR VOLUME 91 fl (80-97); RED BLOOD COUNT 2.48 10^6/uL (3.72-5.28); RED CELL DISTRIBUTION WIDTH 15.6 % (11.5-14.0)
[2018-10-28 05:20] LABS: ALKALINE PHOSPHATASE 157 U/L (38-126); ANION GAP 7 (5-19); BILIRUBIN,DIRECT 2.8 mg/dL (0.0-0.4); BILIRUBIN,TOTAL 4.9 mg/dL (0.2-1.3); BLOOD UREA NITROGEN 16 mg/dL (7-20); CARBON DIOXIDE 25 mmol/L (22-30); CHLORIDE 106 mmol/L (98-107); GLUCOSE 102 mg/dL (75-110); PLATELET COUNT 69 10^3/uL (150-450); POTASSIUM 3.6 mmol/L (3.6-5.0); SODIUM 138.2 mmol/L (137-145); TOTAL PROTEIN 2.9 g/dL (6.3-8.2)
[2018-10-28 05:22] LABS: ABSOLUTE MONOCYTES # (MANUAL) 0.5 10^3/uL (0.1-1.4); ABSOLUTE NEUTROPHILS# (MANUAL) 23.5 10^3/uL (1.7-8.2); BAND NEUTROPHILS % (MANUAL) 5 % (3-5); BASOPHILS % (MANUAL) 0 % (0-2); EOSINOPHILS % (MANUAL) 0 % (0-6); LYMPHOCYTES % (MANUAL) 0 % (13-45); MONOCYTES % (MANUAL) 2 % (3-13); SEGMENTED NEUTROPHILS % (MAN) 93 % (42-78); TOTAL CELLS COUNTED 100
[2018-10-28 05:25] LABS: ANISOCYTOSIS 1+; PLATELET COMMENT DECREASED
[2018-10-28 05:26] LABS: HEMOGLOBIN 7.8 g/dL (12.0-15.5)
[2018-10-28] MEDS ORDERED: DEXTROSE 5%-WATER 250 ML with NOREPINEPHRINE BITARTRATE 4 MG IV PRN ×2 (05:37)
[2018-10-28 05:49] LABS: ARTERIAL BLOOD BASE EXCESS 0.5 mmol/L; ARTERIAL BLOOD H2CO3 1.07 mmol/L (1.05-1.35); ARTERIAL BLOOD HCO3 24.3 mmol/L (20-24); ARTERIAL BLOOD O2 SATURATION 97.8 % (94-98); ARTERIAL BLOOD PCO2 35.4 mmHg (35-45); ARTERIAL BLOOD PH 7.46 (7.35-7.45); ARTERIAL BLOOD PO2 98.8 mmHg (80-100); ARTERIAL BLOOD TOTAL CO2 25.4 mmol/L (21-25)
[2018-10-28 05:50] LABS: ARTERIAL BLOOD FIO2 30%
[2018-10-28 05:59] LABS: ALANINE AMINOTRANSFERASE 2819 U/L (9-52); ASPARTATE AMINO TRANSFERASE 3057 U/L (14-36)
[2018-10-28] MEDS ORDERED: FUROSEMIDE INJ/PF 20 MG/2 ML SDV IV ONE (06:10)
[2018-10-28] MEDS: AMPICILLIN SODIUM/SULBACTAM NA 3 GM in NORMAL SALINE 100 ML IV SCH ×3 (06:13→22:19)
[2018-10-28 06:34] LABS: CREATINE KINASE MB 3.43 ng/mL (<4.55)
[2018-10-28] MEDS: METRONIDAZOLE 500 MG/NS RTU 500 MG/100 ML RTUPB IV SCH ×4 (06:35→23:44)
[2018-10-28 06:38] LABS: TROPONIN I 0.033 ng/mL
--- NOTE | 2018-10-28 07:12 | RADIOLOGY REPORT (SQ) ---
EXAM DESCRIPTION: XR CHEST 1 VIEW COMPLETED DATE/TME: 10/28/2018 06:00 CLINICAL HISTORY: 58 years Female, septic shock COMPARISON: 2 days prior. NUMBER OF VIEWS/TECHNIQUE: 1/AP FINDINGS: Bilateral lower thoracic opacity/effusion. Moderate central edema pattern.Adequate appearing endotracheal tube. Likely adequate appearing enteric tube partially obscured. Right PICC appears adequate. Upper abdominal clips. Normal cardiac silhouette size. No pneumothorax. Stable bony thorax. IMPRESSION: No significant change.
[2018-10-28] MEDS: MIDAZOLAM HCL 50 MG/100 ML RTUINJ IV PRN ×2 (07:20→19:08)
--- NOTE | 2018-10-28 07:36 | EKG REPORT ---
SEVERITY:- ABNORMAL ECG - SINUS RHYTHM BORDERLINE LEFT AXIS DEVIATION LOW VOLTAGE IN FRONTAL LEADS ABNORMAL T, CONSIDER ISCHEMIA, ANT-LAT LEADS PROLONGED QT INTERVAL : Confirmed by: Pepper Hinkle MD 28-Oct-2018 07:35:49
--- NOTE | 2018-10-28 07:53 | PDOC PROGRESS REPORT ---
Subjective Progress Note for:: 10/28/18 Reason For Visit: DIVERTICULITIS,SIGMOID AND DESCENDING COLON,INTRA- sepsis Physical Exam Vital Signs: Temp Pulse Resp BP Pulse Ox 97.0 F 89 9 L 102/61 99 10/28/18 06:00 10/28/18 06:00 10/28/18 06:00 10/28/18 06:00 10/28/18 06:00 Intake & Output 10/27/18 10/28/18 10/29/18 06:59 06:59 06:59 Intake Total 48298 6651 Output Total 9992 1301 Balance 7359 5350 Weight 83.5 kg 92.3 kg General appearance: PRESENT: obese, other - barely responsive on versed drip Head exam: PRESENT: atraumatic Eye exam: PRESENT: conjunctiva pink Respiratory exam: PRESENT: rhonchi - coarse rhonchi bilat Cardiovascular exam: PRESENT: other - rrr currently. recent a-fib last pm, on cardiozem drip GI/Abdominal exam: PRESENT: firm, hypoactive bowel sounds - wound dry Musculoskeletal exam: PRESENT: other - diffuse swelling, 3+ edema Results Laboratory Results: 10/28/18 04:40 10/28/18 04:40 10/25/18 10/27/18 10/27/18 15:10 09:48 10:40 WBC RBC Hgb Hct MCV MCH MCHC RDW Plt Count Seg Neutrophils % Lymphocytes % Monocytes % Eosinophils % Basophils % Absolute Neutrophils Absolute Lymphocytes Absolute Monocytes Absolute Eosinophils Absolute Basophils Carbonic Acid 0.68 L HCO3/H2CO3 Ratio 31:1 ABG pH 7.59 H ABG pCO2 22.7 L ABG pO2 84.6 ABG HCO3 21.2 ABG O2 Saturation 97.8 ABG Base Excess 0.2 FiO2 30% Sodium Potassium Chloride Carbon Dioxide Anion Gap BUN Creatinine Est GFR ( Amer) Est GFR (Non-Af Amer) Glucose Lactic Acid 6.0 H Calcium Magnesium Total Bilirubin AST ALT Alkaline Phosphatase Total Protein Albumin Blood Type O POSITIVE Antibody Screen NEGATIVE 10/27/18 10/27/18 10/27/18 14:40 19:58 19:58 WBC RBC Hgb Hct MCV MCH MCHC RDW Plt Count Seg Neutrophils % Lymphocytes % Monocytes % Eosinophils % Basophils % Absolute Neutrophils Absolute Lymphocytes Absolute Monocytes Absolute Eosinophils Absolute Basophils Carbonic Acid HCO3/H2CO3 Ratio ABG pH ABG pCO2 ABG pO2 ABG HCO3 ABG O2 Saturation ABG Base Excess FiO2 Sodium 137.0 Potassium 3.7 Chloride 103 Carbon Dioxide 22 Anion Gap 12 BUN 14 Creatinine 0.63 Est GFR ( Amer) > 60 Est GFR (Non-Af Amer) > 60 Glucose 98 Lactic Acid 5.2 H 3.9 H Calcium 7.1 L Magnesium Total Bilirubin AST ALT Alkaline Phosphatase Total Protein Albumin Blood Type Antibody Screen 10/27/18 10/27/18 10/27/18 20:25 23:12 23:12 WBC Cancelled RBC Cancelled Hgb Cancelled Hct Cancelled MCV Cancelled MCH Cancelled MCHC Cancelled RDW Cancelled Plt Count Cancelled Seg Neutrophils % Lymphocytes % Monocytes % Eosinophils % Basophils % Absolute Neutrophils Absolute Lymphocytes Absolute Monocytes Absolute Eosinophils Absolute Basophils Carbonic Acid 0.68 L 0.97 L HCO3/H2CO3 Ratio 34:1 23:1 ABG pH 7.64 H* 7.47 H ABG pCO2 22.6 L 32.3 L ABG pO2 108.8 H 113.4 H ABG HCO3 23.5 22.8 ABG O2 Saturation 98.8 H 98.4 H ABG Base Excess 2.4 -0.9 FiO2 30% 30% Sodium Potassium Chloride Carbon Dioxide Anion Gap BUN Creatinine Est GFR ( Amer) Est GFR (Non-Af Amer) Glucose Lactic Acid Calcium Magnesium Total Bilirubin AST ALT Alkaline Phosphatase Total Protein Albumin Blood Type Antibody Screen 10/27/18 10/27/18 10/27/18 23:12 23:12 23:46 WBC 22.4 H RBC 1.77 L Hgb 5.6 L D Hct 16.3 L MCV 92 MCH 31.4 MCHC 34.3 RDW 16.6 H Plt Count 79 L Seg Neutrophils % Lymphocytes % Monocytes % Eosinophils % Basophils % Absolute Neutrophils Absolute Lymphocytes Absolute Monocytes Absolute Eosinophils Absolute Basophils Carbonic Acid HCO3/H2CO3 Ratio ABG pH ABG pCO2 ABG pO2 ABG HCO3 ABG O2 Saturation ABG Base Excess FiO2 Sodium 136.0 L Potassium 3.6 Chloride 105 Carbon Dioxide 25 Anion Gap 6 BUN 15 Creatinine 0.73 Est GFR ( Amer) > 60 Est GFR (Non-Af Amer) > 60 Glucose 101 Lactic Acid 2.4 H Calcium 6.4 L* Magnesium Total Bilirubin 4.4 H AST 3908 H ALT 3022 H Alkaline Phosphatase 136 H Total Protein 3.0 L Albumin 1.8 L Blood Type Antibody Screen 10/28/18 10/28/18 10/28/18 04:40 04:40 04:40 WBC 24.0 H RBC 2.48 L Hgb 7.8 L D Hct 22.6 L MCV 91 MCH 31.2 MCHC 34.3 RDW 15.6 H Plt Count 69 L Seg Neutrophils % Not Reportable Lymphocytes % Not Reportable Monocytes % Not Reportable Eosinophils % Not Reportable Basophils % Not Reportable Absolute Neutrophils Not Reportable Absolute Lymphocytes Not Reportable Absolute Monocytes Not Reportable Absolute Eosinophils Not Reportable Absolute Basophils Not Reportable Carbonic Acid HCO3/H2CO3 Ratio ABG pH ABG pCO2 ABG pO2 ABG HCO3 ABG O2 Saturation ABG Base Excess FiO2 Sodium 138.2 Potassium 3.6 Chloride 106 Carbon Dioxide 25 Anion Gap 7 BUN 16 Creatinine 0.77 Est GFR ( Amer) > 60 Est GFR (Non-Af Amer) > 60 Glucose 102 Lactic Acid 1.7 Calcium 7.0 L* Magnesium 1.8 Total Bilirubin 4.9 H AST 3057 H ALT 2819 H Alkaline Phosphatase 157 H Total Protein 2.9 L Albumin 2.0 L Blood Type Antibody Screen 10/28/18 04:40 WBC RBC Hgb Hct MCV MCH MCHC RDW Plt Count Seg Neutrophils % Lymphocytes % Monocytes % Eosinophils % Basophils % Absolute Neutrophils Absolute Lymphocytes Absolute Monocytes Absolute Eosinophils Absolute Basophils Carbonic Acid 1.07 HCO3/H2CO3 Ratio 22:1 ABG pH 7.46 H ABG pCO2 35.4 ABG pO2 98.8 ABG HCO3 24.3 H ABG O2 Saturation 97.8 ABG Base Excess 0.5 FiO2 30% Sodium Potassium Chloride Carbon Dioxide Anion Gap BUN Creatinine Est GFR ( Amer) Est GFR (Non-Af Amer) Glucose Lactic Acid Calcium Magnesium Total Bilirubin AST ALT Alkaline Phosphatase Total Protein Albumin Blood Type Antibody Screen 10/28/18 10/28/18 06:04 06:04 Creatine Kinase 136 H CK-MB (CK-2) 3.43 Troponin I 0.033 Impressions: Abdomen/Pelvis CT 10/21/18 00:00 IMPRESSION: Diverticulitis of the descending colon and sigmoid colon. No definitive abscess or perforation. Pigtail catheter in the lower abdomen. Abdomen Ultrasound 10/22/18 00:00 IMPRESSION: No acute sonographic abnormality. Catheter Patency X-Ray 10/23/18 00:00 IMPRESSION: SMALL RESIDUAL ABSCESS CAVITY. FISTULOUS COMMUNICATION WITH THE DISTAL DESCENDING COLON WITH COLONIC FINDINGS DESCRIBED ABOVE. Fluoroscopy 10/23/18 00:00 IMPRESSION: SMALL RESIDUAL ABSCESS CAVITY. FISTULOUS COMMUNICATION WITH THE DISTAL DESCENDING COLON WITH COLONIC FINDINGS DESCRIBED ABOVE. Chest X-Ray 10/28/18 06:00 IMPRESSION: No significant change. Assessment & Plan - Plan Summary Plan Summary: pt still with poor urine op despite multiple fluid boluses off pressors. high giovanna output wbc 24 lactate improved troponin .033 creat and bun wnl plan tnx 1 uprbc will sent off giovanna drain for creat cont vent support cont iv abx ?nephrology consult. ?dialysis close icu support
[2018-10-28] MEDS ORDERED: DEXTROSE 50%-WATER SYRINGE 25 GM/50 ML DOSE IV PRN (09:00)
[2018-10-28] MEDS ORDERED: DEXTROSE 40% GEL 15 GM TUBE PO PRN (09:00)
[2018-10-28] MEDS ORDERED: DEXTROSE 10%-WATER 1,000 ML IV PRN (09:00)
[2018-10-28] MEDS ORDERED: GLUCAGON,HUMAN RECOMB 1 MG INJ IM PRN (09:00)
[2018-10-28] MEDS ORDERED: DEXTROSE 50%-WATER SYRINGE 12.5 GM/25 ML DOSE IV PRN (09:00)
[2018-10-28] MEDS ORDERED: DEXTROSE 40% GEL 15 GM TUBE X 2 PO PRN (09:00)
[2018-10-28] MEDS: FLUOXETINE HCL 20 MG CAPSULE PO SCH (10:35)
[2018-10-28] MEDS: GABAPENTIN 300 MG CAPSULE PO SCH ×2 (10:35→22:23)
[2018-10-28] MEDS: ENOXAPARIN SODIUM INJ 40 MG/0.4 ML DISP.SYRIN SUBCUT SCH (10:35)
[2018-10-28 10:39] LABS: PREALBUMIN 5.1 mg/dL (17.6-36.0)
[2018-10-28] MEDS: THIAMINE HCL 100 MG in NORMAL SALINE 50 ML IV SCH ×2 (11:20→17:21)
[2018-10-28 12:07] LABS: INTERNATIONAL RATION (INR) 2.43; PROTHROMBIN TIME 27.6 SEC (11.4-15.4)
[2018-10-28 14:21] LABS: ARTERIAL BLOOD BASE EXCESS -0.6 mmol/L; ARTERIAL BLOOD H2CO3 1.03 mmol/L (1.05-1.35); ARTERIAL BLOOD HCO3 23.1 mmol/L (20-24); ARTERIAL BLOOD O2 SATURATION 98.4 % (94-98); ARTERIAL BLOOD PCO2 34.3 mmHg (35-45); ARTERIAL BLOOD PH 7.45 (7.35-7.45); ARTERIAL BLOOD PO2 116.9 mmHg (80-100); ARTERIAL BLOOD TOTAL CO2 24.2 mmol/L (21-25)
[2018-10-28 14:23] LABS: ARTERIAL BLOOD FIO2 30%
[2018-10-28] MEDS ORDERED: FUROSEMIDE INJ/PF 40 MG/4 ML SDV IV ONE ×2 (15:30→19:36)
[2018-10-28] MEDS: ALBUMIN HUMAN 12.5 GM/50 ML RTUINJ IV SCH ×2 (16:00→16:21)
[2018-10-28 17:30] LABS: HEMATOCRIT 26.2 % (36.0-47.0); MEAN CORPUSCULAR HGB CONC 34.4 g/dL (32.0-36.0); MEAN CORPUSCULAR VOLUME 90 fl (80-97); RED CELL DISTRIBUTION WIDTH 15.7 % (11.5-14.0); WHITE BLOOD COUNT 26.7 10^3/uL (4.0-10.5)
[2018-10-28 17:47] LABS: PLATELET COUNT 58 10^3/uL (150-450)
[2018-10-28] MEDS: AMINO ACIDS 5%/D25W 1,000 ML IV PRN (17:58)
--- NOTE | 2018-10-28 18:13 | PDOC PROGRESS REPORT ---
Subjective Progress Note for:: 10/28/18 Subjective:: No adverse events overnight. Patient remains sedated and intubated. She went into A. fib for a short time and had to go back on a Cardizem drip. We were able to discontinue the drip this morning because she converted to a sinus rhythm. She has held a sinus rhythm throughout the day today and her blood pressure has improved since coming off of the Cardizem drip. Urine output remains poor. Reason For Visit: DIVERTICULITIS,SIGMOID AND DESCENDING COLON,INTRA- Physical Exam Vital Signs: Temp Pulse Resp BP Pulse Ox 97.5 F 89 10 L 117/67 98 10/28/18 16:00 10/28/18 16:00 10/28/18 16:00 10/28/18 16:00 10/28/18 16:36 Intake & Output 10/27/18 10/28/18 10/29/18 06:59 06:59 06:59 Intake Total 89669 6651 798 Output Total 9992 1301 790 Balance 7359 5350 8 Weight 83.5 kg 92.3 kg General appearance: PRESENT: severe distress, other - Sedated, intubated Respiratory exam: PRESENT: crackles - Bilateral, symmetrical, unlabored. ABSENT: prolonged expiratory phas, rhonchi, tachypnea, wheezes Cardiovascular exam: PRESENT: +S1, +S2, tachycardia Vascular exam: ABSENT: normal capillary refill - Capillary refill was 6 seconds GI/Abdominal exam: PRESENT: diminished bowel sounds, distended, soft, other - Midline abdominal decision was covered with a bulky dressing, she had 3 EVELIN drains. ABSENT: rebound, tenderness Extremities exam: PRESENT: pedal edema, other - She has 3+ or greater generalized pitting edema in her upper and lower extremities as well as diffuse anasarca. ABSENT: clubbing Musculoskeletal exam: ABSENT: deformity, tenderness Neurological exam: PRESENT: other - Sedated, intubated Skin exam: PRESENT: jaundice, mottled. ABSENT: warm Results Laboratory Results: 10/28/18 16:45 10/28/18 04:40 10/25/18 10/27/18 10/27/18 15:10 19:58 19:58 WBC RBC Hgb Hct MCV MCH MCHC RDW Plt Count Seg Neutrophils % Lymphocytes % Monocytes % Eosinophils % Basophils % Absolute Neutrophils Absolute Lymphocytes Absolute Monocytes Absolute Eosinophils Absolute Basophils Carbonic Acid HCO3/H2CO3 Ratio ABG pH ABG pCO2 ABG pO2 ABG HCO3 ABG O2 Saturation ABG Base Excess FiO2 Sodium 137.0 Potassium 3.7 Chloride 103 Carbon Dioxide 22 Anion Gap 12 BUN 14 Creatinine 0.63 Est GFR ( Amer) > 60 Est GFR (Non-Af Amer) > 60 Glucose 98 Lactic Acid 3.9 H Calcium 7.1 L Magnesium Total Bilirubin AST ALT Alkaline Phosphatase Total Protein Albumin Prealbumin Triglycerides Blood Type O POSITIVE Antibody Screen NEGATIVE 10/27/18 10/27/18 10/27/18 20:25 23:12 23:12 WBC Cancelled RBC Cancelled Hgb Cancelled Hct Cancelled MCV Cancelled MCH Cancelled MCHC Cancelled RDW Cancelled Plt Count Cancelled Seg Neutrophils % Lymphocytes % Monocytes % Eosinophils % Basophils % Absolute Neutrophils Absolute Lymphocytes Absolute Monocytes Absolute Eosinophils Absolute Basophils Carbonic Acid 0.68 L 0.97 L HCO3/H2CO3 Ratio 34:1 23:1 ABG pH 7.64 H* 7.47 H ABG pCO2 22.6 L 32.3 L ABG pO2 108.8 H 113.4 H ABG HCO3 23.5 22.8 ABG O2 Saturation 98.8 H 98.4 H ABG Base Excess 2.4 -0.9 FiO2 30% 30% Sodium Potassium Chloride Carbon Dioxide Anion Gap BUN Creatinine Est GFR ( Amer) Est GFR (Non-Af Amer) Glucose Lactic Acid Calcium Magnesium Total Bilirubin AST ALT Alkaline Phosphatase Total Protein Albumin Prealbumin Triglycerides Blood Type Antibody Screen 10/27/18 10/27/18 10/27/18 23:12 23:12 23:46 WBC 22.4 H RBC 1.77 L Hgb 5.6 L D Hct 16.3 L MCV 92 MCH 31.4 MCHC 34.3 RDW 16.6 H Plt Count 79 L Seg Neutrophils % Lymphocytes % Monocytes % Eosinophils % Basophils % Absolute Neutrophils Absolute Lymphocytes Absolute Monocytes Absolute Eosinophils Absolute Basophils Carbonic Acid HCO3/H2CO3 Ratio ABG pH ABG pCO2 ABG pO2 ABG HCO3 ABG O2 Saturation ABG Base Excess FiO2 Sodium 136.0 L Potassium 3.6 Chloride 105 Carbon Dioxide 25 Anion Gap 6 BUN 15 Creatinine 0.73 Est GFR ( Amer) > 60 Est GFR (Non-Af Amer) > 60 Glucose 101 Lactic Acid 2.4 H Calcium 6.4 L* Magnesium Total Bilirubin 4.4 H AST 3908 H ALT 3022 H Alkaline Phosphatase 136 H Total Protein 3.0 L Albumin 1.8 L Prealbumin Triglycerides Blood Type Antibody Screen 10/28/18 10/28/18 10/28/18 04:40 04:40 04:40 WBC 24.0 H RBC 2.48 L Hgb 7.8 L D Hct 22.6 L MCV 91 MCH 31.2 MCHC 34.3 RDW 15.6 H Plt Count 69 L Seg Neutrophils % Not Reportable Lymphocytes % Not Reportable Monocytes % Not Reportable Eosinophils % Not Reportable Basophils % Not Reportable Absolute Neutrophils Not Reportable Absolute Lymphocytes Not Reportable Absolute Monocytes Not Reportable Absolute Eosinophils Not Reportable Absolute Basophils Not Reportable Carbonic Acid HCO3/H2CO3 Ratio ABG pH ABG pCO2 ABG pO2 ABG HCO3 ABG O2 Saturation ABG Base Excess FiO2 Sodium 138.2 Potassium 3.6 Chloride 106 Carbon Dioxide 25 Anion Gap 7 BUN 16 Creatinine 0.77 Est GFR ( Amer) > 60 Est GFR (Non-Af Amer) > 60 Glucose 102 Lactic Acid 1.7 Calcium 7.0 L* Magnesium 1.8 Total Bilirubin 4.9 H AST 3057 H ALT 2819 H Alkaline Phosphatase 157 H Total Protein 2.9 L Albumin 2.0 L Prealbumin Triglycerides Blood Type Antibody Screen 10/28/18 10/28/18 10/28/18 04:40 06:04 14:10 WBC RBC Hgb Hct MCV MCH MCHC RDW Plt Count Seg Neutrophils % Lymphocytes % Monocytes % Eosinophils % Basophils % Absolute Neutrophils Absolute Lymphocytes Absolute Monocytes Absolute Eosinophils Absolute Basophils Carbonic Acid 1.07 1.03 L HCO3/H2CO3 Ratio 22:1 22:1 ABG pH 7.46 H 7.45 ABG pCO2 35.4 34.3 L ABG pO2 98.8 116.9 H ABG HCO3 24.3 H 23.1 ABG O2 Saturation 97.8 98.4 H ABG Base Excess 0.5 -0.6 FiO2 30% 30% Sodium Potassium Chloride Carbon Dioxide Anion Gap BUN Creatinine Est GFR ( Amer) Est GFR (Non-Af Amer) Glucose Lactic Acid Calcium Magnesium Total Bilirubin AST ALT Alkaline Phosphatase Total Protein Albumin Prealbumin 5.1 L Triglycerides 41 Blood Type Antibody Screen 10/28/18 16:45 WBC 26.7 H RBC 2.90 L Hgb 9.0 L Hct 26.2 L MCV 90 MCH 31.0 MCHC 34.4 RDW 15.7 H Plt Count 58 L Seg Neutrophils % Lymphocytes % Monocytes % Eosinophils % Basophils % Absolute Neutrophils Absolute Lymphocytes Absolute Monocytes Absolute Eosinophils Absolute Basophils Carbonic Acid HCO3/H2CO3 Ratio ABG pH ABG pCO2 ABG pO2 ABG HCO3 ABG O2 Saturation ABG Base Excess FiO2 Sodium Potassium Chloride Carbon Dioxide Anion Gap BUN Creatinine Est GFR ( Amer) Est GFR (Non-Af Amer) Glucose Lactic Acid Calcium Magnesium Total Bilirubin AST ALT Alkaline Phosphatase Total Protein Albumin Prealbumin Triglycerides Blood Type Antibody Screen 10/28/18 10/28/18 06:04 06:04 Creatine Kinase 136 H CK-MB (CK-2) 3.43 Troponin I 0.033 Impressions: Abdomen/Pelvis CT 10/21/18 00:00 IMPRESSION: Diverticulitis of the descending colon and sigmoid colon. No definitive abscess or perforation. Pigtail catheter in the lower abdomen. Abdomen Ultrasound 10/22/18 00:00 IMPRESSION: No acute sonographic abnormality. Catheter Patency X-Ray 10/23/18 00:00 IMPRESSION: SMALL RESIDUAL ABSCESS CAVITY. FISTULOUS COMMUNICATION WITH THE DISTAL DESCENDING COLON WITH COLONIC FINDINGS DESCRIBED ABOVE. Fluoroscopy 10/23/18 00:00 IMPRESSION: SMALL RESIDUAL ABSCESS CAVITY. FISTULOUS COMMUNICATION WITH THE DISTAL DESCENDING COLON WITH COLONIC FINDINGS DESCRIBED ABOVE. Chest X-Ray 10/28/18 06:00 IMPRESSION: No significant change. Assessment & Plan - Diagnosis (1) Septic shock Is this a current diagnosis for this admission?: Yes Plan: She has evidence of multisystem organ failure, but there are some signs of improvement. Her creatinine has improved and she has had improvement in her b lood pressure. She is on broad-spectrum antibiotic coverage for likely organisms. Liver enzymes have improved. She is off the Cardizem drip and her heart rate is holding stable and her blood pressure improved. She got a couple more units of blood today. We will try to give her some Lasix. Fluid from the EVELIN drains has been sent off for creatinine to determine if she is got urine in the abdomen. Her creatinine is normal her vital signs are good, and we could consider a CT scan of the abdomen and pelvis with contrast, but since she is now putting out any urine we do not know if she will be able to eliminate it from her bloodstream despite her normal creatinine. Not sure if an abdominal ultrasound will be able to benefit us in this situation. We will discuss with surgery. If she is not putting out urine by tomorrow, she would likely benefit from a nephrology consultation to see if she would be a candidate for dialysis due to her refractory fluid overload. We will continue aggressive supportive care. 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
[2018-10-28 19:31] LABS: ANION GAP 8 (5-19); BLOOD UREA NITROGEN 18 mg/dL (7-20); CALCIUM 7.1 mg/dL (8.4-10.2); CARBON DIOXIDE 25 mmol/L (22-30); CHLORIDE 106 mmol/L (98-107); GLUCOSE 126 mg/dL (75-110); POTASSIUM 3.7 mmol/L (3.6-5.0); SODIUM 138.6 mmol/L (137-145)
--- NOTE | 2018-10-28 19:56 | Progress Note ---
Provider Note Provider Note: ID Consult Note Asked by Pharmacy to review patient's chart. Pt not seen or examined. Ms Trimble is a 58 year old woman who has had a percutaneous drain placed last month for intraabdominal/pelvic abscess. She had complaints of lower abdominal pain and nausea, was suspected of having clogged drain and possibly development of new abscess. Blood cultures on admission had growth of Clostridium species in one bottle. She was treated with IV Zosyn and bowel rest while tube was interrogated and further imaging performed. Fecal material was draining from the abscess drainage tube, and a fistulous communication with the descending colon was found. She was taken for surgery on 10/26/18 for acute sigmoid diverticulitis with perforation, was found to have a complex pelvic abscess and LUQ abscess associated with the splenic flexure of the colon; she underwent subtotal colectomy with ileostomy, resection of a portion of small bowel, needed irrigation for stool contamination into the peritoneum, and placement of 3 Kristofer drains. She developed septic shock with multisystem organ dysfunction including acute kidney injury and shock liver and was transferred to the ICU subsequently. Her WBC count increased to 32,000. She developed thrombocytopenia. Zosyn at this point was discontinued in favor of Unasyn and Flagyl. Repeat blood cultures have a Gram positive yasmeen preliminarily reported. Impression/Recommendations Anticipate that the Gram positive yasmeen in her blood cultures will be Clostridium species. Doubt the bacteremia represents an antibiotic failure given the amount of pathology encountered in the OR; suspect it reflects her disease burden and the need for source control that was being undertaken at that time. Can continue metronidazole, since it is the most reliably active agent against anaerobes. The rates of decreased susceptibility of E coli to Unasyn make it a less attractive option for covering enterics. Suggest treating pt with Rocephin/Flagyl instead of Unasyn/Flagyl. Rocephin does not address enterococcus, but dedicated enterococcal activity is usually not needed in mixed infections, particularly when coupled with aggressive debridement. Jigar Luz MD [facility] Infectious Diseases pager [phone]
[2018-10-28] MEDS ORDERED: FUROSEMIDE INJ/PF 100 MG/10 ML SDV IV ONE (20:00)
[2018-10-28] MEDS: DIPHENHYDRAMINE HCL 25 MG CAPSULE PO SCH (22:22)
[2018-10-29] MEDS: HYDROCORTISONE SOD SUCCINATE INJ/PF 100 MG/2 ML SDV IV SCH ×3 (01:22→17:23)
[2018-10-29] MEDS: IPRATROPIUM/ALBUTEROL 0.5-2.5 MG/3 ML AMPUL NEB SCH ×4 (02:15→20:30)
[2018-10-29 04:34] LABS: ARTERIAL BLOOD BASE EXCESS -0.6 mmol/L; ARTERIAL BLOOD H2CO3 1.06 mmol/L (1.05-1.35); ARTERIAL BLOOD HCO3 23.3 mmol/L (20-24); ARTERIAL BLOOD O2 SATURATION 98.3 % (94-98); ARTERIAL BLOOD PCO2 35.2 mmHg (35-45); ARTERIAL BLOOD PH 7.44 (7.35-7.45); ARTERIAL BLOOD PO2 113.2 mmHg (80-100); ARTERIAL BLOOD TOTAL CO2 24.4 mmol/L (21-25)
[2018-10-29 04:37] LABS: ARTERIAL BLOOD FIO2 30%
[2018-10-29 04:49] LABS: ALKALINE PHOSPHATASE 184 U/L (38-126); ANION GAP 7 (5-19); ASPARTATE AMINO TRANSFERASE 619 U/L (14-36); BILIRUBIN,DIRECT 2.8 mg/dL (0.0-0.4); BILIRUBIN,TOTAL 4.2 mg/dL (0.2-1.3); BLOOD UREA NITROGEN 22 mg/dL (7-20); CALCIUM 7.3 mg/dL (8.4-10.2); CARBON DIOXIDE 25 mmol/L (22-30); CHLORIDE 106 mmol/L (98-107); GLUCOSE 181 mg/dL (75-110); PHOSPHORUS 2.5 mg/dL (2.5-4.5); POTASSIUM 3.6 mmol/L (3.6-5.0); SODIUM 138.4 mmol/L (137-145); TOTAL PROTEIN 3.4 g/dL (6.3-8.2)
[2018-10-29 04:56] LABS: PREALBUMIN 4.9 mg/dL (17.6-36.0)
[2018-10-29 04:59] LABS: ALANINE AMINOTRANSFERASE 1685 U/L (9-52); HEMATOCRIT 25.1 % (36.0-47.0); HEMOGLOBIN 8.7 g/dL (12.0-15.5); MEAN CORPUSCULAR HGB CONC 34.5 g/dL (32.0-36.0); MEAN CORPUSCULAR VOLUME 90 fl (80-97); RED CELL DISTRIBUTION WIDTH 15.9 % (11.5-14.0); WHITE BLOOD COUNT 25.5 10^3/uL (4.0-10.5)
[2018-10-29 05:19] LABS: PLATELET COUNT 54 10^3/uL (150-450)
[2018-10-29] MEDS: METRONIDAZOLE 500 MG/NS RTU 500 MG/100 ML RTUPB IV SCH ×3 (05:25→17:23)
[2018-10-29] MEDS: AMPICILLIN SODIUM/SULBACTAM NA 3 GM in NORMAL SALINE 100 ML IV SCH (05:26)
[2018-10-29] MEDS: MIDAZOLAM HCL 50 MG/100 ML RTUINJ IV PRN (06:06)
[2018-10-29 06:49] LABS: ABSOLUTE LYMPHOCYTES# (MANUAL) 0.8 10^3/uL (0.5-4.7); ABSOLUTE MONOCYTES # (MANUAL) 0.8 10^3/uL (0.1-1.4); BAND NEUTROPHILS % (MANUAL) 6 % (3-5); BASOPHILS % (MANUAL) 0 % (0-2); EOSINOPHILS % (MANUAL) 0 % (0-6); LYMPHOCYTES % (MANUAL) 3 % (13-45); MONOCYTES % (MANUAL) 3 % (3-13); SEGMENTED NEUTROPHILS % (MAN) 88 % (42-78); TOTAL CELLS COUNTED 100
[2018-10-29 06:54] LABS: PLATELET COMMENT ADEQUATE
[2018-10-29 06:57] LABS: POLYCHROMASIA 1+
[2018-10-29] MEDS: GABAPENTIN 300 MG CAPSULE PO SCH ×2 (09:29→21:05)
[2018-10-29] MEDS: ENOXAPARIN SODIUM INJ 40 MG/0.4 ML DISP.SYRIN SUBCUT SCH (09:29)
[2018-10-29] MEDS: FLUOXETINE HCL 20 MG CAPSULE PO SCH (09:29)
[2018-10-29] MEDS: THIAMINE HCL 100 MG TABLET NG SCH ×2 (09:44→17:23)
[2018-10-29] MEDS: CEFTRIAXONE 2 GM/D5W RTU 2 GM/50 ML RTUPB IV SCH (09:44)
--- NOTE | 2018-10-29 09:52 | PDOC PROGRESS REPORT ---
Subjective Progress Note for:: 10/29/18 Subjective:: Intubated and sedated Reason For Visit: DIVERTICULITIS,SIGMOID AND DESCENDING COLON,INTRA- Physical Exam Vital Signs: Temp Pulse Resp BP Pulse Ox 96.2 F L 86 10 L 127/75 H 100 10/29/18 07:50 10/29/18 08:16 10/29/18 08:16 10/29/18 07:50 10/29/18 08:16 Intake & Output 10/28/18 10/29/18 10/30/18 06:59 06:59 06:59 Intake Total 6651 1331 Output Total 1301 1468 45 Balance 5350 -137 -45 Weight 92.3 kg 93 kg General appearance: PRESENT: other - intubated and sedated Respiratory exam: PRESENT: clear to auscultation godwin Cardiovascular exam: PRESENT: tachycardia GI/Abdominal exam: PRESENT: normal bowel sounds, soft, other - ileostomy pink with stools; 3 EVELIN drains with serosanguinous fluid Extremities exam: PRESENT: +2 edema - all 4 extremities, warm, viable Skin exam: PRESENT: other - Abdominal wound, pink, with serous drainage, fascia intact Results Laboratory Results: 10/29/18 04:16 10/29/18 04:16 10/25/18 10/28/18 10/28/18 15:10 06:04 14:10 WBC RBC Hgb Hct MCV MCH MCHC RDW Plt Count Seg Neutrophils % Lymphocytes % Monocytes % Eosinophils % Basophils % Absolute Neutrophils Absolute Lymphocytes Absolute Monocytes Absolute Eosinophils Absolute Basophils Carbonic Acid 1.03 L HCO3/H2CO3 Ratio 22:1 ABG pH 7.45 ABG pCO2 34.3 L ABG pO2 116.9 H ABG HCO3 23.1 ABG O2 Saturation 98.4 H ABG Base Excess -0.6 FiO2 30% Sodium Potassium Chloride Carbon Dioxide Anion Gap BUN Creatinine Est GFR ( Amer) Est GFR (Non-Af Amer) Glucose Lactic Acid Calcium Phosphorus Magnesium Total Bilirubin AST ALT Alkaline Phosphatase Total Protein Albumin Prealbumin 5.1 L Triglycerides 41 Blood Type O POSITIVE Antibody Screen NEGATIVE 10/28/18 10/28/18 10/29/18 16:45 19:00 04:16 WBC 26.7 H RBC 2.90 L Hgb 9.0 L Hct 26.2 L MCV 90 MCH 31.0 MCHC 34.4 RDW 15.7 H Plt Count 58 L Seg Neutrophils % Lymphocytes % Monocytes % Eosinophils % Basophils % Absolute Neutrophils Absolute Lymphocytes Absolute Monocytes Absolute Eosinophils Absolute Basophils Carbonic Acid 1.06 HCO3/H2CO3 Ratio 21:1 ABG pH 7.44 ABG pCO2 35.2 ABG pO2 113.2 H ABG HCO3 23.3 ABG O2 Saturation 98.3 H ABG Base Excess -0.6 FiO2 30% Sodium 138.6 Potassium 3.7 Chloride 106 Carbon Dioxide 25 Anion Gap 8 BUN 18 Creatinine 0.94 Est GFR ( Amer) > 60 Est GFR (Non-Af Amer) > 60 Glucose 126 H Lactic Acid Calcium 7.1 L Phosphorus Magnesium Total Bilirubin AST ALT Alkaline Phosphatase Total Protein Albumin Prealbumin Triglycerides Blood Type Antibody Screen 10/29/18 10/29/18 10/29/18 04:16 04:16 04:16 WBC 25.5 H RBC 2.80 L Hgb 8.7 L Hct 25.1 L MCV 90 MCH 31.0 MCHC 34.5 RDW 15.9 H Plt Count 54 L Seg Neutrophils % Not Reportable Lymphocytes % Not Reportable Monocytes % Not Reportable Eosinophils % Not Reportable Basophils % Not Reportable Absolute Neutrophils Not Reportable Absolute Lymphocytes Not Reportable Absolute Monocytes Not Reportable Absolute Eosinophils Not Reportable Absolute Basophils Not Reportable Carbonic Acid HCO3/H2CO3 Ratio ABG pH ABG pCO2 ABG pO2 ABG HCO3 ABG O2 Saturation ABG Base Excess FiO2 Sodium 138.4 Potassium 3.6 Chloride 106 Carbon Dioxide 25 Anion Gap 7 BUN 22 H Creatinine 1.19 Est GFR ( Amer) 56 L Est GFR (Non-Af Amer) 47 L Glucose 181 H Lactic Acid 1.8 Calcium 7.3 L Phosphorus 2.5 Magnesium 1.9 Total Bilirubin 4.2 H AST 619 H ALT 1685 H Alkaline Phosphatase 184 H Total Protein 3.4 L Albumin 2.0 L Prealbumin 4.9 L Triglycerides Blood Type Antibody Screen 10/28/18 10/28/18 06:04 06:04 Creatine Kinase 136 H CK-MB (CK-2) 3.43 Troponin I 0.033 Impressions: Abdomen/Pelvis CT 10/21/18 00:00 IMPRESSION: Diverticulitis of the descending colon and sigmoid colon. No definitive abscess or perforation. Pigtail catheter in the lower abdomen. Abdomen Ultrasound 10/22/18 00:00 IMPRESSION: No acute sonographic abnormality. Catheter Patency X-Ray 10/23/18 00:00 IMPRESSION: SMALL RESIDUAL ABSCESS CAVITY. FISTULOUS COMMUNICATION WITH THE DISTAL DESCENDING COLON WITH COLONIC FINDINGS DESCRIBED ABOVE. Fluoroscopy 10/23/18 00:00 IMPRESSION: SMALL RESIDUAL ABSCESS CAVITY. FISTULOUS COMMUNICATION WITH THE DISTAL DESCENDING COLON WITH COLONIC FINDINGS DESCRIBED ABOVE. Chest X-Ray 10/28/18 06:00 IMPRESSION: No significant change. Assessment & Plan - Diagnosis (1) Colonic fistula Is this a current diagnosis for this admission?: Yes (2) Diverticulitis large intestine Qualifiers: Diverticulitis bleeding: without bleeding Diverticulitis complication: with perforation and abscess Qualified Code(s): K57.20 - Diverticulitis of large intestine with perforation and abscess without bleeding Is this a current diagnosis for this admission?: Yes (3) Abscess of abdominal cavity Is this a current diagnosis for this admission?: Yes - Plan Summary Plan Summary: A/ POD#3 after total colectomy, endileostomy, Vanegas's pouch VSS, AF Anuria Moderately elevated serosanguinous output from each EVELIN drain Respiratory: normal ABG's, no acidosis CV: tachycardia GI: stools in ileostomy bag Renal: BUN/creatinine 22/1.19 today despite anuria, reason unclear; possible low protein or albumin might be the cause of this low values despite suspected ATN Creatinine from EVELIN drain < 3.2, not consistent with ureteral injury and intraperitoneal urine leak (it should be > 10 times blood creatinine) Metabolic: elevated bilirubin, transimitis as per possible shock liver picture P/ Continue endotracheal intubation and CV suppport Renal consult pending No dialysis contemplated at this time; no acidosis, hyperkalemia, or sign of CHF present; however, will wait for Nephrology recommendation Start Tube Feeding, Certified Medical Technician Assistant consult Send urine for Na and Creatinine alfonso calculate FENA even though she has received several doses of Lasix w/o response
[2018-10-29] MEDS ORDERED: FAT EMULSIONS 250 ML IV SCH (10:00)
[2018-10-29 12:54] LABS: ANION GAP 10 (5-19); BLOOD UREA NITROGEN 26 mg/dL (7-20); CALCIUM 7.3 mg/dL (8.4-10.2); CARBON DIOXIDE 24 mmol/L (22-30); CHLORIDE 105 mmol/L (98-107); GLUCOSE 196 mg/dL (75-110); POTASSIUM 3.7 mmol/L (3.6-5.0); SODIUM 138.6 mmol/L (137-145)
[2018-10-29] MEDS ORDERED: FUROSEMIDE INJ/PF 100 MG/10 ML SDV IV ONE (14:11)
--- NOTE | 2018-10-29 14:45 | PDOC CONSULTATION ---
Consultation Consult Date: 10/29/18 Attending physician:: RENEE OROZCO Consult reason:: I was asked to see the patient because of anuria in a patient with septic shock. History of Present Illness Admission Date/PCP: 10/21/18 16:44 OH SCHULTZ DO History of Present Illness: PAULETTE HARO is a 58 year old female with history of ulcerative colitis and intra-abdominal abscess who was admitted on October 21, 2018 initially because of obstruction in her drain. She was initially treated with IV antibiotics. On October 26 she underwent subtotal colectomy with colostomy. Subsequently the patient went into septic shock, associated with very severe hypotension and respiratory failure. Currently the patient remains to be intubated. On October 26 her systolic blood pressure went down as low as 35/18 to 62/46 requiring 4 vasopressors. She was resuscitated with a lot of fluids and her intake and output balance as of this time is approximately 15 L positive. For the last 3 days the patient's urine output has significantly diminished. On October 26 she made 707 mL of urine yesterday, the next day it was 116 mL and yesterday it was only 58 mL. Aggressive fluid resuscitation on October 26. It went up to 1.82 days ago and is currently she has an albumin of 2.0. She is currently on TPN. In terms of her kidney function on admission she had a BUN of 27, creatinine of 0.51 with estimated GFR greater than 60 today she had a BUN of 26, creatinine of 1.25 and estimated GFR of 44. Baseline creatinine in September 2018 range anywhere between 0.28-0.34 and sometime in July 2018 the creatinine ranged from 0.37-0.45. Patient is currently on IV antibiotics per ID recommendation. Abdominal ultrasound October 22 showed right kidney measuring 11.1 cm and left kidney measuring at 12.2 cm without any nor nephrolithiasis. Patient was given a combination albumin and IV Lasix up to 80 mg IV at one-point without significant response in terms of urine output. As of this time the patient's blood pressure is good without any vasopressors. Past Medical History GI Medical History: Reports: Diverticulitis, Ulcerative Colitis Musculoskeltal Medical History: Reports: Arthritis - psoriatic Skin Medical History: Reports: Psoriasis Psychiatric Medical History: Reports: Depression Past Surgical History Past Surgical History: Reports: Cholecystectomy, Colectomy, Colostomy, Hysterectomy, Orthopedic Surgery - right knee, left hand Social History Information Source: [facility] Records Lives with: [facility] - Presented from the nursing home facility but lily zhou lived at home Smoking Status: Former Smoker Frequency of Alcohol Use: None Drugs: None - Advance Directive Resuscitation Status: Full Code Family History Family History: Unable to be obtained due to being intubated. Parental Family History Reviewed: No Children Family History Reviewed: No Sibling(s) Family History Reviewed.: No Medication/Allergy Home Medications: Fluoxetine HCl [Prozac] 40 mg PO DAILY 09/23/18 Fluticasone Propionate [Flonase Nasal Sharon 50 Mcg/Sharon 16 gm] 2 spray NASL DAILYP PRN 09/23/18 Gabapentin [Neurontin 300 mg Capsule] 300 mg PO DAILY 09/23/18 Gabapentin [Neurontin 300 mg Capsule] 600 mg PO QHS 09/23/18 Oxycodone HCl/Acetaminophen [Percocet 5-325 mg Tablet] 0.5 tab PO Q6HP PRN 10/21 Allergies/Adverse Reactions: pineapple Allergy (Mild, Verified 10/21/18 12:14) latex [Latex] Allergy (Verified 10/21/18 12:14) itching nickel [Nickel] Allergy (Verified 10/21/18 12:14) ITCHY RASH sulfamethoxazole [From Bactrim] Allergy (Verified 10/21/18 12:14) red rash trimethoprim [From Bactrim] Allergy (Verified 10/21/18 12:14) red rash MERCURY Allergy (Uncoded 10/21/18 12:14) ITCHY RASH Review of Systems ROS unobtainable: Due to endotracheal tube, Due to mental status Physical Exam Vital Signs: Temp Pulse Resp BP Pulse Ox 95.9 F L 87 10 L 138/88 H 100 10/29/18 12:00 10/29/18 12:00 10/29/18 12:00 10/29/18 12:00 10/29/18 12:00 Intake & Output 10/28/18 10/29/18 10/30/18 06:59 06:59 06:59 Intake Total 6621 1371 52 Output Total 9914 3198 265 Balance 5350 -37 -213 Weight 92.3 kg 93 kg Exam: General appearance: Patient intubated and still sedated even though off sedation Head exam: PRESENT: atraumatic, normocephalic Eye exam: PRESENT: Eyes are closed with significant facial edema Mouth exam: PRESENT: moist, neck supple, tongue midline Neck exam: PRESENT: full ROM. ABSENT: carotid bruit, JVD, lymphadenopathy, thyromegaly Respiratory exam: PRESENT: Diminished to auscultation bilaterally. ABSENT: rales, rhonchi, stridor, wheezes Cardiovascular exam: PRESENT: RRR, +S1, +S2. ABSENT: systolic murmur Pulses: PRESENT: normal radial pulses, normal dorsalis pedis pulses GI/Abdominal exam: PRESENT: Very hypoactive bowel sounds, soft. Positive colostomy on right lower quadrant with 3 EVELIN drains. Positive subcutaneous edema ABSENT: guarding, mass, tenderness Rectal exam: Deferred Extremities exam: PRESENT: full ROM. Patient has grade 4 bilateral lower extremity edema, upper extremity edema and overall anasarca ABSENT: calf tenderness Musculoskeletal: PRESENT: full ROM. ABSENT: deformity Neurological exam: PRESENT: Still sedated Psychiatric exam: Cannot be assessed at this time Skin exam: PRESENT: intact, dry, warm. ABSENT: rash Results Laboratory Results: 10/29/18 04:16 10/29/18 12:20 10/28/18 10/28/18 10/28/18 14:10 16:45 19:00 WBC 26.7 H RBC 2.90 L Hgb 9.0 L Hct 26.2 L MCV 90 MCH 31.0 MCHC 34.4 RDW 15.7 H Plt Count 58 L Seg Neutrophils % Lymphocytes % Monocytes % Eosinophils % Basophils % Absolute Neutrophils Absolute Lymphocytes Absolute Monocytes Absolute Eosinophils Absolute Basophils Carbonic Acid 1.03 L HCO3/H2CO3 Ratio 22:1 ABG pH 7.45 ABG pCO2 34.3 L ABG pO2 116.9 H ABG HCO3 23.1 ABG O2 Saturation 98.4 H ABG Base Excess -0.6 FiO2 30% Sodium 138.6 Potassium 3.7 Chloride 106 Carbon Dioxide 25 Anion Gap 8 BUN 18 Creatinine 0.94 Est GFR ( Amer) > 60 Est GFR (Non-Af Amer) > 60 Glucose 126 H Lactic Acid Calcium 7.1 L Phosphorus Magnesium Total Bilirubin AST ALT Alkaline Phosphatase Total Protein Albumin Prealbumin 10/29/18 10/29/18 10/29/18 04:16 04:16 04:16 WBC 25.5 H RBC 2.80 L Hgb 8.7 L Hct 25.1 L MCV 90 MCH 31.0 MCHC 34.5 RDW 15.9 H Plt Count 54 L Seg Neutrophils % Not Reportable Lymphocytes % Not Reportable Monocytes % Not Reportable Eosinophils % Not Reportable Basophils % Not Reportable Absolute Neutrophils Not Reportable Absolute Lymphocytes Not Reportable Absolute Monocytes Not Reportable Absolute Eosinophils Not Reportable Absolute Basophils Not Reportable Carbonic Acid 1.06 HCO3/H2CO3 Ratio 21:1 ABG pH 7.44 ABG pCO2 35.2 ABG pO2 113.2 H ABG HCO3 23.3 ABG O2 Saturation 98.3 H ABG Base Excess -0.6 FiO2 30% Sodium 138.4 Potassium 3.6 Chloride 106 Carbon Dioxide 25 Anion Gap 7 BUN 22 H Creatinine 1.19 Est GFR ( Amer) 56 L Est GFR (Non-Af Amer) 47 L Glucose 181 H Lactic Acid Calcium 7.3 L Phosphorus 2.5 Magnesium 1.9 Total Bilirubin 4.2 H AST 619 H ALT 1685 H Alkaline Phosphatase 184 H Total Protein 3.4 L Albumin 2.0 L Prealbumin 4.9 L 10/29/18 10/29/18 04:16 12:20 WBC RBC Hgb Hct MCV MCH MCHC RDW Plt Count Seg Neutrophils % Lymphocytes % Monocytes % Eosinophils % Basophils % Absolute Neutrophils Absolute Lymphocytes Absolute Monocytes Absolute Eosinophils Absolute Basophils Carbonic Acid HCO3/H2CO3 Ratio ABG pH ABG pCO2 ABG pO2 ABG HCO3 ABG O2 Saturation ABG Base Excess FiO2 Sodium 138.6 Potassium 3.7 Chloride 105 Carbon Dioxide 24 Anion Gap 10 BUN 26 H Creatinine 1.25 Est GFR ( Amer) 53 L Est GFR (Non-Af Amer) 44 L Glucose 196 H Lactic Acid 1.8 Calcium 7.3 L Phosphorus Magnesium Total Bilirubin AST ALT Alkaline Phosphatase Total Protein Albumin Prealbumin 10/28/18 10/28/18 06:04 06:04 Creatine Kinase 136 H CK-MB (CK-2) 3.43 Troponin I 0.033 Impressions: Abdomen/Pelvis CT 10/21/18 00:00 IMPRESSION: Diverticulitis of the descending colon and sigmoid colon. No definitive abscess or perforation. Pigtail catheter in the lower abdomen. Abdomen Ultrasound 10/22/18 00:00 IMPRESSION: No acute sonographic abnormality. Catheter Patency X-Ray 10/23/18 00:00 IMPRESSION: SMALL RESIDUAL ABSCESS CAVITY. FISTULOUS COMMUNICATION WITH THE DISTAL DESCENDING COLON WITH COLONIC FINDINGS DESCRIBED ABOVE. Fluoroscopy 10/23/18 00:00 IMPRESSION: SMALL RESIDUAL ABSCESS CAVITY. FISTULOUS COMMUNICATION WITH THE DISTAL DESCENDING COLON WITH COLONIC FINDINGS DESCRIBED ABOVE. Chest X-Ray 10/28/18 06:00 IMPRESSION: No significant change. Assessment & Plan - Diagnosis (1) Acute kidney failure with tubular necrosis Is this a current diagnosis for this admission?: Yes Plan: This is due to septic shock and intra-abdominal sepsis. Patient is currently anuric and 50 mL fluid overloaded. Although the patient's BUN and creatinine appear to be low, these are increased more than 50% from baseline. Her BUN and creatinine are low because of severe malnutrition. For today I am going to try to give the patient again 25 g of IV albumin followed by 200 mg of IV Lasix x1 dose. Due to anuria and severe anasarca the patient would need an acute renal replacement therapy. I talked to the patient's 2 sons, Edil and Juni regarding the hemodialysis procedure, the benefits and the risks of the procedure to include bleeding, infection, hemodynamic instability including hypotension and cardiac arrest and they both agreed to proceed. We will request surgery to put the trialysis catheter and will plan for first dialysis treatment tomorrow. Meanwhile avoid further nephrotoxic medications. Adjust medications accordingly per kidney function. Continue to monitor kidney function and electrolytes and accordingly. (2) Septic shock Is this a current diagnosis for this admission?: Yes (3) Anasarca Is this a current diagnosis for this admission?: Yes Plan: Due to severe hypoalbuminemia and acute kidney injury with anuria. (4) Hypoalbuminemia Is this a current diagnosis for this admission?: Yes (5) Malnutrition Is this a current diagnosis for this admission?: Yes (6) Colonic fistula Is this a current diagnosis for this admission?: Yes (7) Diverticulitis large intestine Qualifiers: Diverticulitis bleeding: without bleeding Diverticulitis complication: with perforation and abscess Qualified Code(s): K57.20 - Diverticulitis of large intestine with perforation and abscess without bleeding Is this a current diagnosis for this admission?: Yes (8) Abscess of abdominal cavity Is this a current diagnosis for this admission?: Yes (9) Anemia Qualifiers: Anemia type: other cause Is this a current diagnosis for this admission?: Yes - Notes Notes: Thank you very much for this consultation. I will follow the patient with you. Assessment and plan discussed with the patient's 2 sons, Edil and Juni. Plan also discussed with her nurse today. - Time Time Spent: 50 to 70 Minutes
[2018-10-29] MEDS ORDERED: LIDOCAINE 1% INJ-PF (10 MG/ML) 30 ML SDV ONE (15:54)
[2018-10-29 15:55] LABS: APPEARANCE,URINE CLOUDY; BILIRUBIN,URINE NEGATIVE (NEGATIVE); COLOR,URINE YELLOW; GLUCOSE, URINE NEGATIVE (NEGATIVE); KETONES,URINE NEGATIVE (NEGATIVE); LEUKOCYTE ESTERASE,URINE TRACE (NEGATIVE); NITRITE,URINE NEGATIVE (NEGATIVE); PROTEIN,URINE 100 mg/dL (NEGATIVE); URINE SPECIFIC GRAVITY 1.015; UROBILINOGEN,URINE NEGATIVE mg/dL (<2.0)
[2018-10-29] MEDS: ALBUMIN HUMAN 12.5 GM/50 ML RTUINJ IV SCH ×2 (15:57→17:23)
--- NOTE | 2018-10-29 16:02 | PDOC CONSULTATION ---
Consultation Consult Date: 10/27/18 Attending physician:: TAD PERSON Consult reason:: septic shock History of Present Illness Admission Date/PCP: 10/21/18 16:44 OH SCHULTZ DO History of Present Illness: PAULETTE HARO is a 58 year old female recent history of abdominal surgery with sub sequent drain placement cream became obstructed on and during the visit in the surgical clinic patient was subsequently sent to the emergency room where a drain was obstruction was removed large amounts of purulent material was expressed from the drain CT scan and implied that she had a large diverticulitis and she was sent to the emergent to the operating room where she had a semi- colectomy and she became hypotensive presumably due to sepsis and was subsequently transferred to the ICU she is currently intubated and sedated Past Medical History Cardiac Medical History: Denies: Coronary Artery Disease, Myocardial Infarction, Hypertension Pulmonary Medical History: Denies: Asthma, Bronchitis, Chronic Obstructive Pulmonary Disease (COPD), Pneumonia Neurological Medical History: Denies: Seizures GI Medical History: Denies: Hepatitis, Hiatal Hernia Musculoskeltal Medical History: Reports: Arthritis - psoriatic Skin Medical History: Reports: Psoriasis Psychiatric Medical History: Reports: Depression Hematology: Denies: Anemia, Sickle Cell Disease Past Surgical History Past Surgical History: Reports: Cholecystectomy, Hysterectomy, Orthopedic Surgery - right knee, left hand Denies: Amputation, Mastectomy Social History Information Source: [facility] Records Lives with: [facility]mediate - [facility] but previously lived at home Smoking Status: Former Smoker Frequency of Alcohol Use: None Drugs: None - Advance Directive Resuscitation Status: Full Code Family History Parental Family History Reviewed: No Children Family History Reviewed: No Sibling(s) Family History Reviewed.: No Medication/Allergy Home Medications: Fluoxetine HCl [Prozac] 40 mg PO DAILY 09/23/18 Fluticasone Propionate [Flonase Nasal [place] 50 Mcg/[place] 16 gm] 2 spray NASL DAILYP PRN 09/23/18 Gabapentin [Neurontin 300 mg Capsule] 300 mg PO DAILY 09/23/18 Gabapentin [Neurontin 300 mg Capsule] 600 mg PO QHS 09/23/18 Oxycodone HCl/Acetaminophen [Percocet 5-325 mg Tablet] 0.5 tab PO Q6HP PRN 10/21/18 Allergies/Adverse Reactions: pineapple Allergy (Mild, Verified 10/21/18 12:14) latex [Latex] Allergy (Verified 10/21/18 12:14) itching nickel [Nickel] Allergy (Verified 10/21/18 12:14) ITCHY RASH sulfamethoxazole [From Bactrim] Allergy (Verified 10/21/18 12:14) red rash trimethoprim [From Bactrim] Allergy (Verified 10/21/18 12:14) red rash MERCURY Allergy (Uncoded 10/21/18 12:14) ITCHY RASH Review of Systems ROS unobtainable: Due to endotracheal tube Physical Exam Vital Signs: Temp Pulse Resp BP Pulse Ox 96.7 F L 102 H 16 126/82 H 100 10/27/18 08:00 10/27/18 08:00 10/27/18 08:00 10/27/18 08:00 10/27/18 08:27 Intake & Output 10/26/18 10/27/18 10/28/18 06:59 06:59 06:59 Intake Total 1488 76955 102 Output Total 60 9992 230 Balance 1428 7309 -128 Weight 83.5 kg General appearance: PRESENT: no acute distress, disheveled, morbidly obese. ABSENT: cooperative Head exam: PRESENT: atraumatic, normocephalic Eye exam: PRESENT: conjunctiva pale. ABSENT: EOMI, nystagmus Mouth exam: PRESENT: dry mucosa, neck supple, tongue midline, other - ET tube Neck exam: ABSENT: carotid bruit, JVD, lymphadenopathy, thyromegaly, tracheal deviation, tracheostomy Respiratory exam: PRESENT: decreased breath sounds, prolonged expiratory phas, rhonchi, unlabored. ABSENT: retraction, stridor Cardiovascular exam: PRESENT: RRR, +S1, +S2, tachycardia Pulses: PRESENT: normal radial pulses GI/Abdominal exam: PRESENT: other - Status post surgery multiple drains Gentrourinary exam: PRESENT: indwelling catheter Extremities exam: ABSENT: calf tenderness, clubbing, joint swelling, pedal edema Musculoskeletal exam: ABSENT: ambulatory, deformity, dislocation Neurological exam: ABSENT: awake Skin exam: PRESENT: dry, warm Results Laboratory Results: 10/27/18 03:54 10/27/18 03:54 10/25/18 10/26/18 10/26/18 15:10 13:10 13:32 WBC 20.0 H RBC 3.25 L Hgb 10.1 L Hct 30.5 L MCV 94 MCH 31.0 MCHC 33.0 RDW 17.2 H Plt Count 344 Seg Neutrophils % Not Reportable Lymphocytes % Not Reportable Monocytes % Not Reportable Eosinophils % Not Reportable Basophils % Not Reportable Absolute Neutrophils Not Reportable Absolute Lymphocytes Not Reportable Absolute Monocytes Not Reportable Absolute Eosinophils Not Reportable Absolute Basophils Not Reportable Carbonic Acid 1.45 H HCO3/H2CO3 Ratio 11:1 ABG pH 7.17 L* ABG pCO2 48.2 H ABG pO2 150.8 H ABG HCO3 17.3 L ABG O2 Saturation 98.4 H ABG Base Excess -10.8 FiO2 40% Sodium Potassium Chloride Carbon Dioxide Anion Gap BUN Creatinine Est GFR ( Amer) Est GFR (Non-Af Amer) Glucose Calcium Magnesium Total Bilirubin AST ALT Alkaline Phosphatase Total Protein Albumin Blood Type O POSITIVE Antibody Screen NEGATIVE 10/26/18 10/26/18 10/26/18 13:32 21:45 21:45 WBC 32.4 H* RBC 2.91 L Hgb 9.2 L Hct 28.1 L MCV 96 MCH 31.5 MCHC 32.7 RDW 17.4 H Plt Count 279 Seg Neutrophils % Not Reportable Lymphocytes % Not Reportable Monocytes % Not Reportable Eosinophils % Not Reportable Basophils % Not Reportable Absolute Neutrophils Not Reportable Absolute Lymphocytes Not Reportable Absolute Monocytes Not Reportable Absolute Eosinophils Not Reportable Absolute Basophils Not Reportable Carbonic Acid HCO3/H2CO3 Ratio ABG pH ABG pCO2 ABG pO2 ABG HCO3 ABG O2 Saturation ABG Base Excess FiO2 Sodium 137.6 134.2 L Potassium 4.6 4.7 Chloride 108 H 103 Carbon Dioxide 20 L D 14 L Anion Gap 10 17 BUN 9 9 Creatinine 0.29 L 0.40 L Est GFR ( Amer) > 60 > 60 Est GFR (Non-Af Amer) > 60 > 60 Glucose 256 H 266 H Calcium 6.2 L* 6.5 L* Magnesium 1.3 L 2.7 H D Total Bilirubin 0.5 1.9 H AST 25 3000 H ALT 60 H 2404 H Alkaline Phosphatase 252 H 186 H Total Protein 2.2 L 3.3 L Albumin < 1.0 L 1.9 L Blood Type Antibody Screen 10/26/18 10/27/18 10/27/18 21:53 03:54 03:54 WBC 23.6 H RBC 2.79 L Hgb 8.8 L Hct 25.9 L MCV 93 MCH 31.6 MCHC 34.1 RDW 16.8 H Plt Count 157 Seg Neutrophils % Not Reportable Lymphocytes % Not Reportable Monocytes % Not Reportable Eosinophils % Not Reportable Basophils % Not Reportable Absolute Neutrophils Not Reportable Absolute Lymphocytes Not Reportable Absolute Monocytes Not Reportable Absolute Eosinophils Not Reportable Absolute Basophils Not Reportable Carbonic Acid 0.99 L HCO3/H2CO3 Ratio 10:1 ABG pH 7.10 L* ABG pCO2 33.0 L ABG pO2 481.2 H ABG HCO3 10.1 L ABG O2 Saturation 99.8 H ABG Base Excess -18.3 FiO2 100% Sodium 139.4 Potassium 4.6 Chloride 105 Carbon Dioxide 19 L Anion Gap 15 BUN 11 Creatinine 0.55 Est GFR ( Amer) > 60 Est GFR (Non-Af Amer) > 60 Glucose 245 H Calcium 6.8 L* Magnesium 2.4 H Total Bilirubin 2.4 H AST 54739 H ALT 6055 H Alkaline Phosphatase 193 H Total Protein 3.3 L Albumin 2.1 L Blood Type Antibody Screen 10/27/18 03:54 WBC RBC Hgb Hct MCV MCH MCHC RDW Plt Count Seg Neutrophils % Lymphocytes % Monocytes % Eosinophils % Basophils % Absolute Neutrophils Absolute Lymphocytes Absolute Monocytes Absolute Eosinophils Absolute Basophils Carbonic Acid 0.85 L HCO3/H2CO3 Ratio 19:1 ABG pH 7.39 ABG pCO2 28.1 L ABG pO2 149.5 H ABG HCO3 16.4 L ABG O2 Saturation 98.9 H ABG Base Excess -7.6 FiO2 40% Sodium Potassium Chloride Carbon Dioxide Anion Gap BUN Creatinine Est GFR ( Amer) Est GFR (Non-Af Amer) Glucose Calcium Magnesium Total Bilirubin AST ALT Alkaline Phosphatase Total Protein Albumin Blood Type Antibody Screen 10/21/18 18:45 Blood Blood Culture - Final NO GROWTH IN 5 DAYS Impressions: Abdomen/Pelvis CT 10/21/18 00:00 IMPRESSION: Diverticulitis of the descending colon and sigmoid colon. No definitive abscess or perforation. Pigtail catheter in the lower abdomen. Abdomen Ultrasound 10/22/18 00:00 IMPRESSION: No acute sonographic abnormality. Catheter Patency X-Ray 10/23/18 00:00 IMPRESSION: SMALL RESIDUAL ABSCESS CAVITY. FISTULOUS COMMUNICATION WITH THE DISTAL DESCENDING COLON WITH COLONIC FINDINGS DESCRIBED ABOVE. Fluoroscopy 10/23/18 00:00 IMPRESSION: SMALL RESIDUAL ABSCESS CAVITY. FISTULOUS COMMUNICATION WITH THE DISTAL DESCENDING COLON WITH COLONIC FINDINGS DESCRIBED ABOVE. Chest X-Ray 10/26/18 00:00 IMPRESSION: 1. Interval placement of endotracheal and nasogastric tubes, since the prior examination dated 10/21/2018. 2. New finding of left base infiltrate/atelectasis. Linear subsegmental atelectasis at the right lung base. 3. Additional findings, see as above. Assessment & Plan - Diagnosis (1) Septic shock Is this a current diagnosis for this admission?: Yes Plan: Labs- All tests 24 hr 10/26/18 10/26/18 10/26/18 13:10 13:32 21:45 WBC 20.0 H 32.4 H* Hgb 10.1 L 9.2 L Plt Count 344 279 ABG pH 7.17 L* ABG pCO2 48.2 H ABG pO2 150.8 H FiO2 40% 10/26/18 10/27/18 10/27/18 21:53 03:54 03:54 WBC 23.6 H Hgb 8.8 L Plt Count 157 ABG pH 7.10 L* 7.39 ABG pCO2 33.0 L 28.1 L ABG pO2 481.2 H 149.5 H FiO2 100% 40% 10/27/18 10/27/18 10/27/18 10:40 20:25 23:12 WBC Hgb Plt Count ABG pH 7.59 H 7.64 H* 7.47 H ABG pCO2 22.7 L 22.6 L 32.3 L ABG pO2 84.6 108.8 H 113.4 H FiO2 30% 30% 30% 10/27/18 10/28/18 10/28/18 23:46 04:40 04:40 WBC 22.4 H 24.0 H Hgb 5.6 L D 7.8 L D Plt Count 79 L 69 L ABG pH 7.46 H ABG pCO2 35.4 ABG pO2 98.8 FiO2 30% 10/28/18 14:10 WBC Hgb Plt Count ABG pH 7.45 ABG pCO2 34.3 L ABG pO2 116.9 H FiO2 30% 10/26/18 18:30 Blood Culture - Preliminary Blood Gram Positive Regino 10/22/18 01:40 Gram Stain - Final Abdomen - Abscess Wound Culture - Final Escherichia Coli Enterococcus Faecalis(Group D) Prevotella Species Skin Joi 10/21/18 16:00 Blood Culture - Final Blood Clostridium Sp.not Perfringens compensatory respiratory alkalosis (2) Abscess of abdominal cavity Is this a current diagnosis for this admission?: Yes Plan: As per surgery (3) Anemia Qualifiers: Anemia type: other cause Is this a current diagnosis for this admission?: Yes Plan: Likely due to chronic disease (4) Hypoalbuminemia Is this a current diagnosis for this admission?: Yes Plan: Albumin no Hespan (volume expanders) - Time Total Critical Time (Minutes): 55
[2018-10-29 16:18] LABS: URINE CREATININE 11.4 mg/dL (15-278)
--- NOTE | 2018-10-29 16:25 | PDOC PROGRESS REPORT ---
Subjective Progress Note for:: 10/28/18 Subjective:: Intubated sedated Reason For Visit: DIVERTICULITIS,SIGMOID AND DESCENDING COLON,INTRA- Physical Exam Vital Signs: Temp Pulse Resp BP Pulse Ox 97.0 F 85 18 100/59 L 100 10/28/18 08:00 10/28/18 08:52 10/28/18 08:52 10/28/18 08:00 10/28/18 08:52 Intake & Output 10/27/18 10/28/18 10/29/18 06:59 06:59 06:59 Intake Total 17778 6651 Output Total 9992 1301 Balance 7359 5350 Weight 83.5 kg 92.3 kg General appearance: PRESENT: no acute distress, disheveled, morbidly obese. ABSENT: cooperative Head exam: PRESENT: atraumatic, normocephalic Eye exam: PRESENT: conjunctiva pale. ABSENT: EOMI, nystagmus Mouth exam: PRESENT: dry mucosa, neck supple, tongue midline, other - ET Neck exam: ABSENT: carotid bruit, JVD, lymphadenopathy, thyromegaly, tracheal deviation, tracheostomy Respiratory exam: PRESENT: decreased breath sounds, prolonged expiratory phas, rhonchi. ABSENT: retraction Cardiovascular exam: PRESENT: irregular rhythm Pulses: PRESENT: normal radial pulses GI/Abdominal exam: PRESENT: other - Multiple drains status post surgery Gentrourinary exam: PRESENT: indwelling catheter Extremities exam: ABSENT: calf tenderness, clubbing, full ROM, joint swelling, pedal edema Musculoskeletal exam: ABSENT: ambulatory, deformity, dislocation Neurological exam: ABSENT: awake Skin exam: PRESENT: dry, warm Results Laboratory Results: 10/28/18 04:40 10/28/18 04:40 10/25/18 10/27/18 10/27/18 15:10 09:48 10:40 WBC RBC Hgb Hct MCV MCH MCHC RDW Plt Count Seg Neutrophils % Lymphocytes % Monocytes % Eosinophils % Basophils % Absolute Neutrophils Absolute Lymphocytes Absolute Monocytes Absolute Eosinophils Absolute Basophils Carbonic Acid 0.68 L HCO3/H2CO3 Ratio 31:1 ABG pH 7.59 H ABG pCO2 22.7 L ABG pO2 84.6 ABG HCO3 21.2 ABG O2 Saturation 97.8 ABG Base Excess 0.2 FiO2 30% Sodium Potassium Chloride Carbon Dioxide Anion Gap BUN Creatinine Est GFR ( Amer) Est GFR (Non-Af Amer) Glucose Lactic Acid 6.0 H Calcium Magnesium Total Bilirubin AST ALT Alkaline Phosphatase Total Protein Albumin Blood Type O POSITIVE Antibody Screen NEGATIVE 10/27/18 10/27/18 10/27/18 14:40 19:58 19:58 WBC RBC Hgb Hct MCV MCH MCHC RDW Plt Count Seg Neutrophils % Lymphocytes % Monocytes % Eosinophils % Basophils % Absolute Neutrophils Absolute Lymphocytes Absolute Monocytes Absolute Eosinophils Absolute Basophils Carbonic Acid HCO3/H2CO3 Ratio ABG pH ABG pCO2 ABG pO2 ABG HCO3 ABG O2 Saturation ABG Base Excess FiO2 Sodium 137.0 Potassium 3.7 Chloride 103 Carbon Dioxide 22 Anion Gap 12 BUN 14 Creatinine 0.63 Est GFR ( Amer) > 60 Est GFR (Non-Af Amer) > 60 Glucose 98 Lactic Acid 5.2 H 3.9 H Calcium 7.1 L Magnesium Total Bilirubin AST ALT Alkaline Phosphatase Total Protein Albumin Blood Type Antibody Screen 10/27/18 10/27/18 10/27/18 20:25 23:12 23:12 WBC Cancelled RBC Cancelled Hgb Cancelled Hct Cancelled MCV Cancelled MCH Cancelled MCHC Cancelled RDW Cancelled Plt Count Cancelled Seg Neutrophils % Lymphocytes % Monocytes % Eosinophils % Basophils % Absolute Neutrophils Absolute Lymphocytes Absolute Monocytes Absolute Eosinophils Absolute Basophils Carbonic Acid 0.68 L 0.97 L HCO3/H2CO3 Ratio 34:1 23:1 ABG pH 7.64 H* 7.47 H ABG pCO2 22.6 L 32.3 L ABG pO2 108.8 H 113.4 H ABG HCO3 23.5 22.8 ABG O2 Saturation 98.8 H 98.4 H ABG Base Excess 2.4 -0.9 FiO2 30% 30% Sodium Potassium Chloride Carbon Dioxide Anion Gap BUN Creatinine Est GFR ( Amer) Est GFR (Non-Af Amer) Glucose Lactic Acid Calcium Magnesium Total Bilirubin AST ALT Alkaline Phosphatase Total Protein Albumin Blood Type Antibody Screen 10/27/18 10/27/18 10/27/18 23:12 23:12 23:46 WBC 22.4 H RBC 1.77 L Hgb 5.6 L D Hct 16.3 L MCV 92 MCH 31.4 MCHC 34.3 RDW 16.6 H Plt Count 79 L Seg Neutrophils % Lymphocytes % Monocytes % Eosinophils % Basophils % Absolute Neutrophils Absolute Lymphocytes Absolute Monocytes Absolute Eosinophils Absolute Basophils Carbonic Acid HCO3/H2CO3 Ratio ABG pH ABG pCO2 ABG pO2 ABG HCO3 ABG O2 Saturation ABG Base Excess FiO2 Sodium 136.0 L Potassium 3.6 Chloride 105 Carbon Dioxide 25 Anion Gap 6 BUN 15 Creatinine 0.73 Est GFR ( Amer) > 60 Est GFR (Non-Af Amer) > 60 Glucose 101 Lactic Acid 2.4 H Calcium 6.4 L* Magnesium Total Bilirubin 4.4 H AST 3908 H ALT 3022 H Alkaline Phosphatase 136 H Total Protein 3.0 L Albumin 1.8 L Blood Type Antibody Screen 10/28/18 10/28/18 10/28/18 04:40 04:40 04:40 WBC 24.0 H RBC 2.48 L Hgb 7.8 L D Hct 22.6 L MCV 91 MCH 31.2 MCHC 34.3 RDW 15.6 H Plt Count 69 L Seg Neutrophils % Not Reportable Lymphocytes % Not Reportable Monocytes % Not Reportable Eosinophils % Not Reportable Basophils % Not Reportable Absolute Neutrophils Not Reportable Absolute Lymphocytes Not Reportable Absolute Monocytes Not Reportable Absolute Eosinophils Not Reportable Absolute Basophils Not Reportable Carbonic Acid HCO3/H2CO3 Ratio ABG pH ABG pCO2 ABG pO2 ABG HCO3 ABG O2 Saturation ABG Base Excess FiO2 Sodium 138.2 Potassium 3.6 Chloride 106 Carbon Dioxide 25 Anion Gap 7 BUN 16 Creatinine 0.77 Est GFR ( Amer) > 60 Est GFR (Non-Af Amer) > 60 Glucose 102 Lactic Acid 1.7 Calcium 7.0 L* Magnesium 1.8 Total Bilirubin 4.9 H AST 3057 H ALT 2819 H Alkaline Phosphatase 157 H Total Protein 2.9 L Albumin 2.0 L Blood Type Antibody Screen 10/28/18 04:40 WBC RBC Hgb Hct MCV MCH MCHC RDW Plt Count Seg Neutrophils % Lymphocytes % Monocytes % Eosinophils % Basophils % Absolute Neutrophils Absolute Lymphocytes Absolute Monocytes Absolute Eosinophils Absolute Basophils Carbonic Acid 1.07 HCO3/H2CO3 Ratio 22:1 ABG pH 7.46 H ABG pCO2 35.4 ABG pO2 98.8 ABG HCO3 24.3 H ABG O2 Saturation 97.8 ABG Base Excess 0.5 FiO2 30% Sodium Potassium Chloride Carbon Dioxide Anion Gap BUN Creatinine Est GFR ( Amer) Est GFR (Non-Af Amer) Glucose Lactic Acid Calcium Magnesium Total Bilirubin AST ALT Alkaline Phosphatase Total Protein Albumin Blood Type Antibody Screen 10/28/18 10/28/18 06:04 06:04 Creatine Kinase 136 H CK-MB (CK-2) 3.43 Troponin I 0.033 Impressions: Abdomen/Pelvis CT 10/21/18 00:00 IMPRESSION: Diverticulitis of the descending colon and sigmoid colon. No definitive abscess or perforation. Pigtail catheter in the lower abdomen. Abdomen Ultrasound 10/22/18 00:00 IMPRESSION: No acute sonographic abnormality. Catheter Patency X-Ray 10/23/18 00:00 IMPRESSION: SMALL RESIDUAL ABSCESS CAVITY. FISTULOUS COMMUNICATION WITH THE DISTAL DESCENDING COLON WITH COLONIC FINDINGS DESCRIBED ABOVE. Fluoroscopy 10/23/18 00:00 IMPRESSION: SMALL RESIDUAL ABSCESS CAVITY. FISTULOUS COMMUNICATION WITH THE DISTAL DESCENDING COLON WITH COLONIC FINDINGS DESCRIBED ABOVE. Chest X-Ray 10/28/18 06:00 IMPRESSION: No significant change. Assessment & Plan - Diagnosis (1) Acute kidney failure with tubular necrosis Is this a current diagnosis for this admission?: Yes Plan: Moderate amount of time patient was hypertensive subsequently she has been all but anuric renal consult is pending (2) Septic shock Is this a current diagnosis for this admission?: Yes Plan: Labs- All tests 24 hr 10/26/18 10/26/18 10/26/18 13:10 13:32 21:45 WBC 20.0 H 32.4 H* Hgb 10.1 L 9.2 L Plt Count 344 279 ABG pH 7.17 L* ABG pCO2 48.2 H ABG pO2 150.8 H FiO2 40% 10/26/18 10/27/18 10/27/18 21:53 03:54 03:54 WBC 23.6 H Hgb 8.8 L Plt Count 157 ABG pH 7.10 L* 7.39 ABG pCO2 33.0 L 28.1 L ABG pO2 481.2 H 149.5 H FiO2 100% 40% 10/27/18 10/27/18 10/27/18 10:40 20:25 23:12 WBC Hgb Plt Count ABG pH 7.59 H 7.64 H* 7.47 H ABG pCO2 22.7 L 22.6 L 32.3 L ABG pO2 84.6 108.8 H 113.4 H FiO2 30% 30% 30% 10/27/18 10/28/18 10/28/18 23:46 04:40 04:40 WBC 22.4 H 24.0 H Hgb 5.6 L D 7.8 L D Plt Count 79 L 69 L ABG pH 7.46 H ABG pCO2 35.4 ABG pO2 98.8 FiO2 30% 10/28/18 14:10 WBC Hgb Plt Count ABG pH 7.45 ABG pCO2 34.3 L ABG pO2 116.9 H FiO2 30% 10/26/18 18:30 Blood Culture - Preliminary Blood Gram Positive Regino 10/22/18 01:40 Gram Stain - Final Abdomen - Abscess Wound Culture - Final Escherichia Coli Enterococcus Faecalis(Group D) Prevotella Species Skin Joi 10/21/18 16:00 Blood Culture - Final Blood Clostridium Sp.not Perfringens compensatory respiratory alkalosis (3) Abdominal abscess Is this a current diagnosis for this admission?: Yes Plan: Per surgery - Time Total Critical Time (Minutes): 45
[2018-10-29] MEDS ORDERED: NORMAL SALINE IV ONE (17:00)
[2018-10-29] MEDS ORDERED: FUROSEMIDE IV ONE (17:00)
--- NOTE | 2018-10-29 17:13 | Operative Report ---
Nonrecallable Operative Report DATE OF SURGERY: 10/29/18 PREOPERATIVE DIAGNOSIS: Need of trialysis catheter. Need of replacement of right subclavian vein CVL POSTOPERATIVE DIAGNOSIS: same OPERATION: 1) Placement of left CFV Trialyis catheter. 2) Replacement of right CVL over wire SURGEON: DURAN KIRK ANESTHESIA: Local - 10 mL 1% lidocaine TISSUE REMOVED OR ALTERED: n/a COMPLICATIONS: none ESTIMATED BLOOD LOSS: 10 mL INTRAOPERATIVE FINDINGS: as above PROCEDURE: see dictation
--- NOTE | 2018-10-29 17:17 | RADIOLOGY REPORT (SQ) ---
EXAM DESCRIPTION: CHEST SINGLE VIEW COMPLETED DATE/TIME: 10/29/2018 5:07 pm REASON FOR STUDY: s/p central line exchange COMPARISON: 10/28/2018 NUMBER OF VIEWS: One view. TECHNIQUE: Single frontal radiographic image of the chest acquired. LIMITATIONS: None. FINDINGS: LUNGS AND PLEURA: Slight improved aeration in the right lung. Persistent airspace disease in the left lung. Small pleural effusions. No pneumothorax. MEDIASTINUM AND HEART: Stable heart size and mediastinal structures. SUPPORT DEVICES: Appropriate position of endotracheal tube, nasogastric tube and right subclavian darrell tral line. BONY STRUCTURES: No acute findings. HARDWARE: None. OTHER: No other significant finding. IMPRESSION: Satisfactory position of support apparatus. No pneumothorax. Reading location - IP/workstation name: [email or web address]
[2018-10-29] MEDS: AMINO ACIDS 5%/D25W 1,000 ML IV PRN (17:33)
--- NOTE | 2018-10-29 18:17 | PDOC PROGRESS REPORT ---
Subjective Progress Note for:: 10/29/18 Subjective:: No adverse events overnight. Patient's blood pressure has improved and she remains off pressors. Heart rate has remained stable. She is been afebrile. She still had little urine output. Creatinine is starting to trend back up along with BUN. Reason For Visit: DIVERTICULITIS,SIGMOID AND DESCENDING COLON,INTRA- Physical Exam Vital Signs: Temp Pulse Resp BP Pulse Ox 96.8 F L 98 9 L 127/78 H 99 10/29/18 18:00 10/29/18 16:00 10/29/18 18:00 10/29/18 16:23 10/29/18 18:00 Intake & Output 10/28/18 10/29/18 10/30/18 06:59 06:59 06:59 Intake Total 6651 1431 1202 Output Total 1301 1468 425 Balance 5350 -37 777 Weight 92.3 kg 93 kg General appearance: PRESENT: severe distress, other - Sedated, intubated Respiratory exam: PRESENT: crackles - Bilateral, symmetrical, unlabored. ABSE NT: prolonged expiratory phas, rhonchi, tachypnea, wheezes Cardiovascular exam: PRESENT: +S1, +S2, tachycardia Vascular exam: ABSENT: normal capillary refill - Capillary refill was 6 seconds GI/Abdominal exam: PRESENT: diminished bowel sounds, distended, soft, other - Midline abdominal decision was covered with a bulky dressing, she had 3 EVELIN drains. ABSENT: rebound, tenderness Extremities exam: PRESENT: pedal edema, other - She has 3+ or greater generalized pitting edema in her upper and lower extremities as well as diffuse anasarca. ABSENT: clubbing Musculoskeletal exam: ABSENT: deformity, tenderness Neurological exam: PRESENT: other - Sedated, intubated Skin exam: PRESENT: jaundice, mottled. ABSENT: warm Results Laboratory Results: 10/29/18 04:16 10/29/18 12:20 10/28/18 10/29/18 10/29/18 19:00 04:16 04:16 WBC 25.5 H RBC 2.80 L Hgb 8.7 L Hct 25.1 L MCV 90 MCH 31.0 MCHC 34.5 RDW 15.9 H Plt Count 54 L Seg Neutrophils % Not Reportable Lymphocytes % Not Reportable Monocytes % Not Reportable Eosinophils % Not Reportable Basophils % Not Reportable Absolute Neutrophils Not Reportable Absolute Lymphocytes Not Reportable Absolute Monocytes Not Reportable Absolute Eosinophils Not Reportable Absolute Basophils Not Reportable Carbonic Acid 1.06 HCO3/H2CO3 Ratio 21:1 ABG pH 7.44 ABG pCO2 35.2 ABG pO2 113.2 H ABG HCO3 23.3 ABG O2 Saturation 98.3 H ABG Base Excess -0.6 FiO2 30% Sodium 138.6 Potassium 3.7 Chloride 106 Carbon Dioxide 25 Anion Gap 8 BUN 18 Creatinine 0.94 Est GFR ( Amer) > 60 Est GFR (Non-Af Amer) > 60 Glucose 126 H Lactic Acid Calcium 7.1 L Phosphorus Magnesium Total Bilirubin AST ALT Alkaline Phosphatase Total Protein Albumin Prealbumin Urine Color Urine Appearance Urine pH Ur Specific [place] Urine Protein Urine Glucose (UA) Urine Ketones Urine Blood Urine Nitrite Ur Leukocyte Esterase Urine RBC (Auto) 10/29/18 10/29/18 10/29/18 04:16 04:16 12:20 WBC RBC Hgb Hct MCV MCH MCHC RDW Plt Count Seg Neutrophils % Lymphocytes % Monocytes % Eosinophils % Basophils % Absolute Neutrophils Absolute Lymphocytes Absolute Monocytes Absolute Eosinophils Absolute Basophils Carbonic Acid HCO3/H2CO3 Ratio ABG pH ABG pCO2 ABG pO2 ABG HCO3 ABG O2 Saturation ABG Base Excess FiO2 Sodium 138.4 138.6 Potassium 3.6 3.7 Chloride 106 105 Carbon Dioxide 25 24 Anion Gap 7 10 BUN 22 H 26 H Creatinine 1.19 1.25 Est GFR ( Amer) 56 L 53 L Est GFR (Non-Af Amer) 47 L 44 L Glucose 181 H 196 H Lactic Acid 1.8 Calcium 7.3 L 7.3 L Phosphorus 2.5 Magnesium 1.9 Total Bilirubin 4.2 H AST 619 H ALT 1685 H Alkaline Phosphatase 184 H Total Protein 3.4 L Albumin 2.0 L Prealbumin 4.9 L Urine Color Urine Appearance Urine pH Ur Specific [place] Urine Protein Urine Glucose (UA) Urine Ketones Urine Blood Urine Nitrite Ur Leukocyte Esterase Urine RBC (Auto) 10/29/18 15:03 WBC RBC Hgb Hct MCV MCH MCHC RDW Plt Count Seg Neutrophils % Lymphocytes % Monocytes % Eosinophils % Basophils % Absolute Neutrophils Absolute Lymphocytes Absolute Monocytes Absolute Eosinophils Absolute Basophils Carbonic Acid HCO3/H2CO3 Ratio ABG pH ABG pCO2 ABG pO2 ABG HCO3 ABG O2 Saturation ABG Base Excess FiO2 Sodium Potassium Chloride Carbon Dioxide Anion Gap BUN Creatinine Est GFR ( Amer) Est GFR (Non-Af Amer) Glucose Lactic Acid Calcium Phosphorus Magnesium Total Bilirubin AST ALT Alkaline Phosphatase Total Protein Albumin Prealbumin Urine Color YELLOW Urine Appearance CLOUDY Urine pH 5.0 Ur Specific [place] 1.015 Urine Protein 100 H Urine Glucose (UA) NEGATIVE Urine Ketones NEGATIVE Urine Blood LARGE H Urine Nitrite NEGATIVE Ur Leukocyte Esterase TRACE H Urine RBC (Auto) 24 10/26/18 18:30 Blood Blood Culture - Final Clostridium Sp.not Perfringens 10/28/18 10/28/18 06:04 06:04 Creatine Kinase 136 H CK-MB (CK-2) 3.43 Troponin I 0.033 Impressions: Abdomen/Pelvis CT 10/21/18 00:00 IMPRESSION: Diverticulitis of the descending colon and sigmoid colon. No definitive abscess or perforation. Pigtail catheter in the lower abdomen. Abdomen Ultrasound 10/22/18 00:00 IMPRESSION: No acute sonographic abnormality. Catheter Patency X-Ray 10/23/18 00:00 IMPRESSION: SMALL RESIDUAL ABSCESS CAVITY. FISTULOUS COMMUNICATION WITH THE DISTAL DESCENDING COLON WITH COLONIC FINDINGS DESCRIBED ABOVE. Fluoroscopy 10/23/18 00:00 IMPRESSION: SMALL RESIDUAL ABSCESS CAVITY. FISTULOUS COMMUNICATION WITH THE DISTAL DESCENDING COLON WITH COLONIC FINDINGS DESCRIBED ABOVE. Chest X-Ray 10/29/18 00:00 IMPRESSION: Satisfactory position of support apparatus. No pneumothorax. Assessment & Plan - Diagnosis (1) Septic shock Is this a current diagnosis for this admission?: Yes Plan: She has evidence of multisystem organ failure, but there are some signs of improvement. Her creatinine has improved and she has had improvement in her blood pressure. She is on broad-spectrum antibiotic coverage for likely organisms. Liver enzymes have improved. She is off the Cardizem drip and her heart rate is holding stable and her blood pressure improved. She got a couple more units of blood yesterday. Fluid from the EVELIN drains was negative for creatinine. [place] to be unlikely that she has a ureteral injury that is draining urine into the belly. She was seen in consultation by nephrology today, and they are challenging her with a large dose of Lasix and some albumin. She has had a dialysis catheter placed in anticipation that she may need hemodialysis tomorrow due to refractory fluid overload. We will continue aggressive supportive care. (2) Colonic fistula Is this a current diagnosis for this admission?: Yes Plan: Management per surgery - Time Time Spent with patient: 25-34 minutes
[2018-10-29] MEDS: DIPHENHYDRAMINE HCL 25 MG CAPSULE PO SCH (21:04)
[2018-10-30] MEDS: METRONIDAZOLE 500 MG/NS RTU 500 MG/100 ML RTUPB IV SCH ×5 (01:05→23:55)
[2018-10-30] MEDS: HYDROCORTISONE SOD SUCCINATE INJ/PF 100 MG/2 ML SDV IV SCH ×3 (01:19→17:46)
[2018-10-30] MEDS: INSULIN REG, HUMAN 100 UNIT/ML 3 ML VIAL (PYX) SUBCUT PRN ×3 (02:23→18:00)
[2018-10-30] MEDS: IPRATROPIUM/ALBUTEROL 0.5-2.5 MG/3 ML AMPUL NEB SCH ×4 (02:35→19:24)
[2018-10-30 04:38] LABS: ARTERIAL BLOOD BASE EXCESS -1.9 mmol/L; ARTERIAL BLOOD H2CO3 1.09 mmol/L (1.05-1.35); ARTERIAL BLOOD HCO3 22.5 mmol/L (20-24); ARTERIAL BLOOD O2 SATURATION 98.3 % (94-98); ARTERIAL BLOOD PCO2 36.2 mmHg (35-45); ARTERIAL BLOOD PH 7.41 (7.35-7.45); ARTERIAL BLOOD PO2 116.2 mmHg (80-100); ARTERIAL BLOOD TOTAL CO2 23.6 mmol/L (21-25)
[2018-10-30 04:39] LABS: ARTERIAL BLOOD FIO2 30%
[2018-10-30 04:58] LABS: HEMATOCRIT 20.3 % (36.0-47.0); MEAN CORPUSCULAR HEMOGLOBIN 31.2 pg (27.0-33.4); MEAN CORPUSCULAR HGB CONC 34.3 g/dL (32.0-36.0); MEAN CORPUSCULAR VOLUME 91 fl (80-97); PLATELET COUNT 35 10^3/uL (150-450); RED BLOOD COUNT 2.23 10^6/uL (3.72-5.28); RED CELL DISTRIBUTION WIDTH 16.6 % (11.5-14.0); WHITE BLOOD COUNT 22.8 10^3/uL (4.0-10.5)
[2018-10-30 04:59] LABS: ALANINE AMINOTRANSFERASE 793 U/L (9-52); ALBUMIN 1.9 g/dL (3.5-5.0); ALKALINE PHOSPHATASE 178 U/L (38-126); ANION GAP 9 (5-19); ASPARTATE AMINO TRANSFERASE 159 U/L (14-36); BILIRUBIN,DIRECT 2.6 mg/dL (0.0-0.4); BILIRUBIN,TOTAL 3.2 mg/dL (0.2-1.3); BLOOD UREA NITROGEN 33 mg/dL (7-20); CALCIUM 7.3 mg/dL (8.4-10.2); CARBON DIOXIDE 23 mmol/L (22-30); CHLORIDE 106 mmol/L (98-107); GLUCOSE 190 mg/dL (75-110); PHOSPHORUS 2.1 mg/dL (2.5-4.5); POTASSIUM 3.8 mmol/L (3.6-5.0); SODIUM 138.3 mmol/L (137-145); TOTAL PROTEIN 3.3 g/dL (6.3-8.2)
[2018-10-30] MEDS ORDERED: NORMAL SALINE 1000 ML 1,000 ML IV PRN (05:00)
[2018-10-30 05:06] LABS: PREALBUMIN 5.7 mg/dL (17.6-36.0)
[2018-10-30 05:11] LABS: ABSOLUTE LYMPHOCYTES# (MANUAL) 1.4 10^3/uL (0.5-4.7); ABSOLUTE MONOCYTES # (MANUAL) 0.7 10^3/uL (0.1-1.4); ABSOLUTE NEUTROPHILS# (MANUAL) 20.7 10^3/uL (1.7-8.2); BAND NEUTROPHILS % (MANUAL) 3 % (3-5); BASOPHILS % (MANUAL) 0 % (0-2); EOSINOPHILS % (MANUAL) 0 % (0-6); LYMPHOCYTES % (MANUAL) 6 % (13-45); MONOCYTES % (MANUAL) 3 % (3-13); SEGMENTED NEUTROPHILS % (MAN) 88 % (42-78); TOTAL CELLS COUNTED 100
[2018-10-30 05:14] LABS: ANISOCYTOSIS 1+; PLATELET COMMENT DECREASED; TOXIC GRANULATION 1+
[2018-10-30] MEDS: ALBUMIN HUMAN 12.5 GM/50 ML RTUINJ IV SCH ×2 (05:34→08:00)
--- NOTE | 2018-10-30 11:04 | PDOC PROGRESS REPORT ---
Subjective Progress Note for:: 10/30/18 Subjective:: Patient intubated, sedated; off pressors; on hemodialysis; minimal vent support Reason For Visit: DIVERTICULITIS,SIGMOID AND DESCENDING COLON,INTRA- Physical Exam Vital Signs: Temp Pulse Resp BP Pulse Ox 97.5 F 112 H 12 107/70 100 10/30/18 08:00 10/30/18 10:00 10/30/18 10:00 10/30/18 10:00 10/30/18 10:00 Intake & Output 10/29/18 10/30/18 10/31/18 06:59 06:59 06:59 Intake Total 1431 1537 100 Output Total 1468 928 10 Balance -37 609 90 Weight 93 kg 93.4 kg General appearance: PRESENT: other - Support tubes and lines in place. Head exam: PRESENT: other - Facial edema settling Respiratory exam: PRESENT: other - Occasional rhonchi bilaterally; new right subclavian line in position GI/Abdominal exam: PRESENT: other - Soft, almost concave. Ostomy putting out copious amounts of small bowel contents. All drains with serous sanguinous fluid Results Laboratory Results: 10/30/18 04:28 10/30/18 04:28 10/29/18 10/29/18 10/30/18 12:20 15:03 04:28 WBC RBC Hgb Hct MCV MCH MCHC RDW Plt Count Seg Neutrophils % Lymphocytes % Monocytes % Eosinophils % Basophils % Absolute Neutrophils Absolute Lymphocytes Absolute Monocytes Absolute Eosinophils Absolute Basophils Carbonic Acid 1.09 HCO3/H2CO3 Ratio 20:1 ABG pH 7.41 ABG pCO2 36.2 ABG pO2 116.2 H ABG HCO3 22.5 ABG O2 Saturation 98.3 H ABG Base Excess -1.9 FiO2 30% Sodium 138.6 Potassium 3.7 Chloride 105 Carbon Dioxide 24 Anion Gap 10 BUN 26 H Creatinine 1.25 Est GFR ( Amer) 53 L Est GFR (Non-Af Amer) 44 L Glucose 196 H Calcium 7.3 L Phosphorus Magnesium Total Bilirubin AST ALT Alkaline Phosphatase Total Protein Albumin Prealbumin Urine Color YELLOW Urine Appearance CLOUDY Urine pH 5.0 Ur Specific [place] 1.015 Urine Protein 100 H Urine Glucose (UA) NEGATIVE Urine Ketones NEGATIVE Urine Blood LARGE H Urine Nitrite NEGATIVE Ur Leukocyte Esterase TRACE H Urine RBC (Auto) 24 10/30/18 10/30/18 04:28 04:28 WBC 22.8 H RBC 2.23 L Hgb 7.0 L Hct 20.3 L MCV 91 MCH 31.2 MCHC 34.3 RDW 16.6 H Plt Count 35 L Seg Neutrophils % Not Reportable Lymphocytes % Not Reportable Monocytes % Not Reportable Eosinophils % Not Reportable Basophils % Not Reportable Absolute Neutrophils Not Reportable Absolute Lymphocytes Not Reportable Absolute Monocytes Not Reportable Absolute Eosinophils Not Reportable Absolute Basophils Not Reportable Carbonic Acid HCO3/H2CO3 Ratio ABG pH ABG pCO2 ABG pO2 ABG HCO3 ABG O2 Saturation ABG Base Excess FiO2 Sodium 138.3 Potassium 3.8 Chloride 106 Carbon Dioxide 23 Anion Gap 9 BUN 33 H Creatinine 1.44 H Est GFR ( Amer) 45 L Est GFR (Non-Af Amer) 37 L Glucose 190 H Calcium 7.3 L Phosphorus 2.1 L Magnesium 1.9 Total Bilirubin 3.2 H AST 159 H ALT 793 H Alkaline Phosphatase 178 H Total Protein 3.3 L Albumin 1.9 L Prealbumin 5.7 L Urine Color Urine Appearance Urine pH Ur Specific [place] Urine Protein Urine Glucose (UA) Urine Ketones Urine Blood Urine Nitrite Ur Leukocyte Esterase Urine RBC (Auto) 10/26/18 18:30 Blood Blood Culture - Final Clostridium Sp.not Perfringens 10/28/18 10/28/18 06:04 06:04 Creatine Kinase 136 H CK-MB (CK-2) 3.43 Troponin I 0.033 Impressions: Abdomen/Pelvis CT 10/21/18 00:00 IMPRESSION: Diverticulitis of the descending colon and sigmoid colon. No definitive abscess or perforation. Pigtail catheter in the lower abdomen. Abdomen Ultrasound 10/22/18 00:00 IMPRESSION: No acute sonographic abnormality. Catheter Patency X-Ray 10/23/18 00:00 IMPRESSION: SMALL RESIDUAL ABSCESS CAVITY. FISTULOUS COMMUNICATION WITH THE DISTAL DESCENDING COLON WITH COLONIC FINDINGS DESCRIBED ABOVE. Fluoroscopy 10/23/18 00:00 IMPRESSION: SMALL RESIDUAL ABSCESS CAVITY. FISTULOUS COMMUNICATION WITH THE DISTAL DESCENDING COLON WITH COLONIC FINDINGS DESCRIBED ABOVE. Chest X-Ray 10/29/18 00:00 IMPRESSION: Satisfactory position of support apparatus. No pneumothorax. Assessment & Plan - Diagnosis (1) Sepsis Is this a current diagnosis for this admission?: Yes Plan: Impression: Patient is now 4 days post exploratory laparotomy, total colectomy, permanent ileostomy, Nacho's procedure, intraperitoneal drain placement with postoperative sepsis stabilizing; hemodynamically maintaining her own stability without pressors; now getting dialyzed for acute kidney injury; stable respir atory and GI function. Recommendations: 1. Patient growing Clostridium,species not specified; spoke with microbiology; unable to get a specific SAÚL readout; suspect Clostridium sensitive to current antibiotics; 2. Continue tube feeds, TPN 3. Patient has satisfactory central line right subclavian position and trialysis catheter in left groin working satisfactorily; 4. Continue Wound VAC in place 5. Moniter neuro status 6. Spoke with family (2) Ulcerative colitis Qualifiers: Ulcerative colitis location: unspecified ulcerative colitis location Digestive disease complication type: with rectal bleeding Qualified Code(s): K51.911 - Ulcerative colitis, unspecified with rectal bleeding Is this a current diagnosis for this admission?: Yes (3) Acute kidney failure with tubular necrosis Is this a current diagnosis for this admission?: Yes (4) Sepsis associated hypotension Is this a current diagnosis for this admission?: Yes (5) Abscess of abdominal cavity Is this a current diagnosis for this admission?: Yes (6) Hypoalbuminemia Is this a current diagnosis for this admission?: Yes
[2018-10-30] MEDS: GABAPENTIN 300 MG CAPSULE PO SCH ×2 (11:20→21:09)
[2018-10-30] MEDS: FLUOXETINE HCL 20 MG CAPSULE PO SCH (11:20)
[2018-10-30] MEDS: THIAMINE HCL 100 MG TABLET NG SCH ×2 (11:21→17:46)
[2018-10-30] MEDS: CEFTRIAXONE 2 GM/D5W RTU 2 GM/50 ML RTUPB IV SCH (11:22)
[2018-10-30] MEDS: ENOXAPARIN SODIUM INJ 40 MG/0.4 ML DISP.SYRIN SUBCUT SCH (12:21)
[2018-10-30] MEDS: AMINO ACIDS 5%/D25W 1,000 ML IV PRN (16:30)
[2018-10-30] MEDS ORDERED: SODIUM PHOS,M-BASIC-D-BASIC 15 MMOL in NORMAL SALINE 250 ML IV ONE ×2 (17:43→19:00)
--- NOTE | 2018-10-30 17:43 | PDOC PROGRESS REPORT ---
Subjective Progress Note for:: 10/30/18 Subjective:: Patient remains sedated and intubated. Hemodialysis was started this morning. They got about 2900 mL's off, which was all the dialysis nurse thought she was going to be able to tolerate at that time. Still no urine output to speak of. Hemodynamically, her blood pressures have been good off of pressors and her vital signs have all been stable. Reason For Visit: DIVERTICULITIS,SIGMOID AND DESCENDING COLON,INTRA- Physical Exam Vital Signs: Temp Pulse Resp BP Pulse Ox 98.1 F 102 H 11 L 157/98 H 99 10/30/18 17:24 10/30/18 16:27 10/30/18 17:24 10/30/18 17:24 10/30/18 17:24 Intake & Output 10/29/18 10/30/18 10/31/18 06:59 06:59 06:59 Intake Total 1431 1587 1570 Output Total 0566 327 6765 Balance -37 659 -1525 Weight 93 kg 93.4 kg General appearance: PRESENT: No acute distress, other - Sedated, intubated Respiratory exam: PRESENT: crackles - Bilateral, symmetrical, unlabored. ABSENT: prolonged expiratory phase, rhonchi, tachypnea, wheezes Cardiovascular exam: PRESENT: +S1, +S2, tachycardia Vascular exam: ABSENT: normal capillary refill - Capillary refill was 6 seconds GI/Abdominal exam: PRESENT: diminished bowel sounds, distended, soft, other - Midline abdominal decision was covered with a bulky dressing, she had 3 EVELIN drains. ABSENT: rebound, tenderness Extremities exam: PRESENT: pedal edema, other - She has 3+ or greater generalized pitting edema in her upper and lower extremities as well as diffuse anasarca. She has a right IJ central line and a left groin trialysis catheter. ABSENT: clubbing Musculoskeletal exam: ABSENT: deformity, tenderness Neurological exam: PRESENT: other - Sedated, intubated Skin exam: PRESENT: jaundice, mottled. ABSENT: warm Results Laboratory Results: 10/30/18 04:28 10/30/18 04:28 10/30/18 10/30/18 10/30/18 04:28 04:28 04:28 WBC 22.8 H RBC 2.23 L Hgb 7.0 L Hct 20.3 L MCV 91 MCH 31.2 MCHC 34.3 RDW 16.6 H Plt Count 35 L Seg Neutrophils % Not Reportable Lymphocytes % Not Reportable Monocytes % Not Reportable Eosinophils % Not Reportable Basophils % Not Reportable Absolute Neutrophils Not Reportable Absolute Lymphocytes Not Reportable Absolute Monocytes Not Reportable Absolute Eosinophils Not Reportable Absolute Basophils Not Reportable Carbonic Acid 1.09 HCO3/H2CO3 Ratio 20:1 ABG pH 7.41 ABG pCO2 36.2 ABG pO2 116.2 H ABG HCO3 22.5 ABG O2 Saturation 98.3 H ABG Base Excess -1.9 FiO2 30% Sodium 138.3 Potassium 3.8 Chloride 106 Carbon Dioxide 23 Anion Gap 9 BUN 33 H Creatinine 1.44 H Est GFR ( Amer) 45 L Est GFR (Non-Af Amer) 37 L Glucose 190 H Calcium 7.3 L Phosphorus 2.1 L Magnesium 1.9 Total Bilirubin 3.2 H AST 159 H ALT 793 H Alkaline Phosphatase 178 H Total Protein 3.3 L Albumin 1.9 L Prealbumin 5.7 L Blood Type Antibody Screen 10/30/18 10:33 WBC RBC Hgb Hct MCV MCH MCHC RDW Plt Count Seg Neutrophils % Lymphocytes % Monocytes % Eosinophils % Basophils % Absolute Neutrophils Absolute Lymphocytes Absolute Monocytes Absolute Eosinophils Absolute Basophils Carbonic Acid HCO3/H2CO3 Ratio ABG pH ABG pCO2 ABG pO2 ABG HCO3 ABG O2 Saturation ABG Base Excess FiO2 Sodium Potassium Chloride Carbon Dioxide Anion Gap BUN Creatinine Est GFR ( Amer) Est GFR (Non-Af Amer) Glucose Calcium Phosphorus Magnesium Total Bilirubin AST ALT Alkaline Phosphatase Total Protein Albumin Prealbumin Blood Type O POSITIVE Antibody Screen NEGATIVE 10/26/18 18:30 Blood Blood Culture - Final Clostridium Sp.not Perfringens 10/28/18 10/28/18 06:04 06:04 Creatine Kinase 136 H CK-MB (CK-2) 3.43 Troponin I 0.033 Impressions: Abdomen/Pelvis CT 10/21/18 00:00 IMPRESSION: Diverticulitis of the descending colon and sigmoid colon. No definitive abscess or perforation. Pigtail catheter in the lower abdomen. Abdomen Ultrasound 10/22/18 00:00 IMPRESSION: No acute sonographic abnormality. Catheter Patency X-Ray 10/23/18 00:00 IMPRESSION: SMALL RESIDUAL ABSCESS CAVITY. FISTULOUS COMMUNICATION WITH THE DISTAL DESCENDING COLON WITH COLONIC FINDINGS DESCRIBED ABOVE. Fluoroscopy 10/23/18 00:00 IMPRESSION: SMALL RESIDUAL ABSCESS CAVITY. FISTULOUS COMMUNICATION WITH THE DISTAL DESCENDING COLON WITH COLONIC FINDINGS DESCRIBED ABOVE. Chest X-Ray 10/29/18 00:00 IMPRESSION: Satisfactory position of support apparatus. No pneumothorax. Assessment & Plan - Diagnosis (1) Septic shock Is this a current diagnosis for this admission?: Yes Plan: She has evidence of multisystem organ failure, but there are some signs of improvement. Her creatinine has improved and she has had improvement in her blood pressure. She is on broad-spectrum antibiotic coverage for likely organisms. Liver enzymes and bilirubin continue to trend down. She is off the Cardizem drip and her heart rate is holding stable. She got a couple more units of blood 2 days ago. Fluid from the EVELIN drains was negative for creatinine. [place] to be unlikely that she has a ureteral injury that is draining urine into the belly. She is getting dialysis and is being followed by nephrology. (2) Colonic fistula Is this a current diagnosis for this admission?: Yes Plan: Management per surgery - Time Time Spent with patient: 25-34 minutes
--- NOTE | 2018-10-30 17:43 | PDOC PROGRESS REPORT ---
Subjective Progress Note for:: 10/30/18 Subjective:: I saw the patient during initiation of dialysis superintendent storage area today. Patient remains to be intubated and sedated without any vasopressors. Son Edil was at bedside and is agreeable with the plan of hemodialysis today. Patient is at least hemodynamically stable. Reason For Visit: DIVERTICULITIS,SIGMOID AND DESCENDING COLON,INTRA- Physical Exam Vital Signs: Temp Pulse Resp BP Pulse Ox 98.1 F 102 H 11 L 157/98 H 99 10/30/18 17:24 10/30/18 16:27 10/30/18 17:24 10/30/18 17:24 10/30/18 17:24 Intake & Output 10/29/18 10/30/18 10/31/18 06:59 06:59 06:59 Intake Total 1431 1587 1570 Output Total 7935 397 8186 Balance -37 659 -1525 Weight 93 kg 93.4 kg Vitals during dialysis: Blood pressure 142/80, heart rate of 101, respiratory r ate of 15, temperature of 36.4, blood flow rate of 250 mL/min and dialysate flow rate of 500 mL/min. Exam: General appearance: PRESENT: Intubated and sedated Head exam: PRESENT: atraumatic, normocephalic; face is swollen with ET tube in place Eye exam: PRESENT: Eyes are closed Neck exam: ABSENT: JVD Respiratory exam: PRESENT: Diminished breath sounds. ABSENT: crackles, rales, rhonchi, unlabored, wheezes Cardiovascular exam: PRESENT: Regular rate rhythm -+S1, +S2. ABSENT: diastolic murmur, systolic murmur GI/Abdominal exam: PRESENT: Very hypoactive bowel sounds, soft. Right lower quadrant ileostomy with 2 EVELIN drains ABSENT: guarding, mass, tenderness Extremities exam: Grade 3 bilateral lower extremity edema, upper extremity edema and overall anasarca Neurological exam: Sedated. Skin exam: PRESENT: dry, warm, Results Laboratory Results: 10/30/18 04:28 10/30/18 04:28 10/30/18 10/30/18 10/30/18 04:28 04:28 04:28 WBC 22.8 H RBC 2.23 L Hgb 7.0 L Hct 20.3 L MCV 91 MCH 31.2 MCHC 34.3 RDW 16.6 H Plt Count 35 L Seg Neutrophils % Not Reportable Lymphocytes % Not Reportable Monocytes % Not Reportable Eosinophils % Not Reportable Basophils % Not Reportable Absolute Neutrophils Not Reportable Absolute Lymphocytes Not Reportable Absolute Monocytes Not Reportable Absolute Eosinophils Not Reportable Absolute Basophils Not Reportable Carbonic Acid 1.09 HCO3/H2CO3 Ratio 20:1 ABG pH 7.41 ABG pCO2 36.2 ABG pO2 116.2 H ABG HCO3 22.5 ABG O2 Saturation 98.3 H ABG Base Excess -1.9 FiO2 30% Sodium 138.3 Potassium 3.8 Chloride 106 Carbon Dioxide 23 Anion Gap 9 BUN 33 H Creatinine 1.44 H Est GFR ( Amer) 45 L Est GFR (Non-Af Amer) 37 L Glucose 190 H Calcium 7.3 L Phosphorus 2.1 L Magnesium 1.9 Total Bilirubin 3.2 H AST 159 H ALT 793 H Alkaline Phosphatase 178 H Total Protein 3.3 L Albumin 1.9 L Prealbumin 5.7 L Blood Type Antibody Screen 10/30/18 10:33 WBC RBC Hgb Hct MCV MCH MCHC RDW Plt Count Seg Neutrophils % Lymphocytes % Monocytes % Eosinophils % Basophils % Absolute Neutrophils Absolute Lymphocytes Absolute Monocytes Absolute Eosinophils Absolute Basophils Carbonic Acid HCO3/H2CO3 Ratio ABG pH ABG pCO2 ABG pO2 ABG HCO3 ABG O2 Saturation ABG Base Excess FiO2 Sodium Potassium Chloride Carbon Dioxide Anion Gap BUN Creatinine Est GFR ( Amer) Est GFR (Non-Af Amer) Glucose Calcium Phosphorus Magnesium Total Bilirubin AST ALT Alkaline Phosphatase Total Protein Albumin Prealbumin Blood Type O POSITIVE Antibody Screen NEGATIVE 10/26/18 18:30 Blood Blood Culture - Final Clostridium Sp.not Perfringens 10/28/18 10/28/18 06:04 06:04 Creatine Kinase 136 H CK-MB (CK-2) 3.43 Troponin I 0.033 Impressions: Abdomen/Pelvis CT 10/21/18 00:00 IMPRESSION: Diverticulitis of the descending colon and sigmoid colon. No definitive abscess or perforation. Pigtail catheter in the lower abdomen. Abdomen Ultrasound 10/22/18 00:00 IMPRESSION: No acute sonographic abnormality. Catheter Patency X-Ray 10/23/18 00:00 IMPRESSION: SMALL RESIDUAL ABSCESS CAVITY. FISTULOUS COMMUNICATION WITH THE DISTAL DESCENDING COLON WITH COLONIC FINDINGS DESCRIBED ABOVE. Fluoroscopy 10/23/18 00:00 IMPRESSION: SMALL RESIDUAL ABSCESS CAVITY. FISTULOUS COMMUNICATION WITH THE DISTAL DESCENDING COLON WITH COLONIC FINDINGS DESCRIBED ABOVE. Chest X-Ray 10/29/18 00:00 IMPRESSION: Satisfactory position of support apparatus. No pneumothorax. Assessment & Plan - Diagnosis (1) Acute kidney failure with tubular necrosis Is this a current diagnosis for this admission?: Yes Plan: Patient remains to be anuric with urine output from yesterday of only 48 mL despite a large dose of Lasix with albumin. We did dialysis today for 3 hours, using the patient's left femoral trialysis catheter, with 3 potassium bath, blood flow rate of 250 mL per minute, dialysate flow rate of 500 mL per minute, ultrafiltration 2-3 L as tolerated, no heparin and no Procrit. Patient's ultrafiltration at the end of treatment was 2900 mL. Patient tolerated the procedure without any need for vasopressors. I did give him 25 g of albumin prior to hemodialysis treatment. Patient will most likely need further hemodialysis treatment if the family would like to continue being aggressive. Monitor kidney function over the weekend. Plan to do dialysis on Friday. (2) Septic shock Is this a current diagnosis for this admission?: Yes Plan: Currently off pressors and hemodynamically stable. (3) Anasarca Is this a current diagnosis for this admission?: Yes (4) Hypoalbuminemia Is this a current diagnosis for this admission?: Yes (5) Hypophosphatemia Is this a current diagnosis for this admission?: Yes Plan: Replace phosphorus. (6) Malnutrition Is this a current diagnosis for this admission?: Yes Plan: Continue TPN (7) Colonic fistula Is this a current diagnosis for this admission?: Yes (8) Diverticulitis large intestine Qualifiers: Diverticulitis bleeding: without bleeding Diverticulitis complication: with perforation and abscess Qualified Code(s): K57.20 - Diverticulitis of large intestine with perforation and abscess without bleeding Is this a current diagnosis for this admission?: Yes (9) Abscess of abdominal cavity Is this a current diagnosis for this admission?: Yes (10) Anemia Qualifiers: Anemia type: other cause Is this a current diagnosis for this admission?: Yes Plan: Patient to receive 2 units of packed RBC today. - Time Time with patient: 15-25 minutes
[2018-10-30] MEDS: DIPHENHYDRAMINE HCL 25 MG CAPSULE PO SCH (21:09)
[2018-10-30 21:45] LABS: HEMATOCRIT 29.9 % (36.0-47.0); MEAN CORPUSCULAR HEMOGLOBIN 30.3 pg (27.0-33.4); MEAN CORPUSCULAR HGB CONC 34.4 g/dL (32.0-36.0); MEAN CORPUSCULAR VOLUME 88 fl (80-97); RED CELL DISTRIBUTION WIDTH 16.6 % (11.5-14.0); WHITE BLOOD COUNT 26.4 10^3/uL (4.0-10.5)
[2018-10-30 22:02] LABS: HEMOGLOBIN 10.3 g/dL (12.0-15.5); PLATELET COUNT 38 10^3/uL (150-450)
[2018-10-31] MEDS: INSULIN REG, HUMAN 100 UNIT/ML 3 ML VIAL (PYX) SUBCUT PRN ×3 (00:10→18:30)
[2018-10-31] MEDS: HYDROCORTISONE SOD SUCCINATE INJ/PF 100 MG/2 ML SDV IV SCH ×3 (01:07→17:41)
[2018-10-31] MEDS: IPRATROPIUM/ALBUTEROL 0.5-2.5 MG/3 ML AMPUL NEB SCH ×4 (02:23→20:36)
[2018-10-31 04:48] LABS: ARTERIAL BLOOD BASE EXCESS 0.9 mmol/L; ARTERIAL BLOOD H2CO3 1.14 mmol/L (1.05-1.35); ARTERIAL BLOOD O2 SATURATION 97.4 % (94-98); ARTERIAL BLOOD PH 7.44 (7.35-7.45); ARTERIAL BLOOD PO2 92.9 mmHg (80-100); ARTERIAL BLOOD TOTAL CO2 26.2 mmol/L (21-25)
[2018-10-31 04:49] LABS: ARTERIAL BLOOD FIO2 30%
[2018-10-31 04:52] LABS: HEMATOCRIT 29.9 % (36.0-47.0); HEMOGLOBIN 10.3 g/dL (12.0-15.5); MEAN CORPUSCULAR HEMOGLOBIN 30.2 pg (27.0-33.4); MEAN CORPUSCULAR HGB CONC 34.3 g/dL (32.0-36.0); MEAN CORPUSCULAR VOLUME 88 fl (80-97); RED CELL DISTRIBUTION WIDTH 16.7 % (11.5-14.0); WHITE BLOOD COUNT 27.5 10^3/uL (4.0-10.5)
[2018-10-31 05:02] LABS: ALANINE AMINOTRANSFERASE 527 U/L (9-52); ALBUMIN 2.1 g/dL (3.5-5.0); ALKALINE PHOSPHATASE 266 U/L (38-126); ANION GAP 8 (5-19); ASPARTATE AMINO TRANSFERASE 94 U/L (14-36); BILIRUBIN,DIRECT 2.5 mg/dL (0.0-0.4); BILIRUBIN,TOTAL 3.4 mg/dL (0.2-1.3); BLOOD UREA NITROGEN 34 mg/dL (7-20); CALCIUM 7.4 mg/dL (8.4-10.2); CARBON DIOXIDE 25 mmol/L (22-30); CHLORIDE 105 mmol/L (98-107); GLUCOSE 187 mg/dL (75-110); SODIUM 138.2 mmol/L (137-145); TOTAL PROTEIN 3.4 g/dL (6.3-8.2)
[2018-10-31] MEDS: METRONIDAZOLE 500 MG/NS RTU 500 MG/100 ML RTUPB IV SCH ×3 (05:08→17:42)
[2018-10-31] MEDS: MORPHINE SULFATE 10 MG/ML INJ IV PRN (05:11)
[2018-10-31 05:15] LABS: PLATELET COUNT 40 10^3/uL (150-450)
[2018-10-31 05:16] LABS: ABSOLUTE LYMPHOCYTES# (MANUAL) 2.2 10^3/uL (0.5-4.7); ABSOLUTE MONOCYTES # (MANUAL) 1.9 10^3/uL (0.1-1.4); ABSOLUTE NEUTROPHILS# (MANUAL) 23.4 10^3/uL (1.7-8.2); BASOPHILS % (MANUAL) 0 % (0-2); EOSINOPHILS % (MANUAL) 0 % (0-6); LYMPHOCYTES % (MANUAL) 8 % (13-45); MONOCYTES % (MANUAL) 7 % (3-13); SEGMENTED NEUTROPHILS % (MAN) 85 % (42-78); TOTAL CELLS COUNTED 100
[2018-10-31 05:17] LABS: ANISOCYTOSIS 1+; PLATELET COMMENT DECREASED; POLYCHROMASIA 1+
--- NOTE | 2018-10-31 10:02 | PDOC PROGRESS REPORT ---
Subjective Progress Note for:: 10/31/18 Subjective:: Intubated, sedated, not responsive Reason For Visit: DIVERTICULITIS,SIGMOID AND DESCENDING COLON,INTRA- Physical Exam Vital Signs: Temp Pulse Resp BP Pulse Ox 97.0 F 95 18 163/102 H 100 10/31/18 08:01 10/31/18 08:19 10/31/18 08:19 10/31/18 08:00 10/31/18 08:19 Intake & Output 10/30/18 10/31/18 11/01/18 06:59 06:59 06:59 Intake Total 1587 2587 100 Output Total 928 3882 200 Balance 659 -1295 -100 Weight 93.4 kg 91.5 kg General appearance: PRESENT: obese Respiratory exam: PRESENT: clear to auscultation godwin Cardiovascular exam: PRESENT: RRR GI/Abdominal exam: PRESENT: soft, other - 1) no bowel sounds 2) End ilestomy presents with mucosal ishemia, but viable inside; digested and fresh blood noted from ostomy lumen, finger exam shows a patent ostomy; 3) Drains with serous fluid Skin exam: PRESENT: other - abdominal wound: slightly dusky but granulating, fascia intact, no odor, stool contamitated Results Laboratory Results: 10/31/18 04:40 10/31/18 04:40 10/30/18 10/30/18 10/31/18 10:33 21:25 04:40 WBC 26.4 H RBC 3.40 L Hgb 10.3 L D Hct 29.9 L MCV 88 MCH 30.3 MCHC 34.4 RDW 16.6 H Plt Count 38 L Seg Neutrophils % Lymphocytes % Monocytes % Eosinophils % Basophils % Absolute Neutrophils Absolute Lymphocytes Absolute Monocytes Absolute Eosinophils Absolute Basophils Carbonic Acid 1.14 HCO3/H2CO3 Ratio 21:1 ABG pH 7.44 ABG pCO2 38.0 ABG pO2 92.9 ABG HCO3 25.0 H ABG O2 Saturation 97.4 ABG Base Excess 0.9 FiO2 30% Sodium Potassium Chloride Carbon Dioxide Anion Gap BUN Creatinine Est GFR ( Amer) Est GFR (Non-Af Amer) Glucose Calcium Magnesium Total Bilirubin AST ALT Alkaline Phosphatase Total Protein Albumin Blood Type O POSITIVE Antibody Screen NEGATIVE 10/31/18 10/31/18 04:40 04:40 WBC 27.5 H RBC 3.40 L Hgb 10.3 L Hct 29.9 L MCV 88 MCH 30.2 MCHC 34.3 RDW 16.7 H Plt Count 40 L Seg Neutrophils % Not Reportable Lymphocytes % Not Reportable Monocytes % Not Reportable Eosinophils % Not Reportable Basophils % Not Reportable Absolute Neutrophils Not Reportable Absolute Lymphocytes Not Reportable Absolute Monocytes Not Reportable Absolute Eosinophils Not Reportable Absolute Basophils Not Reportable Carbonic Acid HCO3/H2CO3 Ratio ABG pH ABG pCO2 ABG pO2 ABG HCO3 ABG O2 Saturation ABG Base Excess FiO2 Sodium 138.2 Potassium 4.0 Chloride 105 Carbon Dioxide 25 Anion Gap 8 BUN 34 H Creatinine 1.25 Est GFR ( Amer) 53 L Est GFR (Non-Af Amer) 44 L Glucose 187 H Calcium 7.4 L Magnesium 1.9 Total Bilirubin 3.4 H AST 94 H ALT 527 H Alkaline Phosphatase 266 H Total Protein 3.4 L Albumin 2.1 L Blood Type Antibody Screen 10/28/18 10/28/18 06:04 06:04 Creatine Kinase 136 H CK-MB (CK-2) 3.43 Troponin I 0.033 Impressions: Abdomen/Pelvis CT 10/21/18 00:00 IMPRESSION: Diverticulitis of the descending colon and sigmoid colon. No definitive abscess or perforation. Pigtail catheter in the lower abdomen. Abdomen Ultrasound 10/22/18 00:00 IMPRESSION: No acute sonographic abnormality. Catheter Patency X-Ray 10/23/18 00:00 IMPRESSION: SMALL RESIDUAL ABSCESS CAVITY. FISTULOUS COMMUNICATION WITH THE DISTAL DESCENDING COLON WITH COLONIC FINDINGS DESCRIBED ABOVE. Fluoroscopy 10/23/18 00:00 IMPRESSION: SMALL RESIDUAL ABSCESS CAVITY. FISTULOUS COMMUNICATION WITH THE DISTAL DESCENDING COLON WITH COLONIC FINDINGS DESCRIBED ABOVE. Chest X-Ray 10/29/18 00:00 IMPRESSION: Satisfactory position of support apparatus. No pneumothorax. Assessment & Plan - Diagnosis (1) Colonic fistula Is this a current diagnosis for this admission?: Yes (2) Diverticulitis large intestine Qualifiers: Diverticulitis bleeding: without bleeding Diverticulitis complication: with perforation and abscess Qualified Code(s): K57.20 - Diverticulitis of large intestine with perforation and abscess without bleeding Is this a current diagnosis for this admission?: Yes (3) Abscess of abdominal cavity Is this a current diagnosis for this admission?: Yes - Plan Summary Plan Summary: A/ POD #5 after lapatoromy, total colectomy and end ileostomy Respiratory: on ventilator, tolerated CV: stable, off pressors GI: stools mixed with blood from ileostomy bag; ostomy has some external mucosal ischemia, but is viable on exam; blood loss probably caused by a combination of thrombocytopenia and small bowel mucosal ischemia from the prolonged use of pressors : still elevated BUN with improved creatinine after dialysis; anuric FEN:on tube feeding via NGT, not well tolerated despite low rate (10 mL/hr) Skin: abdominal wound somewhat granulating, no odor; right groin a. line site ischemic Blood still leukocytosis (27k) P/ remove abdominal drain #3 with lowest output (135 mL/24 hrs) Remove A. Line Stop Rocephin and start Zosyn 2.25 gr q6 to improve gram negative coverage Continue Flagyl Hold off TF, resume in 4 hrs at lower rate (5 mL/hr) Panculture today Continue TPN Start Protonix 40 mg IV q12 Carafate 1 gr qid via NGT
[2018-10-31 10:37] LABS: HEPATITIS A AB IGM Negative (Negative); HEPATITIS B CORE AB IGM Negative (Negative); HEPATITS B SURFACE ANTIGEN Negative (Negative)
[2018-10-31] MEDS: PIPERACILLIN/TAZOBACTAM 2.25 GM VIAL IV SCH ×3 (12:09→17:41)
[2018-10-31] MEDS: PANTOPRAZOLE SODIUM 40 MG VIAL IV SCH ×2 (12:09→21:19)
[2018-10-31] MEDS: SUCRALFATE SUSP 1 GM/10 ML UDCUP NG SCH ×3 (12:10→17:41)
[2018-10-31] MEDS ORDERED: NORMAL SALINE 1000 ML 1,000 ML IV ONE (12:15)
[2018-10-31] MEDS: ENOXAPARIN SODIUM INJ 40 MG/0.4 ML DISP.SYRIN SUBCUT SCH (13:27)
[2018-10-31] MEDS: AMINO ACIDS 5%/D25W 1,000 ML IV PRN (13:33)
[2018-10-31 14:21] LABS: HEMATOCRIT 25.1 % (36.0-47.0); HEMOGLOBIN 8.3 g/dL (12.0-15.5); MEAN CORPUSCULAR HEMOGLOBIN 29.8 pg (27.0-33.4); MEAN CORPUSCULAR HGB CONC 33.3 g/dL (32.0-36.0); MEAN CORPUSCULAR VOLUME 90 fl (80-97); RED CELL DISTRIBUTION WIDTH 17.3 % (11.5-14.0)
[2018-10-31 14:36] LABS: INTERNATIONAL RATION (INR) 1.34; PROTHROMBIN TIME 17.3 SEC (11.4-15.4)
[2018-10-31 14:37] LABS: FIBRINOGEN 209 mg/dL (209-497)
[2018-10-31 14:57] LABS: PLATELET COUNT 45 10^3/uL (150-450)
--- NOTE | 2018-10-31 15:24 | RADIOLOGY REPORT (SQ) ---
EXAM DESCRIPTION: CT CHEST WITHOUT; CT ABD/PELVIS ORAL ONLY COMPLETED DATE/TIME: 10/31/2018 2:51 pm; 10/31/2018 2:50 pm REASON FOR STUDY: Abcess, Bowel Ischemia COMPARISON: CT abdomen pelvis 10/21/2018, 10/05/2018 TECHNIQUE: CT scan of the chest performed without intravenous contrast using helical scanning techni que. Images reviewed with lung, soft tissue and bone windows. Reconstructed coronal and sagittal MPR images reviewed. All images stored on PACS. CT scan of the abdomen and pelvis performed without intravenous contrast and withoral contrast using helical scanning technique with dynamic intravenous contrast injection. Images reviewed with lung, s oft tissue and bone windows. Reconstructed coronal and sagittal MPR images reviewed. All images sto red on PACS. All CT scanners at this facility use dose modulation, iterative reconstruction, and/or weight based d osing when appropriate to reduce radiation dose to as low as reasonably achievable (ALARA). [facility]: Dose Right [facility]: CareDose [facility]: Dose Right [facility]: Teradose 4D [facility]: [employer] RADIATION DOSE: CT Rad equipment meets quality standard of care and radiation dose reduction techniq ues were employed. CTDIvol: 15.7 mGy. DLP: 1079 mGy-cm. mGy. LIMITATIONS: No technical limitations. FINDINGS: CHEST: AXILLAE: No adenopathy. CHEST WALL: No masses. No subcutaneous air. LUNGS AND PLEURA: Bilateral lower lobe collapse/consolidation likely atelectasis. Pneumonia could no t be excluded. Small bilateral pleural effusions layer dependently in the right and left chest. No pneumothorax. THYROID: No masses or significant asymmetry. HILAR AND MEDIASTINAL STRUCTURES: No identified masses or abnormal nodes. AORTA AND GREAT VESSELS: No aneurysm. HEART: No pericardial effusion. HARDWARE AND LIFELINES: Endotracheal tube, nasogastric tube, right subclavian central line in good po sitioning BONES: No significant finding. OTHER: No other significant finding. ABDOMEN AND PELVIS: LIVER: Normal size. No masses. No dilated ducts. SPLEEN: Normal size. No focal lesions. PANCREAS: No masses. No significant calcifications. No adjacent inflammation or peripancreatic flui d collections. Pancreatic duct not dilated. GALLBLADDER: Surgically absent ADRENAL GLANDS: No significant masses or asymmetry. RIGHT KIDNEY AND URETER: No solid masses. Assessment limited by lack of IV contrast. No significant calcifications. No hydronephrosis or hydroureter. LEFT KIDNEY AND URETER: No solid masses. Assessment limited by lack of IV contrast. No significant calcifications. No hydronephrosis or hydroureter. AORTA AND VESSELS: No aneurysm. RETROPERITONEUM: No retroperitoneal adenopathy, hemorrhage or masses. APPENDIX: Surgically absent LARGE AND SMALL BOWEL: Post subtotal colectomy. Right lower quadrant ileostomy. Oral contrast is se en throughout the stomach proximal mid and distal small bowel without evidence of obstruction. Small amount of postoperative free intraperitoneal air. Right and left pericolic gutter/pelvis Jose-Pr att drains are present. No findings worrisome for intra-abdominal or pelvic abscess ABDOMINAL WALL: Healing anterior incision with wound VAC. Right lower quadrant ileostomy PERITONEAL CAVITY: Postoperative free air. No significant free pelvic or abdominal fluid. PELVIS: Bladder decompressed by a Graves catheter BONES: No significant or acute findings. OTHER: Third-spacing of fluid along the abdominal wall IMPRESSION: Bilateral lower lobe collapse and consolidation with small pleural effusions Small amount of postoperative free intraperitoneal air. No intra-abdominal or pelvic masses or adeno katherine. No abscess. Post subtotal colectomy with right lower quadrant ileostomy. TECHNICAL DOCUMENTATION: JOB ID: [id number] Quality ID # [id number]: Final reports with documentation of one or more dose reduction techniques (e.g., Au tomated exposure control, adjustment of the mA and/or kV according to patient size, use of iterative reconstruction technique) 2010 [employer]- All Rights Reserved Reading location - IP/workstation name: [email or web address]
[2018-10-31 16:05] LABS: HEPATITIS B CORE AB TOT Negative (Negative); HEPATITIS B SURFACE AB QUANT 4.2 mIU/mL (Immunity>9); HEPATITIS C VIRUS ANTIBODY <0.1 s/co ratio (0.0-0.9)
--- NOTE | 2018-10-31 16:25 | PDOC PROGRESS REPORT ---
Subjective Progress Note for:: 10/31/18 Subjective:: No adverse events overnight. She remains sedated and intubated. Sedation has been lightened, and she has aroused some but she is still not awake. White blood cell count remains elevated, but she is on hydrocortisone. She remains afebrile. She still not put out any urine. She had 2900 mL's off with dialysis yesterday. Blood pressure was a little bit low today and we had to give her a 1 L bolus, to which her pressure responded. She got a couple units of blood yesterday. Platelets remain low but stable, not dropping. Reason For Visit: DIVERTICULITIS,SIGMOID AND DESCENDING COLON,INTRA- Physical Exam Vital Signs: Temp Pulse Resp BP Pulse Ox 97.9 F 93 8 L 125/75 100 10/31/18 15:26 10/31/18 10:00 10/31/18 15:26 10/31/18 15:26 10/31/18 15:26 Intake & Output 10/30/18 10/31/18 11/01/18 06:59 06:59 06:59 Intake Total 1587 2587 1200 Output Total 928 3882 313 Balance 659 -1295 887 Weight 93.4 kg 91.5 kg General appearance: PRESENT: No acute distress, other - Sedated, intubated Respiratory exam: PRESENT: crackles - Bilateral, symmetrical, unlabored. ABSENT: prolonged expiratory phase, rhonchi, tachypnea, wheezes Cardiovascular exam: PRESENT: +S1, +S2, tachycardia Vascular exam: ABSENT: normal capillary refill - Capillary refill was 6 seconds GI/Abdominal exam: PRESENT: diminished bowel sounds, distended, soft, other - Midline abdominal decision was covered with a bulky dressing, she had 3 EVELIN drains. ABSENT: rebound, tenderness Extremities exam: PRESENT: pedal edema, other - She has 3+ or greater generalized pitting edema in her upper and lower extremities as well as diffuse anasarca. She has a right IJ central line and a left groin trialysis catheter. ABSENT: clubbing Musculoskeletal exam: ABSENT: deformity, tenderness Neurological exam: PRESENT: other - Sedated, intubated Skin exam: PRESENT: jaundice, mottled. ABSENT: warm Results Laboratory Results: 10/31/18 14:00 10/31/18 04:40 02/10/30/18 10/31/18 10:33 21:25 04:40 WBC 26.4 H RBC 3.40 L Hgb 10.3 L D Hct 29.9 L MCV 88 MCH 30.3 MCHC 34.4 RDW 16.6 H Plt Count 38 L Seg Neutrophils % Lymphocytes % Monocytes % Eosinophils % Basophils % Absolute Neutrophils Absolute Lymphocytes Absolute Monocytes Absolute Eosinophils Absolute Basophils Carbonic Acid 1.14 HCO3/H2CO3 Ratio 21:1 ABG pH 7.44 ABG pCO2 38.0 ABG pO2 92.9 ABG HCO3 25.0 H ABG O2 Saturation 97.4 ABG Base Excess 0.9 FiO2 30% Sodium Potassium Chloride Carbon Dioxide Anion Gap BUN Creatinine Est GFR ( Amer) Est GFR (Non-Af Amer) Glucose Calcium Magnesium Total Bilirubin AST ALT Alkaline Phosphatase Total Protein Albumin Blood Type O POSITIVE Antibody Screen NEGATIVE 10/31/18 10/31/18 10/31/18 04:40 04:40 14:00 WBC 27.5 H 25.0 H RBC 3.40 L 2.80 L Hgb 10.3 L 8.3 L Hct 29.9 L 25.1 L MCV 88 90 MCH 30.2 29.8 MCHC 34.3 33.3 RDW 16.7 H 17.3 H Plt Count 40 L 45 L Seg Neutrophils % Not Reportable Lymphocytes % Not Reportable Monocytes % Not Reportable Eosinophils % Not Reportable Basophils % Not Reportable Absolute Neutrophils Not Reportable Absolute Lymphocytes Not Reportable Absolute Monocytes Not Reportable Absolute Eosinophils Not Reportable Absolute Basophils Not Reportable Carbonic Acid HCO3/H2CO3 Ratio ABG pH ABG pCO2 ABG pO2 ABG HCO3 ABG O2 Saturation ABG Base Excess FiO2 Sodium 138.2 Potassium 4.0 Chloride 105 Carbon Dioxide 25 Anion Gap 8 BUN 34 H Creatinine 1.25 Est GFR ( Amer) 53 L Est GFR (Non-Af Amer) 44 L Glucose 187 H Calcium 7.4 L Magnesium 1.9 Total Bilirubin 3.4 H AST 94 H ALT 527 H Alkaline Phosphatase 266 H Total Protein 3.4 L Albumin 2.1 L Blood Type Antibody Screen 10/26/18 14:28 Blood Blood Culture - Final Clostridium Sp.not Perfringens 10/28/18 10/28/18 06:04 06:04 Creatine Kinase 136 H CK-MB (CK-2) 3.43 Troponin I 0.033 Impressions: Abdomen Ultrasound 10/22/18 00:00 IMPRESSION: No acute sonographic abnormality. Catheter Patency X-Ray 10/23/18 00:00 IMPRESSION: SMALL RESIDUAL ABSCESS CAVITY. FISTULOUS COMMUNICATION WITH THE DISTAL DESCENDING COLON WITH COLONIC FINDINGS DESCRIBED ABOVE. Fluoroscopy 10/23/18 00:00 IMPRESSION: SMALL RESIDUAL ABSCESS CAVITY. FISTULOUS COMMUNICATION WITH THE DISTAL DESCENDING COLON WITH COLONIC FINDINGS DESCRIBED ABOVE. Chest X-Ray 10/29/18 00:00 IMPRESSION: Satisfactory position of support apparatus. No pneumothorax. Abdomen/Pelvis CT 10/31/18 10:44 IMPRESSION: Bilateral lower lobe collapse and consolidation with small pleural effusions Small amount of postoperative free intraperitoneal air. No intra-abdominal or pelvic masses or adenopathy. No abscess. Post subtotal colectomy with right lower quadrant ileostomy. Chest CT 10/31/18 10:44 IMPRESSION: Bilateral lower lobe collapse and consolidation with small pleural effusions Small amount of postoperative free intraperitoneal air. No intra-abdominal or pelvic masses or adenopathy. No abscess. Post subtotal colectomy with right lower quadrant ileostomy. Assessment & Plan - Diagnosis (1) Septic shock Is this a current diagnosis for this admission?: Yes Plan: She has evidence of multisystem organ failure, but there are some signs of improvement. Her creatinine has improved and she has had improvement in her blood pressure. She is on broad-spectrum antibiotic coverage for likely organisms. Liver enzymes and bilirubin continue to trend down. She is off the Cardizem drip and her heart rate is holding stable. She got a couple more units of blood yesterday. Fluid from the EVELIN drains was negative for creatinine. [place] to be unlikely that she has a ureteral injury that is draining urine into the belly. She is getting dialysis and is being followed by nephrology. She had a CT of the chest abdomen and pelvis, which showed some pleural effusions, which are to be expected from her volume overload, but the possibility for pneumonia could not be ruled out. At this point, she has good gram-negative coverage with Zosyn, and good anaerobic coverage with Flagyl. Low suspicion for the need for antifungals. Therefore, if any further coverage would be needed, it would be gram-positive coverage. There is nothing from her cultures that would indicate gram-positive organism. A lot of what were seen in her chest could be from fluid overload, but if we decide to treat for gram positives, there are multiple considerations here. Ideally, we would use daptomycin, but daptomycin is not indicated for pneumonia. We could use vancomycin, but given her renal issues, which could be made even worse by the fact that she is on Zosyn, this is not a completely attractive option. The other option would be Zyvox, but with her platelets, and some of the oozing of b lood she has had, this option is also not without risk. We will talk to surgery to discuss whether or not we should cover for gram positives, and also which option would do the most good and the least harm. 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
[2018-10-31] MEDS ORDERED: DESMOPRESSIN ACETATE INJ 4 MCG/1 ML AMPULE IV ONE ×2 (16:30)
[2018-10-31] MEDS ORDERED: DESMOPRESSIN ACETATE INJ 4 MCG/1 ML AMPULE IV PRN (17:07)
[2018-10-31] MEDS ORDERED: INSULIN REG, HUMAN 100 UNIT/ML 3 ML VIAL (PYX) SUBCUT ONE (17:15)
[2018-10-31] MEDS ORDERED: DESMOPRESSIN ACETATE INJ 4 MCG/1 ML AMPULE ONE (17:18)
--- NOTE | 2018-10-31 18:38 | RADIOLOGY REPORT (SQ) ---
EXAM DESCRIPTION: CHEST SINGLE VIEW COMPLETED DATE/TIME: 10/31/2018 4:55 pm REASON FOR STUDY: Bilateral lower Lobe Collapse, RT LAT DECUB, ETT.NGT,CL, PEACE, TRIALYSIS C COMPARISON: CT chest 10/31/2015. Chest x-ray 10/29/2018. EXAM PARAMETERS: NUMBER OF VIEWS: One view. TECHNIQUE: Single decubitus radiographic view of the chest acquired. RADIATION DOSE: NA LIMITATIONS: None. FINDINGS: LUNGS AND PLEURA: There are small bilateral pleural effusions. There is consolidation/ate lectasis at the left lower lobe. There is diffuse airspace opacity throughout the right lung. No ob vious pneumothorax. MEDIASTINUM AND HILAR STRUCTURES: Not well evaluated. HEART AND VASCULAR STRUCTURES: The heart does not appear enlarged. There is mild vascular congestion . BONES: No acute findings. HARDWARE: An endotracheal tube and an enteric tube are partially visualized, not well evaluated on th is exam. IMPRESSION: Small bilateral pleural effusions. Consolidation/ atelectasis at the left lower lobe. Diffuse airspace opacity throughout the right lung, may be secondary to pulmonary edema and/or pneumo magda. Mild vascular congestion. TECHNICAL DOCUMENTATION: JOB ID: [id number] 2010 [employer]- All Rights Reserved Reading location - IP/workstation name: [email or web address]
[2018-11-01] MEDS: PIPERACILLIN/TAZOBACTAM 2.25 GM VIAL IV SCH ×2 (00:19→05:45)
[2018-11-01] MEDS: METRONIDAZOLE 500 MG/NS RTU 500 MG/100 ML RTUPB IV SCH ×5 (00:20→23:30)
[2018-11-01] MEDS: SUCRALFATE SUSP 1 GM/10 ML UDCUP NG SCH ×5 (00:24→23:29)
[2018-11-01] MEDS: INSULIN REG, HUMAN 100 UNIT/ML 3 ML VIAL (PYX) SUBCUT PRN ×4 (00:45→23:30)
[2018-11-01] MEDS: HYDROCORTISONE SOD SUCCINATE INJ/PF 100 MG/2 ML SDV IV SCH ×3 (02:05→18:41)
[2018-11-01 02:49] LABS: HEMATOCRIT 26.9 % (36.0-47.0); HEMOGLOBIN 9.1 g/dL (12.0-15.5); MEAN CORPUSCULAR HEMOGLOBIN 30.4 pg (27.0-33.4); MEAN CORPUSCULAR HGB CONC 33.9 g/dL (32.0-36.0); MEAN CORPUSCULAR VOLUME 90 fl (80-97); RED CELL DISTRIBUTION WIDTH 17.5 % (11.5-14.0)
[2018-11-01 02:51] LABS: PLATELET COUNT 85 10^3/uL (150-450)
[2018-11-01] MEDS: MORPHINE SULFATE 10 MG/ML INJ IV PRN (03:02)
[2018-11-01 03:09] LABS: WHITE BLOOD COUNT 32.9 10^3/uL (4.0-10.5)
[2018-11-01] MEDS: IPRATROPIUM/ALBUTEROL 0.5-2.5 MG/3 ML AMPUL NEB SCH ×4 (03:10→20:17)
[2018-11-01 04:16] LABS: ARTERIAL BLOOD BASE EXCESS -2.9 mmol/L; ARTERIAL BLOOD FIO2 30%; ARTERIAL BLOOD H2CO3 1.04 mmol/L (1.05-1.35); ARTERIAL BLOOD HCO3 21.2 mmol/L (20-24); ARTERIAL BLOOD O2 SATURATION 97.8 % (94-98); ARTERIAL BLOOD PCO2 34.4 mmHg (35-45); ARTERIAL BLOOD PH 7.41 (7.35-7.45); ARTERIAL BLOOD PO2 102.3 mmHg (80-100); ARTERIAL BLOOD TOTAL CO2 22.3 mmol/L (21-25)
[2018-11-01 06:17] LABS: HEMOGLOBIN 8.8 g/dL (12.0-15.5); MEAN CORPUSCULAR HEMOGLOBIN 30.5 pg (27.0-33.4); MEAN CORPUSCULAR HGB CONC 33.7 g/dL (32.0-36.0); MEAN CORPUSCULAR VOLUME 91 fl (80-97); RED BLOOD COUNT 2.87 10^6/uL (3.72-5.28); RED CELL DISTRIBUTION WIDTH 17.5 % (11.5-14.0)
[2018-11-01 06:18] LABS: ALANINE AMINOTRANSFERASE 302 U/L (9-52); ALKALINE PHOSPHATASE 337 U/L (38-126); ANION GAP 9 (5-19); ASPARTATE AMINO TRANSFERASE 51 U/L (14-36); BILIRUBIN,DIRECT 2.8 mg/dL (0.0-0.4); BILIRUBIN,TOTAL 3.4 mg/dL (0.2-1.3); BLOOD UREA NITROGEN 47 mg/dL (7-20); CALCIUM 7.3 mg/dL (8.4-10.2); CARBON DIOXIDE 23 mmol/L (22-30); CHLORIDE 104 mmol/L (98-107); GLUCOSE 207 mg/dL (75-110); POTASSIUM 4.5 mmol/L (3.6-5.0); SODIUM 136.1 mmol/L (137-145); TOTAL PROTEIN 3.6 g/dL (6.3-8.2)
[2018-11-01 07:02] LABS: PLATELET COUNT 91 10^3/uL (150-450)
[2018-11-01 07:05] LABS: ABSOLUTE LYMPHOCYTES# (MANUAL) 4.2 10^3/uL (0.5-4.7); ABSOLUTE MONOCYTES # (MANUAL) 2.6 10^3/uL (0.1-1.4); ABSOLUTE NEUTROPHILS# (MANUAL) 25.4 10^3/uL (1.7-8.2); ANISOCYTOSIS 1+; BASOPHILS % (MANUAL) 0 % (0-2); EOSINOPHILS % (MANUAL) 0 % (0-6); LYMPHOCYTES % (MANUAL) 13 % (13-45); MONOCYTES % (MANUAL) 8 % (3-13); NUCLEATED RED BLOOD CELLS 6 /100 WBC (0); POLYCHROMASIA 1+; SEGMENTED NEUTROPHILS % (MAN) 79 % (42-78); TOTAL CELLS COUNTED 100
[2018-11-01 07:06] LABS: PLATELET COMMENT DECREASED
--- NOTE | 2018-11-01 07:10 | RADIOLOGY REPORT (SQ) ---
EXAM DESCRIPTION: XR CHEST 1 VIEW COMPLETED DATE/TME: 11/01/2018 06:00 CLINICAL HISTORY: 58 years Female, sepsis COMPARISON: One day prior. 10/29/17. NUMBER OF VIEWS/TECHNIQUE: Bilateral lower thoracic opacity/effusion. Adequate appearing endotracheal tube. Likely adequate appearing enteric tube partially obscured. Adequate appearing right subclavian central line. FINDINGS: Clear lungs of adequate volume, and normal cardiac silhouette. Normal cardiac silhouette size. No pneumothorax. Stable bony thorax. IMPRESSION: No significant change.
--- NOTE | 2018-11-01 07:28 | PDOC PROGRESS REPORT ---
Subjective Progress Note for:: 11/01/18 Subjective:: Intubated, sedated, not responsive Reason For Visit: DIVERTICULITIS,SIGMOID AND DESCENDING COLON,INTRA- Physical Exam Vital Signs: Temp Pulse Resp BP Pulse Ox 99.3 F 108 H 8 L 112/73 99 11/01/18 06:00 11/01/18 03:10 11/01/18 06:00 11/01/18 05:46 11/01/18 06:00 Intake & Output 10/31/18 11/01/18 11/02/18 06:59 06:59 06:59 Intake Total 2587 2896 Output Total 3882 2658 Balance -1295 238 Weight 91.5 kg 93 kg General appearance: PRESENT: obese, other - not responsive Respiratory exam: PRESENT: clear to auscultation godwin Cardiovascular exam: PRESENT: RRR GI/Abdominal exam: PRESENT: hypoactive bowel sounds, soft, other - 1) midline wound covered with WoundVax 2) Kristofer drains (2) with serous fluid 3) Ileostomy with duskiness of mucosa, clotted blood, patent on digitalization, no output Extremities exam: PRESENT: +2 edema - all extremities Skin exam: PRESENT: warm Results Laboratory Results: 11/01/18 05:55 10/30/18 10/31/18 11/01/18 10:33 14:00 02:30 WBC 25.0 H 32.9 H* RBC 2.80 L 3.00 L Hgb 8.3 L 9.1 L Hct 25.1 L 26.9 L MCV 90 90 MCH 29.8 30.4 MCHC 33.3 33.9 RDW 17.3 H 17.5 H Plt Count 45 L 85 L Seg Neutrophils % Lymphocytes % Monocytes % Eosinophils % Basophils % Absolute Neutrophils Absolute Lymphocytes Absolute Monocytes Absolute Eosinophils Absolute Basophils Carbonic Acid HCO3/H2CO3 Ratio ABG pH ABG pCO2 ABG pO2 ABG HCO3 ABG O2 Saturation ABG Base Excess FiO2 Sodium Potassium Chloride Carbon Dioxide Anion Gap BUN Creatinine Est GFR ( Amer) Est GFR (Non-Af Amer) Glucose Calcium Magnesium Total Bilirubin AST ALT Alkaline Phosphatase Total Protein Albumin Blood Type O POSITIVE Antibody Screen NEGATIVE 11/01/18 11/01/18 11/01/18 04:07 05:55 05:55 WBC RBC Hgb Hct MCV MCH MCHC RDW Plt Count Seg Neutrophils % Not Reportable Lymphocytes % Not Reportable Monocytes % Not Reportable Eosinophils % Not Reportable Basophils % Not Reportable Absolute Neutrophils Not Reportable Absolute Lymphocytes Not Reportable Absolute Monocytes Not Reportable Absolute Eosinophils Not Reportable Absolute Basophils Not Reportable Carbonic Acid 1.04 L HCO3/H2CO3 Ratio 20:1 ABG pH 7.41 ABG pCO2 34.4 L ABG pO2 102.3 H ABG HCO3 21.2 ABG O2 Saturation 97.8 ABG Base Excess -2.9 FiO2 30% Sodium 136.1 L Potassium 4.5 Chloride 104 Carbon Dioxide 23 Anion Gap 9 BUN 47 H Creatinine 1.51 H Est GFR ( Amer) 43 L Est GFR (Non-Af Amer) 35 L Glucose 207 H Calcium 7.3 L Magnesium 1.8 Total Bilirubin 3.4 H AST 51 H ALT 302 H Alkaline Phosphatase 337 H Total Protein 3.6 L Albumin 2.0 L Blood Type Antibody Screen 10/26/18 14:28 Blood Blood Culture - Final Clostridium Sp.not Perfringens 10/28/18 10/28/18 06:04 06:04 Creatine Kinase 136 H CK-MB (CK-2) 3.43 Troponin I 0.033 Impressions: Abdomen Ultrasound 10/22/18 00:00 IMPRESSION: No acute sonographic abnormality. Catheter Patency X-Ray 10/23/18 00:00 IMPRESSION: SMALL RESIDUAL ABSCESS CAVITY. FISTULOUS COMMUNICATION WITH THE DISTAL DESCENDING COLON WITH COLONIC FINDINGS DESCRIBED ABOVE. Fluoroscopy 10/23/18 00:00 IMPRESSION: SMALL RESIDUAL ABSCESS CAVITY. FISTULOUS COMMUNICATION WITH THE DISTAL DESCENDING COLON WITH COLONIC FINDINGS DESCRIBED ABOVE. Abdomen/Pelvis CT 10/31/18 10:44 IMPRESSION: Bilateral lower lobe collapse and consolidation with small pleural effusions Small amount of postoperative free intraperitoneal air. No intra-abdominal or pelvic masses or adenopathy. No abscess. Post subtotal colectomy with right lower quadrant ileostomy. Chest CT 10/31/18 10:44 IMPRESSION: Bilateral lower lobe collapse and consolidation with small pleural effusions Small amount of postoperative free intraperitoneal air. No intra-abdominal or pelvic masses or adenopathy. No abscess. Post subtotal colectomy with right lower quadrant ileostomy. Assessment & Plan - Diagnosis (1) Colonic fistula Is this a current diagnosis for this admission?: Yes (2) Diverticulitis large intestine Qualifiers: Diverticulitis bleeding: without bleeding Diverticulitis complication: with perforation and abscess Qualified Code(s): K57.20 - Diverticulitis of large intestine with perforation and abscess without bleeding Is this a current diagnosis for this admission?: Yes (3) Abscess of abdominal cavity Is this a current diagnosis for this admission?: Yes - Plan Summary Plan Summary: A/ POD#6 after lapaortomy, subtotal colectomy and end-ileostomy for perforated colon Respiratory: intubated, acceptable ABG's this AM; CT scan Chest shows bilateral lower lobe collapse; Global Sourcing Manager ivolved for possible bronchoscopy CV: stable, off pressors : anurinc, dyalisis next week, increased BUN/Creatinine to 467/1.5 FEN: positive balance, stable lytes GI: no output from ileostomy, off tube feeding as she had high residuals yesterday, NGT output @ 1,000 mL; ileostomy dusky Infectious: on Zosyn (added yesterday) and Flagyl; patient pancultured yesterday, all cx negative so far, WBC elevated to 32.2 K from 27 K yesterday, no obvious source for leukocytosis identified; CT scan A/P shows minimal residual postop free air, no concerning fluid collection, distended stomach with contrast flowing through most of small bowel, no concerning intraabdominal findings Heme: PLTS increased to 91K from 45K yesterday, H/H = 9/26.9, ovewerall slightly decreased Skin: multiple breakdowns in the lower abdominal skin and right groin Plan: Patient general conditions still not improving Concerning elevation of WBC to 32K despite CT scan A/P benign findings Ileostomy appears dusky with bloody output, necrotic exposed mucosa Worsened kidney function, anuric Plan second look laparotomy today following administration of 1 platelet pheresis unit to rule out small bowel ischemia Procedure, risks, benefits, complications explained to the patient's son, his questions were answered, possibility of partial or complete small bowel necrosis discussed with him, including the possibility that life support should be withdrawn should the small bowel be completely necrotic, versus the possibility that only portion of the small bowel or the ileostomy are compromised and that these can be easily resected and repaired. Plan to give 1 pheresis platelet unit before surgery T&C x 3 units of blood on hold
[2018-11-01 07:29] LABS: WHITE BLOOD COUNT 32.2 10^3/uL (4.0-10.5)
[2018-11-01 08:47] LABS: INTERNATIONAL RATION (INR) 1.34; PROTHROMBIN TIME 17.2 SEC (11.4-15.4)
[2018-11-01 08:48] LABS: PARTIAL THROMBOPLASTIN TIME 35.6 SEC (23.5-35.8)
[2018-11-01] MEDS ORDERED: ROCURONIUM BROMIDE INJ 50 MG/5 ML VIAL IV ONE (09:58)
[2018-11-01] MEDS: ENOXAPARIN SODIUM INJ 40 MG/0.4 ML DISP.SYRIN SUBCUT SCH (11:02)
[2018-11-01] MEDS: PANTOPRAZOLE SODIUM 40 MG VIAL IV SCH ×2 (11:05→21:27)
[2018-11-01] MEDS: AMINO ACIDS 5%/D25W 1,000 ML IV PRN (11:05)
[2018-11-01] MEDS ORDERED: BUPIVACAINE HCL 0.5%-EPI 1:200000 INJ/PF 30 ML VIAL ONE (11:15)
[2018-11-01] MEDS ORDERED: FENTANYL CITRATE INJ/PF 250 MCG/5 ML AMPULE ONE (11:19)
[2018-11-01] MEDS ORDERED: PROPOFOL INJ 200 MG/20 ML VIAL IV ONE (11:20)
[2018-11-01] MEDS ORDERED: MIDAZOLAM 2 MG/2 ML INJ ONE (11:20)
[2018-11-01] MEDS ORDERED: MORPHINE SULFATE 10 MG/ML INJ ONE (11:20)
[2018-11-01] MEDS: ACETYLCYSTEINE 20% SOLN 800 MG/4 ML VIAL.NEB NEB SCH ×2 (11:43→20:20)
[2018-11-01] MEDS ORDERED: PIPERACILLIN SODIUM/TAZOBACTAM 2.25 GM in NORMAL SALINE 50 ML IV SCH (12:00)
--- NOTE | 2018-11-01 15:32 | Operative Report ---
Nonrecallable Operative Report DATE OF SURGERY: 11/01/18 PREOPERATIVE DIAGNOSIS: S/p total colectomy and end-ileostomy. sepsis. leukocytosis. Acute renal failure with anuria. Dialysis status. Respiratory failure POSTOPERATIVE DIAGNOSIS: same, nectoic omentum, ischemic end ileostomy, ischemic surgical wound skin and fascia OPERATION: exploratory laparotomy, omentectomy, sharp debridment of abdominal surgical wound (skin/fat/fascia), revision of ileostomy SURGEON: DURAN KIRK ANESTHESIA: GA TISSUE REMOVED OR ALTERED: omentum, end ileostomy , skin/fat/fascia of abdominal wound COMPLICATIONS: none ESTIMATED BLOOD LOSS: < 50 mL INTRAOPERATIVE FINDINGS: necrotic omentum, ischemic end-ileostomy, necrotic ski n. fat and fascia from abdominal laprotomy wound PROCEDURE: see dictation
--- NOTE | 2018-11-01 17:28 | PDOC PROGRESS REPORT ---
Subjective Progress Note for:: 10/29/18 Subjective:: Intubated sedated Reason For Visit: DIVERTICULITIS,SIGMOID AND DESCENDING COLON,INTRA- Physical Exam Vital Signs: Temp Pulse Resp BP Pulse Ox 95.7 F L 88 9 L 131/79 H 99 10/29/18 10:00 10/29/18 10:00 10/29/18 10:00 10/29/18 10:00 10/29/18 10:00 Intake & Output 10/28/18 10/29/18 10/30/18 06:59 06:59 06:59 Intake Total 6651 1331 Output Total 1301 1468 185 Balance 5350 -137 -185 Weight 92.3 kg 93 kg General appearance: PRESENT: no acute distress, disheveled, morbidly obese. ABSENT: cooperative Head exam: PRESENT: atraumatic, normocephalic Eye exam: PRESENT: conjunctiva pale. ABSENT: EOMI, nystagmus Mouth exam: PRESENT: dry mucosa, neck supple, tongue midline, other - ET tube Neck exam: ABSENT: carotid bruit, JVD, lymphadenopathy, thyromegaly, tracheal deviation, tracheostomy Respiratory exam: PRESENT: decreased breath sounds, prolonged expiratory phas, rales, rhonchi, unlabored Cardiovascular exam: PRESENT: irregular rhythm, tachycardia Pulses: PRESENT: normal radial pulses GI/Abdominal exam: PRESENT: other - Status post surgery and multiple drains wound VAC Gentrourinary exam: PRESENT: indwelling catheter Extremities exam: PRESENT: pedal edema. ABSENT: calf tenderness, clubbing, joint swelling Musculoskeletal exam: ABSENT: ambulatory, deformity, dislocation Neurological exam: ABSENT: awake Skin exam: PRESENT: dry, warm Results Laboratory Results: 10/29/18 04:16 10/29/18 04:16 10/28/18 10/28/18 10/28/18 14:10 16:45 19:00 WBC 26.7 H RBC 2.90 L Hgb 9.0 L Hct 26.2 L MCV 90 MCH 31.0 MCHC 34.4 RDW 15.7 H Plt Count 58 L Seg Neutrophils % Lymphocytes % Monocytes % Eosinophils % Basophils % Absolute Neutrophils Absolute Lymphocytes Absolute Monocytes Absolute Eosinophils Absolute Basophils Carbonic Acid 1.03 L HCO3/H2CO3 Ratio 22:1 ABG pH 7.45 ABG pCO2 34.3 L ABG pO2 116.9 H ABG HCO3 23.1 ABG O2 Saturation 98.4 H ABG Base Excess -0.6 FiO2 30% Sodium 138.6 Potassium 3.7 Chloride 106 Carbon Dioxide 25 Anion Gap 8 BUN 18 Creatinine 0.94 Est GFR ( Amer) > 60 Est GFR (Non-Af Amer) > 60 Glucose 126 H Lactic Acid Calcium 7.1 L Phosphorus Magnesium Total Bilirubin AST ALT Alkaline Phosphatase Total Protein Albumin Prealbumin 10/29/18 10/29/18 10/29/18 04:16 04:16 04:16 WBC 25.5 H RBC 2.80 L Hgb 8.7 L Hct 25.1 L MCV 90 MCH 31.0 MCHC 34.5 RDW 15.9 H Plt Count 54 L Seg Neutrophils % Not Reportable Lymphocytes % Not Reportable Monocytes % Not Reportable Eosinophils % Not Reportable Basophils % Not Reportable Absolute Neutrophils Not Reportable Absolute Lymphocytes Not Reportable Absolute Monocytes Not Reportable Absolute Eosinophils Not Reportable Absolute Basophils Not Reportable Carbonic Acid 1.06 HCO3/H2CO3 Ratio 21:1 ABG pH 7.44 ABG pCO2 35.2 ABG pO2 113.2 H ABG HCO3 23.3 ABG O2 Saturation 98.3 H ABG Base Excess -0.6 FiO2 30% Sodium 138.4 Potassium 3.6 Chloride 106 Carbon Dioxide 25 Anion Gap 7 BUN 22 H Creatinine 1.19 Est GFR ( Amer) 56 L Est GFR (Non-Af Amer) 47 L Glucose 181 H Lactic Acid Calcium 7.3 L Phosphorus 2.5 Magnesium 1.9 Total Bilirubin 4.2 H AST 619 H ALT 1685 H Alkaline Phosphatase 184 H Total Protein 3.4 L Albumin 2.0 L Prealbumin 4.9 L 10/29/18 04:16 WBC RBC Hgb Hct MCV MCH MCHC RDW Plt Count Seg Neutrophils % Lymphocytes % Monocytes % Eosinophils % Basophils % Absolute Neutrophils Absolute Lymphocytes Absolute Monocytes Absolute Eosinophils Absolute Basophils Carbonic Acid HCO3/H2CO3 Ratio ABG pH ABG pCO2 ABG pO2 ABG HCO3 ABG O2 Saturation ABG Base Excess FiO2 Sodium Potassium Chloride Carbon Dioxide Anion Gap BUN Creatinine Est GFR ( Amer) Est GFR (Non-Af Amer) Glucose Lactic Acid 1.8 Calcium Phosphorus Magnesium Total Bilirubin AST ALT Alkaline Phosphatase Total Protein Albumin Prealbumin 10/28/18 10/28/18 06:04 06:04 Creatine Kinase 136 H CK-MB (CK-2) 3.43 Troponin I 0.033 Impressions: Abdomen/Pelvis CT 10/21/18 00:00 IMPRESSION: Diverticulitis of the descending colon and sigmoid colon. No definitive abscess or perforation. Pigtail catheter in the lower abdomen. Abdomen Ultrasound 10/22/18 00:00 IMPRESSION: No acute sonographic abnormality. Catheter Patency X-Ray 10/23/18 00:00 IMPRESSION: SMALL RESIDUAL ABSCESS CAVITY. FISTULOUS COMMUNICATION WITH THE DISTAL DESCENDING COLON WITH COLONIC FINDINGS DESCRIBED ABOVE. Fluoroscopy 10/23/18 00:00 IMPRESSION: SMALL RESIDUAL ABSCESS CAVITY. FISTULOUS COMMUNICATION WITH THE DISTAL DESCENDING COLON WITH COLONIC FINDINGS DESCRIBED ABOVE. Chest X-Ray 10/28/18 06:00 IMPRESSION: No significant change. Assessment & Plan - Diagnosis (1) Acute kidney failure with tubular necrosis Is this a current diagnosis for this admission?: Yes Plan: Moderate amount of time patient was hypertensive subsequently she has been all but anuric renal consult is pending (2) Septic shock Is this a current diagnosis for this admission?: Yes Plan: Labs- All tests 24 hr 10/26/18 10/26/18 10/26/18 13:10 13:32 21:45 WBC 20.0 H 32.4 H* Hgb 10.1 L 9.2 L Plt Count 344 279 ABG pH 7.17 L* ABG pCO2 48.2 H ABG pO2 150.8 H FiO2 40% 10/26/18 10/27/18 10/27/18 21:53 03:54 03:54 WBC 23.6 H Hgb 8.8 L Plt Count 157 ABG pH 7.10 L* 7.39 ABG pCO2 33.0 L 28.1 L ABG pO2 481.2 H 149.5 H FiO2 100% 40% 10/27/18 10/27/18 10/27/18 10:40 20:25 23:12 WBC Hgb Plt Count ABG pH 7.59 H 7.64 H* 7.47 H ABG pCO2 22.7 L 22.6 L 32.3 L ABG pO2 84.6 108.8 H 113.4 H FiO2 30% 30% 30% 10/27/18 10/28/18 10/28/18 23:46 04:40 04:40 WBC 22.4 H 24.0 H Hgb 5.6 L D 7.8 L D Plt Count 79 L 69 L ABG pH 7.46 H ABG pCO2 35.4 ABG pO2 98.8 FiO2 30% 10/28/18 14:10 WBC Hgb Plt Count ABG pH 7.45 ABG pCO2 34.3 L ABG pO2 116.9 H FiO2 30% 10/26/18 18:30 Blood Culture - Preliminary Blood Gram Positive Regino 10/22/18 01:40 Gram Stain - Final Abdomen - Abscess Wound Culture - Final Escherichia Coli Enterococcus Faecalis(Group D) Prevotella Species Skin Joi 10/21/18 16:00 Blood Culture - Final Blood Clostridium Sp.not Perfringens compensatory respiratory alkalosis (3) Abdominal abscess Is this a current diagnosis for this admission?: Yes Plan: Per surgery (4) Abscess of abdominal cavity Is this a current diagnosis for this admission?: Yes Plan: As per surgery - Time Total Critical Time (Minutes): 45
--- NOTE | 2018-11-01 17:34 | PDOC PROGRESS REPORT ---
Subjective Progress Note for:: 10/30/18 Subjective:: Intubated sedated Reason For Visit: DIVERTICULITIS,SIGMOID AND DESCENDING COLON,INTRA- Physical Exam Vital Signs: Temp Pulse Resp BP Pulse Ox 97.0 F 93 11 L 113/85 99 10/31/18 10:00 10/31/18 10:00 10/31/18 10:00 10/31/18 10:00 10/31/18 12:10 Intake & Output 10/30/18 10/31/18 11/01/18 06:59 06:59 06:59 Intake Total 1587 2587 100 Output Total 928 3882 313 Balance 659 -1295 -213 Weight 93.4 kg 91.5 kg General appearance: PRESENT: no acute distress, disheveled, morbidly obese. ABSENT: cooperative Head exam: PRESENT: atraumatic, normocephalic Eye exam: PRESENT: conjunctiva pale. ABSENT: EOMI Mouth exam: PRESENT: dry mucosa, neck supple, tongue midline, other - ET tube Neck exam: ABSENT: carotid bruit, full ROM, JVD, lymphadenopathy, meningismus, tenderness, thyromegaly, tracheal deviation, tracheostomy, other Respiratory exam: PRESENT: decreased breath sounds, prolonged expiratory phas, rales, rhonchi, unlabored. ABSENT: retraction, stridor Cardiovascular exam: PRESENT: irregular rhythm, tachycardia Pulses: PRESENT: normal radial pulses GI/Abdominal exam: PRESENT: other - Status post surgery and multiple drains wound VAC Gentrourinary exam: PRESENT: indwelling catheter Extremities exam: PRESENT: +1 edema. ABSENT: clubbing, joint swelling Musculoskeletal exam: ABSENT: ambulatory, deformity, dislocation Neurological exam: ABSENT: awake Skin exam: PRESENT: dry, warm Results Laboratory Results: 10/31/18 04:40 10/31/18 04:40 10/30/18 10/30/18 10/31/18 10:33 21:25 04:40 WBC 26.4 H RBC 3.40 L Hgb 10.3 L D Hct 29.9 L MCV 88 MCH 30.3 MCHC 34.4 RDW 16.6 H Plt Count 38 L Seg Neutrophils % Lymphocytes % Monocytes % Eosinophils % Basophils % Absolute Neutrophils Absolute Lymphocytes Absolute Monocytes Absolute Eosinophils Absolute Basophils Carbonic Acid 1.14 HCO3/H2CO3 Ratio 21:1 ABG pH 7.44 ABG pCO2 38.0 ABG pO2 92.9 ABG HCO3 25.0 H ABG O2 Saturation 97.4 ABG Base Excess 0.9 FiO2 30% Sodium Potassium Chloride Carbon Dioxide Anion Gap BUN Creatinine Est GFR ( Amer) Est GFR (Non-Af Amer) Glucose Calcium Magnesium Total Bilirubin AST ALT Alkaline Phosphatase Total Protein Albumin Blood Type O POSITIVE Antibody Screen NEGATIVE 10/31/18 10/31/18 04:40 04:40 WBC 27.5 H RBC 3.40 L Hgb 10.3 L Hct 29.9 L MCV 88 MCH 30.2 MCHC 34.3 RDW 16.7 H Plt Count 40 L Seg Neutrophils % Not Reportable Lymphocytes % Not Reportable Monocytes % Not Reportable Eosinophils % Not Reportable Basophils % Not Reportable Absolute Neutrophils Not Reportable Absolute Lymphocytes Not Reportable Absolute Monocytes Not Reportable Absolute Eosinophils Not Reportable Absolute Basophils Not Reportable Carbonic Acid HCO3/H2CO3 Ratio ABG pH ABG pCO2 ABG pO2 ABG HCO3 ABG O2 Saturation ABG Base Excess FiO2 Sodium 138.2 Potassium 4.0 Chloride 105 Carbon Dioxide 25 Anion Gap 8 BUN 34 H Creatinine 1.25 Est GFR ( Amer) 53 L Est GFR (Non-Af Amer) 44 L Glucose 187 H Calcium 7.4 L Magnesium 1.9 Total Bilirubin 3.4 H AST 94 H ALT 527 H Alkaline Phosphatase 266 H Total Protein 3.4 L Albumin 2.1 L Blood Type Antibody Screen 10/28/18 10/28/18 06:04 06:04 Creatine Kinase 136 H CK-MB (CK-2) 3.43 Troponin I 0.033 Impressions: Abdomen/Pelvis CT 10/21/18 00:00 IMPRESSION: Diverticulitis of the descending colon and sigmoid colon. No definitive abscess or perforation. Pigtail catheter in the lower abdomen. Abdomen Ultrasound 10/22/18 00:00 IMPRESSION: No acute sonographic abnormality. Catheter Patency X-Ray 10/23/18 00:00 IMPRESSION: SMALL RESIDUAL ABSCESS CAVITY. FISTULOUS COMMUNICATION WITH THE DISTAL DESCENDING COLON WITH COLONIC FINDINGS DESCRIBED ABOVE. Fluoroscopy 10/23/18 00:00 IMPRESSION: SMALL RESIDUAL ABSCESS CAVITY. FISTULOUS COMMUNICATION WITH THE DISTAL DESCENDING COLON WITH COLONIC FINDINGS DESCRIBED ABOVE. Chest X-Ray 10/29/18 00:00 IMPRESSION: Satisfactory position of support apparatus. No pneumothorax. Assessment & Plan - Diagnosis (1) Acute kidney failure with tubular necrosis Is this a current diagnosis for this admission?: Yes Plan: hemodialysis (2) Septic shock Is this a current diagnosis for this admission?: Yes Plan: Labs- All tests 24 hr 10/26/18 10/26/18 10/26/18 13:10 13:32 21:45 WBC 20.0 H 32.4 H* Hgb 10.1 L 9.2 L Plt Count 344 279 ABG pH 7.17 L* ABG pCO2 48.2 H ABG pO2 150.8 H FiO2 40% 10/26/18 10/27/18 10/27/18 21:53 03:54 03:54 WBC 23.6 H Hgb 8.8 L Plt Count 157 ABG pH 7.10 L* 7.39 ABG pCO2 33.0 L 28.1 L ABG pO2 481.2 H 149.5 H FiO2 100% 40% 10/27/18 10/27/18 10/27/18 10:40 20:25 23:12 WBC Hgb Plt Count ABG pH 7.59 H 7.64 H* 7.47 H ABG pCO2 22.7 L 22.6 L 32.3 L ABG pO2 84.6 108.8 H 113.4 H FiO2 30% 30% 30% 10/27/18 10/28/18 10/28/18 23:46 04:40 04:40 WBC 22.4 H 24.0 H Hgb 5.6 L D 7.8 L D Plt Count 79 L 69 L ABG pH 7.46 H ABG pCO2 35.4 ABG pO2 98.8 FiO2 30% 10/28/18 14:10 WBC Hgb Plt Count ABG pH 7.45 ABG pCO2 34.3 L ABG pO2 116.9 H FiO2 30% 10/26/18 18:30 Blood Culture - Preliminary Blood Gram Positive Regino 10/22/18 01:40 Gram Stain - Final Abdomen - Abscess Wound Culture - Final Escherichia Coli Enterococcus Faecalis(Group D) Prevotella Species Skin Joi 10/21/18 16:00 Blood Culture - Final Blood Clostridium Sp.not Perfringens compensatory respiratory alkalosis (3) Abdominal abscess Is this a current diagnosis for this admission?: Yes Plan: Per surgery - Time Total Critical Time (Minutes): 50
--- NOTE | 2018-11-01 17:47 | PDOC PROGRESS REPORT ---
Subjective Progress Note for:: 10/31/18 Subjective:: Intubated sedated Reason For Visit: DIVERTICULITIS,SIGMOID AND DESCENDING COLON,INTRA- Physical Exam Vital Signs: Temp Pulse Resp BP Pulse Ox 97.0 F 93 11 L 113/85 99 10/31/18 10:00 10/31/18 10:00 10/31/18 10:00 10/31/18 10:00 10/31/18 12:10 Intake & Output 10/30/18 10/31/18 11/01/18 06:59 06:59 06:59 Intake Total 1587 2587 100 Output Total 928 3882 313 Balance 659 -1295 -213 Weight 93.4 kg 91.5 kg General appearance: PRESENT: no acute distress, disheveled, morbidly obese Head exam: PRESENT: atraumatic, normocephalic Eye exam: PRESENT: conjunctiva pale. ABSENT: nystagmus Mouth exam: PRESENT: dry mucosa, neck supple, tongue midline, other Neck exam: ABSENT: carotid bruit, JVD, lymphadenopathy, thyromegaly, tracheal deviation, tracheostomy Respiratory exam: PRESENT: decreased breath sounds, prolonged expiratory phas, rales, rhonchi, unlabored. ABSENT: retraction, stridor Cardiovascular exam: PRESENT: irregular rhythm Pulses: PRESENT: normal radial pulses GI/Abdominal exam: PRESENT: other - Status post surgery and multiple drains wound VAC Gentrourinary exam: PRESENT: indwelling catheter Extremities exam: PRESENT: +1 edema. ABSENT: clubbing, joint swelling Musculoskeletal exam: ABSENT: ambulatory, deformity, dislocation Neurological exam: ABSENT: awake Skin exam: PRESENT: dry, warm Results Laboratory Results: 10/31/18 04:40 10/31/18 04:40 10/30/18 10/30/18 10/31/18 10:33 21:25 04:40 WBC 26.4 H RBC 3.40 L Hgb 10.3 L D Hct 29.9 L MCV 88 MCH 30.3 MCHC 34.4 RDW 16.6 H Plt Count 38 L Seg Neutrophils % Lymphocytes % Monocytes % Eosinophils % Basophils % Absolute Neutrophils Absolute Lymphocytes Absolute Monocytes Absolute Eosinophils Absolute Basophils Carbonic Acid 1.14 HCO3/H2CO3 Ratio 21:1 ABG pH 7.44 ABG pCO2 38.0 ABG pO2 92.9 ABG HCO3 25.0 H ABG O2 Saturation 97.4 ABG Base Excess 0.9 FiO2 30% Sodium Potassium Chloride Carbon Dioxide Anion Gap BUN Creatinine Est GFR ( Amer) Est GFR (Non-Af Amer) Glucose Calcium Magnesium Total Bilirubin AST ALT Alkaline Phosphatase Total Protein Albumin Blood Type O POSITIVE Antibody Screen NEGATIVE 10/31/18 10/31/18 04:40 04:40 WBC 27.5 H RBC 3.40 L Hgb 10.3 L Hct 29.9 L MCV 88 MCH 30.2 MCHC 34.3 RDW 16.7 H Plt Count 40 L Seg Neutrophils % Not Reportable Lymphocytes % Not Reportable Monocytes % Not Reportable Eosinophils % Not Reportable Basophils % Not Reportable Absolute Neutrophils Not Reportable Absolute Lymphocytes Not Reportable Absolute Monocytes Not Reportable Absolute Eosinophils Not Reportable Absolute Basophils Not Reportable Carbonic Acid HCO3/H2CO3 Ratio ABG pH ABG pCO2 ABG pO2 ABG HCO3 ABG O2 Saturation ABG Base Excess FiO2 Sodium 138.2 Potassium 4.0 Chloride 105 Carbon Dioxide 25 Anion Gap 8 BUN 34 H Creatinine 1.25 Est GFR ( Amer) 53 L Est GFR (Non-Af Amer) 44 L Glucose 187 H Calcium 7.4 L Magnesium 1.9 Total Bilirubin 3.4 H AST 94 H ALT 527 H Alkaline Phosphatase 266 H Total Protein 3.4 L Albumin 2.1 L Blood Type Antibody Screen 10/28/18 10/28/18 06:04 06:04 Creatine Kinase 136 H CK-MB (CK-2) 3.43 Troponin I 0.033 Impressions: Abdomen/Pelvis CT 10/21/18 00:00 IMPRESSION: Diverticulitis of the descending colon and sigmoid colon. No definitive abscess or perforation. Pigtail catheter in the lower abdomen. Abdomen Ultrasound 10/22/18 00:00 IMPRESSION: No acute sonographic abnormality. Catheter Patency X-Ray 10/23/18 00:00 IMPRESSION: SMALL RESIDUAL ABSCESS CAVITY. FISTULOUS COMMUNICATION WITH THE DISTAL DESCENDING COLON WITH COLONIC FINDINGS DESCRIBED ABOVE. Fluoroscopy 10/23/18 00:00 IMPRESSION: SMALL RESIDUAL ABSCESS CAVITY. FISTULOUS COMMUNICATION WITH THE DISTAL DESCENDING COLON WITH COLONIC FINDINGS DESCRIBED ABOVE. Chest X-Ray 10/29/18 00:00 IMPRESSION: Satisfactory position of support apparatus. No pneumothorax. Assessment & Plan - Diagnosis (1) Acute kidney failure with tubular necrosis Is this a current diagnosis for this admission?: Yes Plan: hemodialysis (2) Septic shock Is this a current diagnosis for this admission?: Yes Plan: Labs- All tests 24 hr 10/26/18 10/26/18 10/26/18 13:10 13:32 21:45 WBC 20.0 H 32.4 H* Hgb 10.1 L 9.2 L Plt Count 344 279 ABG pH 7.17 L* ABG pCO2 48.2 H ABG pO2 150.8 H FiO2 40% 10/26/18 10/27/18 10/27/18 21:53 03:54 03:54 WBC 23.6 H Hgb 8.8 L Plt Count 157 ABG pH 7.10 L* 7.39 ABG pCO2 33.0 L 28.1 L ABG pO2 481.2 H 149.5 H FiO2 100% 40% 10/27/18 10/27/18 10/27/18 10:40 20:25 23:12 WBC Hgb Plt Count ABG pH 7.59 H 7.64 H* 7.47 H ABG pCO2 22.7 L 22.6 L 32.3 L ABG pO2 84.6 108.8 H 113.4 H FiO2 30% 30% 30% 10/27/18 10/28/18 10/28/18 23:46 04:40 04:40 WBC 22.4 H 24.0 H Hgb 5.6 L D 7.8 L D Plt Count 79 L 69 L ABG pH 7.46 H ABG pCO2 35.4 ABG pO2 98.8 FiO2 30% 10/28/18 14:10 WBC Hgb Plt Count ABG pH 7.45 ABG pCO2 34.3 L ABG pO2 116.9 H FiO2 30% 10/26/18 18:30 Blood Culture - Preliminary Blood Gram Positive Regino 10/22/18 01:40 Gram Stain - Final Abdomen - Abscess Wound Culture - Final Escherichia Coli Enterococcus Faecalis(Group D) Prevotella Species Skin Joi 10/21/18 16:00 Blood Culture - Final Blood Clostridium Sp.not Perfringens compensatory respiratory alkalosis (3) Abdominal abscess Is this a current diagnosis for this admission?: Yes Plan: Per surgery 10/26/18 18:30 Blood Culture - Final Blood Clostridium Sp.not Perfringens 10/26/18 14:28 Blood Culture - Final Blood Clostridium Sp.not Perfringens 10/22/18 01:40 Gram Stain - Final Abdomen - Abscess Wound Culture - Final Escherichia Coli Enterococcus Faecalis(Group D) Prevotella Species Skin Joi 10/21/18 16:00 Blood Culture - Final Blood Clostridium Sp.not Perfringens (4) Thrombocytosis Is this a current diagnosis for this admission?: Yes Plan: Labs- All tests 24 hr 10/26/18 10/27/18 10/27/18 21:45 03:54 23:46 Plt Count 279 157 79 L 10/28/18 10/28/18 10/29/18 04:40 16:45 04:16 Plt Count 69 L 58 L 54 L 10/30/18 10/30/18 04:28 21:25 Plt Count 35 L 38 L - Time Total Critical Time (Minutes): 50
--- NOTE | 2018-11-01 17:55 | PDOC PROGRESS REPORT ---
Subjective Progress Note for:: 11/01/18 Subjective:: Intubated sedated Reason For Visit: DIVERTICULITIS,SIGMOID AND DESCENDING COLON,INTRA- Physical Exam Vital Signs: Temp Pulse Resp BP Pulse Ox 97.9 F 105 H 8 L 112/60 99 11/01/18 11:18 11/01/18 11:18 11/01/18 11:18 11/01/18 11:18 11/01/18 11:18 Intake & Output 10/31/18 11/01/18 11/02/18 06:59 06:59 06:59 Intake Total 2587 2996 1262 Output Total 3882 2658 55 Balance -6704 791 3105 Weight 91.5 kg 93 kg General appearance: PRESENT: morbidly obese. ABSENT: no acute distress, cooperative, disheveled Head exam: PRESENT: atraumatic, normocephalic Eye exam: PRESENT: conjunctiva pale. ABSENT: EOMI, nystagmus Mouth exam: PRESENT: dry mucosa, neck supple, other - ET tube Neck exam: ABSENT: carotid bruit, full ROM, JVD, lymphadenopathy, meningismus, tenderness, thyromegaly, tracheal deviation, tracheostomy, other Respiratory exam: PRESENT: decreased breath sounds, prolonged expiratory phas, rales, rhonchi, unlabored. ABSENT: retraction Cardiovascular exam: PRESENT: irregular rhythm, tachycardia Pulses: PRESENT: normal radial pulses GI/Abdominal exam: PRESENT: other - Status post surgery and multiple drains wound VAC Gentrourinary exam: PRESENT: indwelling catheter Extremities exam: PRESENT: +1 edema. ABSENT: clubbing, joint swelling Musculoskeletal exam: ABSENT: ambulatory, deformity, dislocation Neurological exam: ABSENT: awake Skin exam: PRESENT: dry, warm Results Laboratory Results: 11/01/18 05:55 11/01/18 05:55 10/30/18 10/31/18 11/01/18 10:33 14:00 02:30 WBC 25.0 H 32.9 H* RBC 2.80 L 3.00 L Hgb 8.3 L 9.1 L Hct 25.1 L 26.9 L MCV 90 90 MCH 29.8 30.4 MCHC 33.3 33.9 RDW 17.3 H 17.5 H Plt Count 45 L 85 L Seg Neutrophils % Lymphocytes % Monocytes % Eosinophils % Basophils % Absolute Neutrophils Absolute Lymphocytes Absolute Monocytes Absolute Eosinophils Absolute Basophils Carbonic Acid HCO3/H2CO3 Ratio ABG pH ABG pCO2 ABG pO2 ABG HCO3 ABG O2 Saturation ABG Base Excess FiO2 Sodium Potassium Chloride Carbon Dioxide Anion Gap BUN Creatinine Est GFR ( Amer) Est GFR (Non-Af Amer) Glucose Calcium Magnesium Total Bilirubin AST ALT Alkaline Phosphatase Total Protein Albumin Blood Type O POSITIVE Antibody Screen NEGATIVE 11/01/18 11/01/18 11/01/18 04:07 05:55 05:55 WBC 32.2 H* RBC 2.87 L Hgb 8.8 L Hct 26.0 L MCV 91 MCH 30.5 MCHC 33.7 RDW 17.5 H Plt Count 91 L Seg Neutrophils % Not Reportable Lymphocytes % Not Reportable Monocytes % Not Reportable Eosinophils % Not Reportable Basophils % Not Reportable Absolute Neutrophils Not Reportable Absolute Lymphocytes Not Reportable Absolute Monocytes Not Reportable Absolute Eosinophils Not Reportable Absolute Basophils Not Reportable Carbonic Acid 1.04 L HCO3/H2CO3 Ratio 20:1 ABG pH 7.41 ABG pCO2 34.4 L ABG pO2 102.3 H ABG HCO3 21.2 ABG O2 Saturation 97.8 ABG Base Excess -2.9 FiO2 30% Sodium 136.1 L Potassium 4.5 Chloride 104 Carbon Dioxide 23 Anion Gap 9 BUN 47 H Creatinine 1.51 H Est GFR ( Amer) 43 L Est GFR (Non-Af Amer) 35 L Glucose 207 H Calcium 7.3 L Magnesium 1.8 Total Bilirubin 3.4 H AST 51 H ALT 302 H Alkaline Phosphatase 337 H Total Protein 3.6 L Albumin 2.0 L Blood Type Antibody Screen 10/26/18 14:28 Blood Blood Culture - Final Clostridium Sp.not Perfringens 10/28/18 10/28/18 06:04 06:04 Creatine Kinase 136 H CK-MB (CK-2) 3.43 Troponin I 0.033 Impressions: Abdomen Ultrasound 10/22/18 00:00 IMPRESSION: No acute sonographic abnormality. Catheter Patency X-Ray 10/23/18 00:00 IMPRESSION: SMALL RESIDUAL ABSCESS CAVITY. FISTULOUS COMMUNICATION WITH THE DISTAL DESCENDING COLON WITH COLONIC FINDINGS DESCRIBED ABOVE. Fluoroscopy 10/23/18 00:00 IMPRESSION: SMALL RESIDUAL ABSCESS CAVITY. FISTULOUS COMMUNICATION WITH THE DISTAL DESCENDING COLON WITH COLONIC FINDINGS DESCRIBED ABOVE. Abdomen/Pelvis CT 10/31/18 10:44 IMPRESSION: Bilateral lower lobe collapse and consolidation with small pleural effusions Small amount of postoperative free intraperitoneal air. No intra-abdominal or pelvic masses or adenopathy. No abscess. Post subtotal colectomy with right lower quadrant ileostomy. Chest CT 10/31/18 10:44 IMPRESSION: Bilateral lower lobe collapse and consolidation with small pleural effusions Small amount of postoperative free intraperitoneal air. No intra-abdominal or pelvic masses or adenopathy. No abscess. Post subtotal colectomy with right lower quadrant ileostomy. Chest X-Ray 11/01/18 06:00 IMPRESSION: No significant change. Assessment & Plan - Diagnosis (1) Acute kidney failure with tubular necrosis Is this a current diagnosis for this admission?: Yes Plan: hemodialysis (2) Septic shock Is this a current diagnosis for this admission?: Yes Plan: Labs- All tests 24 hr 10/26/18 10/26/18 10/26/18 13:10 13:32 21:45 WBC 20.0 H 32.4 H* Hgb 10.1 L 9.2 L Plt Count 344 279 ABG pH 7.17 L* ABG pCO2 48.2 H ABG pO2 150.8 H FiO2 40% 10/26/18 10/27/18 10/27/18 21:53 03:54 03:54 WBC 23.6 H Hgb 8.8 L Plt Count 157 ABG pH 7.10 L* 7.39 ABG pCO2 33.0 L 28.1 L ABG pO2 481.2 H 149.5 H FiO2 100% 40% 10/27/18 10/27/18 10/27/18 10:40 20:25 23:12 WBC Hgb Plt Count ABG pH 7.59 H 7.64 H* 7.47 H ABG pCO2 22.7 L 22.6 L 32.3 L ABG pO2 84.6 108.8 H 113.4 H FiO2 30% 30% 30% 10/27/18 10/28/18 10/28/18 23:46 04:40 04:40 WBC 22.4 H 24.0 H Hgb 5.6 L D 7.8 L D Plt Count 79 L 69 L ABG pH 7.46 H ABG pCO2 35.4 ABG pO2 98.8 FiO2 30% 10/28/18 14:10 WBC Hgb Plt Count ABG pH 7.45 ABG pCO2 34.3 L ABG pO2 116.9 H FiO2 30% 10/26/18 18:30 Blood Culture - Preliminary Blood Gram Positive Regino 10/22/18 01:40 Gram Stain - Final Abdomen - Abscess Wound Culture - Final Escherichia Coli Enterococcus Faecalis(Group D) Prevotella Species Skin Joi 10/21/18 16:00 Blood Culture - Final Blood Clostridium Sp.not Perfringens compensatory respiratory alkalosis (3) Abdominal abscess Is this a current diagnosis for this admission?: Yes Plan: Per surgery 10/26/18 18:30 Blood Culture - Final Blood Clostridium Sp.not Perfringens 10/26/18 14:28 Blood Culture - Final Blood Clostridium Sp.not Perfringens 10/22/18 01:40 Gram Stain - Final Abdomen - Abscess Wound Culture - Final Escherichia Coli Enterococcus Faecalis(Group D) Prevotella Species Skin Joi 10/21/18 16:00 Blood Culture - Final Blood Clostridium Sp.not Perfringens (4) Thrombocytopenia Is this a current diagnosis for this admission?: Yes Plan: Labs- All tests 24 hr 10/31/18 10/31/18 11/01/18 04:40 14:00 02:30 Plt Count 40 L 45 L 85 L 11/01/18 05:55 Plt Count 91 L - Time Total Critical Time (Minutes): 50
--- NOTE | 2018-11-01 18:27 | PDOC PROGRESS REPORT ---
Subjective Progress Note for:: 11/01/18 Subjective:: No adverse events overnight. Patient remains sedated and intubated. Still no urine output. Vital signs been stable. White blood cell count has gone up. Surgery is planning on taking her back to the OR today for exploratory laparotomy to look for any devitalized tissue. Reason For Visit: DIVERTICULITIS,SIGMOID AND DESCENDING COLON,INTRA- Physical Exam Vital Signs: Temp Pulse Resp BP Pulse Ox 96.6 F L 102 H 9 L 128/69 H 98 11/01/18 16:13 11/01/18 16:00 11/01/18 16:13 11/01/18 16:13 11/01/18 16:13 Intake & Output 10/31/18 11/01/18 11/02/18 06:59 06:59 06:59 Intake Total 2587 2996 7832 Output Total 3882 2658 5865 Balance -0678 392 6557 Weight 91.5 kg 93 kg General appearance: PRESENT: No acute distress, other - Sedated, intubated Respiratory exam: PRESENT: crackles - Bilateral, symmetrical, unlabored. ABSENT: prolonged expiratory phase, rhonchi, tachypnea, wheezes Cardiovascular exam: PRESENT: +S1, +S2, tachycardia Vascular exam: ABSENT: normal capillary refill - Capillary refill was 6 seconds GI/Abdominal exam: PRESENT: diminished bowel sounds, distended, soft, other - Midline abdominal decision was covered with a bulky dressing, she had 3 EVELIN drains. ABSENT: rebound, tenderness Extremities exam: PRESENT: pedal edema, other - She has 3+ or greater generalized pitting edema in her upper and lower extremities as well as diffuse anasarca. She has a right IJ central line and a left groin trialysis catheter. ABSENT: clubbing Musculoskeletal exam: ABSENT: deformity, tenderness Neurological exam: PRESENT: other - Sedated, intubated Skin exam: PRESENT: jaundice, mottled. ABSENT: warm Results Laboratory Results: 11/01/18 05:55 11/01/18 05:55 10/30/18 11/01/18 11/01/18 10:33 02:30 04:07 WBC 32.9 H* RBC 3.00 L Hgb 9.1 L Hct 26.9 L MCV 90 MCH 30.4 MCHC 33.9 RDW 17.5 H Plt Count 85 L Seg Neutrophils % Lymphocytes % Monocytes % Eosinophils % Basophils % Absolute Neutrophils Absolute Lymphocytes Absolute Monocytes Absolute Eosinophils Absolute Basophils Carbonic Acid 1.04 L HCO3/H2CO3 Ratio 20:1 ABG pH 7.41 ABG pCO2 34.4 L ABG pO2 102.3 H ABG HCO3 21.2 ABG O2 Saturation 97.8 ABG Base Excess -2.9 FiO2 30% Sodium Potassium Chloride Carbon Dioxide Anion Gap BUN Creatinine Est GFR ( Amer) Est GFR (Non-Af Amer) Glucose Calcium Magnesium Total Bilirubin AST ALT Alkaline Phosphatase Total Protein Albumin Blood Type O POSITIVE Antibody Screen NEGATIVE 11/01/18 11/01/18 05:55 05:55 WBC 32.2 H* RBC 2.87 L Hgb 8.8 L Hct 26.0 L MCV 91 MCH 30.5 MCHC 33.7 RDW 17.5 H Plt Count 91 L Seg Neutrophils % Not Reportable Lymphocytes % Not Reportable Monocytes % Not Reportable Eosinophils % Not Reportable Basophils % Not Reportable Absolute Neutrophils Not Reportable Absolute Lymphocytes Not Reportable Absolute Monocytes Not Reportable Absolute Eosinophils Not Reportable Absolute Basophils Not Reportable Carbonic Acid HCO3/H2CO3 Ratio ABG pH ABG pCO2 ABG pO2 ABG HCO3 ABG O2 Saturation ABG Base Excess FiO2 Sodium 136.1 L Potassium 4.5 Chloride 104 Carbon Dioxide 23 Anion Gap 9 BUN 47 H Creatinine 1.51 H Est GFR ( Amer) 43 L Est GFR (Non-Af Amer) 35 L Glucose 207 H Calcium 7.3 L Magnesium 1.8 Total Bilirubin 3.4 H AST 51 H ALT 302 H Alkaline Phosphatase 337 H Total Protein 3.6 L Albumin 2.0 L Blood Type Antibody Screen 10/26/18 14:28 Blood Blood Culture - Final Clostridium Sp.not Perfringens 10/28/18 10/28/18 06:04 06:04 Creatine Kinase 136 H CK-MB (CK-2) 3.43 Troponin I 0.033 Impressions: Abdomen Ultrasound 10/22/18 00:00 IMPRESSION: No acute sonographic abnormality. Catheter Patency X-Ray 10/23/18 00:00 IMPRESSION: SMALL RESIDUAL ABSCESS CAVITY. FISTULOUS COMMUNICATION WITH THE DISTAL DESCENDING COLON WITH COLONIC FINDINGS DESCRIBED ABOVE. Fluoroscopy 10/23/18 00:00 IMPRESSION: SMALL RESIDUAL ABSCESS CAVITY. FISTULOUS COMMUNICATION WITH THE DISTAL DESCENDING COLON WITH COLONIC FINDINGS DESCRIBED ABOVE. Abdomen/Pelvis CT 10/31/18 10:44 IMPRESSION: Bilateral lower lobe collapse and consolidation with small pleural effusions Small amount of postoperative free intraperitoneal air. No intra-abdominal or pelvic masses or adenopathy. No abscess. Post subtotal colectomy with right lower quadrant ileostomy. Chest CT 10/31/18 10:44 IMPRESSION: Bilateral lower lobe collapse and consolidation with small pleural effusions Small amount of postoperative free intraperitoneal air. No intra-abdominal or pelvic masses or adenopathy. No abscess. Post subtotal colectomy with right lower quadrant ileostomy. Chest X-Ray 11/01/18 06:00 IMPRESSION: No significant change. Assessment & Plan - Diagnosis (1) Septic shock Is this a current diagnosis for this admission?: Yes Plan: She has evidence of multisystem organ failure, but there are some signs of improvement. Her creatinine has improved and she has had improvement in her blood pressure. She is on broad-spectrum antibiotic coverage for likely organisms. Liver enzymes and bilirubin continue to trend down. She is off the Cardizem drip and her heart rate is holding stable. She got a couple more units of blood yesterday. Fluid from the EVELIN drains was negative for creatinine. [place] to be unlikely that she has a ureteral injury that is draining urine into the belly. She is getting dialysis and is being followed by nephrology. She had a CT of the chest abdomen and pelvis, which showed some pleural effusions, which are to be expected from her volume overload, but the possibility for pneumonia could not be ruled out. At this point, she has good gram-negative coverage with Zosyn, and good anaerobic coverage with Flagyl. Low suspicion for the need for antifungals. Therefore, if any further coverage would be needed, it would be gram-positive coverage. There is nothing from her cultures that would indicate gram-positive organism. A lot of what were seen in her chest could be from fluid overload, but if we decide to treat for gram positives, there are multiple considerations here. Ideally, we would use da ptomycin, but daptomycin is not indicated for pneumonia. We could use vancomycin, but given her renal issues, which could be made even worse by the fact that she is on Zosyn, this is not a completely attractive option. The other option would be Zyvox, but with her platelets, and some of the oozing of blood she has had, this option is also not without risk. We will hold off for now pending the outcome of her surgical procedure today. (2) Colonic fistula Is this a current diagnosis for this admission?: Yes Plan: Management per surgery. She has a history of ulcerative colitis with a history of multiple complications as a result. Surgery is planning on taking her back to the OR today for exploratory laparotomy as noted above. - Time Time Spent with patient: 25-34 minutes
[2018-11-01 19:35] LABS: HEMATOCRIT 25.3 % (36.0-47.0); HEMOGLOBIN 8.4 g/dL (12.0-15.5); MEAN CORPUSCULAR HEMOGLOBIN 30.3 pg (27.0-33.4); MEAN CORPUSCULAR HGB CONC 33.4 g/dL (32.0-36.0); MEAN CORPUSCULAR VOLUME 91 fl (80-97); RED BLOOD COUNT 2.79 10^6/uL (3.72-5.28); RED CELL DISTRIBUTION WIDTH 16.4 % (11.5-14.0); WHITE BLOOD COUNT 28.1 10^3/uL (4.0-10.5)
[2018-11-01 20:08] LABS: PLATELET COUNT 92 10^3/uL (150-450)
[2018-11-01 20:12] LABS: ABSOLUTE LYMPHOCYTES# (MANUAL) 4.2 10^3/uL (0.5-4.7); ABSOLUTE MONOCYTES # (MANUAL) 1.7 10^3/uL (0.1-1.4); ABSOLUTE NEUTROPHILS# (MANUAL) 22.2 10^3/uL (1.7-8.2); BASOPHILS % (MANUAL) 0 % (0-2); EOSINOPHILS % (MANUAL) 0 % (0-6); LYMPHOCYTES % (MANUAL) 15 % (13-45); MONOCYTES % (MANUAL) 6 % (3-13); NUCLEATED RED BLOOD CELLS 3 /100 WBC (0); SEGMENTED NEUTROPHILS % (MAN) 79 % (42-78); TOTAL CELLS COUNTED 100
[2018-11-01 20:17] LABS: ANISOCYTOSIS 1+; BURR CELLS SLIGHT; OVALOCYTES 1+; PLATELET COMMENT DECREASED; POIKILOCYTOSIS 2+; SCHISTOCYTES 1+; TOXIC GRANULATION 1+
[2018-11-01] MEDS: PIPERACILLIN SODIUM/TAZOBACTAM 2.25 GM in NORMAL SALINE 50 ML IV SCH (21:28)
[2018-11-02] MEDS: HYDROCORTISONE SOD SUCCINATE INJ/PF 100 MG/2 ML SDV IV SCH ×3 (02:04→17:26)
[2018-11-02] MEDS: PIPERACILLIN SODIUM/TAZOBACTAM 2.25 GM in NORMAL SALINE 50 ML IV SCH ×4 (02:05→23:03)
[2018-11-02] MEDS: IPRATROPIUM/ALBUTEROL 0.5-2.5 MG/3 ML AMPUL NEB SCH ×4 (02:46→20:53)
[2018-11-02 04:39] LABS: ARTERIAL BLOOD BASE EXCESS -3.1 mmol/L; ARTERIAL BLOOD FIO2 28%; ARTERIAL BLOOD H2CO3 1.29 mmol/L (1.05-1.35); ARTERIAL BLOOD HCO3 22.5 mmol/L (20-24); ARTERIAL BLOOD O2 SATURATION 96.8 % (94-98); ARTERIAL BLOOD PCO2 42.8 mmHg (35-45); ARTERIAL BLOOD PH 7.34 (7.35-7.45); ARTERIAL BLOOD TOTAL CO2 23.8 mmol/L (21-25)
[2018-11-02 04:49] LABS: INTERNATIONAL RATION (INR) 1.22
[2018-11-02 04:51] LABS: HEMATOCRIT 23.7 % (36.0-47.0); MEAN CORPUSCULAR HEMOGLOBIN 30.6 pg (27.0-33.4); MEAN CORPUSCULAR HGB CONC 33.7 g/dL (32.0-36.0); MEAN CORPUSCULAR VOLUME 91 fl (80-97); PLATELET COUNT 100 10^3/uL (150-450); RED BLOOD COUNT 2.61 10^6/uL (3.72-5.28); RED CELL DISTRIBUTION WIDTH 16.8 % (11.5-14.0)
[2018-11-02 04:52] LABS: ALANINE AMINOTRANSFERASE 173 U/L (9-52); ALBUMIN 1.9 g/dL (3.5-5.0); ALKALINE PHOSPHATASE 191 U/L (38-126); ANION GAP 10 (5-19); ASPARTATE AMINO TRANSFERASE 39 U/L (14-36); BILIRUBIN,DIRECT 2.5 mg/dL (0.0-0.4); BILIRUBIN,TOTAL 2.9 mg/dL (0.2-1.3); BLOOD UREA NITROGEN 56 mg/dL (7-20); CALCIUM 7.3 mg/dL (8.4-10.2); CARBON DIOXIDE 23 mmol/L (22-30); CHLORIDE 104 mmol/L (98-107); GLUCOSE 169 mg/dL (75-110); SODIUM 136.7 mmol/L (137-145); TOTAL PROTEIN 3.6 g/dL (6.3-8.2)
[2018-11-02 04:59] LABS: PREALBUMIN 14.6 mg/dL (17.6-36.0)
[2018-11-02] MEDS ORDERED: NORMAL SALINE 1000 ML 1,000 ML IV PRN (05:00)
[2018-11-02 05:10] LABS: WHITE BLOOD COUNT 31.7 10^3/uL (4.0-10.5)
[2018-11-02 05:14] LABS: ABSOLUTE MONOCYTES # (MANUAL) 0.6 10^3/uL (0.1-1.4); BASOPHILS % (MANUAL) 0 % (0-2); EOSINOPHILS % (MANUAL) 0 % (0-6); LYMPHOCYTES % (MANUAL) 19 % (13-45); MONOCYTES % (MANUAL) 2 % (3-13); NUCLEATED RED BLOOD CELLS 3 /100 WBC (0); SEGMENTED NEUTROPHILS % (MAN) 79 % (42-78); TOTAL CELLS COUNTED 100
[2018-11-02 05:20] LABS: ANISOCYTOSIS 1+; POIKILOCYTOSIS 2+; POLYCHROMASIA SLIGHT; TOXIC GRANULATION 1+; TOXIC VACUOLATION PRESENT
[2018-11-02 05:21] LABS: BURR CELLS 1+; OVALOCYTES 1+; PLATELET COMMENT ADEQUATE; SCHISTOCYTES 1+
[2018-11-02] MEDS: SUCRALFATE SUSP 1 GM/10 ML UDCUP NG SCH ×3 (07:03→17:26)
[2018-11-02] MEDS: METRONIDAZOLE 500 MG/NS RTU 500 MG/100 ML RTUPB IV SCH ×3 (07:04→17:25)
--- NOTE | 2018-11-02 07:28 | RADIOLOGY REPORT (SQ) ---
EXAM DESCRIPTION: XR CHEST 1 VIEW COMPLETED DATE/TME: 11/02/2018 06:00 CLINICAL HISTORY: 58 years Female, sepsis COMPARISON: One day prior. NUMBER OF VIEWS/TECHNIQUE: 1/AP FINDINGS: Bilateral lower thoracic opacity/effusion. Adequate appearing endotracheal tube. Adequate appearing enteric tube with tip at the left upper abdominal quadrant. Adequate appearing right subclavian central line. Upper abdominal clips. Normal cardiac silhouette size. No pneumothorax. Stable bony thorax. IMPRESSION: No significant change.
--- NOTE | 2018-11-02 08:15 | PDOC PROGRESS REPORT ---
Subjective Progress Note for:: 11/02/18 Subjective:: Intubated, not sedated, not responsive Reason For Visit: DIVERTICULITIS,SIGMOID AND DESCENDING COLON,INTRA- Physical Exam Vital Signs: Temp Pulse Resp BP Pulse Ox 97.5 F 105 H 16 114/69 99 11/02/18 07:00 11/02/18 02:46 11/02/18 07:00 11/02/18 04:34 11/02/18 07:00 Intake & Output 11/01/18 11/02/18 11/03/18 06:59 06:59 06:59 Intake Total 2996 8182 Output Total 2658 6113 Balance 338 2052 Weight 93 kg 94.3 kg General appearance: PRESENT: obese, other - not responsive toverbal or physical stimuli Respiratory exam: PRESENT: clear to auscultation godwin Cardiovascular exam: PRESENT: RRR GI/Abdominal exam: PRESENT: soft, other - 1) midlline incision vcovered with WoundVac 2) Drain fille with serosanguinois fluid 3) no Bowel sounds Extremities exam: PRESENT: +2 edema - all 4 extremities Results Laboratory Results: 11/02/18 04:20 11/02/18 04:20 10/30/18 11/01/18 11/02/18 10:33 19:20 04:20 WBC 28.1 H RBC 2.79 L Hgb 8.4 L Hct 25.3 L MCV 91 MCH 30.3 MCHC 33.4 RDW 16.4 H Plt Count 92 L Seg Neutrophils % Not Reportable Lymphocytes % Not Reportable Monocytes % Not Reportable Eosinophils % Not Reportable Basophils % Not Reportable Absolute Neutrophils Not Reportable Absolute Lymphocytes Not Reportable Absolute Monocytes Not Reportable Absolute Eosinophils Not Reportable Absolute Basophils Not Reportable Carbonic Acid HCO3/H2CO3 Ratio ABG pH ABG pCO2 ABG pO2 ABG HCO3 ABG O2 Saturation ABG Base Excess FiO2 Sodium Potassium Chloride Carbon Dioxide Anion Gap BUN Creatinine Est GFR ( Amer) Est GFR (Non-Af Amer) Glucose Calcium Phosphorus Magnesium Total Bilirubin AST ALT Alkaline Phosphatase Ammonia < 8.7 L Total Protein Albumin Prealbumin Blood Type O POSITIVE Antibody Screen NEGATIVE 11/02/18 11/02/18 11/02/18 04:20 04:20 04:20 WBC 31.7 H* RBC 2.61 L Hgb 8.0 L Hct 23.7 L MCV 91 MCH 30.6 MCHC 33.7 RDW 16.8 H Plt Count 100 L Seg Neutrophils % Not Reportable Lymphocytes % Not Reportable Monocytes % Not Reportable Eosinophils % Not Reportable Basophils % Not Reportable Absolute Neutrophils Not Reportable Absolute Lymphocytes Not Reportable Absolute Monocytes Not Reportable Absolute Eosinophils Not Reportable Absolute Basophils Not Reportable Carbonic Acid 1.29 HCO3/H2CO3 Ratio 17:1 ABG pH 7.34 L ABG pCO2 42.8 ABG pO2 94.0 ABG HCO3 22.5 ABG O2 Saturation 96.8 ABG Base Excess -3.1 FiO2 28% Sodium 136.7 L Potassium 5.0 Chloride 104 Carbon Dioxide 23 Anion Gap 10 BUN 56 H Creatinine 1.87 H Est GFR ( Amer) 33 L Est GFR (Non-Af Amer) 28 L Glucose 169 H Calcium 7.3 L Phosphorus 4.0 Magnesium 2.0 Total Bilirubin 2.9 H AST 39 H ALT 173 H Alkaline Phosphatase 191 H Ammonia Total Protein 3.6 L Albumin 1.9 L Prealbumin 14.6 L Blood Type Antibody Screen 10/28/18 10/28/18 06:04 06:04 Creatine Kinase 136 H CK-MB (CK-2) 3.43 Troponin I 0.033 Impressions: Abdomen Ultrasound 10/22/18 00:00 IMPRESSION: No acute sonographic abnormality. Catheter Patency X-Ray 10/23/18 00:00 IMPRESSION: SMALL RESIDUAL ABSCESS CAVITY. FISTULOUS COMMUNICATION WITH THE DISTAL DESCENDING COLON WITH COLONIC FINDINGS DESCRIBED ABOVE. Fluoroscopy 10/23/18 00:00 IMPRESSION: SMALL RESIDUAL ABSCESS CAVITY. FISTULOUS COMMUNICATION WITH THE DISTAL DESCENDING COLON WITH COLONIC FINDINGS DESCRIBED ABOVE. Abdomen/Pelvis CT 10/31/18 10:44 IMPRESSION: Bilateral lower lobe collapse and consolidation with small pleural effusions Small amount of postoperative free intraperitoneal air. No intra-abdominal or pelvic masses or adenopathy. No abscess. Post subtotal colectomy with right lower quadrant ileostomy. Chest CT 10/31/18 10:44 IMPRESSION: Bilateral lower lobe collapse and consolidation with small pleural effusions Small amount of postoperative free intraperitoneal air. No intra-abdominal or pelvic masses or adenopathy. No abscess. Post subtotal colectomy with right lower quadrant ileostomy. Chest X-Ray 11/02/18 06:00 IMPRESSION: No significant change. Assessment & Plan - Diagnosis (1) Colonic fistula Is this a current diagnosis for this admission?: Yes (2) Diverticulitis large intestine Qualifiers: Diverticulitis bleeding: without bleeding Diverticulitis complication: with perforation and abscess Qualified Code(s): K57.20 - Diverticulitis of large intestine with perforation and abscess without bleeding Is this a current diagnosis for this admission?: Yes (3) Abscess of abdominal cavity Is this a current diagnosis for this admission?: Yes - Plan Summary Plan Summary: A/ POD#7 after total colectomy POD#1 after exploratory laparotomy. omentectomy, abdominal wound debridment, revision of ileostomy Respiratory= on SIMV 8/min, no change; acceptable ABG's CV= HD stable, no tachicardia = anuria , UO < 45 mL/24 hr GI: small bowel appeared well perfused and w/o pathology at laparotomy yestedrday, ileostomy was revised, no output yet FEN: on dialysis, on TPN ID: Wound gram stain negative for fungal; other recent cx from 10/31/18 (urine, bllod, and sputum) are negative so far; continue abx (Zosyn/Flagyl) Neuro: patient has been off sedation since 10/29/18 and patient does not show any evidence of spontaneous neurological activity; concerned about possible hypoxic brain injury suffered postoperatively while septic and hypotensive on multiple pressors P/ EEG Brain perfusion scan Apnea test continue other management as before Possible bedside bronchoscopy as per Pulmunologist today
[2018-11-02] MEDS: ACETYLCYSTEINE 20% SOLN 800 MG/4 ML VIAL.NEB NEB SCH ×2 (08:21→20:54)
[2018-11-02] MEDS ORDERED: NOREPINEPHRINE BITARTRATE INJ/PF 4 MG/4 ML SDV IV ONE (08:52)
[2018-11-02] MEDS: DEXTROSE 5%-WATER 250 ML with NOREPINEPHRINE BITARTRATE 4 MG IV PRN ×2 (09:10)
--- NOTE | 2018-11-02 09:14 | OPERATIVE REPORT E ---
Operative Report NAME: PAULETTE HARO : 1960 AGE: 58Y DATE OF SURGERY: 10/29/2018 ROOM: 608 PREOPERATIVE DIAGNOSES: 1. NEED OF TRIALYSIS CATHETER FOR HEMODIALYSIS. 2. REPLACEMENT OF LEFT SUBCLAVIAN CENTRAL VENOUS LINE. POSTOPERATIVE DIAGNOSES: 1. NEED OF TRIALYSIS CATHETER FOR HEMODIALYSIS. 2. REPLACEMENT OF LEFT SUBCLAVIAN CENTRAL VENOUS LINE. OPERATION: 1. PLACEMENT OF LEFT GROIN FEMORAL VEIN TRIALYSIS CATHETER. 2. REPLACEMENT OF RIGHT SUBCLAVIAN VEIN CENTRAL VENOUS LUMEN CATHETER OVER GUIDEWIRE. SURGEON: DURAN KIRK M.D. COMB TENDER: None. ESTIMATED BLOOD LOSS: Less than 10 mL. COMPLICATIONS: None. ANESTHESIA: 10 mL of 1% lidocaine with epinephrine. INDICATIONS/FINDINGS: This 58-year-old female is postop day #3 following total colectomy with Nacho pouch and ileostomy for ulcerative colitis with perforation and abdominal abscess. The patient is currently intubated and has developed ATN, and is in need of placement of a dialysis catheter for hemodialysis. The java software architect is recommending a trialysis catheter. Initially, the patient had a central venous line in the right subclavian vein which requires to be replaced as it was inserted about 8 days ago. PROCEDURE: The procedure was done at the bedside in the ICU. The patient was placed in supine position. The left groin was prepped and draped in usual fashion. Using ultrasound, the left common femoral vein was identified in the groin crease. The area was then prepped and draped in usual fashion. Infiltrated with lidocaine, and a 16 gauge needle easily used to cannulate the left common femoral vein and good blood return was obtained. The guidewire was inserted through the needle into the femoral vein and the iliac vein. The needle was withdrawn. The insertion point of the catheter was enlarged with a #11 blade and tissue dilator which was removed and a 30 cm long 20-Vietnamese diameter trialysis catheter was inserted over the guidewire into the common femoral vein and iliac vein. The guidewire was then removed. Each port was then aspirated and flushed with normal saline without difficulty. The catheter was secured in place with sutures and sterile dressings applied. Following this, the right subclavian vein central venous line catheter was replaced by prepping the catheter with Betadine and laid on a sterile field made with cloth towels. Following this, a drape was placed on top of it, and the catheter was placed through an opening on the drape itself. The distal port was then opened. A guidewire was inserted through the distal port. After this, the catheter was withdrawn over the guidewire which was then reinserted through the superior vena cava. The new catheter was inserted over the guidewire into the superior vena cava using the distal port. The guidewire was then removed. Each port of the catheter was aspirated and flushed with normal saline without difficulty. The catheter was secured to the skin with Nylon sutures, and sterile dressings were applied. The patient tolerated the procedure well. A chest x-ray was obtained to confirm position of the line. DICTATING PHYSICIAN: DURAN KIRK M.D. [id number] PHY#: [id number] ID: [id number] JOB#: [id number] ACCT: [id number] cc:DURAN KIRK M.D. > MTDD
--- NOTE | 2018-11-02 09:16 | OPERATIVE REPORT E ---
Operative Report NAME: PAULETTE HARO : 1960 AGE: 58Y DATE OF SURGERY: 11/01/2018 ROOM: 608 PREOPERATIVE DIAGNOSES: 1. STATUS POST TOTAL COLECTOMY WITH END ILEOSTOMY. 2. SEPSIS. 3. ACUTE RENAL FAILURE WITH ANURIA. 4. RESPIRATORY FAILURE AND VENTILATOR DEPENDENCY. 5. MULTIPLE CULTURES POSITIVE FOR Clostridia. 6. LEUKOCYTOSIS, UNEXPLAINED. 7. BILATERAL LOWER LOBE COLLAPSE. 8. THE PATIENT ON HEMODIALYSIS. POSTOPERATIVE DIAGNOSES: 1. STATUS POST TOTAL COLECTOMY WITH END ILEOSTOMY. 2. SEPSIS. 3. ACUTE RENAL FAILURE WITH ANURIA. 4. RESPIRATORY FAILURE AND VENTILATOR DEPENDENCY. 5. MULTIPLE CULTURES POSITIVE FOR Clostridia. 6. LEUKOCYTOSIS, UNEXPLAINED. 7. BILATERAL LOWER LOBE COLLAPSE. 8. THE PATIENT ON HEMODIALYSIS. OPERATION: 1. Exploratory laparotomy, omentectomy. 2. Wide debridement of abdominal wall, cutaneous fat, and fascia, sharp, about 25 cm in length x 1 cm in thickness. 3. Revision of ileostomy. SURGEON: DURAN KIRK M.D. ROOM SERVICE SERVER: None. BLEEDING: Less than 50 mL. ANESTHESIA: General. FLUIDS: 900 mL of crystalloid, 2 units of fresh frozen plasma, 1 unit of packed red blood cells. COMPLICATIONS: None. URINE OUTPUT: None. INDICATION AND FINDINGS: This is a 58-year-old female 6 days postop following a total colectomy with end ileostomy for a perforated sigmoid colon in a patient with ulcerative colitis. The patient was very sick in the immediate postop period, requiring multiple pressors to keep her blood pressure in acceptable level. She has been intubated since the time of surgery. During the postop course, she has developed acute renal failure with anuria, for which she is currently being dialyzed. She has also developed respiratory dependency and bilateral lower lobe collapse. A CAT scan of the abdomen and pelvis was done yesterday, revealing no fluid collection in the abdominal cavity, very small amount of postoperative free air, no abnormalities within the bowel. A CT scan of the chest revealed bilateral pleural effusion with lower lobe collapse. Due to the climbing of the white blood cell count, which was 27,000 yesterday and 32,000 today, 11/01, and no improvement of her general conditions, the decision was made to take the patient to surgery to explore her abdomen and to also address a possible ischemic end ileostomy. Procedures, risks, benefits, and complications were discussed with the patient's family, they understand all the above, and they decided to proceed following their questions were answered. DESCRIPTION OF PROCEDURE: The procedure was done in the operating room. The patient was transported from the ICU, placed in a surgical bed. She was already intubated. The 2 Kristofer abdominal drains were removed. A wound VAC was removed from the midline laparotomy incision. The ileostomy bag and flange were removed and the ileostomy was packed with a Ray-Tagged sponge, which was sutured to the ileostomy with a [id number] 2-0 silk suture. The abdominal wall was then prepped and draped in the usual fashion. The skin of the abdomen along the surgical incision was already open. The fascia was opened by dividing the PDS suture. The peritoneal cavity was entered. Very small amount of ascites was noted. The small bowel appeared to be pale, but viable. Examination of the remaining portion of the abdomen revealed an ischemic omentum, which was divided almost up to the level of the stomach, and a portion of the mesentery of the rectum was found to be ischemic as well, and portions of the falciform ligament. All these were removed and sent to pathology as a single specimen. Cultures were obtained from the peritoneal fluid as well as from some tissue. The abdomen was then irrigated with about 6 L of normal saline, which was completely aspirated, and throughout the case the appearance of the intestine improved and a nice pink color was noted about up to 1 hour into the procedure. A full-thickness debridement of the skin of the surgery incision bilaterally together with fat and fascia was performed with a knife first and then with Bovie so that necrotic tissue and fat were removed. This led to exposure of good subcutaneous bleeding yellow fat. This tissue was sent to pathology and some of this tissue was sent with the culture as well. The fascia was found to be intact. However, there were portions of the fat on both the right and left side which appeared to be compromised, and those were excised with Bovie. After this was accomplished, the ileostomy was taken down. The tip was amputated and closed temporarily with an Allis clamp, and delivered, again, through the old ileostomy site. The terminal ileum was then sutured with 2-0 Vycrol Lembert sutures to the peritoneum of the anterior abdominal wall to prevent slippage of the end ileostomy tip, and good bleeding was obtained from the end of the amputated end ileostomy. The abdominal wall was then closed with a running #1 looped PDS suture without difficulty. The entire abdominal wall incision were covered with sterile drapes. The ileostomy was matured by suturing it to the edges of the old ileostomy site, which was debrided because of necrosis of the medial aspect of the skin openin. Due to the enlarged ileostomy cutaneous opening, some of this was approximated with deep inverted [id number] interrupted 3-0 Vicryl sutures so to decrease the size of the cutaneous opening. The ileostomy was matured using 3-0 Vicryl 3-point sutures in a Monique fashion, and good output of bilious material was noted. However, there was bleeding from the refreshed edges of the ileostomy site, which was controlled by application of a piece of Surgicel. The refreshed abdominal wound was then covered with a wound VAC sponge, large Tegaderm, and the end ileostomy flange and bag were then applied on the ileostomy. A small opening was made in the middle of the wound VAC Tegaderm and a suction vent was placed to it and connected to the wound VAC machine with a minus 125 mmHg negative pressure, with good seal. After this was accomplished, the drain which was previously placed into the peritoneal cavity was secured to the skin with a 2-0 nylon suture and connected to bulb suction. The patient was then transferred to the ICU bed and to the ICU, and she remained intubated in stable conditions. DICTATING PHYSICIAN: DURAN KIRK M.D. [id number] PHY#: [id number] ID: [id number] JOB#: [id number] ACCT: [id number] cc:DURAN KIRK M.D. > MTDD
[2018-11-02] MEDS: AMINO ACIDS 5%/D25W 1,000 ML IV PRN ×2 (09:44→09:55)
--- NOTE | 2018-11-02 09:44 | PDOC PROGRESS REPORT ---
Subjective Progress Note for:: 11/02/18 Subjective:: 11/02/2018-patient's overall condition is poor condition is critical. Remain intubated under sedation. No urinary output. She is getting dialysis today. Off sedation for several days. Today is postop 7 after total colectomy. postop day 1 after exploratory laparotomy, omentectomy, abdominal wound debridement, revision of ileostomy. A lot of drainage from the abdominal drain. Patient is edematous all over the body. There is bruise along the right thigh. Family is aware of the poor and critical condition patient is in. The surgeon requested for EEG, brain perfusion scan, apnea test today because patient does not show any spontaneous neurological activity and there is a concern about hypoxic anoxic brain injury,suffered postoperatively, sepsis, hypotension on multiple pressors. Reason For Visit: DIVERTICULITIS,SIGMOID AND DESCENDING COLON,INTRA- Physical Exam Vital Signs: Temp Pulse Resp BP Pulse Ox 97.2 F 96 16 133/73 H 99 11/02/18 08:00 11/02/18 08:21 11/02/18 08:21 11/02/18 08:00 11/02/18 08:21 Intake & Output 11/01/18 11/02/18 11/03/18 06:59 06:59 06:59 Intake Total 2996 8182 150 Output Total 2658 6130 10 Balance 338 2052 140 Weight 93 kg 94.3 kg General appearance: PRESENT: other - Patient is intubated under sedation responding to deep stimuli by moaning and slightly opening the eyes. Head exam: PRESENT: atraumatic Eye exam: PRESENT: PERRLA Neck exam: ABSENT: carotid bruit, JVD, lymphadenopathy, thyromegaly Respiratory exam: PRESENT: decreased breath sounds Cardiovascular exam: PRESENT: tachycardia GI/Abdominal exam: PRESENT: other - Creatinine is present at the surgical wound. Abdominal was edematous. Bowel sounds are very very minimal. Extremities exam: PRESENT: other - 2+ edema of the upper extremity and lower extremities and sacral dependent edema present. Neurological exam: PRESENT: other - Patient still intubated under sedation unable to do neurological examination. Psychiatric exam: PRESENT: other - Unable to psychiatric examination. Results Laboratory Results: 11/02/18 04:20 11/02/18 04:20 10/30/18 11/01/18 11/02/18 10:33 19:20 04:20 WBC 28.1 H RBC 2.79 L Hgb 8.4 L Hct 25.3 L MCV 91 MCH 30.3 MCHC 33.4 RDW 16.4 H Plt Count 92 L Seg Neutrophils % Not Reportable Lymphocytes % Not Reportable Monocytes % Not Reportable Eosinophils % Not Reportable Basophils % Not Reportable Absolute Neutrophils Not Reportable Absolute Lymphocytes Not Reportable Absolute Monocytes Not Reportable Absolute Eosinophils Not Reportable Absolute Basophils Not Reportable Carbonic Acid HCO3/H2CO3 Ratio ABG pH ABG pCO2 ABG pO2 ABG HCO3 ABG O2 Saturation ABG Base Excess FiO2 Sodium Potassium Chloride Carbon Dioxide Anion Gap BUN Creatinine Est GFR ( Amer) Est GFR (Non-Af Amer) Glucose Calcium Phosphorus Magnesium Total Bilirubin AST ALT Alkaline Phosphatase Ammonia < 8.7 L Total Protein Albumin Prealbumin Blood Type O POSITIVE Antibody Screen NEGATIVE 11/02/18 11/02/18 11/02/18 04:20 04:20 04:20 WBC 31.7 H* RBC 2.61 L Hgb 8.0 L Hct 23.7 L MCV 91 MCH 30.6 MCHC 33.7 RDW 16.8 H Plt Count 100 L Seg Neutrophils % Not Reportable Lymphocytes % Not Reportable Monocytes % Not Reportable Eosinophils % Not Reportable Basophils % Not Reportable Absolute Neutrophils Not Reportable Absolute Lymphocytes Not Reportable Absolute Monocytes Not Reportable Absolute Eosinophils Not Reportable Absolute Basophils Not Reportable Carbonic Acid 1.29 HCO3/H2CO3 Ratio 17:1 ABG pH 7.34 L ABG pCO2 42.8 ABG pO2 94.0 ABG HCO3 22.5 ABG O2 Saturation 96.8 ABG Base Excess -3.1 FiO2 28% Sodium 136.7 L Potassium 5.0 Chloride 104 Carbon Dioxide 23 Anion Gap 10 BUN 56 H Creatinine 1.87 H Est GFR ( Amer) 33 L Est GFR (Non-Af Amer) 28 L Glucose 169 H Calcium 7.3 L Phosphorus 4.0 Magnesium 2.0 Total Bilirubin 2.9 H AST 39 H ALT 173 H Alkaline Phosphatase 191 H Ammonia Total Protein 3.6 L Albumin 1.9 L Prealbumin 14.6 L Blood Type Antibody Screen 10/31/18 11:40 Tracheal Aspirate Gram Stain - Final 10/28/18 10/28/18 06:04 06:04 Creatine Kinase 136 H CK-MB (CK-2) 3.43 Troponin I 0.033 Impressions: Abdomen Ultrasound 10/22/18 00:00 IMPRESSION: No acute sonographic abnormality. Catheter Patency X-Ray 10/23/18 00:00 IMPRESSION: SMALL RESIDUAL ABSCESS CAVITY. FISTULOUS COMMUNICATION WITH THE DISTAL DESCENDING COLON WITH COLONIC FINDINGS DESCRIBED ABOVE. Fluoroscopy 10/23/18 00:00 IMPRESSION: SMALL RESIDUAL ABSCESS CAVITY. FISTULOUS COMMUNICATION WITH THE DISTAL DESCENDING COLON WITH COLONIC FINDINGS DESCRIBED ABOVE. Abdomen/Pelvis CT 10/31/18 10:44 IMPRESSION: Bilateral lower lobe collapse and consolidation with small pleural effusions Small amount of postoperative free intraperitoneal air. No intra-abdominal or pelvic masses or adenopathy. No abscess. Post subtotal colectomy with right lower quadrant ileostomy. Chest CT 10/31/18 10:44 IMPRESSION: Bilateral lower lobe collapse and consolidation with small pleural effusions Small amount of postoperative free intraperitoneal air. No intra-abdominal or pelvic masses or adenopathy. No abscess. Post subtotal colectomy with right lower quadrant ileostomy. Chest X-Ray 11/02/18 06:00 IMPRESSION: No significant change. Assessment & Plan - Diagnosis (1) Septic shock Is this a current diagnosis for this admission?: Yes Plan: She has evidence of multisystem organ failure, but there are some signs of improvement. Her creatinine has improved and she has had improvement in her blood pressure. She is on broad-spectrum antibiotic coverage for likely org anisms. Liver enzymes and bilirubin continue to trend down. She is off the Cardizem drip and her heart rate is holding stable. She got a couple more units of blood yesterday. Fluid from the EVELIN drains was negative for creatinine. [place] to be unlikely that she has a ureteral injury that is draining urine into the belly. She is getting dialysis and is being followed by nephrology. She had a CT of the chest abdomen and pelvis, which showed some pleural effusions, which are to be expected from her volume overload, but the possibility for pneumonia could not be ruled out. At this point, she has good gram-negative coverage with Zosyn, and good anaerobic coverage with Flagyl. Low suspicion for the need for antifungals. Therefore, if any further coverage would be needed, it would be gram-positive coverage. There is nothing from her cultures that would indicate gram-positive organism. A lot of what were seen in her chest could be from fluid overload, but if we decide to treat for gram positives, there are multiple considerations here. Ideally, we would use daptomycin, but daptomycin is not indicated for pneumonia. We could use vancomycin, but given her renal issues, which could be made even worse by the fact that she is on Zosyn, this is not a completely attractive option. The other option would be Zyvox, but with her platelets, and some of the oozing of blood she has had, this option is also not without risk. We will hold off for now pending the outcome of her surgical procedure today. 11/02/2018-overall prognosis is poor condition is critical patient is in septic shock. The peritoneal abdominal tissue cultures are pending. Chest x-ray shows bilateral lower thoracic opacification/effusions. The cultures from abdominal tissue on shows gram-positive cocci in chains. Cultures from 10/26/2018 shows Clostridium. Patient is presently on Flagyl and Zosyn. T-max is 97.5. Patient is going for a brain scan today. Plan is to continue the present management today. (2) Acute kidney failure with tubular necrosis Is this a current diagnosis for this admission?: Yes Plan: 11/02/2018-patient developed acute kidney failure most likely secondary to septic shock. Patient had a dialysis on Friday she is going to have another session of dialysis today. Nephrology on board. Overall prognosis is poor condition is critical. There is no urinary output. (3) Colonic fistula Is this a current diagnosis for this admission?: Yes Plan: 11/02/2018-patient has colonic fistula. She has history of ulcerative colitis with multiple complications as a result result of it. Patient went for exploratory laparotomy yesterday has a omentectomy, revision of ileostomy. Plan is as per surgical recommendations. - Time Time Spent with patient: 25-34 minutes Medications reviewed and adjusted accordingly: Yes
[2018-11-02] MEDS: PANTOPRAZOLE SODIUM 40 MG VIAL IV SCH ×2 (10:34→23:04)
[2018-11-02] MEDS: ENOXAPARIN SODIUM INJ 40 MG/0.4 ML DISP.SYRIN SUBCUT SCH (11:21)
--- NOTE | 2018-11-02 13:17 | PDOC PROGRESS REPORT ---
Subjective Progress Note for:: 11/02/18 Reason For Visit: Patient is in the ICU. Chart review was done. Remains intubated and sedated. No urinary output.Patient was seen today while undergoing dialysis in the ICU today. Off sedation for several days. Today is postop 7 after total colectomy and postop day 1 after exploratory laparotomy, omentectomy, abdominal wound debridement, revision of ileostomy. She looks quite moribund. Lots of drain from her abdominal drains. She is she is got generalized anasarca. Vital signs are tenuous with blood pressure dropping and she had to be begun on Levophed while undergoing dialysis. Labs and medications were reviewed. Physical Exam Vital Signs: Temp Pulse Resp BP Pulse Ox 97.2 F 113 H 14 97/72 L 100 11/02/18 08:00 11/02/18 10:00 11/02/18 10:00 11/02/18 10:00 11/02/18 10:00 Intake & Output 11/01/18 11/02/18 11/03/18 06:59 06:59 06:59 Intake Total 2996 8182 1180 Output Total 2658 6130 1220 Balance 338 2051 -40 Weight 93 kg 94.3 kg Exam: Remains intubated and sedated. Looks very moribund. Respiratory exam: PRESENT: clear to auscultation godwin, crackles, decreased breath sounds Cardiovascular exam: PRESENT: +S1, +S2 GI/Abdominal exam: PRESENT: soft. ABSENT: mass - Ileostomy present. She has got what looks like EVELIN drains., normal bowel sounds, tenderness Neurological exam: PRESENT: altered Skin exam: PRESENT: mottled. ABSENT: cyanosis, rash Results Laboratory Results: 11/02/18 04:20 11/02/18 04:20 10/30/18 11/01/18 11/02/18 10:33 19:20 04:20 WBC 28.1 H RBC 2.79 L Hgb 8.4 L Hct 25.3 L MCV 91 MCH 30.3 MCHC 33.4 RDW 16.4 H Plt Count 92 L Seg Neutrophils % Not Reportable Lymphocytes % Not Reportable Monocytes % Not Reportable Eosinophils % Not Reportable Basophils % Not Reportable Absolute Neutrophils Not Reportable Absolute Lymphocytes Not Reportable Absolute Monocytes Not Reportable Absolute Eosinophils Not Reportable Absolute Basophils Not Reportable Carbonic Acid HCO3/H2CO3 Ratio ABG pH ABG pCO2 ABG pO2 ABG HCO3 ABG O2 Saturation ABG Base Excess FiO2 Sodium Potassium Chloride Carbon Dioxide Anion Gap BUN Creatinine Est GFR ( Amer) Est GFR (Non-Af Amer) Glucose Lactic Acid Calcium Phosphorus Magnesium Total Bilirubin AST ALT Alkaline Phosphatase Ammonia < 8.7 L Total Protein Albumin Prealbumin Blood Type O POSITIVE Antibody Screen NEGATIVE 11/02/18 11/02/18 11/02/18 04:20 04:20 04:20 WBC 31.7 H* RBC 2.61 L Hgb 8.0 L Hct 23.7 L MCV 91 MCH 30.6 MCHC 33.7 RDW 16.8 H Plt Count 100 L Seg Neutrophils % Not Reportable Lymphocytes % Not Reportable Monocytes % Not Reportable Eosinophils % Not Reportable Basophils % Not Reportable Absolute Neutrophils Not Reportable Absolute Lymphocytes Not Reportable Absolute Monocytes Not Reportable Absolute Eosinophils Not Reportable Absolute Basophils Not Reportable Carbonic Acid 1.29 HCO3/H2CO3 Ratio 17:1 ABG pH 7.34 L ABG pCO2 42.8 ABG pO2 94.0 ABG HCO3 22.5 ABG O2 Saturation 96.8 ABG Base Excess -3.1 FiO2 28% Sodium 136.7 L Potassium 5.0 Chloride 104 Carbon Dioxide 23 Anion Gap 10 BUN 56 H Creatinine 1.87 H Est GFR ( Amer) 33 L Est GFR (Non-Af Amer) 28 L Glucose 169 H Lactic Acid Calcium 7.3 L Phosphorus 4.0 Magnesium 2.0 Total Bilirubin 2.9 H AST 39 H ALT 173 H Alkaline Phosphatase 191 H Ammonia Total Protein 3.6 L Albumin 1.9 L Prealbumin 14.6 L Blood Type Antibody Screen 11/02/18 12:25 WBC RBC Hgb Hct MCV MCH MCHC RDW Plt Count Seg Neutrophils % Lymphocytes % Monocytes % Eosinophils % Basophils % Absolute Neutrophils Absolute Lymphocytes Absolute Monocytes Absolute Eosinophils Absolute Basophils Carbonic Acid HCO3/H2CO3 Ratio ABG pH ABG pCO2 ABG pO2 ABG HCO3 ABG O2 Saturation ABG Base Excess FiO2 Sodium Potassium Chloride Carbon Dioxide Anion Gap BUN Creatinine Est GFR ( Amer) Est GFR (Non-Af Amer) Glucose Lactic Acid 1.8 Calcium Phosphorus Magnesium Total Bilirubin AST ALT Alkaline Phosphatase Ammonia Total Protein Albumin Prealbumin Blood Type Antibody Screen 10/31/18 11:42 Abdomen - Incision Site Gram Stain - Final 10/31/18 11:40 Tracheal Aspirate Gram Stain - Final 10/28/18 10/28/18 06:04 06:04 Creatine Kinase 136 H CK-MB (CK-2) 3.43 Troponin I 0.033 Impressions: Abdomen Ultrasound 10/22/18 00:00 IMPRESSION: No acute sonographic abnormality. Catheter Patency X-Ray 10/23/18 00:00 IMPRESSION: SMALL RESIDUAL ABSCESS CAVITY. FISTULOUS COMMUNICATION WITH THE DISTAL DESCENDING COLON WITH COLONIC FINDINGS DESCRIBED ABOVE. Fluoroscopy 10/23/18 00:00 IMPRESSION: SMALL RESIDUAL ABSCESS CAVITY. FISTULOUS COMMUNICATION WITH THE DISTAL DESCENDING COLON WITH COLONIC FINDINGS DESCRIBED ABOVE. Abdomen/Pelvis CT 10/31/18 10:44 IMPRESSION: Bilateral lower lobe collapse and consolidation with small pleural effusions Small amount of postoperative free intraperitoneal air. No intra-abdominal or pelvic masses or adenopathy. No abscess. Post subtotal colectomy with right lower quadrant ileostomy. Chest CT 10/31/18 10:44 IMPRESSION: Bilateral lower lobe collapse and consolidation with small pleural effusions Small amount of postoperative free intraperitoneal air. No intra-abdominal or pelvic masses or adenopathy. No abscess. Post subtotal colectomy with right lower quadrant ileostomy. Chest X-Ray 11/02/18 06:00 IMPRESSION: No significant change. Assessment & Plan - Diagnosis (1) Acute kidney failure with tubular necrosis Is this a current diagnosis for this admission?: Yes Plan: She is still anuric.She is dialysis dependent. Is being supervised to ensure safe and smooth procedure.Fluid extraction has been difficult given her low blood pressure. She was therefore initiated on Levophed. Plan to remove approximately 1 L as tolerated. Given her overall comorbidities she is got a very poor prognosis. (2) Diverticulitis large intestine Qualifiers: Diverticulitis bleeding: without bleeding Diverticulitis complication: with perforation and abscess Qualified Code(s): K57.20 - Diverticulitis of large intestine with perforation and abscess without bleeding Is this a current diagnosis for this admission?: Yes Plan: Status post surgery. Being managed by hospitalist and surgeons. (3) Septic shock Is this a current diagnosis for this admission?: Yes Plan: Initiating pressors again. Overall poor prognosis. (4) Abdominal abscess Is this a current diagnosis for this admission?: Yes Plan: As per surgeons and hospitalist.
[2018-11-02] MEDS: INSULIN REG, HUMAN 100 UNIT/ML 3 ML VIAL (PYX) SUBCUT PRN ×2 (13:43→18:58)
[2018-11-02] MEDS ORDERED: FAT EMULSIONS 250 ML IV SCH (14:00)
[2018-11-02 14:34] LABS: PATH REVIEW PATHOLOGIST REVIEWED
--- NOTE | 2018-11-02 15:34 | PDOC PROGRESS REPORT ---
Subjective Progress Note for:: 11/02/18 Subjective:: Intubated sedated Reason For Visit: DIVERTICULITIS,SIGMOID AND DESCENDING COLON,INTRA- Physical Exam Vital Signs: Temp Pulse Resp BP Pulse Ox 97.2 F 96 16 133/73 H 99 11/02/18 08:00 11/02/18 08:21 11/02/18 08:21 11/02/18 08:00 11/02/18 08:21 Intake & Output 11/01/18 11/02/18 11/03/18 06:59 06:59 06:59 Intake Total 2996 8182 150 Output Total 2658 6130 10 Balance 338 2052 140 Weight 93 kg 94.3 kg General appearance: PRESENT: no acute distress, disheveled, morbidly obese. ABSENT: cooperative Head exam: PRESENT: atraumatic, normocephalic Eye exam: PRESENT: conjunctiva pale. ABSENT: EOMI, nystagmus, scleral icterus Mouth exam: PRESENT: dry mucosa, neck supple, tongue midline, other - ET tube Neck exam: ABSENT: carotid bruit, JVD, lymphadenopathy, thyromegaly, tracheal deviation, tracheostomy Respiratory exam: PRESENT: decreased breath sounds, prolonged expiratory phas, r ales, rhonchi, unlabored. ABSENT: retraction, stridor Cardiovascular exam: PRESENT: RRR, +S1, +S2, tachycardia Pulses: PRESENT: normal radial pulses GI/Abdominal exam: PRESENT: other - status post surgery wound VAC drains Gentrourinary exam: PRESENT: indwelling catheter Extremities exam: PRESENT: pedal edema. ABSENT: calf tenderness, clubbing, joint swelling Musculoskeletal exam: ABSENT: deformity, dislocation Neurological exam: ABSENT: awake Skin exam: PRESENT: dry, warm, other - Diffuse subcutaneous ecchymosis Results Laboratory Results: 11/02/18 04:20 11/02/18 04:20 10/30/18 11/01/18 11/02/18 10:33 19:20 04:20 WBC 28.1 H RBC 2.79 L Hgb 8.4 L Hct 25.3 L MCV 91 MCH 30.3 MCHC 33.4 RDW 16.4 H Plt Count 92 L Seg Neutrophils % Not Reportable Lymphocytes % Not Reportable Monocytes % Not Reportable Eosinophils % Not Reportable Basophils % Not Reportable Absolute Neutrophils Not Reportable Absolute Lymphocytes Not Reportable Absolute Monocytes Not Reportable Absolute Eosinophils Not Reportable Absolute Basophils Not Reportable Carbonic Acid HCO3/H2CO3 Ratio ABG pH ABG pCO2 ABG pO2 ABG HCO3 ABG O2 Saturation ABG Base Excess FiO2 Sodium Potassium Chloride Carbon Dioxide Anion Gap BUN Creatinine Est GFR ( Amer) Est GFR (Non-Af Amer) Glucose Calcium Phosphorus Magnesium Total Bilirubin AST ALT Alkaline Phosphatase Ammonia < 8.7 L Total Protein Albumin Prealbumin Blood Type O POSITIVE Antibody Screen NEGATIVE 11/02/18 11/02/18 11/02/18 04:20 04:20 04:20 WBC 31.7 H* RBC 2.61 L Hgb 8.0 L Hct 23.7 L MCV 91 MCH 30.6 MCHC 33.7 RDW 16.8 H Plt Count 100 L Seg Neutrophils % Not Reportable Lymphocytes % Not Reportable Monocytes % Not Reportable Eosinophils % Not Reportable Basophils % Not Reportable Absolute Neutrophils Not Reportable Absolute Lymphocytes Not Reportable Absolute Monocytes Not Reportable Absolute Eosinophils Not Reportable Absolute Basophils Not Reportable Carbonic Acid 1.29 HCO3/H2CO3 Ratio 17:1 ABG pH 7.34 L ABG pCO2 42.8 ABG pO2 94.0 ABG HCO3 22.5 ABG O2 Saturation 96.8 ABG Base Excess -3.1 FiO2 28% Sodium 136.7 L Potassium 5.0 Chloride 104 Carbon Dioxide 23 Anion Gap 10 BUN 56 H Creatinine 1.87 H Est GFR ( Amer) 33 L Est GFR (Non-Af Amer) 28 L Glucose 169 H Calcium 7.3 L Phosphorus 4.0 Magnesium 2.0 Total Bilirubin 2.9 H AST 39 H ALT 173 H Alkaline Phosphatase 191 H Ammonia Total Protein 3.6 L Albumin 1.9 L Prealbumin 14.6 L Blood Type Antibody Screen 10/31/18 11:40 Tracheal Aspirate Gram Stain - Final 10/28/18 10/28/18 06:04 06:04 Creatine Kinase 136 H CK-MB (CK-2) 3.43 Troponin I 0.033 Impressions: Abdomen Ultrasound 10/22/18 00:00 IMPRESSION: No acute sonographic abnormality. Catheter Patency X-Ray 10/23/18 00:00 IMPRESSION: SMALL RESIDUAL ABSCESS CAVITY. FISTULOUS COMMUNICATION WITH THE DISTAL DESCENDING COLON WITH COLONIC FINDINGS DESCRIBED ABOVE. Fluoroscopy 10/23/18 00:00 IMPRESSION: SMALL RESIDUAL ABSCESS CAVITY. FISTULOUS COMMUNICATION WITH THE DISTAL DESCENDING COLON WITH COLONIC FINDINGS DESCRIBED ABOVE. Abdomen/Pelvis CT 10/31/18 10:44 IMPRESSION: Bilateral lower lobe collapse and consolidation with small pleural effusions Small amount of postoperative free intraperitoneal air. No intra-abdominal or pelvic masses or adenopathy. No abscess. Post subtotal colectomy with right lower quadrant ileostomy. Chest CT 10/31/18 10:44 IMPRESSION: Bilateral lower lobe collapse and consolidation with small pleural effusions Small amount of postoperative free intraperitoneal air. No intra-abdominal or pelvic masses or adenopathy. No abscess. Post subtotal colectomy with right lower quadrant ileostomy. Chest X-Ray 11/02/18 06:00 IMPRESSION: No significant change. Assessment & Plan - Diagnosis (1) Acute kidney failure with tubular necrosis Is this a current diagnosis for this admission?: Yes Plan: hemodialysis (2) Septic shock Is this a current diagnosis for this admission?: Yes Plan: Labs- All tests 24 hr 10/26/18 10/26/18 10/26/18 13:10 13:32 21:45 WBC 20.0 H 32.4 H* Hgb 10.1 L 9.2 L Plt Count 344 279 ABG pH 7.17 L* ABG pCO2 48.2 H ABG pO2 150.8 H FiO2 40% 10/26/18 10/27/18 10/27/18 21:53 03:54 03:54 WBC 23.6 H Hgb 8.8 L Plt Count 157 ABG pH 7.10 L* 7.39 ABG pCO2 33.0 L 28.1 L ABG pO2 481.2 H 149.5 H FiO2 100% 40% 10/27/18 10/27/18 10/27/18 10:40 20:25 23:12 WBC Hgb Plt Count ABG pH 7.59 H 7.64 H* 7.47 H ABG pCO2 22.7 L 22.6 L 32.3 L ABG pO2 84.6 108.8 H 113.4 H FiO2 30% 30% 30% 10/27/18 10/28/18 10/28/18 23:46 04:40 04:40 WBC 22.4 H 24.0 H Hgb 5.6 L D 7.8 L D Plt Count 79 L 69 L ABG pH 7.46 H ABG pCO2 35.4 ABG pO2 98.8 FiO2 30% 10/28/18 14:10 WBC Hgb Plt Count ABG pH 7.45 ABG pCO2 34.3 L ABG pO2 116.9 H FiO2 30% 10/26/18 18:30 Blood Culture - Preliminary Blood Gram Positive Regino 10/22/18 01:40 Gram Stain - Final Abdomen - Abscess Wound Culture - Final Escherichia Coli Enterococcus Faecalis(Group D) Prevotella Species Skin Joi 10/21/18 16:00 Blood Culture - Final Blood Clostridium Sp.not Perfringens compensatory respiratory alkalosis (3) Abdominal abscess Is this a current diagnosis for this admission?: Yes Plan: Per surgery 10/26/18 18:30 Blood Culture - Final Blood Clostridium Sp.not Perfringens 10/26/18 14:28 Blood Culture - Final Blood Clostridium Sp.not Perfringens 10/22/18 01:40 Gram Stain - Final Abdomen - Abscess Wound Culture - Final Escherichia Coli Enterococcus Faecalis(Group D) Prevotella Species Skin Joi 10/21/18 16:00 Blood Culture - Final Blood Clostridium Sp.not Perfringens (4) Thrombocytopenia Is this a current diagnosis for this admission?: Yes Plan: Labs- All tests 24 hr 10/31/18 10/31/18 11/01/18 04:40 14:00 02:30 Plt Count 40 L 45 L 85 L 11/01/18 05:55 Plt Count 91 L - Time Total Critical Time (Minutes): 45
--- NOTE | 2018-11-02 16:02 | RADIOLOGY REPORT (SQ) ---
EXAM DESCRIPTION: CT HEAD WITHOUT COMPLETED DATE/TIME: 11/02/2018 3:42 pm REASON FOR STUDY: r/o brain hypoxic injury COMPARISON: None. TECHNIQUE: Axial images acquired through the brain without intravenous contrast. Images reviewed wi th bone, brain and subdural windows. Images stored on PACS. All CT scanners at this facility use dose modulation, iterative reconstruction, and/or weight based d osing when appropriate to reduce radiation dose to as low as reasonably achievable (ALARA). [facility]: Dose Right [facility]: CareDose [facility]: Dose Right [facility]: Teradose 4D [facility]: [employer] RADIATION DOSE: CT Rad equipment meets quality standard of care and radiation dose reduction techniq ues were employed. CTDIvol: 48.6 mGy. DLP: 928 mGy-cm. mGy. LIMITATIONS: None. FINDINGS: VENTRICLES: Normal size and contour. CEREBRUM: There is no evidence of diffuse cerebral edema. Sulci and fissures are normal. There is n o hemorrhage. There is no mass. There is no midline shift. Few scattered areas of low density in th e white matter most likely chronic small vessel ischemic changes. CEREBELLUM: No masses. No hemorrhage. No alteration of density. No evidence for acute infarction. EXTRAAXIAL SPACES: No fluid collections. No masses. ORBITS AND GLOBE: No intra- or extraconal masses. Normal contour of globe without masses. CALVARIUM: No fracture. PARANASAL SINUSES: No fluid or mucosal thickening. SOFT TISSUES: Possible subcutaneous hematoma in the right temporal area. OTHER: No other significant finding. IMPRESSION: Mild chronic microvascular ischemia. No acute intracranial imaging findings. Possible right subcutaneous hematoma. EVIDENCE OF ACUTE STROKE: NO. COMMENT: Quality ID # [id number]: Final reports with documentation of one or more dose reduction techniques (e.g., Automated exposure control, adjustment of the mA and/or kV according to patient size, use of iterative reconstruction technique) TECHNICAL DOCUMENTATION: JOB ID: [id number] [employer]- All Rights Reserved Reading location - IP/workstation name: [email or web address]
--- NOTE | 2018-11-02 17:33 | RADIOLOGY REPORT (SQ) ---
EXAM DESCRIPTION: NM BRAIN STATIC WITH FLOW COMPLETED DATE/TIME: 11/02/2018 4:55 pm REASON FOR STUDY: Evaluation for hypoxic brain injury COMPARISON: CT brain 11/02/2018 RADIONUCLIDE AND DOSE: 21.1 mCi of technetium 99 M DTPA TECHNIQUE: 21.1 mCi of technetium 99 M DTPA was administered for evaluation of brain profusion. Blo od flow imaging, immediate post administration static images, 35 minutes delay static images were obt ained. LIMITATIONS: None. FINDINGS: Absent cerebral perfusion. There is activity over the facial soft tissues and neck. IMPRESSION: Absent cerebral hemisphere perfusion notified of results 1720 hours 11/02/2018 TECHNICAL DOCUMENTATION: JOB ID: [id number] [employer]- All Rights Reserved Reading location - IP/workstation name: [email or web address]
[2018-11-03] MEDS: HYDROCORTISONE SOD SUCCINATE INJ/PF 100 MG/2 ML SDV IV SCH (01:18)
[2018-11-03] MEDS: SUCRALFATE SUSP 1 GM/10 ML UDCUP NG SCH ×2 (01:18→06:36)
[2018-11-03] MEDS: METRONIDAZOLE 500 MG/NS RTU 500 MG/100 ML RTUPB IV SCH ×2 (01:18→06:33)
[2018-11-03] MEDS: IPRATROPIUM/ALBUTEROL 0.5-2.5 MG/3 ML AMPUL NEB SCH ×2 (02:23→07:52)
[2018-11-03] MEDS: PIPERACILLIN SODIUM/TAZOBACTAM 2.25 GM in NORMAL SALINE 50 ML IV SCH (03:21)
[2018-11-03 04:59] LABS: ARTERIAL BLOOD BASE EXCESS -0.5 mmol/L; ARTERIAL BLOOD H2CO3 0.75 mmol/L (1.05-1.35); ARTERIAL BLOOD HCO3 21.2 mmol/L (20-24); ARTERIAL BLOOD O2 SATURATION 97.5 % (94-98); ARTERIAL BLOOD PCO2 24.8 mmHg (35-45); ARTERIAL BLOOD PH 7.55 (7.35-7.45); ARTERIAL BLOOD PO2 83.3 mmHg (80-100); ARTERIAL BLOOD TOTAL CO2 21.9 mmol/L (21-25)
[2018-11-03 05:00] LABS: ARTERIAL BLOOD FIO2 28%
[2018-11-03 05:10] LABS: HEMATOCRIT 25.9 % (36.0-47.0); HEMOGLOBIN 8.6 g/dL (12.0-15.5); MEAN CORPUSCULAR HEMOGLOBIN 30.2 pg (27.0-33.4); MEAN CORPUSCULAR HGB CONC 33.3 g/dL (32.0-36.0); MEAN CORPUSCULAR VOLUME 91 fl (80-97); RED BLOOD COUNT 2.85 10^6/uL (3.72-5.28); RED CELL DISTRIBUTION WIDTH 15.8 % (11.5-14.0)
[2018-11-03 05:19] LABS: ALANINE AMINOTRANSFERASE 122 U/L (9-52); ALBUMIN 1.6 g/dL (3.5-5.0); ALKALINE PHOSPHATASE 200 U/L (38-126); ANION GAP 10 (5-19); ASPARTATE AMINO TRANSFERASE 34 U/L (14-36); BILIRUBIN,DIRECT 2.3 mg/dL (0.0-0.4); BILIRUBIN,TOTAL 2.8 mg/dL (0.2-1.3); BLOOD UREA NITROGEN 43 mg/dL (7-20); CALCIUM 7.2 mg/dL (8.4-10.2); CARBON DIOXIDE 23 mmol/L (22-30); CHLORIDE 102 mmol/L (98-107); GLUCOSE 226 mg/dL (75-110); POTASSIUM 3.8 mmol/L (3.6-5.0); TOTAL PROTEIN 3.2 g/dL (6.3-8.2); TRIGLYCERIDES 151 mg/dL (<150)
[2018-11-03 06:34] LABS: ABSOLUTE LYMPHOCYTES# (MANUAL) 0.9 10^3/uL (0.5-4.7); ABSOLUTE MONOCYTES # (MANUAL) 2.7 10^3/uL (0.1-1.4); ABSOLUTE NEUTROPHILS# (MANUAL) 26.8 10^3/uL (1.7-8.2); BAND NEUTROPHILS % (MANUAL) 2 % (3-5); BASOPHILS % (MANUAL) 0 % (0-2); EOSINOPHILS % (MANUAL) 0 % (0-6); LYMPHOCYTES % (MANUAL) 3 % (13-45); MONOCYTES % (MANUAL) 9 % (3-13); NUCLEATED RED BLOOD CELLS 5 /100 WBC (0); SEGMENTED NEUTROPHILS % (MAN) 86 % (42-78); TOTAL CELLS COUNTED 100
[2018-11-03] MEDS: INSULIN REG, HUMAN 100 UNIT/ML 3 ML VIAL (PYX) SUBCUT PRN (06:34)
[2018-11-03 06:44] LABS: PLATELET COMMENT ADEQUATE; PLATELET LARGE PRESENT
[2018-11-03 06:45] LABS: POIKILOCYTOSIS 1+; POLYCHROMASIA 1+; STOMATOCYTES 1+
--- NOTE | 2018-11-03 06:50 | RADIOLOGY REPORT (SQ) ---
CLINICAL HISTORY: sepsis COMPARISON: November 02, 2018. TECHNIQUE: XR CHEST 1 VIEW 11/03/2018 6:00 AM SUPERVISOR MET[employer]IZING FINDINGS: The heart is borderline in size. There is bibasilar airspace disease. There are small pleural effusions. There is no pneumothorax. There are no acute osseous findings. Right subclavian central line, endotracheal and nasogastric tubes are unchanged. IMPRESSION: Worsening aeration of the lungs.
[2018-11-03 07:34] LABS: PLATELET COUNT 91 10^3/uL (150-450); WHITE BLOOD COUNT 30.5 10^3/uL (4.0-10.5)
[2018-11-03] MEDS: ACETYLCYSTEINE 20% SOLN 800 MG/4 ML VIAL.NEB NEB SCH (07:51)
--- NOTE | 2018-11-03 08:12 | Progress Note ---
Provider Note Provider Note: General Howe 1) Patient underwent apnea test x 2 yesterday which was positive (patient rewmained apneic after discontinuation of ventilator support x 1 full minute each time) 2) Brain scan test is negative for brain perfusion 3) Patient continues to remain motionless and unresponsive to verba or physiocal stimuli, despite having been off sedation x 5 days I had al long discussion with the patient family, they unrstand the situation and have decided to proceed with terminal extubation sometimes today once all family members are gathered with the patient.
[2018-11-03] MEDS ORDERED: LORAZEPAM INJ 2 MG/1 ML VIAL IV PRN (08:22)
[2018-11-03] MEDS: MORPHINE SULFATE 10 MG/ML INJ IV PRN ×2 (08:47→09:42)
--- NOTE | 2018-11-03 09:06 | PDOC PROGRESS REPORT ---
Subjective Progress Note for:: 11/03/18 Subjective:: 11/02/2018-patient's overall condition is poor condition is critical. Remain intubated under sedation. No urinary output. She is getting dialysis today. Off sedation for several days. Today is postop 7 after total colectomy. postop day 1 after exploratory laparotomy, omentectomy, abdominal wound debridement, revision of ileostomy. A lot of drainage from the abdominal drain. Patient is edematous all over the body. There is bruise along the right thigh. Family is aware of the poor and critical condition patient is in. The surgeon requested for EEG, brain perfusion scan, apnea test today because patient does not show any spontaneous neurological activity and there is a concern about hypoxic anoxic brain injury,suffered postoperatively, sepsis, hypotension on multiple pressors. 11/03/2018-brain scan was done yesterday there is no cerebral perfusion. Apnea test was done twice yesterday and it it shows no spontaneous breathing. Had a long discussion with the family members this morning -son decided to request for comfort care measures only. He understood that comfort care measures means patient only receive Ativan IV and morphine for anxiety and pain management. He wants patient to be extubated today and is aware of the fact that she may not able to survive the process. She is going to be DNR/DNI. Dr. Srivastava is notified. Reason For Visit: DIVERTICULITIS,SIGMOID AND DESCENDING COLON,INTRA- Physical Exam Vital Signs: Temp Pulse Resp BP Pulse Ox 97.0 F 93 20 135/75 H 100 11/03/18 08:42 11/03/18 08:42 11/03/18 08:42 11/03/18 08:42 11/03/18 08:42 Intake & Output 11/02/18 11/03/18 11/04/18 06:59 06:59 06:59 Intake Total 8182 2416 Output Total 6130 6416 Balance 205 550 Weight 94.3 kg 92.4 kg General appearance: PRESENT: other - Patient is intubated not under sedation. Unresponsive. Eye exam: PRESENT: PERRLA Mouth exam: PRESENT: moist Neck exam: ABSENT: carotid bruit, JVD, lymphadenopathy, thyromegaly Respiratory exam: PRESENT: clear to auscultation godwin. ABSENT: rales, rhonchi, wheezes Cardiovascular exam: PRESENT: RRR. ABSENT: diastolic murmur, rubs, systolic murmur GI/Abdominal exam: PRESENT: normal bowel sounds, soft. ABSENT: distended, guarding, mass, organolmegaly, rebound, tenderness Neurological exam: PRESENT: other - Brain scan shows anoxic encephalopathy. Results Laboratory Results: 11/03/18 04:30 11/03/18 04:30 10/30/18 11/02/18 11/02/18 10:33 12:25 12:37 WBC RBC Hgb Hct MCV MCH MCHC RDW Plt Count Seg Neutrophils % Lymphocytes % Monocytes % Eosinophils % Basophils % Absolute Neutrophils Absolute Lymphocytes Absolute Monocytes Absolute Eosinophils Absolute Basophils Carbonic Acid HCO3/H2CO3 Ratio ABG pH ABG pCO2 ABG pO2 ABG HCO3 ABG O2 Saturation ABG Base Excess FiO2 Sodium Potassium Chloride Carbon Dioxide Anion Gap BUN Creatinine Est GFR ( Amer) Est GFR (Non-Af Amer) Glucose Lactic Acid 1.8 Calcium Magnesium Total Bilirubin AST ALT Alkaline Phosphatase Total Protein Albumin Triglycerides Blood Type O POSITIVE O POSITIVE Antibody Screen NEGATIVE NEGATIVE 11/03/18 11/03/18 11/03/18 04:30 04:30 04:30 WBC 30.5 H* RBC 2.85 L Hgb 8.6 L Hct 25.9 L MCV 91 MCH 30.2 MCHC 33.3 RDW 15.8 H Plt Count 91 L Seg Neutrophils % Not Reportable Lymphocytes % Not Reportable Monocytes % Not Reportable Eosinophils % Not Reportable Basophils % Not Reportable Absolute Neutrophils Not Reportable Absolute Lymphocytes Not Reportable Absolute Monocytes Not Reportable Absolute Eosinophils Not Reportable Absolute Basophils Not Reportable Carbonic Acid 0.75 L HCO3/H2CO3 Ratio 28:1 ABG pH 7.55 H ABG pCO2 24.8 L ABG pO2 83.3 ABG HCO3 21.2 ABG O2 Saturation 97.5 ABG Base Excess -0.5 FiO2 28% Sodium 135.0 L Potassium 3.8 Chloride 102 Carbon Dioxide 23 Anion Gap 10 BUN 43 H Creatinine 1.42 H Est GFR ( Amer) 46 L Est GFR (Non-Af Amer) 38 L Glucose 226 H Lactic Acid Calcium 7.2 L Magnesium 2.0 Total Bilirubin 2.8 H AST 34 ALT 122 H Alkaline Phosphatase 200 H Total Protein 3.2 L Albumin 1.6 L Triglycerides 151 H Blood Type Antibody Screen 10/31/18 11:42 Abdomen - Incision Site Gram Stain - Final 10/31/18 11:42 Abdomen - Incision Site Wound Culture - Final Enterococcus Faecalis(Group D) Yeast, Not Orin Albicans No Anaerobic Organisms 10/31/18 11:40 Tracheal Aspirate Gram Stain - Final 10/31/18 11:50 Graves Catheter Urine Culture - Final Yeast, Not Orin Albicans 10/28/18 10/28/18 06:04 06:04 Creatine Kinase 136 H CK-MB (CK-2) 3.43 Troponin I 0.033 Impressions: Abdomen Ultrasound 10/22/18 00:00 IMPRESSION: No acute sonographic abnormality. Catheter Patency X-Ray 10/23/18 00:00 IMPRESSION: SMALL RESIDUAL ABSCESS CAVITY. FISTULOUS COMMUNICATION WITH THE DISTAL DESCENDING COLON WITH COLONIC FINDINGS DESCRIBED ABOVE. Fluoroscopy 10/23/18 00:00 IMPRESSION: SMALL RESIDUAL ABSCESS CAVITY. FISTULOUS COMMUNICATION WITH THE DISTAL DESCENDING COLON WITH COLONIC FINDINGS DESCRIBED ABOVE. Abdomen/Pelvis CT 10/31/18 10:44 IMPRESSION: Bilateral lower lobe collapse and consolidation with small pleural effusions Small amount of postoperative free intraperitoneal air. No intra-abdominal or pelvic masses or adenopathy. No abscess. Post subtotal colectomy with right lower quadrant ileostomy. Chest CT 10/31/18 10:44 IMPRESSION: Bilateral lower lobe collapse and consolidation with small pleural effusions Small amount of postoperative free intraperitoneal air. No intra-abdominal or pelvic masses or adenopathy. No abscess. Post subtotal colectomy with right lower quadrant ileostomy. Head CT 11/02/18 00:00 IMPRESSION: Mild chronic microvascular ischemia. No acute intracranial imaging findings. Possible right subcutaneous hematoma. EVIDENCE OF ACUTE STROKE: NO. Brain Flow Nuclear Medicine 11/02/18 10:00 IMPRESSION: Absent cerebral hemisphere perfusion notified of results 1720 hours 11/02/2018 Chest X-Ray 11/03/18 06:00 IMPRESSION: Worsening aeration of the lungs. Assessment & Plan - Diagnosis (1) Septic shock Is this a current diagnosis for this admission?: Yes Plan: She has evidence of multisystem organ failure, but there are some signs of improvement. Her creatinine has improved and she has had improvement in her b lood pressure. She is on broad-spectrum antibiotic coverage for likely organisms. Liver enzymes and bilirubin continue to trend down. She is off the Cardizem drip and her heart rate is holding stable. She got a couple more units of blood yesterday. Fluid from the EVELIN drains was negative for creatinine. [place] to be unlikely that she has a ureteral injury that is draining urine into the belly. She is getting dialysis and is being followed by nephrology. She had a CT of the chest abdomen and pelvis, which showed some pleural effusions, which are to be expected from her volume overload, but the possibility for pneumonia could not be ruled out. At this point, she has good gram-negative coverage with Zosyn, and good anaerobic coverage with Flagyl. Low suspicion for the need for antifungals. Therefore, if any further coverage would be needed, it would be gram-positive coverage. There is nothing from her cultures that would indicate gram-positive organism. A lot of what were seen in her chest could be from fluid overload, but if we decide to treat for gram positives, there are multiple considerations here. Ideally, we would use daptomycin, but daptomycin is not indicated for pneumonia. We could use vancomycin, but given her renal issues, which could be made even worse by the fact that she is on Zosyn, this is not a completely attractive option. The other option would be Zyvox, but with her platelets, and some of the oozing of blood she has had, this option is also not without risk. We will hold off for now pending the outcome of her surgical procedure today. 11/02/2018-overall prognosis is poor condition is critical patient is in septic shock. The peritoneal abdominal tissue cultures are pending. Chest x-ray shows bilateral lower thoracic opacification/effusions. The cultures from abdominal tissue on 216 shows gram-positive cocci in chains. Cultures from 10/26/2018 shows Clostridium. Patient is presently on Flagyl and Zosyn. T-max is 97.5. Patient is going for a brain scan today. Plan is to continue the present management today. 11/03/2018-per the family request we going to stop IV antibiotic therapy and daily labs including chest x-rays. Patient is going to be on comfort care measures only. (2) Acute kidney failure with tubular necrosis Is this a current diagnosis for this admission?: Yes Plan: 11/02/2018-patient developed acute kidney failure most likely secondary to septic shock. Patient had a dialysis on Friday she is going to have another session of dialysis today. Nephrology on board. Overall prognosis is poor condition is critical. There is no urinary output. 11/03/2018 patient has a dialysis session yesterday due to acute kidney injury with tubular necrosis secondary to septic shock. I spoke to Dr. Hearn notified him that patient is going to be on comfort care measures only. No more dialysis sessions. (3) Colonic fistula Is this a current diagnosis for this admission?: Yes Plan: 11/02/2018-patient has colonic fistula. She has history of ulcerative colitis with multiple complications as a result result of it. Patient went for exploratory laparotomy yesterday has a omentectomy, revision of ileostomy. Plan is as per surgical recommendations. 11/03/2018-patient recently had a exploratory laparotomy for omentectomy, revision of the ileostomy. Because of the overall poor prognosis critical condition on brain scan shows anoxic encephalopathy failed apnea test family decided and requested for comfort care measures only. Plan is to follow the family request. - Time Time Spent with patient: 25-34 minutes Medications reviewed and adjusted accordingly: Yes Anticipated discharge: Hospice
[2018-11-03] MEDS ORDERED: MORPHINE SULFATE 10 MG/ML INJ IV SCH (11:00)
[2018-11-03 13:54] VITALS: BP 121/70
--- NOTE | 2018-11-03 17:05 | Death Summary ---
Summary Date : 11/03/18 Time of :: 13:05 Autopsy: No Resuscitation Status: Comfort Measures Only - Final Diagnosis (1) Septic shock Is this a current diagnosis for this admission?: Yes (2) Acute kidney failure with tubular necrosis Is this a current diagnosis for this admission?: Yes (3) Colonic fistula Is this a current diagnosis for this admission?: Yes Hospital Course:: 58-year-old female with known history of ulcerative colitis and had percutaneous drainage of the intra-abdominal pelvic abscess on 09/24/2018, seen in the surgical clinic with complaints of lower abdominal pains, sent to the ER because drain appears to be clogged and patient may be developing new abscess. Patient was taken to the OR 60 cc of purulent material was removed, follow-up CT scan shows no abscess but sigmoid and descending colon diverticulitis for these reasons patient was admitted on 10/21/2018 by the surgical team. Medical consult was called on 10/26/2018 after patient went to the operating room for subtotal colectomy with colostomy. Patient got into septic shock and transferred to ICU. During the hospital course patient was intubated under sedation unable to extubate the patient. Patient is also found to be in septic shock, started on IV antibiotic therapy and IV pressors. Patient also developed acute kidney injury with tubular necrosis started on dialysis. For the last several days patient is off the sedation but still intubated with no response. Brain scan was done yesterday found to have a low cerebral perfusion. Apnea test was done twice a day before on patient failed dose apnea test. This morning I spoke to the son because of the poor prognosis overall critical condition he wants all the measures will be discontinued except for comfort care. As per his recommendations patient was extubated and she peacefully around 1305 on 11/03/2018. No autopsy was requested by the family members. The certificate was signed and body is going to be released to home.
--- NOTE | 2018-11-04 09:20 | EEG PRO FEE REPORT ---
EEG INTERPRETATION PATIENT NAME: [facility] #: [id number] ROOM#: 608 ORDER#: [id number] DATE OF STUDY: 11/02/2018 : 1960 REFERRING MD: DURAN KIRK M.D. Reason for study: Routine study to evaluate for hypoxic brain injury MEDICATIONS: Krysten-Cortef, Xopenex, Flagyl, Morphine, Tazobactam, Sucralfate, Mucomyst, Pantoprazole History This is a 58 year old female with a history of pulmonary fibrosis, diverticulitis, migraines, ulcerative colitis, Crohns disease. This EEG was requested for evaluation for hypoxic brain injury. EEG Interpretation This EEG was recorded in the ICU and the patient is intubated. There were no apparent spontaneous eye openings or closing, but the psychiatric technician assistant manually opened and closed the patient's eyes multiple times. There is not a clear awake state, but the EEG is reactive after stimuli. The background EEG is globally low amplitude with predominantly 2-5 uV of EEG activity. After stimulation, the EEG shows diffuse polymorphic low amplitude 4-6 Hz theta activity with intermixed polymorphic 1-3 Hz delta activity. There are periods of global amplitude suppression and attenuation, but this is not a burst suppression pattern. With eye closure there is no occipital dominant rhythm present. There were no obvious asymmetries in amplitude or frequencies. Photic stimulation was done and photic driving was noted at 9 Hz. There were poorly formed fragments of stage II sleep including poorly formed vertex waves and sleep spindles. There was no epileptiform activity (meaning no sharp waves or spikes), and there were no seizures noted. The EKG showed regular rhythm with rates typically in the 80 to 100 range. EEG Impression This is a markedly abnormal EEG and consistent with diffuse cerebral dysfunction which is non-specific for etiology. Likely considerations would include diffuse hypoxic injury, toxic metabolic derangement, hypothermia (patient's temperature was not noted), drug intoxication, or post ictal state. It is noted that versed was discontinued on October 29, 2018 and is likely not the culprit. However morphine is noted on the patient's medication list, but the date and time of the last dose are not available to me. There were no EEG findings consistent with epilepsy, but if there is strong concern for clinical or subclinical seizure activity then termite treater EEG monitoring would be advised or additional repeat routine EEGs if termite treater monitoring is not available. INTERPRETING PHYSICIAN: ALAN TIM M.D. /: [id number] TT: [id number] ID: [id number] /: 205 TD: 1425 JOB: [id number] cc:Jon HAILE M.D. GIOVANNI SALERNO, M.D. > MTDD
--- NOTE | 2018-11-04 17:10 | DISCHARGE SUMMARY E ---
Discharge Summary NAME: PAULETTE HARO : 1960 AGE: 58Y ADMITTED: 10/21/2018 DISCHARGED: 11/03/2018 The patient on 11/03/2018. FINAL DIAGNOSES: 1. Sepsis. 2. Ulcerative colitis, status post drainage of intraabdominal pelvic abscess. PROCEDURE: The patient underwent an exploratory laparotomy, a subtotal colectomy with ileostomy and Nacho pouch on 10/26/2018. Placement of central venous line and trialysis catheter on 10/29/2018, exploratory laparotomy on 11/01/2018 together with an additional ileostomy and omentectomy. HOSPITAL COURSE: This is a 58-year-old female admitted for abdominal pain, nausea on 10/21/2018. The patient has a history of ulcerative colitis with perforation and intraabdominal pelvic abscess drained on 09/24/2018. She was admitted, was initially on the floor and her general condition deteriorated to the point that on 10/26/2018, the patient was taken to surgery. Underwent a subtotal colectomy with an end ileostomy and Nacho pouch. Postoperatively, the patient did very poorly. She remained hypotensive for several days. She was at a point where she was on 3 pressors, so she remained intubated and sedated. In addition, her kidney function deteriorated and she became anuric with an initial normal BUN and creatinine and subsequently, both BUN and creatinine slowly increased. The patient was then started on hemodialysis on 10/29/2018 and at the same time, her sedation was discontinued and was never resumed. Her general conditions continued to deteriorate with an increase in white blood cell count as high as 32,000. The patient underwent a CT scan of the chest on 10/31/2018 revealing bilateral lower lobe collapse with fluid collection and a CT scan of the abdomen revealed only postoperative changes without obvious pathology. However, on 11/01/2018, the patient was taken back to surgery and underwent an exploratory laparotomy, which was overall negative for intraabdominal pathology, revision of ileostomy and omentectomy due to the omentum, which appeared to be ischemic. The patient was then transferred to the ICU and her general conditions did not improve with still elevated white blood cell count. She was pancultured as well on 10/31/2018 and all the cultures were negative. Eventually, on 11/02/2018, the patient still remained motionless and unresponsive. She underwent an apnea test x2, which was positive, as well as a brain scan, which revealed no brain perfusion. The family was therefore approached. In the meantime, an EEG was done, but preliminary reading was ____ for no brain activity. In light of the results of the apnea test, EEG preliminary results, and no brain perfusion on the brain scan, the family was approached and following a long discussion, the decision was made to perform a terminal extubation and to make the patient comfort care and to stop all the treatment. On 11/03/2018 with the family members present, the patient underwent terminal extubation and she shortly after in the early afternoon. DICTATING PHYSICIAN: DURAN KIRK M.D. [id number] PHY#: [id number] ID: [id number] JOB#: [id number] ACCT: [id number] cc:CIELO HERNANDEZ M.D., GIOVANNI M.D. >
--- NOTE | 2018-11-05 16:46 | PDOC PROGRESS REPORT ---
Subjective Progress Note for:: 11/03/18 Subjective:: Intubated sedated plans for terminal extubation Reason For Visit: DIVERTICULITIS,SIGMOID AND DESCENDING COLON,INTRA- Physical Exam Vital Signs: Temp Pulse Resp BP Pulse Ox 97.0 F 93 20 135/75 H 100 11/03/18 08:42 11/03/18 08:42 11/03/18 08:42 11/03/18 08:42 11/03/18 08:42 Intake & Output 11/02/18 11/03/18 11/04/18 06:59 06:59 06:59 Intake Total 8182 2416 Output Total 6120 1866 Balance 2052 550 Weight 94.3 kg 92.4 kg General appearance: PRESENT: no acute distress, disheveled, morbidly obese. ABSENT: cooperative Head exam: PRESENT: atraumatic, normocephalic Eye exam: PRESENT: conjunctiva pale. ABSENT: EOMI, nystagmus Mouth exam: PRESENT: dry mucosa, neck supple, tongue midline, other - ET tube in place Neck exam: ABSENT: carotid bruit, JVD, lymphadenopathy, thyromegaly, tracheal deviation, tracheostomy Respiratory exam: PRESENT: decreased breath sounds, prolonged expiratory phas, rales, rhonchi, unlabored Cardiovascular exam: PRESENT: RRR, +S1, +S2 Pulses: PRESENT: normal radial pulses GI/Abdominal exam: PRESENT: other - Status post surgery x2 Gentrourinary exam: PRESENT: indwelling catheter Extremities exam: PRESENT: pedal edema. ABSENT: calf tenderness, clubbing, full ROM, joint swelling Musculoskeletal exam: ABSENT: ambulatory, deformity, dislocation Neurological exam: ABSENT: altered, awake Skin exam: PRESENT: dry, warm Results Laboratory Results: 11/03/18 04:30 11/03/18 04:30 10/30/18 11/02/18 11/02/18 10:33 12:25 12:37 WBC RBC Hgb Hct MCV MCH MCHC RDW Plt Count Seg Neutrophils % Lymphocytes % Monocytes % Eosinophils % Basophils % Absolute Neutrophils Absolute Lymphocytes Absolute Monocytes Absolute Eosinophils Absolute Basophils Carbonic Acid HCO3/H2CO3 Ratio ABG pH ABG pCO2 ABG pO2 ABG HCO3 ABG O2 Saturation ABG Base Excess FiO2 Sodium Potassium Chloride Carbon Dioxide Anion Gap BUN Creatinine Est GFR ( Amer) Est GFR (Non-Af Amer) Glucose Lactic Acid 1.8 Calcium Magnesium Total Bilirubin AST ALT Alkaline Phosphatase Total Protein Albumin Triglycerides Blood Type O POSITIVE O POSITIVE Antibody Screen NEGATIVE NEGATIVE 11/03/18 11/03/18 11/03/18 04:30 04:30 04:30 WBC 30.5 H* RBC 2.85 L Hgb 8.6 L Hct 25.9 L MCV 91 MCH 30.2 MCHC 33.3 RDW 15.8 H Plt Count 91 L Seg Neutrophils % Not Reportable Lymphocytes % Not Reportable Monocytes % Not Reportable Eosinophils % Not Reportable Basophils % Not Reportable Absolute Neutrophils Not Reportable Absolute Lymphocytes Not Reportable Absolute Monocytes Not Reportable Absolute Eosinophils Not Reportable Absolute Basophils Not Reportable Carbonic Acid 0.75 L HCO3/H2CO3 Ratio 28:1 ABG pH 7.55 H ABG pCO2 24.8 L ABG pO2 83.3 ABG HCO3 21.2 ABG O2 Saturation 97.5 ABG Base Excess -0.5 FiO2 28% Sodium 135.0 L Potassium 3.8 Chloride 102 Carbon Dioxide 23 Anion Gap 10 BUN 43 H Creatinine 1.42 H Est GFR ( Amer) 46 L Est GFR (Non-Af Amer) 38 L Glucose 226 H Lactic Acid Calcium 7.2 L Magnesium 2.0 Total Bilirubin 2.8 H AST 34 ALT 122 H Alkaline Phosphatase 200 H Total Protein 3.2 L Albumin 1.6 L Triglycerides 151 H Blood Type Antibody Screen 10/31/18 11:40 Tracheal Aspirate Gram Stain - Final 10/31/18 11:40 Tracheal Aspirate Sputum Culture - Final Stenotrophomonas Maltophilia Normal Joi Absent 10/31/18 11:42 Abdomen - Incision Site Gram Stain - Final 10/31/18 11:42 Abdomen - Incision Site Wound Culture - Final Enterococcus Faecalis(Group D) Yeast, Not Orin Albicans No Anaerobic Organisms 10/31/18 11:50 Graves Catheter Urine Culture - Final Yeast, Not Orin Albicans 10/28/18 10/28/18 06:04 06:04 Creatine Kinase 136 H CK-MB (CK-2) 3.43 Troponin I 0.033 Impressions: Abdomen Ultrasound 10/22/18 00:00 IMPRESSION: No acute sonographic abnormality. Catheter Patency X-Ray 10/23/18 00:00 IMPRESSION: SMALL RESIDUAL ABSCESS CAVITY. FISTULOUS COMMUNICATION WITH THE DISTAL DESCENDING COLON WITH COLONIC FINDINGS DESCRIBED ABOVE. Fluoroscopy 10/23/18 00:00 IMPRESSION: SMALL RESIDUAL ABSCESS CAVITY. FISTULOUS COMMUNICATION WITH THE DISTAL DESCENDING COLON WITH COLONIC FINDINGS DESCRIBED ABOVE. Abdomen/Pelvis CT 10/31/18 10:44 IMPRESSION: Bilateral lower lobe collapse and consolidation with small pleural effusions Small amount of postoperative free intraperitoneal air. No intra-abdominal or pelvic masses or adenopathy. No abscess. Post subtotal colectomy with right lower quadrant ileostomy. Chest CT 10/31/18 10:44 IMPRESSION: Bilateral lower lobe collapse and consolidation with small pleural effusions Small amount of postoperative free intraperitoneal air. No intra-abdominal or pelvic masses or adenopathy. No abscess. Post subtotal colectomy with right lower quadrant ileostomy. Head CT 11/02/18 00:00 IMPRESSION: Mild chronic microvascular ischemia. No acute intracranial imaging findings. Possible right subcutaneous hematoma. EVIDENCE OF ACUTE STROKE: NO. Brain Flow Nuclear Medicine 11/02/18 10:00 IMPRESSION: Absent cerebral hemisphere perfusion notified of results 1720 hours 11/02/2018 Chest X-Ray 11/03/18 06:00 IMPRESSION: Worsening aeration of the lungs. Assessment & Plan - Diagnosis (1) Acute kidney failure with tubular necrosis Is this a current diagnosis for this admission?: Yes Plan: Comfort care (2) Septic shock Is this a current diagnosis for this admission?: Yes Plan: Comfort care (3) Abdominal abscess Is this a current diagnosis for this admission?: Yes Plan: Per surgery 10/26/18 18:30 Blood Culture - Final Blood Clostridium Sp.not Perfringens 10/26/18 14:28 Blood Culture - Final Blood Clostridium Sp.not Perfringens 10/22/18 01:40 Gram Stain - Final Abdomen - Abscess Wound Culture - Final Escherichia Coli Enterococcus Faecalis(Group D) Prevotella Species Skin Joi 10/21/18 16:00 Blood Culture - Final Blood Clostridium Sp.not Perfringens (4) Thrombocytopenia Is this a current diagnosis for this admission?: Yes - Time Total Critical Time (Minutes): 50
== END 2018-11-03 13:05 | disposition expired | DRG 329 ==
LOC: ER 12:11 → EH 16:44 → 2N 21:07 → ICU 10-26 12:35
PROVIDERS: ADMIT Surgery; ATTEND Surgery
PROC: 02HV33Z Insertion of Infusion Device into Superior Vena Cava, Percutaneous Approach (ICD-10-PCS; 2018-10-21)
PROC: 0DBB0ZZ Excision of Ileum, Open Approach (ICD-10-PCS; 2018-10-26)
PROC: 0D1B0Z4 Bypass Ileum to Cutaneous, Open Approach (ICD-10-PCS; 2018-10-26)
PROC: 0DN80ZZ Release Small Intestine, Open Approach (ICD-10-PCS; 2018-10-26)
PROC: 0DQ80ZZ Repair Small Intestine, Open Approach (ICD-10-PCS; 2018-10-26)
PROC: 0J9C00Z Drainage of Pelvic Region Subcutaneous Tissue and Fascia with Drainage Device, Open Approach (ICD-10-PCS; 2018-10-26)
PROC: 0BH17EZ Insertion of Endotracheal Airway into Trachea, Via Natural or Artificial Opening (ICD-10-PCS; 2018-10-26)
PROC: 5A1955Z Respiratory Ventilation, Greater than 96 Consecutive Hours (ICD-10-PCS; 2018-10-26)
PROC: 0DTF0ZZ Resection of Right Large Intestine, Open Approach (ICD-10-PCS; principal; 2018-10-26 07:30)
PROC: 02HV33Z Insertion of Infusion Device into Superior Vena Cava, Percutaneous Approach (ICD-10-PCS; 2018-10-29)
PROC: 06HN33Z Insertion of Infusion Device into Left Femoral Vein, Percutaneous Approach (ICD-10-PCS; 2018-10-29)
PROC: 5A1D70Z Performance of Urinary Filtration, Intermittent, Less than 6 Hours Per Day (ICD-10-PCS; 2018-10-30)
PROC: 0DBU0ZZ Excision of Omentum, Open Approach (ICD-10-PCS; 2018-11-01)
PROC: 0DSB0ZZ Reposition Ileum, Open Approach (ICD-10-PCS; 2018-11-01)
PROC: 0JB80ZZ Excision of Abdomen Subcutaneous Tissue and Fascia, Open Approach (ICD-10-PCS; 2018-11-01)
PROC: 5A1D70Z Performance of Urinary Filtration, Intermittent, Less than 6 Hours Per Day (ICD-10-PCS; 2018-11-02)
DX: K57.20 Diverticulitis of large intestine with perforation and abscess without bleeding (principal); A41.9 Sepsis, unspecified organism; R65.21 Severe sepsis with septic shock; N17.0 Acute kidney failure with tubular necrosis; J96.01 Acute respiratory failure with hypoxia; K65.1 Peritoneal abscess; K51.913 Ulcerative colitis, unspecified with fistula; Z51.5 Encounter for palliative care; I48.91 Unspecified atrial fibrillation; M19.90 Unspecified osteoarthritis, unspecified site; F32.9 Major depressive disorder, single episode, unspecified; L40.9 Psoriasis, unspecified; K42.9 Umbilical hernia without obstruction or gangrene; Z90.49 Acquired absence of other specified parts of digestive tract; Z90.710 Acquired absence of both cervix and uterus; Z87.891 Personal history of nicotine dependence; Z79.899 Other long term (current) drug therapy; Z91.040 Latex allergy status; Z91.018 Allergy to other foods; Z88.2 Allergy status to sulfonamides
CPT/HCPCS: 36415; 36430; 36556; 49424; 49465; 70450; 71045; 71250; 74176; 76000; 76700; 76937; 78606; 790; 80048; 80053; 80074; 81001; 82140; 82550; 82553; 82570; 82803; 82962; 83605; 83690; 83735; 84100; 84134; 84300; 84478; 84484; 85025; 85027; 85362; 85379; 85384; 85610; 85730; 86317; 86704; 86850; 86900; 86901; 86920; 87040; 87070; 87075; 87077; 87086; 87101; 87186; 87205; 87340; 87493; 88304; 88307; 93005; 93010; 94002; 94003; 95819; 99285; A9539; C1751; C9290; J0131; J0295; J0330; J0610; J0696; J1100; J1265; J1642; J1650; J1720; J1815; J1940; J2060; J2250; J2270; J2370; J2405; J2543; J2597; J2704; J3010; J3411; J3475; J3480; J3490; J7030; J7050; J7060; J7120; J7620; P9016; P9017; P9035; P9047; Q9969; S0164